=== PATIENT | female | born 1955 | race Caucasian/White ===

== ENCOUNTER 2018-06-02 12:01 | Emergency (ER) | payer BC, SELFPAY ==
[2018-06-02 12:04] VITALS: BP 156/70; PULSE 64; RESP 12; TEMP 36.6; O2SAT 99
--- NOTE | 2018-06-02 12:12 | W.ED.GENAD ---
Discharge Plan Disposition Patient Disposition: HOME Condition: Stable Discharge Details Chief Complaint: Urinary Clinical Impression: Urinary tract infection Primary Care Provider: Andre Braun ED Provider: Naresh Suarez Home Meds and New Rx's Prescriptions: New cephalexin 500 mg tablet 500 mg PO BID 7 Days Qty: 14 RF: 0 Continued aspirin [Aspir-81] 81 MG tablet,delayed release (DR/EC) 81 mg PO DAILY Qty: 30 RF: 0 blood pressure test kit-medium 1 EACH kit 1 ea Miscellaneous BID Qty: 1 RF: 0 diltiazem HCl 30 mg tablet 30 mg PO BID Qty: 180 RF: 3 Discharge Instructions Instructions: Urinary Tract Infection in Women (ED) Additional Instructions: Take medication as prescribed and until fully complete. If not improving over the next 48 hours please feel free to return to the emergency department for be reassessed. If not improving by the end of the antibiotics, with no emergent changes please, follow-up with your primary care provider for reassessment. Referrals: Andre Braun [Primary Care Provider] - (As needed for reassessment) Discharge Data Discharge Date/Time-TO BE ENTERED AT DEPARTURE: 06/02/18 13:26 Medical Decision Making Patient presenting to the emergency department chief complaint of bladder pressure and malaise. Patient states that this started around 7 hours prior to arrival and is similar in presentation to her previous episodes of urinary tract infection. Patient denies any fever chills, nausea vomiting diarrhea, hematuria. Physical exam is benign no signs of pyelonephritis or systemic illness. Urinalysis was performed and shows findings consistent with urinary tract infection. Patient was placed up on Keflex pending urine culture results. Patient states that she has been on Keflex the past and no cross reaction with her penicillin allergy. Patient encouraged to return for any new or worsening symptoms otherwise follow-up with her primary care provider as needed for reassessment. HPI General Mode of arrival: ambulatory. Date/Time Provider Initiated Documentation: 06/02/18 12:10. Limitations to Documentation: no limitations. Information obtained by: RN notes reviewed and old records reviewed. History of Present Illness 62 year old F presents to the emergency department with the chief complaint of UTI, described as mild and similar to prior episodes, Quality is described as other (pressure), and is localized to the pelvis (bladder). Patient started experiencing this hour(s) (7) and it has been constant. No relieving factors improve symptom(s), No exacerbating factors reported . Patient notes no other symptoms.. Patient did receive the following treatments prior to arrival, none Related Data Home Medications Medication Instructions Recorded Confirmed aspirin [Aspir-81] 81 mg PO DAILY #30 tab-cap 02/15/15 06/02/18 blood pressure test kit-medium #1 kit 10/07/16 04/27/18 diltiazem 30 mg tablet 30 mg PO BID #180 tab-cap 05/09/18 06/02/18 cephalexin 500 mg PO BID 7 Days #14 tab 06/02/18 Previous Rx's Medication Instructions Recorded diltiazem 30 mg tablet 30 mg PO BID #180 tab-cap 05/09/18 cephalexin 500 mg PO BID 7 Days #14 tab 06/02/18 Allergies Allergy/AdvReac Type Severity Reaction Status Date / Time erythromycin base Allergy Mild Unverified 04/27/18 08:52 [Erythromycin Base] Penicillins Allergy Mild Unverified 04/27/18 08:52 sulfamethoxazole Allergy Itching Unverified 04/27/18 08:52 [From Bactrim] trimethoprim [From Bactrim] Allergy Itching Unverified 04/27/18 08:52 nitrofurantoin AdvReac Unknown UPSET Unverified 04/27/18 08:52 macrocrystalline STOMACH [From Macrodantin] flecainide AdvReac Wide Unverified 04/27/18 08:52 complex tachycardia General Stated Complaint: Urinary RICARDO: 4 Review of Systems Constitutional Denies body ache(s), Denies chills, Denies fever(s), Reports malaise and Denies weakness Cardiovascular Denies chest pain Respiratory Reports system reviewed and no additional complaints, except as docu Gastrointestinal Denies abdominal pain, Denies nausea and Denies vomiting Genitourinary Reports as per HPI, Denies hematuria, Reports dysuria, Denies urinary incontinence, Denies urinary hesitancy and Denies urinary urgency Neurologic Denies confusion and Denies weakness Psychiatric Denies confusion REPLACED BY [facility] Medical History Atrial fibrillation Atrial flutter Dyspareunia in female Frequent UTI Surgical History Recurrent major depression in partial remission Family History Mother Personal history of malignant neoplasm Father No problems noted. Sister Essential hypertension Hyperlipidemia Sister Essential hypertension Hyperlipidemia Sister Essential hypertension Hyperlipidemia Grandfather No problems noted. Grandmother No problems noted. Social History Smoking/Tobacco Use Status: Never Exam Const General: cooperative and no acute distress Orientation: alert, awake and oriented x3 Resp Effort & Inspection: normal respiratory effort and able to speak in complete sentences Auscultation: clear to auscultation bilaterally Cardio Rate: regular rate Rhythm: regular rhythm Heart Sounds: S1 normal and S2 normal Back/Spine/Pelvis Back: no CVA tenderness Neuro General: alert, awake and oriented x3 Extrem General: normal capillary refill Course Vital Signs Temperature 36.6 C 06/02/18 12:04 Pulse 64 06/02/18 12:04 Respiratory Rate 12 06/02/18 12:04 Blood Pressure 156/70 H 06/02/18 12:04 Pulse Oximetry 99 06/02/18 12:04 Temperature 36.6 C 06/02/18 12:04 Temperature Source Temporal Artery Scan 06/02/18 12:04 Pulse 64 06/02/18 12:04 Respiratory Rate 12 06/02/18 12:04 Respiratory Effort Non-Labored 06/02/18 12:10 Blood Pressure 156/70 H 06/02/18 12:04 Blood Pressure Position Sitting 06/02/18 12:04 Pulse Oximetry 99 06/02/18 12:04 Oxygen Delivery Method Room Air 06/02/18 12:04 Oxygen Flow Rate 0 06/02/18 12:04 Pain Level 5 06/02/18 12:11
[2018-06-02 12:16] LABS: Bilirubin Negative (Negative); Blood Moderate (Negative); Clarity Sl Cloudy; Glucose Negative (Negative); Ketones 15 mg/dL (Negative); Leukocyte Esterase Moderate (Negative); Nitrite Positive (Negative); Specific Gravity 1.025 (1.005-1.025); Urobilinogen 0.2 EU/dL (Up TO 0.2); pH 5.5 (5-8)
[2018-06-02 12:26] LABS: WBC 20-50 HPF (0-5)
[2018-06-02 12:27] LABS: Bacteria Moderate HPF (Negative); C & S Indicated? No/Sq. Contamination; Casts Negative LPF (Negative); Crystals Negative HPF (Negative); Epithelial Cells Many HPF (Negative); Mucus Trace (Negative); RBC 20-50 (0-2)
[2018-06-02] MEDS: Cephalexin 500 MG CAP PO (13:22)
== END 2018-06-02 13:26 | disposition home or self-care (01) ==
PROVIDERS: Emergency Provider Nurse Practitioner Family; PCP Family Medicine
DX: N39.0 Urinary tract infection, site not specified (principal); B97.89 Other viral agents as the cause of diseases classified elsewhere
CPT/HCPCS: 99283; 81003; 81015

== ENCOUNTER 2018-11-15 12:37 | Emergency (ER) | payer BC, SELFPAY ==
[2018-11-15] VITALS (13 sets, daily range): BP systolic 130–186; BP diastolic 65–85; PULSE 56–85; RESP 13–24; TEMP 36.4–36.6; O2SAT 97–99
--- NOTE | 2018-11-15 12:40 | W.ED.GENAD ---
Discharge Plan Disposition Patient Disposition: HOME Condition: Improving Discharge Details Chief Complaint: Headache Clinical Impression: Headache, BP (high blood pressure) Primary Care Provider: Andre Braun ED Provider: Lety Bird Home Meds and New Rx's Prescriptions: New metoprolol succinate 25 mg tablet extended release 24 hr 25 mg PO DAILY Qty: 14 RF: 0 metaxalone [Skelaxin] 800 mg tablet 800 mg PO TID PRN (Reason: muscle spasm) Qty: 7 RF: 0 Continued aspirin [Aspir-81] 81 MG tablet,delayed release (DR/EC) 81 mg PO DAILY Qty: 30 RF: 0 Discontinued diltiazem HCl 30 mg tablet 30 mg PO BID Qty: 180 RF: 3 No Action blood pressure test kit-medium 1 EACH kit 1 ea Miscellaneous BID Qty: 1 RF: 0 Discharge Instructions Instructions: Hypertension (ED), General Headache (ED) Additional Instructions: Encourage hydration. May use Tylenol and/or Ibuprofen as needed for headache. May use Skelaxin for muscle spasm, this may be source of headache as I am concerned for tension headache Do not drive while taking this medication. In regard to your medications, stop the Diltiazem. Begin Metoprolol as prescribed, take this daily, todays dose already given. Go slowly when getting up, particularly from a laying down position. Please monitor your blood pressure twice a day as discussed, write this down and bring results to your primary care appointment on Wednesday. If you develop fevers/chills, increased pain, weakness, vision changes, or other new/worsening symptoms please seek care urgently once again. Referrals: Andre Braun [Primary Care Provider] - Discharge Data Discharge Date/Time-TO BE ENTERED AT DEPARTURE: 11/15/18 16:28 Medical Decision Making Patient is a 63-year-old female presents today with chief complaint of headache. She reports that headache began approximate 1 week ago while watching TV. Patient is associating this with her diltiazem. She reports that when she began diltiazem a few years ago, she had to cut back from 3 times daily dosing to twice daily dosing as she was having similar headache. States that she was advised by her manager skilled to cut back to once daily dosing and yet despite this, over the past 4 days, her pain is persisted. Did not take her diltiazem today. Denies any palpitations. States she is typically asymptomatic with her atrial fibrillation. Patient has had an ablation historian really, states that this took her from atrial flutter to atrial fibrillation and that she has been in it since. States that the pain initially began in the right shoulder radiating up to the right side of the head and wrapping around. Now endorsing pain bilatearlly. Also notes neck stiffness. Reports that she treated neck pain topically which worked well for this discomfort but that she subsequently developed a headache with consistent symptoms since that time. She reports that she is tried multiple [id number] medications without any relief of her headache. Denies any fevers or chills. Has also had generalized weakness. Denies any visual changes. No focal areas of weakness. No sensory changes. Denies recent illness. On exam, patient appears nontoxic. Patient is in to be slightly hypertensive at 156/65. Patient did recently stop her diltiazem, did not take this today. Patient is noted to be in atrial fibrillation but rate seems well controlled. Neuro exam is intact. She is full range of motion with no meningeal signs of the neck. Given the length of symptoms that this is been unresponsive to medical management thus far, plan to obtain CT scan as well as laboratory evaluation. Discussed this plan with the patient is in agreement. Plan to hydrate she does appear slightly dry on exam and admits to less than typical fluid intake. Will give Toradol and Tylenol for pain. CT reviewed by radiologist and noted to be negative. Labs concerning for elevated BUN, patient is receiving hydration. Alk phos is slightly elevated. Discussed this elevation with the patient. She will f/u with PCP regarding this. HO persists despite toradol and tylenol. She continues to describe what sounds to be a tension HO, has had increased stress recently. Will give Valium and reassess. Consulted with Dr. Ahn. Discussed presenting symptoms. Advised stopping diltiazem. Advised beginning on Metoprolol 25 QD. Does not meet criteria for anticoagulation. Advised she check home BP. Patient Artur has a home blood pressure cuff and will check this twice daily. She has an appointment Wednesday morning with her primary care at which time she will discuss the blood pressure readings. I encouraged hydration. The valium was very beneficial for the headache, we will discharge her with Skelaxin, hoping for less SE for the patient. She has upcoming appointment. She was given strict return precautions. She will follow-up with cardiology as well, she will call them to schedule follow-up appointment. Prescription for metoprolol as advised by Dr. Hurley will be given. All of her questions and concerns were addressed and she is in agreement with this plan. HPI General Mode of arrival: ambulatory. Date/Time Provider Initiated Documentation: 11/15/18 12:37. Limitations to Documentation: no limitations. Information obtained by: patient and RN notes reviewed. History of Present Illness 63 year old F presents to the emergency department with the chief complaint of headache, described as moderate, with intensity rated at 6. Quality is described as aching (wrapping around head bilaterally), and is localized to the head. Patient denies radiation (radiates up from right side of neck). Patient started experiencing this week(s) (1) and it has been constant. No relieving factors improve symptom(s), No exacerbating factors reported . Patient notes headaches, nausea/vomiting (nausea yesterday, since resolved) and weakness (general); denies confusion, chest pain, cough, diaphoresis, fever/chills, loss of appetite, rash, seizure, shortness of breath and syncope. Patient did receive the following treatments prior to arrival, NSAID Related Data Home Medications Medication Instructions Recorded Confirmed aspirin [Aspir-81] 81 mg PO DAILY #30 tab-cap 02/15/15 11/15/18 blood pressure test kit-medium #1 kit 10/07/16 04/27/18 metaxalone [Skelaxin] 800 mg PO TID PRN #7 tab 11/15/18 metoprolol succinate 25 mg PO DAILY #14 tab 11/15/18 Previous Rx's Medication Instructions Recorded metaxalone [Skelaxin] 800 mg PO TID PRN #7 tab 11/15/18 metoprolol succinate 25 mg PO DAILY #14 tab 11/15/18 Allergies Allergy/AdvReac Type Severity Reaction Status Date / Time erythromycin base Allergy Mild Unverified 11/15/18 12:42 [Erythromycin Base] Penicillins Allergy Mild Unverified 11/15/18 12:42 sulfamethoxazole Allergy Itching Unverified 11/15/18 12:42 [From Bactrim] trimethoprim [From Bactrim] Allergy Itching Unverified 11/15/18 12:42 nitrofurantoin AdvReac Unknown UPSET Unverified 11/15/18 12:42 macrocrystalline STOMACH [From Macrodantin] flecainide AdvReac Wide Unverified 11/15/18 12:42 complex tachycardia General RICARDO: 4 Review of Systems Constitutional Reports as per HPI, Denies chills, Reports fatigue, Denies fever(s), Denies frequent falls, Reports headache(s), Denies snoring and Reports weakness (generalized) Eyes Reports as per HPI, Denies blurry vision, Denies change in vision and Reports photophobia ENT Denies vertigo, Reports headache(s) and Denies neck pain Cardiovascular Reports as per HPI, Denies chest pain, Denies lightheadedness, Denies radiating jaw, neck or arm pain, Denies dyspnea and Denies dyspnea on exertion Respiratory Reports as per HPI, Denies chest congestion, Denies cough, Denies dyspnea, Denies dyspnea on exertion, Denies snoring, Denies stridor and Denies wheezing Gastrointestinal Reports as per HPI, Denies abdominal pain, Denies change in bowel habits, Denies nausea and Denies vomiting Musculoskeletal Reports as per HPI, Denies back pain, Denies myalgias, Denies muscle cramps, Denies neck pain and Denies numbness Integumentary/Breasts Reports as per HPI and Denies rash Neurologic Reports as per HPI, Denies abnormal movements, Denies abnormal speech, Denies behavioral changes, Denies confusion, Denies vertigo, Denies frequent falls, Reports headache(s), Denies focal weakness, Denies numbness, Denies sensory deficit and Reports weakness (generalized) Psychiatric Denies behavioral changes and Denies confusion Endocrine Reports fatigue Allergic/Immunologic Denies wheezing [facility] Medical History Atrial fibrillation Atrial flutter Dyspareunia in female Frequent UTI Surgical History Recurrent major depression in partial remission Social History Smoking/Tobacco Use Status: Never Drug use: Never Do you feel safe at home: Yes Do you feel safe in your relationship?: Yes Exam Const General: cooperative, healthy appearing, uncomfortable, no acute distress, well developed and well groomed Nutritional Appearance: average body habitus and well nourished Orientation: alert, awake and oriented x3 [facility] Head: normal to inspection, no palpable skull fracture, normocephalic and atraumatic Ears: hearing grossly normal bilaterally, external ears normal and TM's normal bilaterally General nose exam: external nose normal Mouth: oral mucosae normal and moist mucous membranes Throat: posterior oropharynx normal Eyes General: appearance normal, both eyes and all related structures Alignment and Position: alignment normal Periorbital: periorbital findings normal Eyelids: eyelids normal Sclera: sclerae normal Cornea: corneas normal Pupils: PERRL EOM: EOM intact bilaterally Neck Neck: normal visual inspection, full ROM, no lymphadenopathy and no meningeal signs Resp Effort & Inspection: normal respiratory effort, able to speak in complete sentences and no respiratory distress Auscultation: clear to auscultation bilaterally, no rales, no rhonchi and no wheezes Cardio Rate: regular rate Rhythm: regular rhythm Heart Sounds: S1 normal and S2 normal GI Inspection: normal to inspection and non-distended Palpation: soft, no hepatosplenomegaly, not firm, no guarding, not rigid and nontender Percussion: normal to percussion Auscultation: normal bowel sounds Back/Spine/Pelvis Cervical Spine: normal cervical lordosis and cervical ROM normal Skin General skin exam: no rashes or lesions noted Neuro General: alert, awake and oriented x3 Cranial Nerves: CN's II-XI intact bilaterally Cognition: normal cognition Speech: speech normal Gait: normal gait Motor: muscle tone normal throughout, strength 5/5 throughout, no pronator drift, no movement abnormalities noted and no fasciculations Sensory Exam: no sensory deficits noted Coordination: [id number] test normal, [id number] test normal, Romberg test normal and rapid alternating movement UE normal Extrem General: normal to inspection, normal capillary refill, no pedal edema and no calf tenderness Psych Appearance: grossly normal and well kempt Mental Status: mental status grossly normal Speech and Movement: speech and movement normal
--- NOTE | 2018-11-15 12:50 | NUR.NOTE ---
practioner at bedside for eval pt resting in bed aa0x3 moves all extremities Nursing Note:
--- NOTE | 2018-11-15 12:56 | DI.CT_ITS ---
SYMPTOMS/DIAGNOSIS: HEADACHE CRANIAL CT: A noncontrast enhanced examination was performed. There is no evidence of an intra or extra-axial hemorrhage. The villalobos/white matter distinction is maintained. The ventricles are normal. There is no evidence of a skull fracture. Mild mucoperiosteal thickening is noted in both maxillary antra where there are small retention cysts. The ethmoid, frontal and sphenoid sinus is clear. There is no evidence of a mastoid effusion. SUMMARY: No acute intracranial abnormality is demonstrated.
--- NOTE | 2018-11-15 13:02 | ED.GENADUL_ITS ---
Discharge Plan Disposition Patient Disposition: HOME Condition: Improving Discharge Details Chief Complaint: Headache Clinical Impression: Headache, BP (high blood pressure) Primary Care Provider: Andre Braun ED Provider: Lety Bird Home Meds and New Rx's Prescriptions: New metoprolol succinate 25 mg tablet extended release 24 hr 25 mg PO DAILY Qty: 14 RF: 0 metaxalone [Skelaxin] 800 mg tablet 800 mg PO TID PRN (Reason: muscle spasm) Qty: 7 RF: 0 Continued aspirin [Aspir-81] 81 MG tablet,delayed release (DR/EC) 81 mg PO DAILY Qty: 30 RF: 0 Discontinued diltiazem HCl 30 mg tablet 30 mg PO BID Qty: 180 RF: 3 No Action blood pressure test kit-medium 1 EACH kit 1 ea Miscellaneous BID Qty: 1 RF: 0 Discharge Instructions Instructions: Hypertension (ED), General Headache (ED) Additional Instructions: Encourage hydration. May use Tylenol and/or Ibuprofen as needed for headache. May use Skelaxin for muscle spasm, this may be source of headache as I am concerned for tension headache Do not drive while taking this medication. In regard to your medications, stop the Diltiazem. Begin Metoprolol as prescribed, take this daily, todays dose already given. Go slowly when getting up, particularly from a laying down position. Please monitor your blood pressure twice a day as discussed, write this down and bring results to your primary care appointment on Wednesday. If you develop fevers/chills, increased pain, weakness, vision changes, or other new/worsening symptoms please seek care urgently once again. Referrals: Andre Braun [Primary Care Provider] - Discharge Data Discharge Date/Time-TO BE ENTERED AT DEPARTURE: 11/15/18 16:28 Medical Decision Making Patient is a 63-year-old female presents today with chief complaint of headache. She reports that headache began approximate 1 week ago while watching TV. Patient is associating this with her diltiazem. She reports that when she began diltiazem a few years ago, she had to cut back from 3 times daily dosing to twice daily dosing as she was having similar headache. States that she was advised by her senior environmental technician to cut back to once daily dosing and yet despite this, over the past 4 days, her pain is persisted. Did not take her diltiazem today. Denies any palpitations. States she is typically asymptomatic with her atrial fibrillation. Patient has had an ablation historian really, states that this took her from atrial flutter to atrial fibrillation and that she has been in it since. States that the pain initially began in the right shoulder radiating up to the right side of the head and wrapping around. Now endorsing pain bilatearlly. Also notes neck stiffness. Reports that she treated neck pain topically which worked well for this discomfort but that she subsequently developed a headache with consistent symptoms since that time. She reports that she is tried multiple hnna-gjy-mgtvukd medications without any relief of her headache. Denies any fevers or chills. Has also had generalized weakness. Denies any visual changes. No focal areas of weakness. No sensory changes. Denies recent illness. On exam, patient appears nontoxic. Patient is in to be slightly hypertensive at 156/65. Patient did recently stop her diltiazem, did not take this today. Patient is noted to be in atrial fibrillation but rate seems well controlled. Neuro exam is intact. She is full range of motion with no meningeal signs of the neck. Given the length of symptoms that this is been unresponsive to medical management thus far, plan to obtain CT scan as well as laboratory evaluation. Discussed this plan with the patient is in agreement. Plan to hydrate she does appear slightly dry on exam and admits to less than typical fluid intake. Will give Toradol and Tylenol for pain. CT reviewed by radiologist and noted to be negative. Labs concerning for elevated BUN, patient is receiving hydration. Alk phos is slightly elevated. Discussed this elevation with the patient. She will f/u with PCP regarding this. HO persists despite toradol and tylenol. She continues to describe what sounds to be a tension HO, has had increased stress recently. Will give Valium and reassess. Consulted with Dr. Ahn. Discussed presenting symptoms. Advised stopping diltiazem. Advised beginning on Metoprolol 25 QD. Does not meet criteria for anticoagulation. Advised she check home BP. Patient Artur has a home blood pressure cuff and will check this twice daily. She has an appointment Wednesday morning with her primary care at which time she will discuss the blood pressure readings. I encouraged hydration. The valium was very beneficial for the headache, we will discharge her with Skelaxin, hoping for less SE for the patient. She has upcoming appointment. She was given strict return precautions. She will follow-up with cardiology as well, she will call them to schedule follow-up appointment. Prescription for metoprolol as advised by Dr. Hurley will be given. All of her questions and concerns were addressed and she is in agreement with this plan. HPI General Mode of arrival: ambulatory . Date/Time Provider Initiated Documentation: 11/15/18 12:37 . Limitations to Documentation: no limitations . Information obtained by: patient and RN notes reviewed . History of Present Illness 63 year old F presents to the emergency department with the chief complaint of headache, described as moderate, with intensity rated at 6. Quality is described as aching (wrapping around head bilaterally), and is localized to the head. Patient denies radiation (radiates up from right side of neck). Patient started experiencing this week(s) (1) and it has been constant. No relieving factors improve symptom(s), No exacerbating factors reported . Patient notes headaches, nausea/vomiting (nausea yesterday, since resolved) and weakness (general); denies confusion, chest pain, cough, diaphoresis, fever/chills, loss of appetite, rash, seizure, shortness of breath and syncope. Patient did receive the following treatments prior to arrival, NSAID Related Data Home Medications Medication Instructions Recorded Confirmed aspirin [Aspir-81] 81 mg PO DAILY #30 tab-cap 02/15/15 11/15/18 blood pressure test kit-medium #1 kit 10/07/16 04/27/18 metaxalone [Skelaxin] 800 mg PO TID PRN #7 tab 11/15/18 metoprolol succinate 25 mg PO DAILY #14 tab 11/15/18 Previous Rx's Medication Instructions Recorded metaxalone [Skelaxin] 800 mg PO TID PRN #7 tab 11/15/18 metoprolol succinate 25 mg PO DAILY #14 tab 11/15/18 Allergies Allergy/AdvReac Type Severity Reaction Status Date / Time erythromycin base Allergy Mild Unverified 11/15/18 12:42 [Erythromycin Base] Penicillins Allergy Mild Unverified 11/15/18 12:42 sulfamethoxazole Allergy Itching Unverified 11/15/18 12:42 [From Bactrim] trimethoprim [From Bactrim] Allergy Itching Unverified 11/15/18 12:42 nitrofurantoin AdvReac Unknown UPSET Unverified 11/15/18 12:42 macrocrystalline STOMACH [From Macrodantin] flecainide AdvReac Wide Unverified 11/15/18 12:42 complex tachycardia General RICARDO: 4 Review of Systems Constitutional Reports as per HPI, Denies chills, Reports fatigue, Denies fever(s), Denies frequent falls, Reports headache(s), Denies snoring and Reports weakness (generalized) Eyes Reports as per HPI, Denies blurry vision, Denies change in vision and Reports photophobia ENT Denies vertigo, Reports headache(s) and Denies neck pain Cardiovascular Reports as per HPI, Denies chest pain, Denies lightheadedness, Denies radiating jaw, neck or arm pain, Denies dyspnea and Denies dyspnea on exertion Respiratory Reports as per HPI, Denies chest congestion, Denies cough, Denies dyspnea, Denies dyspnea on exertion, Denies snoring, Denies stridor and Denies wheezing Gastrointestinal Reports as per HPI, Denies abdominal pain, Denies change in bowel habits, Denies nausea and Denies vomiting Musculoskeletal Reports as per HPI, Denies back pain, Denies myalgias, Denies muscle cramps, Denies neck pain and Denies numbness Integumentary/Breasts Reports as per HPI and Denies rash Neurologic Reports as per HPI, Denies abnormal movements, Denies abnormal speech, Denies behavioral changes, Denies confusion, Denies vertigo, Denies frequent falls, Reports headache(s), Denies focal weakness, Denies numbness, Denies sensory deficit and Reports weakness (generalized) Psychiatric Denies behavioral changes and Denies confusion Endocrine Reports fatigue Allergic/Immunologic Denies wheezing [facility] Medical History Atrial fibrillation Atrial flutter Dyspareunia in female Frequent UTI Surgical History Recurrent major depression in partial remission Social History Smoking/Tobacco Use Status: Never Drug use: Never Do you feel safe at home: Yes Do you feel safe in your relationship?: Yes Exam Const General: cooperative, healthy appearing, uncomfortable, no acute distress, well developed and well groomed Nutritional Appearance: average body habitus and well nourished Orientation: alert, awake and oriented x3 [facility] Head: normal to inspection, no palpable skull fracture, normocephalic and atraumatic Ears: hearing grossly normal bilaterally, external ears normal and TM's normal bilaterally General nose exam: external nose normal Mouth: oral mucosae normal and moist mucous membranes Throat: posterior oropharynx normal Eyes General: appearance normal, both eyes and all related structures Alignment and Position: alignment normal Periorbital: periorbital findings normal Eyelids: eyelids normal Sclera: sclerae normal Cornea: corneas normal Pupils: PERRL EOM: EOM intact bilaterally Neck Neck: normal visual inspection, full ROM, no lymphadenopathy and no meningeal signs Resp Effort & Inspection: normal respiratory effort, able to speak in complete sentences and no respiratory distress Auscultation: clear to auscultation bilaterally, no rales, no rhonchi and no wheezes Cardio Rate: regular rate Rhythm: regular rhythm Heart Sounds: S1 normal and S2 normal GI Inspection: normal to inspection and non-distended Palpation: soft, no hepatosplenomegaly, not firm, no guarding, not rigid and nontender Percussion: normal to percussion Auscultation: normal bowel sounds Back/Spine/Pelvis Cervical Spine: normal cervical lordosis and cervical ROM normal Skin General skin exam: no rashes or lesions noted Neuro General: alert, awake and oriented x3 Cranial Nerves: CN's II-XI intact bilaterally Cognition: normal cognition Speech: speech normal Gait: normal gait Motor: muscle tone normal throughout, strength 5/5 throughout, no pronator drift, no movement abnormalities noted and no fasciculations Sensory Exam: no sensory deficits noted Coordination: glgaoh-nl-lrog test normal, dgcm-ei-yzss test normal, Romberg test normal and rapid alternating movement UE normal Extrem General: normal to inspection, normal capillary refill, no pedal edema and no calf tenderness Psych Appearance: grossly normal and well kempt Mental Status: mental status grossly normal Speech and Movement: speech and movement normal
[2018-11-15 13:24] LABS: Absolute Basophil Count 0.04 k/cumm (0.0-0.2); Absolute Eosinophil Count 0.11 k/cumm (0.0-0.7); Absolute Lymphocyte Count 1.37 k/cumm (1.2-3.4); Absolute Monocyte Count 0.64 k/cumm (0.11-0.7); Absolute Neutrophil Count 5.02 k/cumm (1.2-6.7); Basophils % 0.6; Eosinophils % 1.5; HCT 47.1 % (36.0-46.0); HGB 15.9 g/dL (12.0-15.5); Lymphocytes % 19.1; Mean Corp. HGB Concentration 33.8 g/dL (32.0-36.0); Mean Corpuscular Hemoglobin 29.8 pg (27.0-33.0); Mean Corpuscular Volume 88.4 fL (80-95); Mean Platelet Volume 10.5 fL (8.0-11.0); Monocytes % 8.9; Neutrophils % 69.9; Platelet Count 208 x1000/uL (130-400); RBC 5.33 m/cumm (4.00-5.20); RBC Distribution Width 13.4 % (11.7-14.6); White Blood Cell Count 7.18 k/cumm (4.4-10.8)
--- NOTE | 2018-11-15 13:26 | NUR.NOTE ---
pt resting in bed ivf infusing on school lunch monitor ekg obtained read by md Nursing Note:
[2018-11-15 13:44] LABS: ALT 27 U/L (12-78); AST 21 U/L (15-37); Albumin 4.2 g/dL (3.4-5.0); Alkaline Phosphatase 124 U/L (46-116); Anion Gap 9.8 mmol/L (3-11); BUN 23 mg/dL (7-18); Bilirubin, Total 0.3 mg/dL (0.2-1.0); CO2 28.2 mmol/L (21.0-32.0); Calcium 9.5 mg/dL (8.5-10.1); Chloride 101 mmol/L (98-107); Estimated GFR 55.82 (mL/min/1.73m2); Glucose 93 mg/dL (70-100); Magnesium 2.2 mg/dL (1.8-2.4); Potassium 3.9 mmol/L (3.5-5.1); Sodium 139 mmol/L (136-145); TSH (W/Ref FT4) 2.82 uIU/mL (0.358-3.74); Total Protein 7.9 g/dL (6.4-8.2)
[2018-11-15 13:46] LABS: Troponin I < 0.02 ng/mL (0.00-0.06)
[2018-11-15] MEDS: Ketorolac 15 MG/ML VIAL IVP (13:47)
[2018-11-15] MEDS: Normal Saline Flush 10 ML SYR IVP (13:48)
[2018-11-15] MEDS: Acetaminophen 325 MG TAB 650 MG PO (13:48)
[2018-11-15] MEDS: Normal Saline 1,000 ML 1000 ML IV (13:48)
--- NOTE | 2018-11-15 13:52 | NUR.NOTE ---
pt to ct Nursing Note:
[2018-11-15 14:03] LABS: ESR 5 MM/HR (0-30)
[2018-11-15] MEDS: diazePAM 5 MG TAB PO (14:46)
--- NOTE | 2018-11-15 14:46 | NUR.NOTE ---
pt medicated as per mdo for headpain tolorating po intakeNursing Note:
[2018-11-15] MEDS: Metoprolol 25 MG TAB PO (15:08)
--- NOTE | 2018-11-15 15:16 | NUR.NOTE ---
pt medicated as per mdo on cardiac monitorNursing Note:
--- NOTE | 2018-11-15 15:21 | NUR.NOTE ---
pt ambulatory to bathroom steady gait Nursing Note:
== END 2018-11-15 16:28 | disposition home or self-care (01) ==
PROVIDERS: Emergency Provider Physician Assistant; PCP Family Medicine
DX: R51 Headache (principal); I10 Essential (primary) hypertension; I48.91 Unspecified atrial fibrillation; I48.92 Unspecified atrial flutter
CPT/HCPCS: 80053; 85652; 96361; 96374; 99284; 70450; 83735; 84443; 84484; 85025; J1885; J3490

== ENCOUNTER 2019-02-14 11:59 | Outpatient (REF) | payer BC, SELFPAY ==
--- NOTE | 2019-02-14 10:30 | PAPFT_PTH ---
PATIENT: Ally Hayes LOC: [facility] U#:[id number] AGE/SX: 63/F ROOM: RE02/14/[address]: Tran Burkett : 1955 BED: DIS: 02/14/2019 SPEC #: [id number] RECD: 02/14/19 12:52 STATUS: OLGA LIDIA REQ #: [id number] REGINALD: 02/14/19 10:[address]: Tran Burkett DEPT: [facility] Cytology RECD BY: Shagufta Henry ENTERED: 02/14/19 12:52 SP TYPE: PAPFT OTHR DR: Andre Braun MD Tissues: 1 - CX/ENDOCX FOR PAP SMEARS Procedures: PAP THIN PREP/UVM Screening HPV DNA PROBE Comments: [id number]
== END 2019-02-14 12:19 ==
LOC: LBN 11:59
PROVIDERS: PCP Family Medicine; Visit Provider Obstetrics & Gynecology Gynecology
DX: Z12.4 Encounter for screening for malignant neoplasm of cervix (principal); Z11.51 Encounter for screening for human papillomavirus (HPV)
CPT/HCPCS: 88142; 87624

== ENCOUNTER 2019-03-14 01:40 | Outpatient (CLI) | payer BC, SELFPAY ==
--- NOTE | 2019-03-14 08:30 | DI.MAMMO_ITS ---
EXAM: MG MAMMO SCREENING CLINICAL HISTORY: screening. TECHNIQUE: Mammograms were interpreted according to the usual protocol including computer analysis w [employer] CAD system, tomosynthesis and C-view imaging. FINDINGS: The breast tissue is of moderate radiodensity. There is no evidence of a mass. There are no suspici ous calcifications and there has been no significant interval change when compared with prior images. IMPRESSION: No evidence of malignancy. Category 1. Yearly screening mammography is recommended. Breast density, c ategory B. BI-RADS Cat 1 - Negative. Breast Density - Category B - Scattered areas of fibroglandular density.
== END 2019-03-14 02:00 ==
PROVIDERS: PCP Family Medicine; Visit Provider Obstetrics & Gynecology Gynecology
DX: Z12.31 Encounter for screening mammogram for malignant neoplasm of breast (principal)
CPT/HCPCS: 77063; 77067

== ENCOUNTER 2019-04-13 22:56 | Emergency (ER) | payer BC, SELFPAY ==
[2019-04-13 22:59] VITALS: BP 184/97; PULSE 68; RESP 16; TEMP 36.2; O2SAT 98
--- NOTE | 2019-04-13 23:05 | ED.GENADUL_ITS ---
Discharge Plan Disposition Patient Disposition: HOME Condition: Good Discharge Details Chief Complaint: Urinary Clinical Impression: Acute UTI Primary Care Provider: Andre Braun ED Provider: Raudel Lugo Home Meds and New Rx's Prescriptions: New cephalexin [Keflex] 500 mg capsule 500 mg PO QID 10 Days Qty: 40 RF: 0 No Action lisinopril 5 mg tablet 2.5 mg PO DAILY Qty: 45 RF: 3 metoprolol succinate 25 mg tablet extended release 24 hr 25 mg PO DAILY Qty: 90 RF: 3 albuterol sulfate 90 mcg/actuation HFA aerosol inhaler 2 puff IH QID PRN (Reason: shortness of breath or wheezing) Qty: 18 RF: 0 aspirin [Aspir-81] 81 MG tablet,delayed release (DR/EC) 81 mg PO DAILY Qty: 30 RF: 0 (DME) blood pressure test kit-medium 1 EACH kit 1 ea Miscellaneous BID Qty: 1 RF: 0 prednisone 20 mg tablet See Rx Instructions PO DAILY Qty: 11 RF: 0 Discharge Instructions Instructions: Urinary Tract Infection in Women (ED) Additional Instructions: At this time you do have evidence of urinary tract infection. You may have mild resistance of the Keflex, however you have seemed to tolerate this well amongst her multiple allergies. Please take this as directed. You will be contacted if there is resistance noted to this. If you do not have any improvement of your symptoms please return immediately for reassessment. If you notice any worsening of your symptoms, or any new symptoms such as vomiting, diarrhea, fever, chills, shortness of breath, chest pain, numbness, weakness, or fainting , please return immediately to the emergency department for reevaluation. Please follow up with your primary care provider as soon as possible for reassessment and reevaluation. As always, it was a pleasure participating in your medical care today. Referrals: Andre Braun. [Primary Care Provider] - Medical Decision Making This is a 63-year-old female with a past medical history of A. fib who is only on aspirin, who presents today for evaluation of symptoms concerning for UTI. She states that over the last 12 hours she has had mild increased urinary frequency, burning, and irritation. She states that she has had urinary tract infections in the past and this feels identical. She denies any flank pain. She denies any fever or chills. No other complaints at this time. Of note the patient does have multiple allergies including penicillins, sulfa, nitrofurantoin, however she has tolerated Keflex in the past for UTI. She does show indeterminate resistance to cephalosporins in the past. We will get a urinalysis to evaluate for UTI. Will discuss potential treatment options including fluoroquinolones which I am slightly concerned about with her issues with flecainide in the past and her wide-complex tachycardias that have occurred from them. 12:27 PM Patient's urinalysis is returned and demonstrates notable urinary tract infection. However the patient remains hemodynamically stable with no clinical evidence of pyelonephritis or other significant abnormality. No abdominal tenderness suggestive of appendicitis. Signs and symptoms appear clinically consistent with urinary tract infection. I did discuss risks and benefits of fluoroquinolones versus trying Keflex again. At this time she would like to hold off on fluoroquinolones and utilize Keflex. We will give her first dose here, pill to go home with and a prescription. Labs will be followed up for her cultures. Discussed red flags which to return. I have extensively reviewed the treatment plan and discharge instructions with the patient. I have addressed all patient concerns at this time. The patient was made aware of what symptoms to monitor for that would warrant a return to the emergency department. Discussed the plan with the patient, they demonstrate verbal understanding and agreement with our assessment and plan at this time. HPI General Date/Time Provider Initiated Documentation: 04/13/19 22:56 . HPI Narrative: This is a 63-year-old female with a past medical history of A. fib who is only on aspirin, who presents today for evaluation of symptoms concerning for UTI. She states that over the last 12 hours she has had mild increased urinary frequency, burning, and irritation. She states that she has had urinary tract infections in the past and this feels identical. She denies any flank pain. She denies any fever or chills. No other complaints at this time. Of note the patient does have multiple allergies including penicillins, sulfa, nitrofurantoin, however she has tolerated Keflex in the past for UTI. She does show indeterminate resistance to cephalosporins in the past. Related Data Home Medications Medication Instructions Recorded Confirmed aspirin [Aspir-81] 81 mg PO DAILY #30 tab-cap 09/11/15 10/11/19 blood pressure test kit-medium #1 kit 10/07/16 03/17/19 lisinopril 5 mg tablet 2.5 mg PO DAILY #45 tab 12/28/18 03/17/19 metoprolol succinate 25 mg 25 mg PO DAILY #90 tab 12/28/18 03/17/19 tablet,extended release 24 hr albuterol sulfate 90 mcg/actuation 2 puff IH QID PRN #18 gm 03/17/19 03/17/19 aerosol inhaler prednisone 20 mg tablet See Rx Instructions PO DAILY #11 03/20/19 tab cephalexin [Keflex] 500 mg PO QID 10 Days #40 cap 04/14/19 Previous Rx's Medication Instructions Recorded lisinopril 5 mg tablet 2.5 mg PO DAILY #45 tab 12/28/18 metoprolol succinate 25 mg 25 mg PO DAILY #90 tab 12/28/18 tablet,extended release 24 hr albuterol sulfate 90 mcg/actuation 2 puff IH QID PRN #18 gm 03/17/19 aerosol inhaler prednisone 20 mg tablet See Rx Instructions PO DAILY #11 03/20/19 tab cephalexin [Keflex] 500 mg PO QID 10 Days #40 cap 04/14/19 Allergies Allergy/AdvReac Type Severity Reaction Status Date / Time erythromycin base Allergy Mild Unverified 04/13/19 23:02 [Erythromycin Base] Penicillins Allergy Mild Unverified 04/13/19 23:02 sulfamethoxazole Allergy Itching Unverified 04/13/19 23:02 [From Bactrim] trimethoprim [From Bactrim] Allergy Itching Unverified 04/13/19 23:02 nitrofurantoin AdvReac Unknown UPSET Unverified 04/13/19 23:02 macrocrystalline STOMACH [From Macrodantin] flecainide AdvReac Wide Unverified 04/13/19 23:02 complex tachycardia General Stated Complaint: Urinary RICARDO: 4 Review of Systems All systems reviewed & are unremarkable except as noted in HPI and below PFSH Social History Smoking/Tobacco Use Status: Never Drug use: Never Substance use type: does not use Do you feel safe at home: Yes Do you feel safe in your relationship?: Yes History History 0 Para Hx # Term Pregnancies Multiple births Hx # Pregnancies Ectopic pregnancies AB induced Hx Number of Living Children AB spontaneous Exam Narrative Exam Narrative: 1.Const: Well-nourished, Well-developed, appearing stated age 2.Eyes: PERRL, no conjunctival injection, and symmetrical lids. 3.ENT: Atraumatic external nose and ears. Moist MM. Neck: Symmetric, trachea midline, No thyromegaly. 4.CVS: +S1/S2, No murmurs or gallops. Peripheral pulses 2+ and equal in all extremities. Brisk capillary refill in all extremities. 5.RESP: Unlabored respiratory effort. Clear to auscultation bilaterally. No wheezes rales or rhonchi 6.GI: Soft, Nontender/Nondistended, No hepatosplenomegaly. No guarding or rebound.. No flank or CVA tenderness. 7.MSK: Normocephalic/Atraumatic, Extremities w/o deformity or ttp No cyanosis or clubbing, Normal movement of all extremities 8.Skin: Warm, Dry. No rashes or lesions. 9.Neuro: trustee of estate II-XII grossly intact. Sensation grossly intact, no focal neurologic deficits. 10.Psych: (AAO) x3. Appropriate mood and affect Course Vital Signs Vital signs: Vital Signs Temperature 36.2 C L 04/13/19 22:59 Pulse 68 04/13/19 22:59 Respiratory Rate 16 04/13/19 22:59 Blood Pressure 184/97 H 04/13/19 22:59 Pulse Oximetry 98 04/13/19 22:59 Temperature 36.2 C L 04/13/19 22:59 Temperature Source Skin 04/13/19 22:59 Pulse 68 04/13/19 22:59 Respiratory Rate 16 04/13/19 22:59 Blood Pressure 184/97 H 04/13/19 22:59 Blood Pressure Position Sitting 04/13/19 22:59 Pulse Oximetry 98 04/13/19 22:59 Oxygen Delivery Method Room Air 04/13/19 22:59 Oxygen Flow Rate 0 04/13/19 22:59 Pain Level 3 04/13/19 22:59
[2019-04-13 23:15] LABS: Bilirubin Negative (Negative); Blood Trace-intact (Negative); Clarity Sl Cloudy (Clear); Glucose Negative (Negative); Ketones Negative (Negative); Leukocyte Esterase Small (Negative); Nitrite Negative (Negative); Urobilinogen 0.2 EU/dL (Up TO 0.2); pH 5.5 (5-8)
[2019-04-13 23:31] LABS: Epithelial Cells Many HPF (Negative); Other Cells Moderate Renal (Negative); RBC >50 (0-2); WBC >50 HPF (0-5)
[2019-04-13 23:32] LABS: Bacteria Many HPF (Negative); C & S Indicated? No/Sq. Contamination; Casts Negative LPF (Negative); Crystals Negative HPF (Negative); Mucus Negative (Negative)
[2019-04-14] MEDS: Cephalexin 500 MG CAP PO (00:01)
== END 2019-04-14 00:10 | disposition home or self-care (01) ==
PROVIDERS: Emergency Provider Student in an Organized Health Care Education/Training Program; PCP Family Medicine
DX: N39.0 Urinary tract infection, site not specified (principal); I48.91 Unspecified atrial fibrillation; Z79.82 Long term (current) use of aspirin
CPT/HCPCS: 99283; 81003; 81015

== ENCOUNTER 2019-06-25 16:34 | Observation (INO) | payer BC, SELFPAY ==
[2019-06-25] VITALS (12 sets, daily range): BP systolic 154–178; BP diastolic 72–97; PULSE 50–72; RESP 16–20; TEMP 36.1–36.9; O2SAT 96–100
[2019-06-25] MEDS: Normal Saline Flush 10 ML SYR IVP (17:00)
--- NOTE | 2019-06-25 17:17 | ED.GENADUL_ITS ---
Discharge Plan Disposition Patient Disposition: [facility] INPATIENT Condition: Serious Discharge Details Chief Complaint: Headache Clinical Impression: Hypertension, Headache Primary Care Provider: Andre Braun ED Provider: Nilay Pierre Home Meds and New Rx's Prescriptions: No Action metoprolol succinate 25 mg tablet extended release 24 hr 25 mg PO DAILY Qty: 90 RF: 3 aspirin [Aspir-81] 81 MG tablet,delayed release (DR/EC) 81 mg PO DAILY Qty: 30 RF: 0 (DME) blood pressure test kit-medium 1 EACH kit 1 ea Miscellaneous BID Qty: 1 RF: 0 losartan 50 mg tablet 50 mg PO DAILY Qty: 30 RF: 5 metaxalone [Skelaxin] 800 mg tablet 800 mg PO TID PRN (Reason: muscle spasm) Qty: 14 RF: 0 Medical Decision Making 17:25 --63-year-old female with history of labile hypertension, atrial fibrillation, on low-dose extended release metoprolol, low-dose aspirin, recently switched from lisinopril to losartan for cough about 1 week ago, here with persistently elevated blood pressure over the past 1 week with systolic ranging from 160-170 and complaint of mild to moderate headache. Patient is hypertensive here today with blood pressure of 171/97. She is in atrial fibrillation but rate controlled. No meningeal signs on exam. Patient is neurologically intact. No papilledema. Plan to treat elevated blood pressure with short acting metoprolol 25 mg p.o. I have advised her to take her nighttime dose of extended release metoprolol 25 mg. Consider mass or less likely subarachnoid hemorrhage given presentation. Plan to obtain CT of the head. --CT of the head was interpreted by radiology: No acute intracranial findings. Physiologic calcification in the basal ganglia. No edema or hemorrhage. Small benign-appearing maxillary sinus polyps or retention cyst, minor mucosal thickening probably similar to prior. Labs reviewed and nondiagnostic. Patient reassessed and continues to have mild to moderate headache. Her blood pressure remains elevated 170/102 despite metoprolol. I discussed limitations of CT imaging and recommended proceeding to lumbar puncture. Discussed procedure with the patient and she provided informed refusal noting she would prefer to treat blood pressure and will consider lumbar puncture at a later date if symptoms persisted. I explained that delay in diagnosis could result in lifestyle modifying or life-threatening disease and patient verbalized understanding and still declined. Plan to give norvasc and reassess. -- Toradol 30mg IV given for HO. --Patient reassessed and blood pressure remains elevated. I called and spoke with Dr. Quach who feels admission for BP control is indicated. Bridging orders placed to the floor on telemetry as requested. HPI General Mode of arrival: ambulatory . Date/Time Provider Initiated Documentation: 06/25/19 16:40 . Limitations to Documentation: no limitations . Information obtained by: patient . HPI Narrative: 63-year-old female with history labile hypertension, atrial fibrillation, headache in the past, presents today with chief complaint of headache. Patient notes for the past 1 week she has had headache that is waxed and waned. Headache has migrated in terms of location currently top of her head and frontal. Headache is mild to moderate. Headache is not the worst headache of her life infection had a much worse headache about 6 months ago with an episode of hypertension. She has had associated nausea this morning and mild dizziness. No focal weakness or numbness. No visual changes currently but does note that she is had some difficulty focusing with the past couple days at times. No associated neck stiffness or fever. Patient notes that she was switched from lisinopril to losartan about 1 week ago for chronic cough and that is when the headache started she attributes her headache to elevated blood pressure.. Related Data Home Medications Medication Instructions Recorded Confirmed aspirin [Aspir-81] 81 mg PO DAILY #30 tab-cap 02/15/15 06/25/19 blood pressure test kit-medium #1 kit 10/07/16 06/14/19 metoprolol succinate 25 mg 25 mg PO DAILY #90 tab 12/28/18 06/25/19 tablet,extended release 24 hr losartan 50 mg tablet 50 mg PO DAILY #30 tab 06/19/19 06/25/19 metaxalone 800 mg tablet 800 mg PO TID PRN #14 tab 06/21/19 06/25/19 Previous Rx's Medication Instructions Recorded metoprolol succinate 25 mg 25 mg PO DAILY #90 tab 12/28/18 tablet,extended release 24 hr losartan 50 mg tablet 50 mg PO DAILY #30 tab 06/19/19 metaxalone 800 mg tablet 800 mg PO TID PRN #14 tab 06/21/19 Allergies Allergy/AdvReac Type Severity Reaction Status Date / Time erythromycin base Allergy Mild Verified 06/25/19 16:42 [Erythromycin Base] Penicillins Allergy Mild Verified 06/25/19 16:42 sulfamethoxazole Allergy Itching Verified 06/25/19 16:42 [From Bactrim] trimethoprim [From Bactrim] Allergy Itching Verified 06/25/19 16:42 lisinopril AdvReac Severe Other (See Unverified 06/25/19 17:39 Comment) losartan AdvReac Intermediate Headache Unverified 06/25/19 17:39 nitrofurantoin AdvReac Unknown UPSET Verified 06/25/19 16:42 macrocrystalline STOMACH [From Macrodantin] flecainide AdvReac Wide Verified 06/25/19 16:42 complex tachycardia General Stated Complaint: Headache RICARDO: 3 Review of Systems All systems reviewed & are unremarkable except as noted in HPI and below Constitutional Constitutional: Reports fatigue, Denies fever(s) and Reports headache(s) ENT Ears, Nose, Mouth, and Throat: Reports headache(s) Cardiovascular Cardiovascular: Denies chest pain Neurologic Neurologic: Reports headache(s) Endocrine Endocrine: Reports fatigue PFSH Medical History Atrial fibrillation rate controlled with meds. Atrial flutter s/p ablation 2006. Dyspareunia in female since menopause. Frequent UTI since menopause. Surgical History Recurrent major depression in partial remission Atrial flutter. 2006. resolved but AFib persisted. Family History Mother Personal history of malignant neoplasm Salivary gland Father No problems noted. Sister Essential hypertension Hyperlipidemia Sister Essential hypertension Hyperlipidemia Sister Essential hypertension Hyperlipidemia Grandfather No problems noted. Grandmother No problems noted. Social History Smoking/Tobacco Use Status: Never Alcohol Intake: never Drug use: Never Substance use type: does not use Do you feel safe at home: Yes Do you feel safe in your relationship?: Yes History History 0 Para Hx # Term Pregnancies Multiple births Hx # Pregnancies Ectopic pregnancies AB induced Hx Number of Living Children AB spontaneous Exam Const General: cooperative and no acute distress HENMT Head: normocephalic and atraumatic Mouth: moist mucous membranes Eyes Conjunctivae: normal conjunctivae EOM: EOM intact bilaterally Direct ophthalmoscopy: no papilledema Neck Neck: full ROM, no meningeal signs, trachea midline and supple Resp Auscultation: clear to auscultation bilaterally, no rales, no rhonchi and no wheezes Cardio Jugular venous pressure: no JVD Rate: regular rate and not tachycardic Rhythm: abnormal rhythm GI Palpation: soft, not firm, no guarding, no masses, not rigid and nontender Skin General skin exam: no rashes or lesions noted Neuro General: alert, awake, oriented x3 and tone normal Cranial Nerves: CN's II-XI intact bilaterally Cognition: normal cognition Speech: speech normal Motor: muscle tone normal throughout and strength 5/5 throughout Sensory Exam: no sensory deficits noted Extrem General: no edema Psych Appearance: grossly normal Mental Status: mental status grossly normal Speech and Movement: speech and movement normal Course Vital Signs Vital signs: Vital Signs Temperature 36.4 C L 06/25/19 16:37 Pulse 71 06/25/19 16:37 Respiratory Rate 20 06/25/19 16:37 Blood Pressure 171/97 H 06/25/19 16:37 Pulse Oximetry 99 06/25/19 16:37 Temperature 36.4 C L 06/25/19 16:37 Temperature Source Skin 06/25/19 16:37 Pulse 71 06/25/19 16:37 Respiratory Rate 20 06/25/19 16:37 Blood Pressure 171/97 H 06/25/19 16:37 Blood Pressure Position Sitting 06/25/19 16:37 Pulse Oximetry 99 06/25/19 16:37 Oxygen Delivery Method Room Air 06/25/19 16:37 Oxygen Flow Rate 0 06/25/19 16:37 Pain Level 5 06/25/19 16:37
[2019-06-25] MEDS: Metoprolol 25 MG TAB PO (17:48)
[2019-06-25 18:03] LABS: Abs Immature Grans 0.01 k/cumm (0.0-0.09); Absolute Basophil Count 0.04 k/cumm (0.0-0.2); Absolute Eosinophil Count 0.23 k/cumm (0.0-0.7); Absolute Lymphocyte Count 1.47 k/cumm (1.2-3.4); Absolute Monocyte Count 0.74 k/cumm (0.11-0.7); Absolute Neutrophil Count 3.89 k/cumm (1.2-6.7); Basophils % 0.6; Eosinophils % 3.6; HCT 47.6 % (36.0-46.0); HGB 15.8 g/dL (12.0-15.5); Immature Grans % 0.2 %; Mean Corp. HGB Concentration 33.2 g/dL (32.0-36.0); Mean Corpuscular Hemoglobin 29.4 pg (27.0-33.0); Mean Corpuscular Volume 88.5 fL (80-95); Mean Platelet Volume 10.3 fL (8.0-11.0); Monocytes % 11.6; Platelet Count 205 x1000/uL (130-400); RBC 5.38 m/cumm (4.00-5.20); RBC Distribution Width 13.2 % (11.7-14.6); White Blood Cell Count 6.38 k/cumm (4.4-10.8)
[2019-06-25 18:16] LABS: ALT 24 U/L (14-59); AST 22 U/L (15-37); Alkaline Phosphatase 124 U/L (46-116); Anion Gap 8.6 mmol/L (3-11); BUN 19 mg/dL (7-18); Bilirubin, Total 0.3 mg/dL (0.2-1.0); CO2 29.4 mmol/L (21.0-32.0); CREATININE 0.72 mg/dL (0.55-1.02); Chloride 104 mmol/L (98-107); Glucose 92 mg/dL (74-106); Potassium 3.9 mmol/L (3.5-5.1); Sodium 142 mmol/L (136-145); Total Protein 7.4 g/dL (6.4-8.2)
[2019-06-25 18:18] LABS: Troponin I < 0.05 ng/Ml (<0.06)
--- NOTE | 2019-06-25 18:32 | DI.CT_ITS ---
EXAM: CT HEAD WO CLINICAL HISTORY: headache TECHNIQUE: COMPARISON: CT HEAD WO from 11/15/2018 FINDINGS: Noncontrast cranial CT was performed. There is mild mucoperiosteal thickening of maxillary antra nasir aterally consistent with mild chronic sinus disease and there are probable small polyps or retention cysts bilaterally. Otherwise paranasal sinuses and mastoid air cells appear clear. Orbital and temp oral bone structures appear intact. No evidence of acute intracranial hemorrhage, mass effect, or mi dline shift. Ventricular system is normal in appearance. IMPRESSION: No evidence of acute intracranial process.
--- NOTE | 2019-06-25 18:39 | DI.VRAD_ITS ---
PROCEDURE INFORMATION: Exam: CT Head Without Contrast Exam date and time: 06/25/2019 18:29 Age: 63 years old Clinical indication: Pain; Headache not specified; Patient HX: Headache/dizzy TECHNIQUE: Imaging protocol: Computed tomography of the head without contrast. Radiation optimization: All CT scans at this facility use at least one of these dose optimization techniques: automated exposure control; mA and/or kV adjustment per patient size (includes targeted exams where dose is matched to clinical indication); or iterative reconstruction. COMPARISON: CT HEAD WO 11/15/2018 13:56 FINDINGS: Brain: Physiologic calcification in the basal ganglia. No significant white matter disease for the patient's age. No edema or hemorrhage. Ventricles: No ventriculomegaly. Bones/joints: No acute fracture. Sinuses: Small benign-appearing maxillary sinus polyps or retention cysts, minor mucosal thickening probably similar to prior. Mastoid air cells: No mastoid effusion. Soft tissues: No suspicious lesions. IMPRESSION: No acute intracranial findings. Dictated and Authenticated by: Natalie Baeza MD. Ordering:LUIS Pemberton MD
[2019-06-25] MEDS: Acetaminophen 325 MG TAB 650 MG PO (18:54)
[2019-06-25] MEDS: amLODIPine 5 MG TAB PO (19:44)
[2019-06-25] MEDS: Ketorolac 30 MG/ML VIAL (20:44)
--- NOTE | 2019-06-25 21:51 | W.PM.HP.N ---
Date of service: 06/25/19 Time of Service: 21:52 Assessment and Plan Assessment and plan (1) Hypertension: Status: Chronic Assessment and plan: Poorly controlled essential hypertension. We will continue current dose of Toprol-XL as this is controlling her atrial fibrillation rate. We will continue with the Norvasc that was started in emergency department. I explained the patient that the losartan did not cause her elevated blood pressures this past week. If the amlodipine alone is not controlling her blood pressure then consider resumption of the losartan and increased dose of 100 mg daily. Other considerations could be given toward switching her Toprol-XL to carvedilol which would control both her atrial fibrillation rate and do a better job of controlling her blood pressure. Qualifiers: Hypertension type: essential hypertension Qualified Code(s): I10 - Essential (primary) hypertension (2) Headache: Status: Acute Assessment and plan: Patient states her headache was greatly improved with the Toradol. I have written for as needed Toradol, also try her on an oral dose of Valium. During her previous ER admission 6 months ago she was given Valium which gave her great relief. I think her headache is more of a muscle contraction type headache. We will try combination of tramadol and Toradol and a muscle relaxant. (3) A-fib: Status: Acute History of Present Illness History of Present Illness Chief Complaint: headache, elevated blood pressures Narrative: 63-year-old female with a past medical history of essential hypertension usually well controlled, atrial fibrillation also usually well controlled with low-dose Toprol-XL but not anticoagulated. She recently saw her PCP Dr. Andre Braun who switched her from lisinopril to losartan due to an CLARIBEL inhibitor induced cough. Ever since the change in her blood pressure medications her blood pressures been running high for the last week with systolic blood pressures ranging from 160-170 mm and now she complains of a moderate headache. In the emergency department her blood pressure on arrival was elevated at 171/97 and transiently dipped down to 158/77 prior to receiving Norvasc 5 mg p.o. in the emergency department. Work-up by Dr. Nilay Pierre, emergency room attending, included routine labs including a CBC that was fairly unremarkable. CMP also unremarkable. And a CT of her head without contrast that showed no acute intracranial findings. She had physiologic calcifications in the basal ganglia. But no edema and no cerebral hemorrhage and no ventriculomegaly. She has some small benign-appearing maxillary sinus polyps or retention cysts. Treatment emergency department included treatment of her headache with Toradol and attempts to bring down her blood pressure by giving her Lopressor 25 mg orally and having her take her evening dose of Toprol-XL. She was also given Norvasc 5 mg orally and Tylenol 650 mg. Because of the persistent headaches and continued elevated blood pressure Dr. Pierre recommended overnight observation while we try to regulate her blood pressure and get control of her headaches. Although the CT scan of her head did not show any cerebral bleed he did recommend to the patient that she undergo an LP to be absolutely certain that there is no subarachnoid hemorrhage. Patient declined to have a lumbar puncture. Patient is refusing to take the losartan as she feels that the losartan caused her headaches. Review of Systems Constitutional Constitutional: Reports as per HPI Eyes Eyes: Reports system reviewed and no additional complaints, except as docu ENT Ears, Nose, Mouth, and Throat: Reports system reviewed and no additional complaints, except as docu Cardiovascular Cardiovascular: Reports system reviewed and no additional complaints, except as docu Respiratory Respiratory: Reports system reviewed and no additional complaints, except as docu Gastrointestinal Gastrointestinal: Reports as per HPI Genitourinary Genitourinary: Reports system reviewed and no additional complaints, except as docu Musculoskeletal Musculoskeletal: Reports stiffness (Bursitis left hip) Integumentary/Breasts Skin/Breast: Reports system reviewed and no additional complaints, except as docu Neurologic Neurologic: Reports system reviewed and no additional complaints, except as docu Psychiatric Psychiatric: Reports system reviewed and no additional complaints, except as docu Endocrine Endocrine: Reports system reviewed and no additional complaints, except as docu Hematologic/Lymphatic Hematologic/Lymphatic: Reports system reviewed and no additional complaints, except as docu Allergic/Immunologic Allergic/Immunologic: Reports system reviewed and no additional complaints, except as docu [facility] Medical History (Updated 06/25/19 @ 22:00 by Kemar Quach) Atrial fibrillation rate controlled with meds. Atrial flutter s/p ablation 2005. Dyspareunia in female since menopause. Frequent UTI since menopause. Hypertension (Chronic) Recurrent major depression in partial remission Atrial flutter. 2005. resolved but AFib persisted. Surgical History (Updated 06/25/19 @ 23:10 by Kemar Quach) H/O cardiac catheterization (Chronic) Status post ablation of atrial flutter Status post tonsillectomy (Acute) Family History (Updated 06/25/19 @ 23:11 by Kemar Quach) Mother Personal history of malignant neoplasm Salivary gland Father Dementia Heart disease Sister Essential hypertension Hyperlipidemia Sister Essential hypertension Hyperlipidemia Sister Essential hypertension Hyperlipidemia Social History (Updated 06/25/19 @ 23:12 by Kemar Quach) Smoking/Tobacco Use Status: Never Alcohol Intake: never Drug use: Never Substance use type: does not use Household members: spouse Do you feel safe at home: Yes Do you feel safe in your relationship?: Yes History History 0 Para Hx # Term Pregnancies Multiple births Hx # Pregnancies Ectopic pregnancies AB induced Hx Number of Living Children AB spontaneous Meds Home Medications and Allergies Home Medications Medication Instructions Recorded Confirmed Type aspirin [Aspir-81] 81 mg PO DAILY #30 tab-cap 02/15/15 06/25/19 History blood pressure test kit-medium #1 kit 10/07/16 06/14/19 History metoprolol succinate 25 mg 25 mg PO DAILY #90 tab 12/28/18 06/25/19 Rx tablet,extended release 24 hr losartan 50 mg tablet 50 mg PO DAILY #30 tab 06/19/19 06/25/19 Rx metaxalone 800 mg tablet 800 mg PO TID PRN #14 tab 06/21/19 06/25/19 Rx Allergies Allergy/AdvReac Type Severity Reaction Status Date / Time erythromycin base Allergy Mild Verified 06/25/19 16:42 [Erythromycin Base] Penicillins Allergy Mild Verified 06/25/19 16:42 sulfamethoxazole Allergy Itching Verified 06/25/19 16:42 [From Bactrim] trimethoprim [From Bactrim] Allergy Itching Verified 06/25/19 16:42 lisinopril AdvReac Severe Other (See Unverified 06/25/19 17:39 Comment) losartan AdvReac Intermediate Headache Unverified 06/25/19 17:39 nitrofurantoin AdvReac Unknown UPSET Verified 06/25/19 16:42 macrocrystalline STOMACH [From Macrodantin] flecainide AdvReac Wide Verified 06/25/19 16:42 complex tachycardia Exam Narrative Exam Narrative: Middle-age female lying in bed in no acute distress. HEENT is unremarkable. There is no papilledema. Neck is supple nontender without JVD normal carotid pulses no bruits. Lungs are clear to auscultation. Heart is irregularly irregular at a controlled rate without murmur rub or gallop. Abdomen soft and nontender without bruits masses or organomegaly. Extremities without peripheral cyanosis or edema. Normal range of motion and strength. Neurologic exam is nonfocal. Genitalia rectal exam deferred. And not clinically indicated. Results Labs Result diagrams: 06/25/19 17:55 06/25/19 17:55 Labs: Laboratory Results - last 24 hr 06/25/19 06/25/19 06/25/19 17:55 17:55 17:55 WBC 6.38 RBC 5.38 H Hgb 15.8 H Hct 47.6 H MCV 88.5 MCH 29.4 MCHC 33.2 RDW 13.2 Plt Count 205 MPV 10.3 Immature Gran % 0.2 Neutrophils % 61.0 Lymphocytes % 23.0 Monocytes % 11.6 Eosinophils % 3.6 Basophils % 0.6 Absolute Neutrophils 3.89 Absolute Lymphocytes 1.47 Absolute Monocytes 0.74 H Absolute Eosinophils 0.23 Absolute Basophils 0.04 Sodium 142 Potassium 3.9 Chloride 104 Carbon Dioxide 29.4 Anion Gap 8.6 BUN 19 H Creatinine 0.72 Estimated GFR/1.73 m2 >= 60.00 Glucose 92 Calcium 9.0 Total Bilirubin 0.3 AST 22 ALT 24 Alkaline Phosphatase 124 H Troponin I < 0.05 Total Protein 7.4 Albumin 4.0 Last Vital Signs Temp 36.9 C 06/25/19 21:37 Pulse 72 06/25/19 21:37 Resp 18 06/25/19 21:37 BP 154/90 H 06/25/19 21:37 Pulse Ox 98 06/25/19 21:37
[2019-06-26] VITALS (7 sets, daily range): BP systolic 142–160; BP diastolic 65–90; PULSE 49–89; RESP 16–18; TEMP 36.1–36.8; O2SAT 98–100
[2019-06-26] MEDS: diazePAM 5 MG TAB PO (00:43)
[2019-06-26] MEDS: Ketorolac 30 MG/ML VIAL IVP (05:14)
--- NOTE | 2019-06-26 06:59 | NUR.NOTE ---
Patient got up at about 5:00am and went into the patient room in 215 stating he was her and she needs to check on at this time. She did this twice in about 15minutes and she had to redirected to her room her vitals were done after and assessments done and charted
[2019-06-26] MEDS: amLODIPine 5 MG TAB PO ×2 (08:38→19:25)
[2019-06-26] MEDS: Aspirin E.C. 81 MG TABEC PO (08:38)
--- NOTE | 2019-06-26 11:52 | PHARADMIT ---
Admission Pharmacy Clinical Review hypertension, headache Code Status Full Code Current Weight 82.6 kg Renally Cleared and Narrow Therapeutic Index Meds Crcl ~76.8 mL/min current meds okay QTc Value / Action Taken none BP Control, Fever BP 159/88 afebrile Electrolytes reviewed within normal limits DVT Prophylaxis none- per H+P recommended pt have LP to rule out subarachnoid hemorrhage Opiate Usage / Scheduled Bowel Regimen Ordered prn/prn Plt/SCr for Heparin / Enoxaparin plt 205 SCr 0.72 INR for Warfarin n/a H/H stable, WBC/Bands h/h 15.8/47.6 WBC 6.38 Antibiotic appropriateness none Cultures and Sensitivities none Surgical ABX d/c within 24 hr n/a DM control / Insulin Dosing BG 92 none Heart Failure (Check EF%) (CLARIBEL's, B-Block, Diuretics) amlodipine, metoprolol IV to PO Switch n/a Home Meds Reviewed yes Home Meds Not Ordered losartan, metaxolone Comments watch HR and BP- md mentioned it dipped overnight and may adjust metoprolol dosing possible discharge tomorrow with cardiac nurse specialist
--- NOTE | 2019-06-26 11:59 | W.NUTCONSULT ---
Date of service: 06/26/19 Time of Service: 11:59 Nutritional Consult ASSESSMENT: 63 year old female admitted with hypertension, headache. Following Heart Healthy Diet with adequate intake. BMI wnl for age. not considered at nutritional risk. MONITORING AND EVALUATION: weight, po intake, labs Time Spent in Nutritional Counseling and Treatment: 5 min spent face to face
--- NOTE | 2019-06-26 16:03 | W.PM.PROGNOT ---
Date of Service Date of service: 06/26/19 Time of Service: 16:03 Assessment and Plan Assessment and plan (1) Hypertension: Status: Chronic Assessment and plan: BP's improved, but still not ideally controlled. I am concerned with the heart rates reported last night. I have split up her long acting metoprolol into half doses of short acting metoprolol and would like to observe the patient on telemetry one more night. Will increase norvasc. Ultimately, I think that it will be hard to control the blood pressures unless the patient gets her sleep apnea addressed. Qualifiers: Hypertension type: essential hypertension Qualified Code(s): I10 - Essential (primary) hypertension (2) Headache: Status: Acute Assessment and plan: Improving. LIkely a combination of uncontrolled hypertension and untreated sleep apnea. Seems to be improving. Will intensify blood pressure control. (3) A-fib: Status: Acute Assessment and plan: paroxysmal. At this time, rates are on the lower side. Patient is not normally on anticoagulation - will not start. If bradycardic tonight, may benefit from short acting beta live in am only rather than a long acting one. (4) Obstructive sleep apnea: Status: Chronic Assessment and plan: Will need outpatient follow up. Will obtain overnight oxymetry tonight. (5) DVT prophylaxis: Status: Acute Assessment and plan: TEDs/SCDs (6) Discharge planning issues: Status: Acute Assessment and plan: Full code Expected to be discharged home tomorrow. Subjective Subjective Interval history since last seen: Ms Hayes states that she is still having a dull headache at the top of her head. Denies dizziness, visual changes, chest pain, shortness of breath, nausea. States she does snore and has been diagnosed with sleep apnea before. States that she tried using multiple varieties of masks with the machine, but could not tolerate it. Overnight, heart rates down to high 30's, mostly 40's on telemetry. States was told by nursing that she was snoring loudly last night. Exam Narrative Exam Narrative: General: very pleasant middle-aged female, laying comfortably in bed, A&Ox3 HEENT: EOMI, MMM Heart: RRR, no m/r/g Lungs: CTAB GI: abdomen is soft, nontender, nondistended Extremities: no e/c/c BLE's Objective Objective Clinical Data: Abnormal lab results 06/25/19 06/25/19 Range/Units 17:55 17:55 RBC 5.38 H (4.00-5.20) m/cumm Hgb 15.8 H (12.0-15.5) g/dL Hct 47.6 H (36.0-46.0) % Absolute Monocytes 0.74 H (0.11-0.7) k/cumm BUN 19 H (7-18) mg/dL Alkaline Phosphatase 124 H (46-116) U/L Vital Signs Temperature 36.6 C 06/26/19 11:10 Temperature Source Tympanic 06/26/19 11:10 Pulse 58 L 06/26/19 11:10 Pulse Rhythm Irregular 06/26/19 07:50 Respiratory Rate 16 06/26/19 11:10 Respiratory Effort Non-Labored 06/26/19 07:50 Respiratory Depth Normal 06/26/19 07:50 Respiratory Pattern Normal 06/26/19 07:50 Blood Pressure 160/75 H 06/26/19 11:10 Blood Pressure Position Sitting 06/25/19 16:37 Pulse Oximetry 99 06/26/19 11:10 Oxygen Delivery Method Room Air 06/26/19 11:10 Oxygen Flow Rate 0 06/26/19 11:10 Pain Level 2 06/26/19 11:10 Intake & Output 06/25/19 06/26/19 06/26/19 23:59 11:59 23:59 Intake Total 240 / 480 240 / 480 Balance 240 / 480 240 / 480 Weight 83.915 kg 82.6 kg Intake: Oral 240 / 480 240 / 480 Other: Urine Color Yellow Urine Appearance Clear Urine Odor None Comment pt denies any urinary symptoms Voiding Methods Toilet Laboratory Results WBC 6.38 k/cumm (4.4-10.8) 06/25/19 17:55 RBC 5.38 m/cumm (4.00-5.20) H 06/25/19 17:55 Hgb 15.8 g/dL (12.0-15.5) H 06/25/19 17:55 Hct 47.6 % (36.0-46.0) H 06/25/19 17:55 MCV 88.5 fL (80-95) 06/25/19 17:55 MCH 29.4 pg (27.0-33.0) 06/25/19 17:55 MCHC 33.2 g/dL (32.0-36.0) 06/25/19 17:55 RDW 13.2 % (11.7-14.6) 06/25/19 17:55 Plt Count 205 x1000/uL (130-400) 06/25/19 17:55 MPV 10.3 fL (8.0-11.0) 06/25/19 17:55 Immature Gran % 0.2 % 06/25/19 17:55 Neutrophils % 61.0 06/25/19 17:55 Lymphocytes % 23.0 06/25/19 17:55 Monocytes % 11.6 06/25/19 17:55 Eosinophils % 3.6 06/25/19 17:55 Basophils % 0.6 06/25/19 17:55 Absolute Neutrophils 3.89 k/cumm (1.2-6.7) 06/25/19 17:55 Absolute Lymphocytes 1.47 k/cumm (1.2-3.4) 06/25/19 17:55 Absolute Monocytes 0.74 k/cumm (0.11-0.7) H 06/25/19 17:55 Absolute Eosinophils 0.23 k/cumm (0.0-0.7) 06/25/19 17:55 Absolute Basophils 0.04 k/cumm (0.0-0.2) 06/25/19 17:55 Sodium 142 mmol/L (136-145) 06/25/19 17:55 Potassium 3.9 mmol/L (3.5-5.1) 06/25/19 17:55 Chloride 104 mmol/L (98-107) 06/25/19 17:55 Carbon Dioxide 29.4 mmol/L (21.0-32.0) 06/25/19 17:55 Anion Gap 8.6 mmol/L (3-11) 06/25/19 17:55 BUN 19 mg/dL (7-18) H 06/25/19 17:55 Creatinine 0.72 mg/dL (0.55-1.02) 06/25/19 17:55 Estimated GFR/1.73 m2 >= 60.00 (mL/min/1.73m2) 06/25/19 17:55 Glucose 92 mg/dL (74-106) 06/25/19 17:55 Calcium 9.0 mg/dL (8.5-10.1) 06/25/19 17:55 Total Bilirubin 0.3 mg/dL (0.2-1.0) 06/25/19 17:55 AST 22 U/L (15-37) 06/25/19 17:55 ALT 24 U/L (14-59) 06/25/19 17:55 Alkaline Phosphatase 124 U/L (46-116) H 06/25/19 17:55 Troponin I < 0.05 ng/Ml (<0.06) 06/25/19 17:55 Total Protein 7.4 g/dL (6.4-8.2) 06/25/19 17:55 Albumin 4.0 g/dL (3.4-5.0) 06/25/19 17:55
--- NOTE | 2019-06-26 16:27 | CHAPLAIN ---
Ally was resting in bed when I visited. She was pleasant and easily engaged in conversation. She expects her to be coming from their home in [place] to visit later today.
[2019-06-26] MEDS: Methocarbamol 750 MG TAB 1500 MG PO ×2 (17:07→19:28)
[2019-06-26 18:36] LABS: Troponin I < 0.05 ng/Ml (<0.06)
[2019-06-26] MEDS: Metoprolol 12.5 MG TAB PO (19:25)
[2019-06-26] MEDS: traMADol 50 MG TAB 100 MG PO (19:26)
[2019-06-26 22:20] LABS: Troponin I < 0.05 ng/Ml (<0.06)
[2019-06-27 04:31] VITALS: BP 133/66; PULSE 65; RESP 16; TEMP 36.3; O2SAT 100
[2019-06-27] MEDS: Methocarbamol 750 MG TAB 1500 MG PO (04:54)
[2019-06-27] MEDS: Ketorolac 30 MG/ML VIAL IVP (04:55)
[2019-06-27] MEDS: Normal Saline Flush 10 ML SYR IVP (04:58)
[2019-06-27 07:10] LABS: Anion Gap 9.6 mmol/L (3-11); BUN 18 mg/dL (7-18); CO2 26.4 mmol/L (21.0-32.0); CREATININE 0.65 mg/dL (0.55-1.02); Calcium 8.6 mg/dL (8.5-10.1); Chloride 105 mmol/L (98-107); Glucose 104 mg/dL (74-106); Potassium 4.2 mmol/L (3.5-5.1); Sodium 141 mmol/L (136-145)
[2019-06-27 07:19] LABS: Troponin I < 0.05 ng/Ml (<0.06)
[2019-06-27 07:25] VITALS: BP 161/78; PULSE 55; RESP 20; TEMP 36.4; O2SAT 99
--- NOTE | 2019-06-27 08:10 | PDOC.CMIN ---
- If Service Date Differs Date of service: 06/27/19 Time of Service: 08:10 Care Management Initial Assess REASON FOR HOSPITALIZATION:: Headache, HTN PAST MEDICAL HISTORY/PAST SURGICAL HISTORY:: Afib, dyspareuria, HTN, depression. Surgical hx: cardiac cath and s/p tonsilectomy PREVIOUS FUNCTIONAL STATUS/SOCIAL/FAMILY SUPPORTS:: Ally lives with her spouse in [place], [place] she is alert and engaged with CM during assessment. She states that she is independent with self care including transporation. 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 She and her spouse retired to the area from [place], they have no children. CURRENT FUNCTIONAL STATUS:: Ally is alert and engaged she ask appropiate questions related to her health care. She would like to establish care with new construction project assistant here at [facility] has requested a follow up appointment cardiology appointment. ADVANCE DIRECTIVES:: None on file offered forms and assistance with completion Has patient been provided with information about the portal?: Yes CODE STATUS:: Full Code INSURANCE COVERAGE / FINANCIAL ISSUES:: BCBS CURRENT HOME/COMMUNITY SERVICES/EQUIPMENT:: None PRIMARY CARE PHYSICIAN:: Dr. Braun POTENTIAL DISCHARGE NEEDS:: Follow up with primary care, and cardiology, and sleep study PATIENT/FAMILY EDUCATION NEEDS:: Discharge education, limitations and follow up plan of care including ask me three and self management ANTICIPATED BARRIERS TO DISCHARGE:: None TRANSPORTATION:: Via private car with spouse PLAN:: Ally will be discharged home today she will need to follow up with services as prescribed. No other needs at time of discharge. She understands the follow up plan of care.
[2019-06-27] MEDS: Aspirin E.C. 81 MG TABEC PO (08:47)
[2019-06-27] MEDS: amLODIPine 5 MG TAB PO (08:47)
--- NOTE | 2019-06-27 11:03 | DSE_ITS ---
Date of service: 06/27/19 Time of Service: 11:04 DS: Diagnosis Discharge Diagnosis (1) Hypertension: Status: Chronic (2) Headache: Status: Acute (3) A-fib: Status: Acute (4) Obstructive sleep apnea: Status: Chronic (5) DVT prophylaxis: Status: Acute (6) Discharge planning issues: Status: Acute Discharge Plan Disposition Patient Disposition: HOME Condition: Serious Discharge Details Chief Complaint: Headache Clinical Impression: Hypertension, Headache Reason For Visit: HYPERTENSION, HEADACHE Admit Date/Time: 06/25/19 21:05 Admit Provider: Kemar Quach Attending Provider: Kemar Quach Primary Care Provider: Andre Braun ED Provider: Nilay Pierre Hospital Course Hospital Course: This is a 63-year-old female with a past medical history of essential hypertension usually well controlled, atrial fibrillation also usually well controlled with low-dose Toprol-XL but not anticoagulated. She recently saw her PCP Dr. Andre Braun who switched her from lisinopril to losartan due to an CLARIBEL inhibitor induced cough. Ever since the change in her blood pressure medications her blood pressures been running high for the last week with systolic blood pressures ranging from 160-170 mm and now she complains of a moderate headache. In the emergency department her blood pressure on arrival was elevated at 171/97 and transiently dipped down to 158/77 prior to receiving Norvasc 5 mg p.o. in the emergency department. Work-up by Dr. Nilay Pierre, emergency room attending, included routine labs including a CBC that was fairly unremarkable. CMP also unremarkable. And a CT of her head without contrast that showed no acute intracranial findings. She had physiologic calcifications in the basal ganglia. But no edema and no cerebral hemorrhage and no ventriculomegaly. She has some small benign-appearing maxillary sinus polyps or retention cysts. Treatment emergency department included treatment of her headache with Toradol and attempts to bring down her blood pressure by giving her Lopressor 25 mg orally and having her take her evening dose of Toprol-XL. She was also given Norvasc 5 mg orally and Tylenol 650 mg. Because of the persistent headaches and continued elevated blood pressure Dr. Pierre recommended overnight observation while we try to regulate her blood pressure and get control of her headaches. Although the CT scan of her head did not show any cerebral bleed he did recommend to the patient that she undergo an LP to be absolutely certain that there is no subarachnoid hemorrhage. Patient declined to have a lumbar puncture. Patient is refusing to take the losartan as she feels that the losartan caused her headaches. while on med/surg she remained medically stable. Her headache did improve. she is eating and drinking well. She became bradycardic with lopressor so we will change dosing to tartrate in am only. it was thought her bradycardia overnight could also be attributed to her untreated sleep apnea. Her blood pressure is still elevated and she may need further adjustment of her amlodipine. she will be recommended to monitor her blood pressure and to bring log to her follow up appointments. she received an echocardiogram prior to discharge with results pending. she will be placed on a holter monitor at discharge. she will be referred to cardiology and pulmonary for outpatient follow up. Home Meds and New Rx's Prescriptions: New amlodipine 5 mg Tablet 5 mg PO BID Qty: 30 RF: 0 metoprolol tartrate 25 mg Tablet 12.5 mg PO DAILY Qty: 30 RF: 0 Continued aspirin [Aspir-81] 81 MG tablet,delayed release (DR/EC) 81 mg PO DAILY Qty: 30 RF: 0 metaxalone [Skelaxin] 800 mg tablet 800 mg PO TID PRN (Reason: muscle spasm) Qty: 14 RF: 0 Discontinued metoprolol succinate 25 mg tablet extended release 24 hr 25 mg PO DAILY Qty: 90 RF: 3 losartan 50 mg tablet 50 mg PO DAILY Qty: 30 RF: 5 No Action (DME) blood pressure test kit-medium 1 EACH kit 1 ea Miscellaneous BID Qty: 1 RF: 0 Discharge Instructions Instructions: Sleep Apnea (DC), Acute Headache (DC), Bradycardia (DC), Hypertension (DC) Additional Instructions: outpatient cardiology and pulmonary appointments. Stand Alone Forms: Nursing Discharge Form Referrals: CARDIOLOGY,[facility] [OTHER] - (They will call you to schedule an appointment.) Sunni Young MD [ NON-[facility] STAFF PHYSICIAN] - (Referral sent. ) Andre Braun [Primary Care Provider] - 07/04/19 9:00 am Activity:: Activity as Tolerated Equipment/Supplies:: No Equipment Needed Diet:: As Tolerated Discharge Orders Discharge Orders: Discharge Order (Routine); Ordered 06/27/19 Ordered By: Milly Emerson Discharge Data Discharge Date/Time-TO BE ENTERED AT DEPARTURE: 06/27/19 14:31 DS: Summary Status at Discharge Functional status at discharge: independent ambulation Overall status at discharge: patient is progressing back to baseline Mental Status: mental status grossly normal Speech and Movement: speech and movement normal Mood: congruent mood Affect: normal affect Exam Const General: cooperative, healthy appearing, comfortable, no acute distress and well developed Nutritional Appearance: average body habitus Orientation: alert and oriented x3 HENMT Head: normal to inspection, normocephalic and atraumatic Mouth: oral mucosae normal Resp Effort & Inspection: normal respiratory effort Auscultation: clear to auscultation bilaterally Cardio Rate: bradycardic Rhythm: abnormal rhythm irregularly irregular GI Inspection: normal to inspection Palpation: soft Auscultation: normal bowel sounds Skin General skin exam: no rashes or lesions noted Neuro General: alert, awake and oriented x3 Cognition: normal cognition Speech: speech normal Gait: normal gait Motor: muscle tone normal throughout Extrem General: normal to inspection, full ROM and no pedal edema Psych Appearance: grossly normal Mental Status: mental status grossly normal Speech and Movement: speech and movement normal Mood: congruent mood Affect: normal affect Attitude: cooperative Thought Process: normal Thought Content: normal Insight: insight good Judgment: judgment good DS: Data Vitals/I&O Vitals and I&O: Vital Signs Temperature 36.4 C L 06/27/19 07:25 Temperature Source Tympanic 06/27/19 07:25 Pulse 55 L 06/27/19 07:25 Pulse Rhythm Irregular 06/27/19 07:52 Respiratory Rate 20 06/27/19 07:25 Respiratory Effort Non-Labored 06/27/19 07:52 Respiratory Depth Normal 06/27/19 07:52 Respiratory Pattern Normal 06/27/19 07:52 Blood Pressure 161/78 H 06/27/19 07:25 Blood Pressure Position Sitting 06/25/19 16:37 Pulse Oximetry 99 06/27/19 07:25 Oxygen Delivery Method Room Air 06/27/19 07:25 Oxygen Flow Rate 0 06/27/19 07:25 Pain Level 3 06/27/19 07:25 Comment 06/27/19 07:25 Intake & Output 06/26/19 06/26/19 06/27/19 11:59 23:59 11:59 Intake Total 240 / 720 480 / 720 520 / 520 Balance 240 / 720 480 / 720 520 / 520 Weight 82.6 kg 81.4 kg Intake: Oral 240 / 720 480 / 720 520 / 520 Other: Urine Color Yellow Urine Appearance Clear Clear Urine Odor None Comment pt denies any urinary symptoms pt voiding indepenently in the bathroom Voiding Methods Toilet Toilet Data Completed and Pending Labs on day of discharge: Labs from last 24 hours 06/27/19 06/27/19 06/26/19 06:35 06:35 22:00 Sodium 141 Potassium 4.2 Chloride 105 Carbon Dioxide 26.4 Anion Gap 9.6 BUN 18 Creatinine 0.65 Estimated GFR/1.73 m2 >= 60.00 Glucose 104 Calcium 8.6 Magnesium 2.0 Troponin I < 0.05 < 0.05 06/26/19 18:13 Sodium Potassium Chloride Carbon Dioxide Anion Gap BUN Creatinine Estimated GFR/1.73 m2 Glucose Calcium Magnesium Troponin I < 0.05 PFSH Medical History (Updated 06/26/19 @ 16:06 by Peg Dove MD) Atrial fibrillation rate controlled with meds. Atrial flutter s/p ablation 2005. Dyspareunia in female since menopause. Frequent UTI since menopause. Hypertension (Chronic) Recurrent major depression in partial remission Atrial flutter. 2006. resolved but AFib persisted. Surgical History (Updated 06/25/19 @ 23:10 by Kemar Quach) H/O cardiac catheterization (Chronic) Status post ablation of atrial flutter Status post tonsillectomy (Acute) Family History (Updated 06/25/19 @ 23:11 by Kemar Quach) Mother Personal history of malignant neoplasm Salivary gland Father Dementia Heart disease Sister Essential hypertension Hyperlipidemia Sister Essential hypertension Hyperlipidemia Sister Essential hypertension Hyperlipidemia Social History (Updated 06/25/19 @ 23:12 by Kemar Quach) Smoking/Tobacco Use Status: Never Alcohol Intake: never Drug use: Never Substance use type: does not use Household members: spouse Do you feel safe at home: Yes Do you feel safe in your relationship?: Yes History History 0 Para Hx # Term Pregnancies Multiple births Hx # Pregnancies Ectopic pregnancies AB induced Hx Number of Living Children AB spontaneous
[2019-06-27 11:20] VITALS: BP 133/70; PULSE 54; RESP 18; TEMP 36.5; O2SAT 99
[2019-06-27 12:26] VITALS: PULSE 72
--- NOTE | 2019-06-27 12:30 | DI.US_ITS ---
APPROVED REPORT EXAM: Comprehensive 2D, Doppler, and color-flow Echocardiogram Patient Location: In-Patient Diving Instructor: Maddi Hernandez RDCS (AE) Rhythm: Atrial Flutter Indications: Vtach, uncontrolled hypertension Conclusion Left Ventricle : The left ventricle is top normal size. Left ventricular systolic function is normal . There is normal left ventricular wall thickness. There is normal LV segmental wall motion. The lef t ventricular diastolic function is normal. LVEF is estimated to be 50-55%. Right Ventricle : The right ventricular systolic function appears normal. Right ventricle is normal i n size. Atria : Left atrium is moderately dilated. Right atrium is mildly dilated. Aortic Valve : Aortic valve is trileaflet. Trace to mild aortic regurgitation. There is no aortic thomas vular stenosis. Mitral Valve : Mitral valve leaflets are mild to moderately thickened, but open well. Mild to moderat e mitral regurgitation. No evidence of mitral valve stenosis. Tricuspid Valve : The tricuspid valve leaflets are mildly thickened, but open well. Mild to moderate tricuspid regurgitation. Great Vessels : IVC is normal in size and collapses >50% with inspiration. Estimated RVSP is 22-25 m mHg. Compared to prior echocardiogram dated 03/22/2015, mitral valve regurgitation has slightly worsened. Wall motion Left Ventricle The left ventricle is top normal size. Left ventricular systolic function is normal. There is normal left ventricular wall thickness. There is normal LV segmental wall motion. The left ventricular diast olic function is normal. LVEF is estimated to be 50-55%. Right Ventricle Right ventricle is normal in size. The right ventricular systolic function appears normal. Atria Left atrium is moderately dilated. Right atrium is mildly dilated. Aortic Valve Aortic valve is trileaflet. There is no aortic valvular stenosis. Trace to mild aortic regurgitation. Mitral Valve Mitral valve leaflets are mild to moderately thickened, but open well. No evidence of mitral valve st enosis. Mild to moderate mitral regurgitation. Tricuspid Valve The tricuspid valve leaflets are mildly thickened, but open well. Mild to moderate tricuspid regurgit ation. Pulmonic Valve Trivial pulmonic regurgitation. Great Vessels The aortic root is normal in size. The ascending aorta is normal in size. IVC is normal in size and c ollapses >50% with inspiration. Estimated RVSP is 22-25 mmHg. Pericardium There is no pericardial effusion. 2D Dimensions IVSd 0.95 cm F: 0.6-1.0 LV EDV A2C 98.2 mL PWd 1.00 cm F: 0.6 - 1.0 LV EDV A4C 74.0 mL LVDd 5.30 cm F: 3.8 - 5.2 LA Volume Index Biplane 54.4 mL/m2 LVDs 3.95 cm F: 2.2 - 3.5 LA Area A4C 29.52 cm2 Aortic Root 2.85 cm F: 2.7 - 3.3 LA Area A2C 27.64 cm2 RA Area A4C 24.61 cm2 EF AP4 54.6 % LVOT 1.85 cm (M/F) 1.5-2.5 EF AP2 59.1 % Ascending Aorta 3.00 cm F: 2.3 - 3.1 EF BP 57.1 % LVEF (Teich) 50.0 % IVC 2.04 cm LVEF (Serrano's) 57.07 % F: 54 - 74 LV Volume 66.01 mL F: 46 - 106 LV Volume Index 33.17 mL/m2 F: 29 - 61 FS 25.60 % LV Diastology MV E' medial 0.108 (>0.07 m/s) PV S/D Ratio 1.19 LV E/e MED 11.10 (<14) TR Peak Velocity 2.39 m/s MV E' lateral 0.127 (>0.1 m/s) LV E/e LAT 9.50 (<14) Pulm Vein s 0.42 m/s Pulm Vein d 0.35 m/s LA vol/ BSA A2C s A-L 48.2 mL/m2 LA vol/ BSA A4C s A-L 58.1 mL/m2 Aortic Valve LVOT Area 2.82 cm2 AoV Area Vmax 1.73 cm2 LVOT Vmax 1.30 m/s AoV Area/ BSA (Vmax) 0.87 cm2/m2 LVOT Mean Carlos. 0.92 m/s BECCA Mean Carlos. Index 0.87 cm2/m2 LVOT Peak Gr. 6.7 mmHg LVOT Mean Gr. 3.8 mmHg LVOT VTI 0.280 m AoV Vmax 2.11 (0.5-1.3 m/s) AoV Mean Carlos. 1.49 m/s AoV Peak Grad 17.8 mmHg LVOT SV 79.15 mL AoV Mean Grad 9.7 (<5 mmHg) AoV VTI 0.475 (0.18-0.25 m) VTI Ratio 0.59 AoV Area VTI 1.67 (2.5-4.5 cm2) AoV Area/ BSA (VTI) 0.84 cm/m2 Mitral Valve MV E Max Carlos. 1.20 (0.4-1.3 m/s) MVA VTI 6.90 (4.0-6.0 cm2) PV Peak Velocity 1.09 (0.5-1.5 m/s) Vena Contracta 0.42 (0-0.3 cm) RVOT Peak Carlos. 0.76 m/s RVOT Peak Gr. 2.32 mmHg RVOT VTI 0.167 m RVOT Mean Gr. 1.45 mmHg Tricuspid Valve TR P. Gradient 22.8 mmHg TV Regurg Vmax 2.39 m/s RAP Estimate 3.00 mmHg RVSP 25.9 mmHg
== END 2019-06-27 14:31 | disposition home or self-care (01) ==
LOC: ER 21:30 → MS 21:47
PROVIDERS: Admitting Provider Internal Medicine; Emergency Provider Student in an Organized Health Care Education/Training Program; PCP Family Medicine; Visit Provider Internal Medicine
DX: I10 Essential (primary) hypertension (principal); R51 Headache; R00.1 Bradycardia, unspecified; G47.33 Obstructive sleep apnea (adult) (pediatric); I48.0 Paroxysmal atrial fibrillation; I08.1 Rheumatic disorders of both mitral and tricuspid valves
CPT/HCPCS: 36415; 80048; 80053; 99217; 99219; 99225; 70450; 83735; 84484; 85025; 93005; 93010; 93225; 93306; 94762; G0378; J1885; J3490

== ENCOUNTER 2019-06-30 16:55 | Outpatient (CLI) | payer BC, SELFPAY ==
--- NOTE | 2019-07-03 08:21 | W.HOLTRPT ---
Date of service: 07/03/19 Time of Service: 08:21 Holter Monitor Report Holter Monitor Note: This is a two day holter monitor ordered for the indication of AF ?The patient was in atrial fibrillation for the entirety of the recording. (max rate 199). There was evidence of atrial fibrillation with aberrancy. ?There were rare (1%) single ventricular ectopic beats. ?Episodes of recorded ventricular tachycardia were instead likely atrial fibrillation with aberrancy. ?There were no pauses greater than 3 seconds and no evidence of high degree heart block. ?Patient triggered events were associated with atrial fibrillation with RVR.
== END 2019-06-30 17:15 ==
PROVIDERS: PCP Family Medicine; Visit Provider Family Medicine
DX: I48.91 Unspecified atrial fibrillation (principal)

== ENCOUNTER 2019-06-30 20:52 | Emergency (ER) | payer BC, SELFPAY ==
[2019-06-30 20:56] VITALS: BP 160/101; PULSE 66; RESP 18; TEMP 36.4; O2SAT 99
--- NOTE | 2019-06-30 21:11 | ED.GENADUL_ITS ---
Discharge Plan Disposition Patient Disposition: HOME Condition: Stable Discharge Details Chief Complaint: GenMedical Clinical Impression: A-fib Primary Care Provider: Andre Braun ED Provider: Miguel A Castellanos Home Meds and New Rx's Prescriptions: New metoprolol succinate 25 mg tablet extended release 24 hr 25 mg PO DAILY Qty: 30 RF: 0 Continued aspirin [Aspir-81] 81 MG tablet,delayed release (DR/EC) 81 mg PO DAILY Qty: 30 RF: 0 (DME) blood pressure test kit-medium 1 EACH kit 1 ea Miscellaneous BID Qty: 1 RF: 0 metaxalone [Skelaxin] 800 mg tablet 800 mg PO TID PRN (Reason: muscle spasm) Qty: 14 RF: 0 amlodipine 5 mg Tablet 5 mg PO BID Qty: 30 RF: 0 Discontinued metoprolol tartrate 25 mg Tablet 12.5 mg PO DAILY Qty: 30 RF: 0 Discharge Instructions Instructions: Atrial Fibrillation (ED) Additional Instructions: You were not in ventricular tachycardia but rather findings due to your atrial fibrillation follow up with your primary care provider this week and discuss being on a blood thinner if you feel more ill, have worsening shortness of breath or chest pain/pressure return to the emergency department Medical Decision Making 63 yo female with hx of htn, afib not on anticoagulation comes in with intermittent lightheadedness and had an outpatient holter monitor which was sh owing intermittent runs of ventricular tachycardia. No chest pain, fevers or shortness of breath and currently just feels fatigued. Is hd stable in afib currently with rates in 60-70. Will obtain lab work and consult [place] [facility] [place] The holter monitor report in his chart appears to be afib with intermittent abberancy and not actual vtach but will discuss with cardiology Spoke with Dr. James at cardiology [place] [facility] [place] who agreed this is afib with aberrancy not vtach. He recommends changing to metoprolol CR 25mg once a day and should be on anticoagulation given [id number] of 2, pt would like to discuss with pcp before starting this. Will have her f/u with cardiology and pcp and return precautions given Differential Diagnosis Differential Diagnosis: afib, vtach, electrolyte abnormality Medical Records Medical records reviewed: Yes I reviewed the patient's medical records. ECG Data Attestation: I personally reviewed and interpreted this ECG (s) as follows: Prior ECG tracings: not available for review Interpretation: atrial fibrillation, rate of 65, qtc 414 HPI General Mode of arrival: ambulatory . Date/Time Provider Initiated Documentation: 06/30/19 20:53 . Limitations to Documentation: no limitations . Information obtained by: patient . History of Present Illness 63 year old F presents to the emergency department with the chief complaint of lighheaded, described as moderate, Patient started experiencing this day(s) (5) and it has been intermittent. No relieving factors improve symptom(s), No exacerbating factors reported . Patient notes no other symptoms.. Related Data Home Medications Medication Instructions Recorded Confirmed aspirin [Aspir-81] 81 mg PO DAILY #30 tab-cap 02/15/15 06/30/19 blood pressure test kit-medium #1 kit 10/07/16 06/30/19 metaxalone 800 mg tablet 800 mg PO TID PRN #14 tab 06/21/19 06/30/19 amlodipine 5 mg PO BID #30 tab 06/27/19 06/30/19 metoprolol succinate 25 mg PO DAILY #30 tab 06/30/19 Previous Rx's Medication Instructions Recorded metaxalone 800 mg tablet 800 mg PO TID PRN #14 tab 06/21/19 amlodipine 5 mg PO BID #30 tab 06/27/19 metoprolol succinate 25 mg PO DAILY #30 tab 06/30/19 Allergies Allergy/AdvReac Type Severity Reaction Status Date / Time erythromycin base Allergy Mild Verified 06/30/19 21:10 [Erythromycin Base] Penicillins Allergy Mild Verified 06/30/19 21:10 sulfamethoxazole Allergy Itching Verified 06/30/19 21:10 [From Bactrim] trimethoprim [From Bactrim] Allergy Itching Verified 06/30/19 21:10 lisinopril AdvReac Severe Other (See Unverified 06/30/19 21:10 Comment) losartan AdvReac Intermediate Headache Unverified 06/30/19 21:10 nitrofurantoin AdvReac Unknown UPSET Verified 06/30/19 21:10 macrocrystalline STOMACH [From Macrodantin] flecainide AdvReac Wide Verified 06/30/19 21:10 complex tachycardia General Stated Complaint: GenMedical RICARDO: 3 Review of Systems All systems reviewed & are unremarkable except as noted in HPI and below Constitutional Constitutional: Denies chills, Denies fever(s) and Denies weakness Cardiovascular Cardiovascular: Denies chest pain and Denies dyspnea Respiratory Respiratory: Denies dyspnea Gastrointestinal Gastrointestinal: Denies abdominal pain, Denies nausea and Denies vomiting Genitourinary Genitourinary: Denies dysuria Musculoskeletal Musculoskeletal: Denies joint swelling Neurologic Neurologic: Denies weakness [facility] Medical History (Updated 06/30/19 @ 11:57 by Andre Braun) Atrial fibrillation rate controlled with meds. Atrial flutter s/p ablation 2006. Dyspareunia in female since menopause. Frequent UTI since menopause. Hypertension (Chronic) Recurrent major depression in partial remission Atrial flutter. 2006. resolved but AFib persisted. Surgical History (Updated 06/25/19 @ 23:10 by Kemar Quach) H/O cardiac catheterization (Chronic) Status post ablation of atrial flutter Status post tonsillectomy (Acute) Family History (Updated 06/25/19 @ 23:11 by Kemar Quach) Mother Personal history of malignant neoplasm Salivary gland Father Dementia Heart disease Sister Essential hypertension Hyperlipidemia Sister Essential hypertension Hyperlipidemia Sister Essential hypertension Hyperlipidemia Social History (Updated 06/25/19 @ 23:12 by Kemar Quach) Smoking/Tobacco Use Status: Never Alcohol Intake: never Drug use: Never Substance use type: does not use Household members: spouse Do you feel safe at home: Yes Do you feel safe in your relationship?: Yes History History 0 Para Hx # Term Pregnancies Multiple births Hx # Pregnancies Ectopic pregnancies AB induced Hx Number of Living Children AB spontaneous Exam Const General: no acute distress Orientation: alert HENMT Head: normal to inspection Ears: external ears normal General nose exam: external nose normal Mouth: moist mucous membranes Eyes General: appearance normal, both eyes and all related structures Neck Neck: normal visual inspection Resp Effort & Inspection: normal respiratory effort and able to speak in complete sentences Cardio Rate: regular rate Skin General skin exam: no rashes or lesions noted Neuro General: alert and oriented x3 Extrem General: normal to inspection Psych Mental Status: mental status grossly normal Course Vital Signs Vital signs: Vital Signs Temperature 36.4 C L 06/30/19 20:56 Pulse 66 06/30/19 20:56 Respiratory Rate 18 06/30/19 20:56 Blood Pressure 160/101 H 06/30/19 20:56 Pulse Oximetry 99 06/30/19 20:56 Temperature 36.4 C L 06/30/19 20:56 Temperature Source Skin 06/30/19 20:56 Pulse 66 06/30/19 20:56 Respiratory Rate 18 06/30/19 20:56 Respiratory Effort Non-Labored 06/30/19 21:08 Blood Pressure 160/101 H 06/30/19 20:56 Blood Pressure Position Supine 06/30/19 20:56 Pulse Oximetry 99 06/30/19 20:56 Oxygen Delivery Method Room Air 06/30/19 20:56 Oxygen Flow Rate 0 06/30/19 20:56
[2019-06-30 21:15] LABS: Abs Immature Grans 0.02 k/cumm (0.0-0.09); Absolute Basophil Count 0.03 k/cumm (0.0-0.2); Absolute Eosinophil Count 0.18 k/cumm (0.0-0.7); Absolute Lymphocyte Count 1.57 k/cumm (1.2-3.4); Absolute Neutrophil Count 5.97 k/cumm (1.2-6.7); Basophils % 0.4; Eosinophils % 2.1; HCT 47.6 % (36.0-46.0); HGB 15.6 g/dL (12.0-15.5); Immature Grans % 0.2 %; Lymphocytes % 18.3; Mean Corp. HGB Concentration 32.8 g/dL (32.0-36.0); Mean Corpuscular Hemoglobin 28.8 pg (27.0-33.0); Mean Platelet Volume 10.4 fL (8.0-11.0); Monocytes % 9.3; Neutrophils % 69.7; Platelet Count 206 x1000/uL (130-400); RBC 5.41 m/cumm (4.00-5.20); RBC Distribution Width 13.2 % (11.7-14.6); White Blood Cell Count 8.57 k/cumm (4.4-10.8)
[2019-06-30 21:31] LABS: ALT 27 U/L (14-59); AST 25 U/L (15-37); Albumin 4.1 g/dL (3.4-5.0); Alkaline Phosphatase 109 U/L (46-116); Anion Gap 10.3 mmol/L (3-11); BUN 30 mg/dL (7-18); Bilirubin, Total 0.4 mg/dL (0.2-1.0); CO2 27.7 mmol/L (21.0-32.0); CREATININE 0.84 mg/dL (0.55-1.02); Calcium 9.3 mg/dL (8.5-10.1); Chloride 103 mmol/L (98-107); Glucose 98 mg/dL (74-106); Sodium 141 mmol/L (136-145); Total Protein 7.6 g/dL (6.4-8.2); Troponin I < 0.05 ng/Ml (<0.06)
--- NOTE | 2019-06-30 21:31 | NUR.NOTE ---
Pt sent in by PCP for reported runs of VTach on holter monitor. DC home today after stay for HTN and HO. Afib on monitor, intermittent aflutter.
[2019-06-30 22:08] VITALS: BP 130/62; PULSE 67; RESP 16; O2SAT 97
--- NOTE | 2019-06-30 23:18 | NUR.NOTE ---
Remains pain free. IV removed. Discharge instructions reviewed with verbal understanding. aware to f/u with pcp and cardiology. Encouraged to return for new or worsening symptoms. Ambulated to exit with steady gait.
== END 2019-06-30 23:15 | disposition home or self-care (01) ==
PROVIDERS: Emergency Provider Emergency Medicine; PCP Family Medicine
DX: I48.91 Unspecified atrial fibrillation (principal); I10 Essential (primary) hypertension
CPT/HCPCS: 80053; 93005; 99284; 83735; 84484; 85025; 93010

== ENCOUNTER 2019-08-14 09:15 | Outpatient (CLI) | payer BC, SELFPAY ==
[2019-08-14 10:47] LABS: Anion Gap 8.9 mmol/L (3-11); BUN 18 mg/dL (7-18); CO2 30.1 mmol/L (21.0-32.0); CREATININE 0.68 mg/dL (0.55-1.02); Chloride 105 mmol/L (98-107); Glucose 91 mg/dL (74-106); Potassium 3.9 mmol/L (3.5-5.1); Sodium 144 mmol/L (136-145); TSH 2.55 uIU/mL (0.36-3.74)
== END 2019-08-14 09:35 ==
PROVIDERS: PCP Family Medicine; Visit Provider Internal Medicine Cardiovascular Disease
DX: I10 Essential (primary) hypertension (principal)
CPT/HCPCS: 36415; 80048; 84443

== ENCOUNTER 2019-09-21 08:34 | Outpatient (CLI) | payer BC, SELFPAY ==
[2019-09-22 14:42] LABS: COVID-19 RT-PCR Result Negative (Negative)
== END 2019-09-21 08:54 ==
PROVIDERS: PCP Family Medicine; Visit Provider Family Medicine
DX: R50.9 Fever, unspecified (principal)
CPT/HCPCS: U0003

== ENCOUNTER 2019-10-04 03:41 | Outpatient (CLI) | payer BC, SELFPAY ==
[2019-10-04 16:19] LABS: Mono Screening Negative (Negative)
[2019-10-04 16:52] LABS: Magnesium 2.1 mg/dL (1.8-2.4)
[2019-10-04 17:26] LABS: ESR 6 mm/hr (0-30)
[2019-10-13 00:11] LABS: 1,25-Dihydroxyvitamin D 48 pg/mL (18-78)
== END 2019-10-04 04:01 ==
PROVIDERS: PCP Family Medicine; Visit Provider Family Medicine
DX: R51 Headache (principal)
CPT/HCPCS: 36415; 85652; 82652; 83735; 86308

== ENCOUNTER 2019-10-06 09:56 | Outpatient (CLI) | payer BC, SELFPAY ==
[2019-10-07 14:03] LABS: COVID-19 RT-PCR UVMMC Result Negative (Negative)
== END 2019-10-06 10:16 ==
PROVIDERS: PCP Family Medicine; Visit Provider Family Medicine
DX: R53.83 Other fatigue (principal)
CPT/HCPCS: U0003

== ENCOUNTER 2019-10-23 10:55 | Inpatient (IN) | payer BC, MEDICARE, SELFPAY ==
[2019-10-23] VITALS (7 sets, daily range): BP systolic 105–152; BP diastolic 68–93; PULSE 89–103; RESP 16–20; TEMP 36.3–38.8; O2SAT 94–98
--- NOTE | 2019-10-23 11:00 | ED.GENADUL_ITS ---
Discharge Plan Discharge Details Chief Complaint: GenMedical Admit Date/Time: 10/23/19 19:53 Admit Provider: Froilan Swain Attending Provider: Froilan Swain Primary Care Provider: Andre Braun ED Provider: Sunitha Pierre Discharge Data Discharge Date/Time-TO BE ENTERED AT DEPARTURE: 10/23/19 21:15 Medical Decision Making Ally Hayes is a 4-year-old woman with a history of obstructive sleep apnea, hypertension, atrial fibrillation on rivaroxaban who presented to the em ergency department with approximately 2 months of new daily headaches unchanged since onset, 2 months of fatigue, also with 4 days of watery diarrhea without vomiting/abdominal pain/other GI symptoms. On exam patient is well and nontoxic-appearing. Grossly nonfocal neurologically. No meningismus. No abdominal tenderness. Concern for migraine versus neoplasm versus coronavirus versus metabolic/lyte derangement versus other. Exam/history is not consistent with subarachnoid hemorrhage, meningitis. I discussed patient presentation results with Dr. Lee of neurology, who recommended MRI brain without contrast, will see patient as outpatient this week. MRI negative. Plan for occipital nerve block. Just prior to performing procedure, patient developed nausea, requested procedure be delayed. Plan for Zofran, IV fluids. Patient with nausea improved. Nerve block performed by me without complication. Within 10 minutes, patient reported headache decreased from 8 out of 10 to 5 out of 10. We will continue to monitor. Patient reporting headache not further improved, plan for Compazine. Patient stating that she feels well enough to go home and follow-up with Dr. Lee tomorrow as planned at 115. Vital signs taken at discharge reveal fever 102. Patient with episode of watery diarrhea. Patient continues to report headache 5/10 with no other pain or symptoms. Unlikely bacterial meningitis given time course, however cannot perform LP as patient on anticoagulation. Concern for coronavirus, viral meningitis, other non-[employer] source of fever. Plan for ceftriaxone, vancomycin, Tylenol, admission. Given low suspicion for bacterial meningitis and possible harm from high dose dex for other etiologies, holding dexamethasone at this time. Clinical impression: Headache, fever Disposition: [facility] inpatient Medical Records Medical records reviewed: Yes I reviewed the patient's medical records. Imaging Data Radiologic Study: Attestation: I personally reviewed and interpreted this imaging study as follows: Lab Data Lab results reviewed: Yes I reviewed the patient's lab results. Labs: Laboratory Tests Range/Units 10/23/19 10/23/19 10/23/19 11:40 11:40 11:40 WBC (4.4-10.8) k/cumm 10.03 RBC (4.00-5.20) m/cumm 5.44 H Hgb (12.0-15.5) g/dL 16.0 H Hct (36.0-46.0) % 47.9 H MCV (80-95) fL 88.1 MCH (27.0-33.0) pg 29.4 MCHC (32.0-36.0) g/dL 33.4 RDW (11.7-14.6) % 13.5 Plt Count (130-400) x1000/uL 172 MPV (8.0-11.0) fL 10.4 Immature Gran % % 0.2 Neutrophils % 81.5 Lymphocytes % 5.9 Monocytes % 10.2 Eosinophils % 1.9 Basophils % 0.3 Absolute Neutrophils (1.2-6.7) k/cumm 8.18 H Absolute Lymphocytes (1.2-3.4) k/cumm 0.59 L Absolute Monocytes (0.11-0.7) k/cumm 1.02 H Absolute Eosinophils (0.0-0.7) k/cumm 0.19 Absolute Basophils (0.0-0.2) k/cumm 0.03 Sodium (136-145) mmol/L 134 L Potassium (3.5-5.1) mmol/L 4.3 Chloride (98-107) mmol/L 97 L Carbon Dioxide (21.0-32.0) mmol/L 29.6 Anion Gap (3-11) mmol/L 7.4 BUN (7-18) mg/dL 15 Creatinine (0.55-1.02) mg/dL 0.92 Estimated GFR/1.73 m2 (mL/min/1.73m2) >= 60.00 Glucose (74-106) mg/dL 111 H Calcium (8.5-10.1) mg/dL 9.1 Magnesium (1.8-2.4) mg/dL 1.9 Total Bilirubin (0.2-1.0) mg/dL 0.5 AST (15-37) U/L 26 ALT (14-59) U/L 38 Alkaline Phosphatase (46-116) U/L 102 Troponin I (<0.06) ng/Ml < 0.05 Total Protein (6.4-8.2) g/dL 7.5 Albumin (3.4-5.0) g/dL 3.8 TSH (0.36-3.74) uIU/mL 1.06 ECG Data Attestation: I personally reviewed and interpreted this ECG (s) as follows: Interpretation: EKG shows A. fib at 90, normal axis, nonspecific ST changes present on prior 06/30/2019, no STEMI, nondiagnostic EKG HPI General Mode of arrival: ambulatory . Date/Time Provider Initiated Documentation: 10/23/19 11:00 . Limitations to Documentation: no limitations . Information obtained by: patient, RN notes reviewed and old records reviewed . HPI Narrative: Ally Hayes is a 64 y/o woman with history of hypertension, obstructive sleep apnea, atrial fibrillation on rivaroxaban presenting to emergency department with fatigue, headache, and diarrhea. 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 Patient reports that at work she developed a headache and felt very tired. Patient reports that she woke up the next day with the same headache, and headache and fatigue have essentially persisted every day since that time. Patient reports that she did have some headaches in June of this year, and was seen in the emergency department. Per record review and patient patient underwent CT head showing no acute abnormality. Patient was admitted at that time and discharged home without clear diagnosis. Patient reports that she does not recall having headaches during the month of July. Patient reports that prior to June, she has had almost no headaches in her life. Patient reports that her headaches have been mostly unchanged since august. She states that she has them every day, they are an aching pain, usually a 7 out of 10 or so. Patient reports that she has been trying different medications through her PCP with minimal success. Patient reports that she has been taking muscle relaxants, which seem to improve her headaches somewhat. Patient reports that she typically wakes up at 4 5 in the morning with a severe headache and takes muscle relaxants which allow her to go back to sleep. She reports that otherwise there is no time of day that her headaches seem worse. They seem somewhat worse lying down. Patient reports that in the last week or so pain has been more occipital, although was previously more in the frontal area. No change in severity or quality over time. Patient reports that fatigue is more sense of generalized weakness then excessive sleepiness. Patient reports normal appetite with normal p.o. intake. Reports his symptoms have limited her usual activities and that she has been walking less. She denies fevers, shortness of breath, vomiting, any other pain, numbness, focal weakness, rash. She reports in the last 4 days she has developed watery light brown diarrhea. No melena or blood in stool. She also reports mild cough over the past few weeks. Patient reports that she has been tested twice for coronavirus since onset of symptoms in mid August, both test negative. Related Data Home Medications Medication Instructions Recorded Confirmed blood pressure test kit-medium #1 kit 10/07/16 08/14/19 hydrochlorothiazide 12.5 mg tablet 12.5 mg PO DAILY #90 tab 07/27/19 10/23/19 rivaroxaban 20 mg tablet 20 mg PO DAILY #30 tab 09/19/19 10/23/19 magnesium oxide 500 mg capsule 500 mg PO DAILY 09/29/19 10/23/19 metaxalone 800 mg tablet 800 mg PO TID PRN #14 tab 10/06/19 10/23/19 propranolol 10 mg tablet 10 mg PO BID #60 tab 10/10/19 10/23/19 Previous Rx's Medication Instructions Recorded hydrochlorothiazide 12.5 mg tablet 12.5 mg PO DAILY #90 tab 07/27/19 rivaroxaban 20 mg tablet 20 mg PO DAILY #30 tab 09/19/19 metaxalone 800 mg tablet 800 mg PO TID PRN #14 tab 10/06/19 propranolol 10 mg tablet 10 mg PO BID #60 tab 10/10/19 Allergies Allergy/AdvReac Type Severity Reaction Status Date / Time erythromycin base Allergy Mild Verified 10/23/19 11:03 [Erythromycin Base] Penicillins Allergy Mild Verified 10/23/19 11:03 sulfamethoxazole Allergy Itching Verified 10/23/19 11:03 [From Bactrim] trimethoprim [From Bactrim] Allergy Itching Verified 10/23/19 11:03 lisinopril AdvReac Severe Other (See Unverified 10/23/19 11:03 Comment) metoprolol AdvReac Severe SEVERE H/A Verified 10/23/19 11:03 and DIZZY losartan AdvReac Intermediate Headache Unverified 10/23/19 11:03 nitrofurantoin AdvReac Unknown UPSET Verified 10/23/19 11:03 macrocrystalline STOMACH [From Macrodantin] flecainide AdvReac Wide Verified 10/23/19 11:03 complex tachycardia General RICARDO: 3 Review of Systems Narrative: Constitutional: denies fevers reports fatigue Eyes: denies eye pain, visual changes ENT: denies ear pain, dental pain, sore throat Cardiovascular: denies chest pain Respiratory: denies SOB, reports mild cough GI: denies abdominal pain, vomiting, reports diarrhea : denies flank pain MSK: denies back pain, neck pain, arthralgias, myalgias Skin: denies rash Neuro: denies numbness, focal weakness, reports headaches PFSH Medical History Atrial fibrillation rate controlled with meds. Atrial flutter s/p ablation 2006. Dyspareunia in female since menopause. Frequent UTI since menopause. Hypertension (Chronic) Recurrent major depression in partial remission Atrial flutter. 2006. resolved but AFib persisted. Surgical History H/O cardiac catheterization (Chronic) Status post ablation of atrial flutter Status post tonsillectomy (Acute) Family History Mother Personal history of malignant neoplasm Salivary gland Father Dementia Heart disease Sister Essential hypertension Hyperlipidemia Sister Essential hypertension Hyperlipidemia Sister Essential hypertension Hyperlipidemia Social History Smoking/Tobacco Use Status: Never Alcohol Intake: never Drug use: Never Substance use type: does not use Household members: spouse What type of physical activity do you participate in: none and independent ambulation Do you feel safe at home: Yes Do you feel safe in your relationship?: Yes History History 0 Para Hx # Term Pregnancies Multiple births Hx # Pregnancies Ectopic pregnancies AB induced Hx Number of Living Children AB spontaneous Exam Narrative Exam Narrative: Constitutional: well and [id number], pleasant, conversing normally HENT: head atraumatic/normocephalic/normal inspection, mucous membranes moist Eyes: conjunctiva normal, sclera normal, pupils 3mm b/l Neck: no stridor, normal ROM, trachea midline, no meningismus Resp: normal work of breathing, no respiratory distress Cardio: normal rate, normal rhythm GI: Abdomen soft, nondistended, nontender Skin: warm, dry, normal color, no rash Neuro: alert, not altered, grossly non-focal, normal tone Ext: no edema, moving all extremities equally Psych: normal mood, normal affect, normal behavior Procedures Nerve Block Nerve Block 1: Time out performed: Yes Local Anesthetic: Lidocaine 1% and Bupivicaine 0.25% Amount of anesthesia used (mL): 4 Side: left and right Nerve Blocks: occipital Procedure Successful: Yes (parital relief) Patient Tolerated Procedure: well and no complications Complications: none Additional Comments: 50:50 lidocaine 1% and bupivicaine 25%
--- NOTE | 2019-10-23 11:30 | DI.MRI_ITS ---
EXAM: MR BRAIN WO CLINICAL HISTORY: headache TECHNIQUE: Multiplanar multisequence MRI of the brain was performed. COMPARISON: CT CT HEAD WO from 06/25/2019 FINDINGS: VENTRICLES AND EXTRA AXIAL SPACES: Normal in size and morphology for the patient's age. MIDLINE SHIFT: None. CEREBRAL PARENCHYMA: No focus of restricted diffusion to suggest acute infarct. No space-occupying le mekhi identified. There are several areas of hyperintense signal on the T2 and FLAIR images in the whi te matter most consistent with small vessel ischemic disease. HEMORRHAGE: None. BRAINSTEM/CEREBELLUM: Normal. CALVARIUM: Normal. VISUALIZED PARANASAL SINUSES/MASTOIDS:There is moderate mucosal thickening in the maxillary sinuses b ilaterally. The remaining visualized paranasal sinuses are clear. No fluid levels are seen in the s inuses. [place]: Normal flow void. PITUITARY GLAND: Unremarkable. OTHER FINDINGS: None. IMPRESSION: 1. No acute intracranial process. 2. Chronic sinusitis. 3. Hyperintense signal in the white matter most consistent with small vessel ischemic disease. 4. The findings were discussed with the emergency department on the date of the examination. DATA REPOSITORY:
[2019-10-23 11:48] LABS: Abs Immature Grans 0.02 k/cumm (0.0-0.09); Absolute Basophil Count 0.03 k/cumm (0.0-0.2); Absolute Eosinophil Count 0.19 k/cumm (0.0-0.7); Absolute Lymphocyte Count 0.59 k/cumm (1.2-3.4); Absolute Monocyte Count 1.02 k/cumm (0.11-0.7); Absolute Neutrophil Count 8.18 k/cumm (1.2-6.7); Basophils % 0.3; Eosinophils % 1.9; HCT 47.9 % (36.0-46.0); Immature Grans % 0.2 %; Lymphocytes % 5.9; Mean Corp. HGB Concentration 33.4 g/dL (32.0-36.0); Mean Corpuscular Hemoglobin 29.4 pg (27.0-33.0); Mean Corpuscular Volume 88.1 fL (80-95); Mean Platelet Volume 10.4 fL (8.0-11.0); Monocytes % 10.2; Neutrophils % 81.5; Platelet Count 172 x1000/uL (130-400); RBC 5.44 m/cumm (4.00-5.20); RBC Distribution Width 13.5 % (11.7-14.6); White Blood Cell Count 10.03 k/cumm (4.4-10.8)
[2019-10-23 12:09] LABS: ALT 38 U/L (14-59); AST 26 U/L (15-37); Albumin 3.8 g/dL (3.4-5.0); Alkaline Phosphatase 102 U/L (46-116); Anion Gap 7.4 mmol/L (3-11); BUN 15 mg/dL (7-18); Bilirubin, Total 0.5 mg/dL (0.2-1.0); CO2 29.6 mmol/L (21.0-32.0); CREATININE 0.92 mg/dL (0.55-1.02); Calcium 9.1 mg/dL (8.5-10.1); Chloride 97 mmol/L (98-107); Glucose 111 mg/dL (74-106); Magnesium 1.9 mg/dL (1.8-2.4); Potassium 4.3 mmol/L (3.5-5.1); Sodium 134 mmol/L (136-145); TSH (W/Ref FT4) 1.06 uIU/mL (0.36-3.74); Total Protein 7.5 g/dL (6.4-8.2)
[2019-10-23 13:36] LABS: Troponin I < 0.05 ng/Ml (<0.06)
[2019-10-23] MEDS: Bupivacaine 0.5% Pres-Free 30 ML VIAL (14:44)
[2019-10-23] MEDS: Ondansetron 4 MG/2 ML VIAL IVP (15:09)
[2019-10-23] MEDS: Normal Saline 1,000 ML 1000 ML IV ×2 (15:23→17:56)
[2019-10-23] MEDS: diphenhydrAMINE 50 MG/ML VIAL 25 MG IVP (15:27)
[2019-10-23] MEDS: Prochlorperazine 10 MG/2 ML VIAL IVP (17:55)
[2019-10-23] MEDS: VANCOMYCIN 1,500 MG in Normal Saline 250 ML 166.6666 MG IVPB (19:28)
[2019-10-23] MEDS: Normal Saline Flush 10 ML SYR IVP ×2 (19:29→21:53)
--- NOTE | 2019-10-23 19:39 | W.PM.HP.N ---
Date of service: 10/23/19 Time of Service: 19:39 Assessment and Plan Assessment and plan (1) Headache: Status: Acute Assessment and plan: Headache. Would describe as chronic daily tension-type. Possible stress is playing some role. Would consider prophylaxis with low dose TCA. Does not appear to be migraine or med overuse or cluster. Doubt TA but will add on sed rate for completeness. Since she is due to see Neuro in AM will hold on instituting any new regimen. It seems clear that the fever is an entirely separate and acute issue, this is not at all the picture of meningitis, aseptic or otherwise, and I do not see need for LP -- which would in any case be relatively contraindicated at present due to NOAC. I am not sure that empiric antibiotics are necessary either. I think the fever is likely related to acute diarrheal illness, In this regard this is most likely viral, but will send stool studies given high fever. Note no recent antibiotics. History of Present Illness History of Present Illness Chief Complaint: HO Narrative: 64 female reports 2 months of unrelenting though fairly mild HO -- bitemporal or diffuse, w/o aura, N/V or photo-phonophobia. Has had limited help with muscle relaxants, none with APAP -- which she only tried in past few days or so. MRI negative, due to see Neuro in AM. Came in due to continued HO. Note that HAs began with very stressful day at work, and she has been told not to return to work until HO free. Works at [employer], and endorses some concern for COVID exposure In ER then reported onbe0-two days watery diarrhea, associated with crampy lower abd pain just prior to stools, and had fever to 38.8 here. No travel, gets filtered water from [facility], and no similar illness at home. Review of Systems All systems reviewed & are unremarkable except as noted in HPI and below PFSH Medical History Atrial fibrillation rate controlled with meds. Atrial flutter s/p ablation 2005. Dyspareunia in female since menopause. Frequent UTI since menopause. Hypertension (Chronic) Recurrent major depression in partial remission Atrial flutter. 2005. resolved but AFib persisted. Surgical History H/O cardiac catheterization (Chronic) Status post ablation of atrial flutter Status post tonsillectomy (Acute) Family History Mother Personal history of malignant neoplasm Salivary gland Father Dementia Heart disease Sister Essential hypertension Hyperlipidemia Sister Essential hypertension Hyperlipidemia Sister Essential hypertension Hyperlipidemia Social History Smoking/Tobacco Use Status: Never Alcohol Intake: never Drug use: Never Substance use type: does not use Household members: spouse What type of physical activity do you participate in: none and independent ambulation Do you feel safe at home: Yes Do you feel safe in your relationship?: Yes History History 0 Para Hx # Term Pregnancies Multiple births Hx # Pregnancies Ectopic pregnancies AB induced Hx Number of Living Children AB spontaneous Meds Home Medications and Allergies Home Medications Medication Instructions Recorded Confirmed Type blood pressure test kit-medium #1 kit 10/07/16 08/14/19 History hydrochlorothiazide 12.5 mg tablet 12.5 mg PO DAILY #90 tab 07/27/19 10/23/19 Rx rivaroxaban 20 mg tablet 20 mg PO DAILY #30 tab 09/19/19 10/23/19 Rx magnesium oxide 500 mg capsule 500 mg PO DAILY 09/29/19 10/23/19 History metaxalone 800 mg tablet 800 mg PO TID PRN #14 tab 10/06/19 10/23/19 Rx propranolol 10 mg tablet 10 mg PO BID #60 tab 10/10/19 10/23/19 Rx Allergies Allergy/AdvReac Type Severity Reaction Status Date / Time erythromycin base Allergy Mild Verified 10/23/19 11:03 [Erythromycin Base] Penicillins Allergy Mild Verified 10/23/19 11:03 sulfamethoxazole Allergy Itching Verified 10/23/19 11:03 [From Bactrim] trimethoprim [From Bactrim] Allergy Itching Verified 10/23/19 11:03 lisinopril AdvReac Severe Other (See Unverified 10/23/19 11:03 Comment) metoprolol AdvReac Severe SEVERE H/A Verified 10/23/19 11:03 and DIZZY losartan AdvReac Intermediate Headache Unverified 10/23/19 11:03 nitrofurantoin AdvReac Unknown UPSET Verified 10/23/19 11:03 macrocrystalline STOMACH [From Macrodantin] flecainide AdvReac Wide Verified 10/23/19 11:03 complex tachycardia Exam Narrative Exam Narrative: 152/79, 97, 38.8, 16, 95% RA. HEENT atraumatic, no tmeporal artery tenderness; neck supple; lungs clear; heart RRR w/o MRG; abdomen soft and NT; extremities w/o edema; neuro Ox3, non0-focal Results Labs Result diagrams: 10/23/19 11:40 10/23/19 11:40 Labs: Laboratory Results - last 24 hr 10/23/19 10/23/19 10/23/19 11:40 11:40 11:40 WBC 10.03 RBC 5.44 H Hgb 16.0 H Hct 47.9 H MCV 88.1 MCH 29.4 MCHC 33.4 RDW 13.5 Plt Count 172 MPV 10.4 Immature Gran % 0.2 Neutrophils % 81.5 Lymphocytes % 5.9 Monocytes % 10.2 Eosinophils % 1.9 Basophils % 0.3 Absolute Neutrophils 8.18 H Absolute Lymphocytes 0.59 L Absolute Monocytes 1.02 H Absolute Eosinophils 0.19 Absolute Basophils 0.03 Sodium 134 L Potassium 4.3 Chloride 97 L Carbon Dioxide 29.6 Anion Gap 7.4 BUN 15 Creatinine 0.92 Estimated GFR/1.73 m2 >= 60.00 Glucose 111 H Calcium 9.1 Magnesium 1.9 Total Bilirubin 0.5 AST 26 ALT 38 Alkaline Phosphatase 102 Troponin I < 0.05 Total Protein 7.5 Albumin 3.8 TSH 1.06 Last Vital Signs Temp 38.8 C H 10/23/19 19:02 Pulse 97 H 10/23/19 19:02 Resp 16 10/23/19 19:02 BP 152/79 H 10/23/19 19:02 Pulse Ox 95 10/23/19 19:02 COVID-19 Screening In the past 14 days, have you traveled outside of [place] or [place]?: NO Had IN PERSON contact w/suspected or confirmed C-19 person: No
[2019-10-23] MEDS: Dexamethasone 10 MG/ML VIAL IVP (19:41)
[2019-10-23] MEDS: Acetaminophen 500 MG TAB 1000 MG PO (19:41)
[2019-10-23 21:49] LABS: ESR 5 mm/hr (0-30)
[2019-10-23] MEDS: Normal Saline 1,000 ML 125 ML IV (21:53)
--- NOTE | 2019-10-23 23:07 | NUR.NOTE ---
Nursing Note: Patient was given brief education about the medication Propanolol that is ordered for her by hospitalist. Upon recognizing said medication, patient stated her GP has ordered said med to her before but stated it did not work for her and that she had side effects taking it. Documented not given at [facility]
[2019-10-24] VITALS: BP 110/68; PULSE 72; RESP 16; TEMP 36.8; O2SAT 95
[2019-10-24] MEDS: Normal Saline 1,000 ML 125 ML IV (05:07)
[2019-10-24 07:03] VITALS: BP 130/75; PULSE 57; RESP 16; TEMP 35.3; O2SAT 93
--- NOTE | 2019-10-24 08:57 | W.PM.PROGNOT ---
Date of Service Date of service: 10/24/19 Time of Service: 08:57 Assessment and Plan Assessment and plan (1) Headache: Status: Acute (2) Hypertension: Status: Chronic Qualifiers: Hypertension type: essential hypertension Qualified Code(s): I10 - Essential (primary) hypertension (3) A-fib: Status: Acute (4) Diarrhea: Status: Acute (5) Fever: Status: Acute (6) DVT prophylaxis: Status: Acute (7) Discharge planning issues: Status: Acute Objective Objective Clinical Data: Abnormal lab results 10/23/19 10/23/19 Range/Units 11:40 11:40 RBC 5.44 H (4.00-5.20) m/cumm Hgb 16.0 H (12.0-15.5) g/dL Hct 47.9 H (36.0-46.0) % Absolute Neutrophils 8.18 H (1.2-6.7) k/cumm Absolute Lymphocytes 0.59 L (1.2-3.4) k/cumm Absolute Monocytes 1.02 H (0.11-0.7) k/cumm Sodium 134 L (136-145) mmol/L Chloride 97 L (98-107) mmol/L Glucose 111 H (74-106) mg/dL Vital Signs Temperature 35.3 C L 10/24/19 07:03 Temperature Source Tympanic 10/24/19 07:03 Pulse 57 L 10/24/19 07:03 Pulse Rhythm Irregular 10/24/19 07:20 Pulse Strength Normal 10/23/19 19:02 Respiratory Rate 16 10/24/19 07:03 Respiratory Effort Non-Labored 10/24/19 07:20 Respiratory Depth Normal 10/24/19 07:20 Respiratory Pattern Normal 10/24/19 07:20 Blood Pressure 130/75 10/24/19 07:03 Blood Pressure Mean 103 10/23/19 19:02 Blood Pressure Position Supine 10/23/19 19:02 Pulse Oximetry 93 L 10/24/19 07:03 Oxygen Delivery Method Room Air 10/24/19 07:03 Oxygen Flow Rate 0 10/24/19 07:03 Pain Level 2 10/24/19 07:03 Comment 10/24/19 07:03 Intake & Output 10/23/19 10/23/19 10/24/19 11:59 23:59 11:59 Intake Total 1250 / 1250 1144.167 / 1144.167 Output Total 1100 / 1100 Balance 1250 / 1250 44.167 / 44.167 Weight 81.647 kg 81.647 kg Intake: IV 1250 / 1250 904.167 / 904.167 Oral 240 / 240 Output: Urine 1100 / 1100 Other: Urine Color Yellow Urine Appearance Clear Urine Odor Normal Stool Size Moderate Stool Characteristics Formed Liquid Brown Voiding Methods Toilet Laboratory Results WBC 10.03 k/cumm (4.4-10.8) 10/23/19 11:40 RBC 5.44 m/cumm (4.00-5.20) H 10/23/19 11:40 Hgb 16.0 g/dL (12.0-15.5) H 10/23/19 11:40 Hct 47.9 % (36.0-46.0) H 10/23/19 11:40 MCV 88.1 fL (80-95) 10/23/19 11:40 MCH 29.4 pg (27.0-33.0) 10/23/19 11:40 MCHC 33.4 g/dL (32.0-36.0) 10/23/19 11:40 RDW 13.5 % (11.7-14.6) 10/23/19 11:40 Plt Count 172 x1000/uL (130-400) 10/23/19 11:40 MPV 10.4 fL (8.0-11.0) 10/23/19 11:40 Immature Gran % 0.2 % 10/23/19 11:40 Neutrophils % 81.5 10/23/19 11:40 Lymphocytes % 5.9 10/23/19 11:40 Monocytes % 10.2 10/23/19 11:40 Eosinophils % 1.9 10/23/19 11:40 Basophils % 0.3 10/23/19 11:40 Absolute Neutrophils 8.18 k/cumm (1.2-6.7) H 10/23/19 11:40 Absolute Lymphocytes 0.59 k/cumm (1.2-3.4) L 10/23/19 11:40 Absolute Monocytes 1.02 k/cumm (0.11-0.7) H 10/23/19 11:40 Absolute Eosinophils 0.19 k/cumm (0.0-0.7) 10/23/19 11:40 Absolute Basophils 0.03 k/cumm (0.0-0.2) 10/23/19 11:40 ESR 5 mm/hr (0-30) 10/23/19 20:52 Sodium 134 mmol/L (136-145) L 10/23/19 11:40 Potassium 4.3 mmol/L (3.5-5.1) 10/23/19 11:40 Chloride 97 mmol/L (98-107) L 10/23/19 11:40 Carbon Dioxide 29.6 mmol/L (21.0-32.0) 10/23/19 11:40 Anion Gap 7.4 mmol/L (3-11) 10/23/19 11:40 BUN 15 mg/dL (7-18) 10/23/19 11:40 Creatinine 0.92 mg/dL (0.55-1.02) 10/23/19 11:40 Estimated GFR/1.73 m2 >= 60.00 (mL/min/1.73m2) 10/23/19 11:40 Glucose 111 mg/dL (74-106) H 10/23/19 11:40 Calcium 9.1 mg/dL (8.5-10.1) 10/23/19 11:40 Magnesium 1.9 mg/dL (1.8-2.4) 10/23/19 11:40 Total Bilirubin 0.5 mg/dL (0.2-1.0) 10/23/19 11:40 AST 26 U/L (15-37) 10/23/19 11:40 ALT 38 U/L (14-59) 10/23/19 11:40 Alkaline Phosphatase 102 U/L (46-116) 10/23/19 11:40 Troponin I < 0.05 ng/Ml (<0.06) 10/23/19 11:40 Total Protein 7.5 g/dL (6.4-8.2) 10/23/19 11:40 Albumin 3.8 g/dL (3.4-5.0) 10/23/19 11:40 TSH 1.06 uIU/mL (0.36-3.74) 10/23/19 11:40
[2019-10-24] MEDS: Acetaminophen 500 MG TAB 1000 MG PO (09:26)
[2019-10-24] MEDS: MAGNESIUM SULFATE 1 GM/100 ML BAG IVPB (11:07)
[2019-10-24] MEDS: Prochlorperazine 10 MG TAB PO (11:07)
--- NOTE | 2019-10-24 11:24 | PDOC.CMIN ---
- If Service Date Differs Date of service: 10/24/19 Time of Service: 11:24 Care Management Initial Assess REASON FOR HOSPITALIZATION:: Headache, Diarrhea PAST MEDICAL HISTORY/PAST SURGICAL HISTORY:: Chronic headaches, Afib, dyspareuria, HTN, depression. Surgical hx: cardiac cath and s/p tonsilectomy PREVIOUS FUNCTIONAL STATUS/SOCIAL/FAMILY SUPPORTS:: Ally lives with her spouse in [place], [place] she is alert and engaged with CM during assessment. She states that she is independent with self care including transporation. 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 She and her spouse retired to the area from [place], they have no children. CURRENT FUNCTIONAL STATUS:: Ally is alert and engaged she states her headache is improved she is unsure which medication worked however she is feeling better. She states she has been under more stress which has only become worse since she has not been able to work. However she does report that her headache had started before she stopped working. ADVANCE DIRECTIVES:: None on file Has patient been provided with information about the portal?: Yes Did the patient sign up for the portal?: Yes (already enrolled) CODE STATUS:: Full Code INSURANCE COVERAGE / FINANCIAL ISSUES:: CURRENT HOME/COMMUNITY SERVICES/EQUIPMENT:: None PRIMARY CARE PHYSICIAN:: POTENTIAL DISCHARGE NEEDS:: Follow up with primary care as directed after discharge. PATIENT/FAMILY EDUCATION NEEDS:: Discharge education, limitations and follow up plan of care including ask me three and self management ANTICIPATED BARRIERS TO DISCHARGE:: No identified barriers TRANSPORTATION:: Via private car with spouse PLAN:: Ally will be discharged home today she will need to follow up with services as prescribed. No other needs at time of discharge. She understands the follow up plan of care. She describes a good relationship with her primary care provider and feels well supported.
[2019-10-24 12:00] VITALS: TEMP 35.3
--- NOTE | 2019-10-24 16:07 | NCONE_ITS ---
Date of service: 10/24/19 Time of Service: 16:07 History of Present Illness History of Present Illness Chief Complaint: headache Narrative: Handedness: right. HPI: Consults Requesting physician: Froilan Swain [facility] Medical History Atrial fibrillation rate controlled with meds. Atrial flutter s/p ablation 2006. Dyspareunia in female since menopause. Frequent UTI since menopause. Hypertension (Chronic) Recurrent major depression in partial remission Atrial flutter. 2005. resolved but AFib persisted. Surgical History H/O cardiac catheterization (Chronic) Status post ablation of atrial flutter Status post tonsillectomy (Acute) Family History Mother Personal history of malignant neoplasm Salivary gland Father Dementia Heart disease Sister Essential hypertension Hyperlipidemia Sister Essential hypertension Hyperlipidemia Sister Essential hypertension Hyperlipidemia Social History Smoking/Tobacco Use Status: Never Alcohol Intake: never Drug use: Never Substance use type: does not use Household members: spouse What type of physical activity do you participate in: none and independent ambulation Do you feel safe at home: Yes Do you feel safe in your relationship?: Yes History History 0 Para Hx # Term Pregnancies Multiple births Hx # Pregnancies Ectopic pregnancies AB induced Hx Number of Living Children AB spontaneous Visit Medication and Allergies Active Medications Generic Name Dose Route Start Last Admin Trade Name Freq PRN Reason Stop Dose Admin Acetaminophen 1,000 mg 10/23/19 19:58 10/24/19 09:26 Tylenol PO 1,000 mg Q6H PRN PRN Administration Dimethicone/Zinc Oxide 0 gm 10/23/19 19:53 Grant Protect Cream TP PRN PRN Diphenoxylate HCl/Atropine 2 tab 10/24/19 08:49 Lomotil PO Q4H PRN PRN Magnesium Sulfate/Dextrose 1 gm in 100 mls @ 300 mls/hr 10/24/19 10:00 10/24/19 11:07 IVPB 300 mls/hr Q8H JANET Administration IV Miscellaneous Supplies 1 each 10/23/19 11:30 IV DIRECTED JANET Metaxalone 800 mg 10/23/19 19:57 Skelaxin PO TID PRN PRN muscle spasm Ondansetron HCl 4 mg 10/23/19 19:53 Zofran Injection IVP Q4H PRN PRN Prochlorperazine Maleate 10 mg 10/24/19 10:00 10/24/19 11:07 Compazine PO 10 mg Q8H JANET Administration Rivaroxaban 20 mg 10/24/19 17:00 Xarelto PO DAILY@1700 JANET Sodium Chloride 0 ml 10/23/19 11:24 10/23/19 21:53 Saline Flush 10 Ml Syringe IVP 10 ml PRN PRN Administration Zolpidem Tartrate 5 mg 10/23/19 19:58 Ambien PO HS PRN MAY REPEAT X1 PRN Allergies erythromycin base [Erythromycin Base] Allergy (Mild, Verified 10/23/19 11:03) Penicillins Allergy (Mild, Verified 10/23/19 11:03) sulfamethoxazole [From Bactrim] Allergy (Verified 10/23/19 11:03) Itching trimethoprim [From Bactrim] Allergy (Verified 10/23/19 11:03) Itching lisinopril Adverse Reaction (Severe, Unverified 10/23/19 11:03) Other (See Comment) metoprolol Adverse Reaction (Severe, Verified 10/23/19 11:03) SEVERE H/A and DIZZY losartan Adverse Reaction (Intermediate, Unverified 10/23/19 11:03) Headache nitrofurantoin macrocrystalline [From Macrodantin] Adverse Reaction (Unknown, Verified 10/23/19 11:03) UPSET STOMACH flecainide Adverse Reaction (Verified 10/23/19 11:03) Wide complex tachycardia Results Last Vital Signs Temp 35.3 C L 10/24/19 12:00 Pulse 57 L 10/24/19 07:03 Resp 16 10/24/19 07:03 BP 130/75 10/24/19 07:03 Pulse Ox 93 L 10/24/19 07:03 Labs Result diagrams: 10/23/19 11:40 10/23/19 11:40 Labs: Laboratory Results - last 24 hr 10/23/19 20:52 ESR 5
[2019-10-24 16:15] VITALS: BP 143/81; PULSE 60; RESP 16; TEMP 35.6; O2SAT 97
--- NOTE | 2019-10-24 16:39 | W.PM.DS.N ---
Date of service: 10/24/19 Time of Service: 16:39 DS: Diagnosis Discharge Diagnosis (1) Headache: Status: Acute (2) Hypertension: Status: Chronic (3) A-fib: Status: Acute (4) Diarrhea: Status: Acute (5) Fever: Status: Acute Discharge Plan Disposition Patient Disposition: HOME Condition: Improving Discharge Details Chief Complaint: GenMedical Reason For Visit: HEADACHE,DIARRHEA Admit Date/Time: 10/23/19 19:53 Admit Provider: Froilan Swain Attending Provider: Froilan Swain Primary Care Provider: Andre Braun ED Provider: Sunitha Pierre [facility] Course Hospital Course: This is a 64 female who reports to the emergency department for c/o of 2 months of unrelenting though fairly mild HO -- bitemporal or diffuse, w/o aura, N/V or photo-phonophobia. Has had limited help with muscle relaxants, none with APAP -- which she only tried in past few days or so. MRI was negative, she is scheduled to see Neurology 10/23. Came in due to continued HO. Note that HAs began with very stressful day at work, and she has been told not to return to work until HO free. Works at [employer], and endorses some concern for COVID exposure. She has had 2 previous negative covid 19 tests, last one about 2 weeks ago. Her work up and exam was unremarkable. she did not undergo an LP as she is anticoagulated on xarelto for history of afib but had no meningeal signs. She had been prescribed propanolol but will not take it. She was given compazine, benadryl, IV fluids and dexamethasone with improvement in her symptoms to a 5/10. She was going to be discharged to home to follow up outpatient with neurology as scheduled but then reported two days watery diarrhea, associated with crampy lower abd pain just prior to stools, and had fever to 38.8 prior to discharge. No travel, gets filtered water from [facility], and no similar illness at home. At this point she was given ceftriaxone, vancomycin and tylenol and hospitalist services was contacted to admit her to med/surg. Covid testing pending. overnight she remained hemodynamically stable and fever free. her headache continued to improve to a 1-2/10. she had no new symptoms and was returning to her recent baseline. She denied abdominal pain and diet was advanced which she tolerated well. Case was discussed with Dr Barton who will see her outpatient and recommends continuing with prn compazine if needed. She is being discharged to home with no services. prescription for compazine was sent electronically. She will not take propanolol so it has been discontinued from her medication list at discharge. outpatient appointment will be arranged by neurology office and patient will be contacted. she is advised to return sooner for new or worsening symptoms. case discussed with DR Barton and DR Quach who are in agreement with discharge plan greater than 35 minutes spent on discharge. Home Meds and New Rx's Prescriptions: New prochlorperazine maleate [Compazine] 5 mg tablet 5 mg PO TID PRNQty: 20 RF: 0 Continued hydrochlorothiazide 12.5 mg tablet 12.5 mg PO DAILY Qty: 90 RF: 3 (DME) blood pressure test kit-medium 1 EACH kit 1 ea Miscellaneous BID Qty: 1 RF: 0 Xarelto 20 mg tablet 20 mg PO DAILY Qty: 30 RF: 11 magnesium oxide 500 mg capsule 500 mg PO DAILY RF: 0 metaxalone [Skelaxin] 800 mg tablet 800 mg PO TID PRN (Reason: muscle spasm) Qty: 14 RF: 0 Discontinued propranolol 10 mg tablet 10 mg PO BID Qty: 60 RF: 0 Discharge Instructions Instructions: Acute Headache (DC) Additional Instructions: take all medications as directed. drink at least 6-8 glasses of water daily to stay well hydrated. Referrals: Gardenia Lee MD [ [facility] STAFF PHYSICIAN] - (1-2 days) Activity:: Activity as Tolerated Equipment/Supplies:: No Equipment Needed Diet:: As Tolerated Discharge Orders Discharge Orders: Discharge Order (Routine); Ordered 10/24/19 Ordered By: Milly Emerson DS: Summary Status at Discharge Functional status at discharge: independent ambulation Overall status at discharge: patient is progressing back to baseline Mental Status: mental status grossly normal Speech and Movement: speech and movement normal Mood: congruent mood Affect: normal affect Exam Const General: cooperative, healthy appearing, comfortable, no acute distress and well developed Nutritional Appearance: average body habitus Orientation: alert, awake and oriented x3 HENMT Head: normal to inspection, normocephalic and atraumatic General nose exam: external nose normal Face and sinus: normal facial exam Mouth: oral mucosae normal Eyes General: appearance normal, both eyes and all related structures Alignment and Position: alignment normal and position normal Conjunctivae: conjunctivae normal Sclera: sclerae normal Cornea: corneas normal EOM: EOM intact bilaterally and No nystagmus Resp Effort & Inspection: normal respiratory effort Auscultation: clear to auscultation bilaterally Cardio Rate: regular rate Rhythm: regular rhythm GI Inspection: normal to inspection Palpation: soft and nontender Auscultation: normal bowel sounds Skin General skin exam: no rashes or lesions noted Neuro General: patient alert, patient awake, patient oriented x3, gait normal, tone normal, moves all extremities, no meningeal signs and no focal motor deficits Cranial Nerves: no nystagmus, facial strength normal, tongue midline and no nystagmus Cognition: normal cognition Gait: normal gait Motor: muscle tone normal throughout, strength 5/5 throughout and no movement abnormalities noted (able to perform finger to nose bilaterally) Extrem General: normal to inspection and full ROM Psych Appearance: grossly normal Mental Status: mental status grossly normal Speech and Movement: speech and movement normal Mood: congruent mood Affect: normal affect Attitude: cooperative Thought Process: normal Thought Content: normal Insight: insight good Judgment: judgment good DS: Data Vitals/I&O Vitals and I&O: Vital Signs Temperature 35.6 C L 10/24/19 16:15 Temperature Source Tympanic 10/24/19 16:15 Pulse 60 10/24/19 16:15 Pulse Rhythm Irregular 10/24/19 16:11 Pulse Strength Normal 10/23/19 19:02 Respiratory Rate 16 10/24/19 16:15 Respiratory Effort Non-Labored 10/24/19 16:11 Respiratory Depth Normal 10/24/19 16:11 Respiratory Pattern Normal 10/24/19 16:11 Blood Pressure 143/81 H 10/24/19 16:15 Blood Pressure Mean 103 10/23/19 19:02 Blood Pressure Position Supine 10/23/19 19:02 Pulse Oximetry 97 10/24/19 16:15 Oxygen Delivery Method Room Air 10/24/19 16:15 Oxygen Flow Rate 0 10/24/19 16:15 Pain Level 2 10/24/19 16:15 Comment 10/24/19 07:03 Intake & Output 10/23/19 10/24/19 10/24/19 23:59 11:59 23:59 Intake Total 1250 / 1250 1144.167 / 4144.167 3000 / 4144.167 Output Total 1600 / 1999 400 / 2000 Balance 1250 / 1250 -455.833 / 2144.167 2600 / 2144.167 Weight 81.647 kg Intake: IV 1250 / 1250 904.167 / 1882.115 9939 / 1904.167 Oral 240 / 2240 2000 / 2240 Output: Urine 1600 / 1999 400 / 2000 Other: Urine Color Yellow Yellow Urine Appearance Clear Clear Urine Odor None Normal Stool Size Moderate Small Stool Characteristics Formed Liquid Liquid Brown Brown Voiding Methods Toilet Toilet Data Completed and Pending Labs on day of discharge: Labs from last 24 hours 10/24/19 10/24/19 10/23/19 05:15 05:15 20:52 ESR 5 Stool Description Pending Stool Campylobacter PCR Pending Stool Salmonella PCR Pending Stool Shigella PCR Pending Stool Ova & Parasites Pending COVID-19 PCR Nasopharyn COVID-19 PCR Shiga Toxin (PCR) Pending Ref Test Perform Site 10/23/19 19:50 ESR Stool Description Stool Campylobacter PCR Stool Salmonella PCR Stool Shigella PCR Stool Ova & Parasites COVID-19 PCR Pending Nasopharyn COVID-19 PCR Pending Shiga Toxin (PCR) Ref Test Perform Site Pending [facility] Medical History Atrial fibrillation rate controlled with meds. Atrial flutter s/p ablation 2006. Dyspareunia in female since menopause. Frequent UTI since menopause. Hypertension (Chronic) Recurrent major depression in partial remission Atrial flutter. 2006. resolved but AFib persisted. Surgical History H/O cardiac catheterization (Chronic) Status post ablation of atrial flutter Status post tonsillectomy (Acute) Family History Mother Personal history of malignant neoplasm Salivary gland Father Dementia Heart disease Sister Essential hypertension Hyperlipidemia Sister Essential hypertension Hyperlipidemia Sister Essential hypertension Hyperlipidemia Social History Smoking/Tobacco Use Status: Never Alcohol Intake: never Drug use: Never Substance use type: does not use Household members: spouse What type of physical activity do you participate in: none and independent ambulation Do you feel safe at home: Yes Do you feel safe in your relationship?: Yes History History 0 Para Hx # Term Pregnancies Multiple births Hx # Pregnancies Ectopic pregnancies AB induced Hx Number of Living Children AB spontaneous
[2019-10-24] MEDS: Rivaroxaban 10 MG TABLET 20 MG PO (16:59)
[2019-10-24 23:01] LABS: COVID-19 RT-PCR UVMMC Result Negative (Negative)
[2019-10-25 11:25] LABS: Campylobacter PCR Negative (Negative); Salmonella PCR Positive (Negative); Shiga Toxin PCR Negative (Negative); Shigella/Enteroinvasive Ecoli Negative (Negative)
== END 2019-10-24 17:55 | disposition home or self-care (01) | DRG 103 ==
LOC: ER 11:04 → MS 20:39
PROVIDERS: Admitting Provider General Practice; Emergency Provider Student in an Organized Health Care Education/Training Program; PCP Family Medicine; Visit Provider Internal Medicine
DX: R51 Headache (principal); I10 Essential (primary) hypertension; I48.91 Unspecified atrial fibrillation; R19.7 Diarrhea, unspecified; R50.9 Fever, unspecified; Z79.01 Long term (current) use of anticoagulants; Z03.818 Encounter for observation for suspected exposure to other biological agents ruled out
CPT/HCPCS: 36415; 64405; 80053; 85652; 87505; 93005; 96361; 96365; 96366; 96368; 96375; 99222; 99239; 99285; U0003; 70551; 83630; 83735; 84443; 84484; 85025; 87177; 87324; 93010; 99217; 99218; G0378; J0696; J0780; J1100; J1200; J2405; J3475

== ENCOUNTER 2019-10-30 08:54 | Emergency (ER) | payer BC, MEDICARE, SELFPAY ==
[2019-10-30 09:01] VITALS: BP 149/60; PULSE 103; RESP 16; TEMP 36.6; O2SAT 98
[2019-10-30 09:10] VITALS: RESP 16
--- NOTE | 2019-10-30 09:10 | ED.GENADUL_ITS ---
Discharge Plan Disposition Patient Disposition: HOME Condition: Stable Discharge Details Chief Complaint: Vascular Clinical Impression: Leg pain, right, Effusion, right knee Primary Care Provider: Andre Braun ED Provider: Sunitha Pierre Home Meds and New Rx's Prescriptions: Continued hydrochlorothiazide 12.5 mg tablet 12.5 mg PO DAILY Qty: 90 RF: 3 (DME) blood pressure test kit-medium 1 EACH kit 1 ea Miscellaneous BID Qty: 1 RF: 0 Xarelto 20 mg tablet 20 mg PO DAILY Qty: 30 RF: 11 magnesium oxide 500 mg capsule 500 mg PO DAILY RF: 0 metaxalone [Skelaxin] 800 mg tablet 800 mg PO TID PRN (Reason: muscle spasm) Qty: 14 RF: 0 ciprofloxacin HCl 500 mg tablet 500 mg PO Q12H Qty: 14 RF: 0 prochlorperazine maleate [Compazine] 5 mg tablet 5 mg PO TID PRNQty: 20 RF: 0 Discharge Instructions Instructions: Swollen Knee Joint (ED), Leg Pain (ED) Additional Instructions: Please return immediately to the emergency department if you develop any new or worsening symptoms including but not limited to fever/redness of your knee/worsening pain/shortness of breath, if your condition does not improve as expected, or if you become otherwise concerned. It is extremely important that you call soon as possible to make an appointment to be seen in follow-up for this visit by your primary care doctor. Please call the number provided after 7:00 tomorrow morning to schedule your ultrasound to be performed tomorrow as we discussed. Referrals: Andre Braun [Primary Care Provider] - Discharge Data Discharge Date/Time-TO BE ENTERED AT DEPARTURE: 10/30/19 11:54 Medical Decision Making <Sunitha Pierre MD - Last Filed: 10/30/19 16:12> Ally Hayes is a 64 y/o woman with a history of hypertension, atrial fibrillation on Xarelto who presented to the emergency department with right knee and lower leg pain with walking that began yesterday in the setting of patient being less mobile than usual. On exam patient is well and nontoxic- appearing. Tachycardia resolved. Right lower extremity is neurovascularly intact and nontender to palpation except for anterior knee over proximal tibia, positive knee effusion with no warmth or erythema of the knee. Exam/history is not consistent with compartment syndrome, septic arthritis, myositis, cellulitis, sepsis, pulmonary embolism. Concern for hemarthrosis versus inflammatory arthritis versus DVT versus superficial thrombophlebitis versus other. Suspect mild tachycardia secondary to dehydration given ongoing watery diarrhea. Plan for screening labs, ultrasound, IV fluid hydration. Patient declines pain medication at this time. Patient ultrasound not available at this time given holiday. My [id number] bedside ultrasound shows compressible femoral and popliteal veins, not consistent with DVT. Labs reviewed, d-dimer negative when age-adjusted. Low suspicion for DVT at this time given Pocus, currently anticoagulated, d- dimer results, and presence of knee effusion indicating likely etiology of pain. I had a lengthy discussion with the patient regarding risks and benefits of diagnostic/therapeutic arthrocentesis. Patient refuses arthrocentesis at this time based on risk of infection. Plan for patient to return tomorrow for official ultrasound and recheck, Billy wrap, knee immobilizer. I had a lengthy discussion with Patient regarding return to emergency department precautions including but not limited to return for knee redness/rash, knee warmth, fever, worsening pain, home care, and importance of outpatient follow-up. Pt verbalizes understanding of the plan and is amenable. Patient discharged to home with clear plan for outpatient follow-up. All questions were answered. Ultrasound ordered by me. Disposition decision was made weighing the risks and benefits of hospitalization versus outpatient treatment, the risk for further decompensation, and the patient's wishes. Medical Records Medical records reviewed: Yes I reviewed the patient's medical records. Lab Data Lab results reviewed: Yes I reviewed the patient's lab results. Labs: Laboratory Tests Range/Units 10/30/19 10/30/19 10/30/19 09:40 09:40 09:40 WBC (4.4-10.8) k/cumm 9.81 RBC (4.00-5.20) m/cumm 5.23 H Hgb (12.0-15.5) g/dL 15.3 Hct (36.0-46.0) % 46.2 H MCV (80-95) fL 88.3 MCH (27.0-33.0) pg 29.3 MCHC (32.0-36.0) g/dL 33.1 RDW (11.7-14.6) % 13.1 Plt Count (130-400) x1000/uL 248 MPV (8.0-11.0) fL 9.9 Immature Gran % % 0.5 Neutrophils % 67.0 Lymphocytes % 13.0 Monocytes % 11.3 Eosinophils % 7.7 Basophils % 0.5 Absolute Neutrophils (1.2-6.7) k/cumm 6.56 Absolute Lymphocytes (1.2-3.4) k/cumm 1.28 Absolute Monocytes (0.11-0.7) k/cumm 1.11 H Absolute Eosinophils (0.0-0.7) k/cumm 0.76 H Absolute Basophils (0.0-0.2) k/cumm 0.05 PT (9.3-11.0) sec 11.3 H INR (0.9-1.1) 1.1 APTT (21.0-31.4) sec 27.5 D-Dimer (<500) ng/mlFEU 563 H Sodium (136-145) mmol/L 136 Potassium (3.5-5.1) mmol/L 4.0 Chloride (98-107) mmol/L 101 Carbon Dioxide (21.0-32.0) mmol/L 30.6 Anion Gap (3-11) mmol/L 4.4 BUN (7-18) mg/dL 13 Creatinine (0.55-1.02) mg/dL 0.94 Estimated GFR/1.73 m2 (mL/min/1.73m2) 59.76 Glucose (74-106) mg/dL 99 Calcium (8.5-10.1) mg/dL 9.0 Total Bilirubin (0.2-1.0) mg/dL 0.5 AST (15-37) U/L 46 H ALT (14-59) U/L 50 Alkaline Phosphatase (46-116) U/L 99 Total Protein (6.4-8.2) g/dL 7.5 Albumin (3.4-5.0) g/dL 3.6 <JERMAINE Woods - Last Filed: 10/30/19 12:29> My name was added to chart is error. HPI <Sunitha Pierre MD - Last Filed: 10/30/19 16:12> General Mode of arrival: ambulatory . Date/Time Provider Initiated Documentation: 10/30/19 09:04 . Limitations to Documentation: no limitations . Information obtained by: patient, RN notes reviewed and old records reviewed . HPI Narrative: Ally Hayes is a 4-year-old woman with a history of hypertension, atrial fibrillation on rivaroxaban presenting to the emergency department with leg pain and swelling. Patient was seen here 10/23/2023 chronic headache since August 2019 and also 4 days of diarrhea. She had negative MRI of the head at that time, developed a fever while in the emergency department, and was admitted to the hospital. Patient was discharged to home the next day, and was diagnosed with Salmonella 10/25/2019. She was started on Cipro that day which she has been taking as prescribed. Patient reports that she has been much less active than usual since that time due to continued diarrhea, which has improved but has not resolved. She reports that yesterday she noticed pain across the front of her right knee that was present only with walking. Patient reports that since then pain has worsened while walking, and she has had some pain in her calf as well. She feels that her right knee and lower leg are slightly swollen compared to the left. She also notes that her toes intermittently feel tingly since onset of pain. Patient reports that she is pain-free while at rest. She denies any other symptoms, including any other pain, fever, vomiting, shortness of breath, cough, focal weakness, other numbness, rash. Patient reports headache resolved during admission and has not returned. Patient reports that she has been taking her Xarelto as prescribed. She denies history of blood clot. Related Data Home Medications Medication Instructions Recorded Confirmed blood pressure test kit-medium #1 kit 10/07/16 08/14/19 hydrochlorothiazide 12.5 mg tablet 12.5 mg PO DAILY #90 tab 07/27/19 10/30/19 rivaroxaban 20 mg tablet 20 mg PO DAILY #30 tab 09/19/19 10/30/19 magnesium oxide 500 mg capsule 500 mg PO DAILY 09/29/19 10/30/19 metaxalone 800 mg tablet 800 mg PO TID PRN #14 tab 10/06/19 10/30/19 prochlorperazine maleate 5 mg PO TID PRN #20 tab 10/24/19 10/30/19 [Compazine] ciprofloxacin HCl 500 mg tablet 500 mg PO Q12H #14 tab 10/25/19 10/30/19 Previous Rx's Medication Instructions Recorded hydrochlorothiazide 12.5 mg tablet 12.5 mg PO DAILY #90 tab 07/27/19 rivaroxaban 20 mg tablet 20 mg PO DAILY #30 tab 09/19/19 metaxalone 800 mg tablet 800 mg PO TID PRN #14 tab 10/06/19 prochlorperazine maleate 5 mg PO TID PRN #20 tab 10/24/19 [Compazine] ciprofloxacin HCl 500 mg tablet 500 mg PO Q12H #14 tab 10/25/19 Allergies Allergy/AdvReac Type Severity Reaction Status Date / Time erythromycin base Allergy Mild Verified 10/30/19 09:08 [Erythromycin Base] Penicillins Allergy Mild Verified 10/30/19 09:08 sulfamethoxazole Allergy Itching Verified 10/30/19 09:08 [From Bactrim] trimethoprim [From Bactrim] Allergy Itching Verified 10/30/19 09:08 lisinopril AdvReac Severe Other (See Unverified 10/30/19 09:08 Comment) metoprolol AdvReac Severe SEVERE H/A Verified 10/30/19 09:08 and DIZZY losartan AdvReac Intermediate Headache Unverified 10/30/19 09:08 nitrofurantoin AdvReac Unknown UPSET Verified 10/30/19 09:08 macrocrystalline STOMACH [From Macrodantin] flecainide AdvReac Wide Verified 10/30/19 09:08 complex tachycardia General Stated Complaint: Vascular RICARDO: 3 Review of Systems <Sunitha Pierre MD - Last Filed: 10/30/19 16:12> Narrative: Constitutional: denies fevers Eyes: denies eye pain ENT: denies ear pain, dental pain, sore throat Cardiovascular: denies chest pain, reports right lower extremity edema Respiratory: denies SOB, cough GI: denies abdominal pain, vomiting, reports continued diarrhea now improved : denies flank pain MSK: denies back pain, neck pain, arthralgias, myalgias Skin: denies rash Neuro: denies headaches, weakness, reports numbness right toes PFSH <Sunitha Pierre MD - Last Filed: 10/30/19 16:12> Medical History Atrial fibrillation rate controlled with meds. Atrial flutter s/p ablation 2006. Dyspareunia in female since menopause. Frequent UTI since menopause. Hypertension (Chronic) Recurrent major depression in partial remission Atrial flutter. 2005. resolved but AFib persisted. Social History Smoking/Tobacco Use Status: Never Alcohol Intake: never Drug use: Never Substance use type: does not use Household members: spouse What type of physical activity do you participate in: none and independent ambulation Do you feel safe at home: Yes Do you feel safe in your relationship?: Yes History History 0 Para Hx # Term Pregnancies Multiple births Hx # Pregnancies Ectopic pregnancies AB induced Hx Number of Living Children AB spontaneous Exam <Sunitha Pierre MD - Last Filed: 10/30/19 16:12> Narrative Exam Narrative: Constitutional: well and [id number], pleasant, conversing normally HENT: head atraumatic/normocephalic/normal inspection, mucous membranes moist Eyes: conjunctiva normal, sclera normal, pupils 3mm b/l Neck: no stridor, normal ROM, trachea midline Chest: normal inspection Resp: normal work of breathing, LCTAB Cardio: normal rate, normal rhythm, no murmur appreciated Skin: warm, dry, normal color, no rash Neuro: alert, not altered, grossly non-focal, normal tone Ext: Prominence of veins right lower leg and right knee as compared to left noted (reports as chronic and unchanged for years) without other skin changes, no posterior calf tenderness bilaterally, no popliteal tenderness to palpation bilaterally, full range of motion right hip/right ankle, range of motion right knee limited secondary to pain, moderate effusion present right knee, right knee tender to palpation anteriorly over proximal tibia, no erythema, no warmth, PT pulses intact and symmetric, feet warm and well-perfused bilaterally, sensation right and left feet intact and symmetric, motor 5 out of 5 bilateral lower extremities, compartments soft, no edema of the right lower leg. Normal inspection of the left leg. Full range of motion left knee without pain. No left lower extremity edema. No left-sided knee effusion. Psych: normal mood, normal affect, normal behavior Course <Sunitha Pierre MD - Last Filed: 10/30/19 16:12> Vital Signs Vital signs: Vital Signs Temperature 36.6 C 10/30/19 09:01 Pulse 103 H 10/30/19 09:01 Respiratory Rate 16 10/30/19 09:01 Blood Pressure 149/60 H 10/30/19 09:01 Pulse Oximetry 98 10/30/19 09:01 Temperature 36.6 C 10/30/19 09:01 Temperature Source Skin 10/30/19 09:01 Pulse 103 H 10/30/19 09:01 Respiratory Rate 16 10/30/19 09:01 Respiratory Effort Non-Labored 10/30/19 09:01 Blood Pressure 149/60 H 10/30/19 09:01 Blood Pressure Position Supine 10/30/19 09:01 Pulse Oximetry 98 10/30/19 09:01 Oxygen Delivery Method Room Air 10/30/19 09:01 Oxygen Flow Rate 0 10/30/19 09:01 Pain Level 8 10/30/19 09:01
[2019-10-30 09:49] LABS: Abs Immature Grans 0.05 k/cumm (0.0-0.09); Absolute Basophil Count 0.05 k/cumm (0.0-0.2); Absolute Eosinophil Count 0.76 k/cumm (0.0-0.7); Absolute Lymphocyte Count 1.28 k/cumm (1.2-3.4); Absolute Monocyte Count 1.11 k/cumm (0.11-0.7); Absolute Neutrophil Count 6.56 k/cumm (1.2-6.7); Basophils % 0.5; Eosinophils % 7.7; HCT 46.2 % (36.0-46.0); HGB 15.3 g/dL (12.0-15.5); Immature Grans % 0.5 %; Mean Corp. HGB Concentration 33.1 g/dL (32.0-36.0); Mean Corpuscular Hemoglobin 29.3 pg (27.0-33.0); Mean Corpuscular Volume 88.3 fL (80-95); Mean Platelet Volume 9.9 fL (8.0-11.0); Monocytes % 11.3; Platelet Count 248 x1000/uL (130-400); RBC 5.23 m/cumm (4.00-5.20); RBC Distribution Width 13.1 % (11.7-14.6); White Blood Cell Count 9.81 k/cumm (4.4-10.8)
[2019-10-30 10:01] LABS: ALT 50 U/L (14-59); AST 46 U/L (15-37); Albumin 3.6 g/dL (3.4-5.0); Alkaline Phosphatase 99 U/L (46-116); Anion Gap 4.4 mmol/L (3-11); BUN 13 mg/dL (7-18); Bilirubin, Total 0.5 mg/dL (0.2-1.0); CO2 30.6 mmol/L (21.0-32.0); CREATININE 0.94 mg/dL (0.55-1.02); Chloride 101 mmol/L (98-107); Estimated GFR 59.76 (mL/min/1.73m2); Glucose 99 mg/dL (74-106); Sodium 136 mmol/L (136-145); Total Protein 7.5 g/dL (6.4-8.2)
[2019-10-30 10:02] LABS: INR 1.1 (0.9-1.1); PTT Activated 27.5 sec (21.0-31.4); Prothrombin Time 11.3 sec (9.3-11.0)
[2019-10-30] MEDS: Normal Saline 1,000 ML 1000 ML IV (10:20)
[2019-10-30 10:21] LABS: D-Dimer 563 ng/mlFEU (<500)
[2019-10-30 11:30] VITALS: BP 151/81; PULSE 86; RESP 16; TEMP 37.4; O2SAT 99
[2019-10-30 11:50] VITALS: BP 151/81; PULSE 86; RESP 16; TEMP 37.4; O2SAT 99
== END 2019-10-30 11:54 | disposition home or self-care (01) ==
PROVIDERS: Emergency Provider Student in an Organized Health Care Education/Training Program; PCP Family Medicine
DX: M79.604 Pain in right leg (principal); M25.461 Effusion, right knee; E86.0 Dehydration; I10 Essential (primary) hypertension; Z79.01 Long term (current) use of anticoagulants; I48.91 Unspecified atrial fibrillation
CPT/HCPCS: 29505; 36415; 80053; 96360; 99284; 85025; 85379; 85610; 85730; L1830

== ENCOUNTER 2019-10-30 19:19 | Emergency (ER) | payer BC, MEDICARE, SELFPAY ==
[2019-10-30 19:25] VITALS: BP 135/78; PULSE 91; RESP 14; TEMP 37.7; O2SAT 97
--- NOTE | 2019-10-30 20:15 | DI.RAD_ITS ---
EXAM: XR KNEE RT 3V AP,LAT,ADAMA CLINICAL HISTORY: pain, swelling. TECHNIQUE: 2D digital imaging was performed. COMPARISON: No exams were available for comparison FINDINGS: BONES: No acute fracture is present. No bony destructive lesion is seen. JOINTS: The knee is normally aligned. A moderate sized joint effusion is seen. SOFT TISSUE: Normal. IMPRESSION: Joint effusion. DATA REPOSITORY: RADIATION DOSE DELIVERED:
--- NOTE | 2019-10-30 20:15 | DI.RAD_ITS ---
EXAM: XR CHEST 2V PA LATERAL CLINICAL HISTORY: fever TECHNIQUE: 2D digital imaging was performed. COMPARISON: CR CHEST 2 VIEWS PA,LAT from 11/17/2016 FINDINGS: The heart size is within normal limits. Mild biapical scarring is seen. There is no evidence of inf iltrate, effusion or pulmonary edema. Mild degenerative changes are seen in the lower thoracic spine . No compression fractures or pneumothorax is seen. IMPRESSION: No acute abnormality.
--- NOTE | 2019-10-30 20:30 | ED.GENADUL_ITS ---
Discharge Plan Disposition Patient Disposition: HOME Condition: Stable Discharge Details Chief Complaint: Fever Clinical Impression: Effusion of knee Primary Care Provider: Andre Braun ED Provider: Ebony Ariza Home Meds and New Rx's Prescriptions: New cephalexin [Keflex] 500 mg capsule 500 mg PO QID Qty: 40 RF: 0 No Action hydrochlorothiazide 12.5 mg tablet 12.5 mg PO DAILY Qty: 90 RF: 3 (DME) blood pressure test kit-medium 1 EACH kit 1 ea Miscellaneous BID Qty: 1 RF: 0 Xarelto 20 mg tablet 20 mg PO DAILY Qty: 30 RF: 11 magnesium oxide 500 mg capsule 500 mg PO DAILY RF: 0 metaxalone [Skelaxin] 800 mg tablet 800 mg PO TID PRN (Reason: muscle spasm) Qty: 14 RF: 0 ciprofloxacin HCl 500 mg tablet 500 mg PO Q12H Qty: 14 RF: 0 Xarelto 20 mg tablet 20 mg PO DAILY RF: 0 prochlorperazine maleate [Compazine] 5 mg tablet 5 mg PO TID PRNQty: 20 RF: 0 Discharge Instructions Additional Instructions: Ice packs to knee. Billy wrap to knee. Elevate leg for swelling. Use antibiotic in addition to the Cipro previously prescribed. Please take acidophilus or probiotic in addition to your antibiotics. Follow-up promptly with your primary care doctor. Follow-up promptly with orthopedics. Fluid culture pending Return to the emergency room for any worsening, concerns or alarming symptoms sooner if needed Referrals: Nilton Holt MD [ [facility] STAFF PHYSICIAN] - Discharge Data Discharge Date/Time-TO BE ENTERED AT DEPARTURE: 10/31/19 00:50 Medical Decision Making <JERMAINE Hilario - Last Filed: 11/01/19 09:15> Is a 64-year-old patient whose had a constellation of symptoms which began since end of August. Patient reports new onset of headaches for which she has been seen and admitted to the hospital. Patient reports headache have improved in the last 2 days. Patient reports onset of diarrhea approximately 1 week ago she did test positive for Salmonella. Is currently undergoing treatment with Cipro on day 5 of treatment. Patient has been tolerating medication without difficulty. Patient reports onset of joint pain which began yesterday with notable effusion of the right knee joint. Patient has no obvious redness or warmth of the joint. Patient was seen earlier today for onset of joint pain and swelling. This is atraumatic joint swelling. Patient is on Xarelto. Suspected hemarthrosis as source, deferred aspiration of the joint due to blood thinner use. Patient was discharged home and subsequently developed a fever this evening of 101 at home for which she returned given precautions of her previous evaluation. Patient did take Tylenol prior to arrival and presents with a temperature of 37.7. Patient does report mild fatigue for the last month. Patient does admit to cough for the last 3 days. Patient does report she has had 3- Covid tests over the last several months. On exam patient does have a notable effusion of the right knee. Patient has no obvious erythema or warmth of the joint. Patient is able to passively range the knee with no significant pain. Patient appears nontoxic in general. Patient's breath sounds are clear. Patient has a benign abdominal exam. Although question of septic joint must remain in the differential patient's exam is more consistent with hemarthrosis. Must consider Cipro as a possibility for patient's new onset of joint pain. Will consider the possibility of tickborne illness given patient has had constellation of headache, fever now joint pain and mild fatigue. Patient did have labs tested earlier today will repeat CBC add CRP, sed rate, tickborne disease, lactate, blood cultures as well as procalcitonin. Patient did have a d-dimer drawn earlier today which after age adjustment was within normal range. Will check chest x-ray as well as x-ray of the right knee joint. Patient's x-ray of her right knee reveals moderate suprapatellar joint effusion without underlying fracture or dislocation. Patient's chest x-ray reveals no acute findings. Patient's labs revealed white blood cell count of 10.82. Patient's electrolytes within normal limit. Mild AST elevation of 46. Patient C-reactive protein is notably 6.47. Patient's sed rate is 14. Lyme testing pending. Spoke with Dr. Holt regarding aspiration. He does recommend aspiration of the joint for diagnostic purposes. Dr. Méndez aspirated joint. Straw-colored somewhat turbid fluid was noted. No blood noted on aspirate. Sent for cell counts and culture. Dr. Méndez reviewed cell counts. Fluid cultures pending. specifically recommend addition of Keflex to Cipro which was previously prescribed. Recommended addition of probiotics. We will plan to have close follow-up with very strict return precautions. Patient agrees with this plan of care. Recommends discharge home. Recommended rice, antibiotics discussed to the patient. Return precautions discussed. Prompt follow-up with PCP and orthopedics. Fluid culture pending. Lyme testing pending. Patient is scheduled for ultrasound of right leg by previous provider. The patient was stable and requested discharge. Prior to discharge, my usual and customary return precautions were reviewed with the patient - this included follow-up instructions and reasons to return to the Emergency Department if conditions worsens, does not improve as expected, or other new concerns arise. <Nilton Méndez MD - Last Filed: 10/31/19 01:08> Patient seen, examined, discussed with To. Agree with her assessment and plan. Labs reviewed. Please see her note regarding details of the patient's care. I personally consented the patient for prepatellar bursa aspiration. She was prepped and draped in standard sterile fashion, anesthetized with 1% lidocaine, the space was entered with an 18-gauge needle and 15 to 20 cc of yellow turbid fluid was aspirated. Area was dressed with a bandage and wrapped with Billy bandage. Lab Data Lab results reviewed: Yes I reviewed the patient's lab results. Labs: Laboratory Results - last 24 hr 10/30/19 10/30/19 10/30/19 20:30 20:30 20:30 WBC 10.82 H RBC 5.02 Hgb 14.7 Hct 44.1 MCV 87.8 MCH 29.3 MCHC 33.3 RDW 13.2 Plt Count 272 MPV 10.0 Immature Gran % 0.0 Neutrophils % 62.0 Lymphocytes % 20.0 Monocytes % 14.0 Eosinophils % 4.0 Basophils % 0.0 Absolute Neutrophils 6.71 H Absolute Lymphocytes 2.16 Absolute Monocytes 1.51 H Absolute Eosinophils 0.43 Absolute Basophils 0.00 Differential Comment Manual differential ESR 14 Lactate C-Reactive Protein 6.47 H Procalcitonin < 0.1 10/30/19 20:38 WBC RBC Hgb Hct MCV MCH MCHC RDW Plt Count MPV Immature Gran % Neutrophils % Lymphocytes % Monocytes % Eosinophils % Basophils % Absolute Neutrophils Absolute Lymphocytes Absolute Monocytes Absolute Eosinophils Absolute Basophils Differential Comment ESR Lactate 1.1 C-Reactive Protein Procalcitonin HPI <JERMAINE Hilario - Last Filed: 11/01/19 09:15> General Date/Time Provider Initiated Documentation: 10/30/19 19:44 . HPI Narrative: This is a pleasant 64-year-old patient presenting to the emergency room complaining of onset of fever which began this evening. Patient reports she was seen earlier today for a right knee effusion which developed spontaneously yesterday without specific injury or trauma to the knee. Advised to return for fever or redness of the joint. Patient is on Xarelto. Patient reports fever of 101 noted at home. Arrives to the ER after taking Tylenol with a temperature noted of 37.7. Patient denies any headache, dizziness, chest pain with difficulty breathing or shortness of breath. Does report a cough for the last 3 days without production. Patient denies abdominal pain, nausea, vomiting. Patient does report diarrhea which persists after a recent salmonella diagnosis 5 days ago. Patient was admitted to the hospital last week for complaints of headache, underwent a work-up ultimately developed diarrhea while in the ER and subsequently was positive for Salmonella for which she has been taking Cipro for the last 5 days. Patient does report improvement in her diarrhea yet loose stools persist. Patient denies any blood with bowel movements again denies abdominal pain associated. Patient does report since the end of August she has struggled with new onset of headaches. Patient denies headache history prior to August. Patient does also report vague fatigue for the last several months. Patient denies any other joint pain. Denies rash. Patient denies any other notable symptoms. Patient denies any obvious tick bites recently although prior to August she did spend time outdoors and [place]. Patient is able to eat and drink without difficulty. Patient denies any obvious weakness. Patient does report mild tingling in the right foot since onset of swelling yesterday. Denies any other paresthesia. Patient does report a mild limping gait. Related Data Home Medications Medication Instructions Recorded Confirmed blood pressure test kit-medium #1 kit 10/07/16 10/31/19 hydrochlorothiazide 12.5 mg tablet 12.5 mg PO DAILY #90 tab 07/27/19 10/31/19 rivaroxaban 20 mg tablet 20 mg PO DAILY #30 tab 09/19/19 10/31/19 magnesium oxide 500 mg capsule 500 mg PO DAILY 09/29/19 10/31/19 metaxalone 800 mg tablet 800 mg PO TID PRN #14 tab 10/06/19 10/31/19 prochlorperazine maleate 5 mg PO TID PRN #20 tab 10/24/19 10/31/19 [Compazine] ciprofloxacin HCl 500 mg tablet 500 mg PO Q12H #14 tab 10/25/19 10/31/19 Xarelto 20 mg PO DAILY 10/30/19 10/31/19 cephalexin [Keflex] 500 mg PO QID #40 cap 10/31/19 10/31/19 Previous Rx's Medication Instructions Recorded hydrochlorothiazide 12.5 mg tablet 12.5 mg PO DAILY #90 tab 07/27/19 rivaroxaban 20 mg tablet 20 mg PO DAILY #30 tab 09/19/19 metaxalone 800 mg tablet 800 mg PO TID PRN #14 tab 10/06/19 prochlorperazine maleate 5 mg PO TID PRN #20 tab 10/24/19 [Compazine] ciprofloxacin HCl 500 mg tablet 500 mg PO Q12H #14 tab 10/25/19 cephalexin [Keflex] 500 mg PO QID #40 cap 10/31/19 Allergies Allergy/AdvReac Type Severity Reaction Status Date / Time erythromycin base Allergy Mild Verified 10/31/19 10:56 [Erythromycin Base] Penicillins Allergy Mild Verified 10/31/19 10:56 sulfamethoxazole Allergy Itching Verified 10/31/19 10:56 [From Bactrim] trimethoprim [From Bactrim] Allergy Itching Verified 10/31/19 10:56 lisinopril AdvReac Severe Other (See Unverified 10/31/19 10:56 Comment) metoprolol AdvReac Severe SEVERE H/A Verified 10/31/19 10:56 and DIZZY losartan AdvReac Intermediate Headache Unverified 10/31/19 10:56 nitrofurantoin AdvReac Unknown UPSET Verified 10/31/19 10:56 macrocrystalline STOMACH [From Macrodantin] flecainide AdvReac Wide Verified 10/31/19 10:56 complex tachycardia General Stated Complaint: Fever RICARDO: 3 Review of Systems <JERMAINE Hilario - Last Filed: 11/01/19 09:15> All systems reviewed & are unremarkable except as noted in HPI and below PFSH <JERMAINE Hilario - Last Filed: 11/01/19 09:15> Medical History Atrial fibrillation rate controlled with meds. Atrial flutter s/p ablation 2006. Dyspareunia in female since menopause. Frequent UTI since menopause. Hypertension (Chronic) Recurrent major depression in partial remission Atrial flutter. 2005. resolved but AFib persisted. Social History Smoking/Tobacco Use Status: Never Alcohol Intake: current Alcohol Intake frequency: holidays/special occasions only Alcohol type: wine Drug use: Never Substance use type: does not use Household members: spouse What type of physical activity do you participate in: none and independent ambulation Do you feel safe at home: Yes Do you feel safe in your relationship?: Yes History History 0 Para Hx # Term Pregnancies Multiple births Hx # Pregnancies Ectopic pregnancies AB induced Hx Number of Living Children AB spontaneous Exam <JERMAINE Hilario - Last Filed: 11/01/19 09:15> Narrative Exam Narrative: CONST: Healthy appearing patient, in no acute distress. Well hydrated. Alert and oriented. HENMT: Head nomocephalic, normal to inspection. Atraumatic. Hearing grossly normal. Nose normal to inspection. No rhinnorhea. Normal facial exam. Oral mucosa normal. Tounge normal. Normal posterior oropharynx. Uvula midline. EYES: General normal appearance. Alignment normal. Eyelids normal. Conjunctiva normal. Sclera normal. PERRL. NECK: Normal visual inspection. FROM. No cervical lymphadenopathy. Trachea midline. No Midline tenderness. CHEST: Normal insepection of the chest. RESP: Normal respiratory effort. Speaking full sentences. No cough. No wheezing. No retractions. Clear to auscaltation. Breath sound equal and present bilaterally. CARDIO: No JVD. Normal PMI. Regular Rate. Regular Rhythm. Normal peripheral pulses. GI: Normal inspection of abdomen. No distension. Soft. Nontender. Bowel sounds present in all 4 quadrants. No rebound. No gaurding. MUSCULOSKELETAL: Normal Gait. Right leg: Right knee effusion. No significant pain with passive range of motion. No obvious erythema or warmth. Mild calf pain noted posteriorly. Distal neurovascularly intact. Sensation intact distally. SKIN: Normal. Dry. No rashes. NEURO: Alert and awake. Speech clear. PSYCH: Normal affect. Cooperative. Course <JERMAINE Hilario - Last Filed: 11/01/19 09:15> Vital Signs Vital signs: Vital Signs Temperature 37.7 C H 10/30/19 19:25 Pulse 91 H 10/30/19 19:25 Respiratory Rate 14 10/30/19 19:25 Blood Pressure 135/78 10/30/19 19:25 Pulse Oximetry 97 10/30/19 19:25 Temperature 37.7 C H 10/30/19 19:25 Temperature Source Oral 10/30/19 19:25 Pulse 91 H 10/30/19 19:25 Respiratory Rate 14 10/30/19 19:25 Respiratory Effort 10/30/19 19:32 Blood Pressure 135/78 10/30/19 19:25 Blood Pressure Position Sitting 10/30/19 19:25 Pulse Oximetry 97 10/30/19 19:25 Oxygen Delivery Method Room Air 10/30/19 19:25 Oxygen Flow Rate 0 10/30/19 19:25 Pain Level 0 10/30/19 19:25 Comment 10/30/19 19:25 Lab/Test Results Lab/Test Results: 10/30/19 20:26 Blood Blood Culture - Pending 10/30/19 20:26 Blood Blood Culture - Pending <Nilton Méndez MD - Last Filed: 10/31/19 01:08> Joint Aspiration/Injection Joint Asp./Inject. 1: Side of body: right Joint Aspirated: knee Ultrasound Guidance: Yes Skin Prep: Chlorhexidene Local Anesthetic: Lidocaine 1% Amount of anesthesia used (mL): 2 Needle Size Used: 18G Fluid Obtained: turbid Total fluid obtained (mL): 15 Patient Tolerated Procedure: well
[2019-10-30 20:49] LABS: Lactate 1.1 mmol/L (0.6-1.4)
[2019-10-30 20:52] LABS: Abs Immature Grans 0.02 k/cumm (0.0-0.09); HCT 44.1 % (36.0-46.0); HGB 14.7 g/dL (12.0-15.5); Mean Corp. HGB Concentration 33.3 g/dL (32.0-36.0); Mean Corpuscular Hemoglobin 29.3 pg (27.0-33.0); Mean Corpuscular Volume 87.8 fL (80-95); Platelet Count 272 x1000/uL (130-400); RBC 5.02 m/cumm (4.00-5.20); RBC Distribution Width 13.2 % (11.7-14.6); White Blood Cell Count 10.82 k/cumm (4.4-10.8)
[2019-10-30 21:01] LABS: C-Reactive Protein 6.47 mg/dL (0.0-0.3)
[2019-10-30 21:06] LABS: Absolute Eosinophil Count 0.43 k/cumm (0.0-0.7); Absolute Lymphocyte Count 2.16 k/cumm (1.2-3.4); Absolute Monocyte Count 1.51 k/cumm (0.11-0.7); Absolute Neutrophil Count 6.71 k/cumm (1.2-6.7); Diff Comment Manual Differential
--- NOTE | 2019-10-30 21:17 | DI.VRAD_ITS ---
PROCEDURE INFORMATION: Exam: XR Chest, 2 Views Exam date and time: 10/30/2019 9:02 PM Age: 64 years old Clinical indication: Fever TECHNIQUE: Imaging protocol: XR of the chest Views: 2 views. COMPARISON: No relevant prior studies available. FINDINGS: Lungs: Unremarkable. No consolidation. Pleural space: Unremarkable. No pleural effusion. No pneumothorax. Heart/Mediastinum: Unremarkable. No cardiomegaly. Bones/joints: Unremarkable. IMPRESSION: No acute findings. Dictated and Authenticated by: Jacky Hernandez MD. Ordering:MELVIN Beck MD
--- NOTE | 2019-10-30 21:18 | DI.VRAD_ITS ---
PROCEDURE INFORMATION: Exam: XR Right Knee Exam date and time: 10/30/2019 9:07 PM Age: 64 years old Clinical indication: Swelling or effusion of joint; Knee; Right; Patient HX: Pain, swelling TECHNIQUE: Imaging protocol: XR Right knee. Views: 3 views. COMPARISON: No relevant prior studies available. FINDINGS: Bones/joints: Moderate suprapatellar joint effusion. No acute fracture. Joint spaces are maintained. Minimal degenerative osteophytosis. Soft tissues: Normal. IMPRESSION: Moderate suprapatellar joint effusion without underlying fracture or dislocation. Dictated and Authenticated by: Jacky Hernandez MD. Ordering:MELVIN Beck MD
[2019-10-30 21:23] LABS: Procalcitonin < 0.1 ng/mL
[2019-10-30 21:36] LABS: ESR 14 mm/hr (0-30)
[2019-10-31 02:38] VITALS: BP 135/78; PULSE 91; RESP 14; TEMP 37.7; O2SAT 97
[2019-11-01 11:27] LABS: Lyme Ab w Rflx to Lyme Confirm Negative (Negative)
[2019-11-03 16:53] LABS: Anaplasma phagocytophilum Negative (Negative); B. miyamotoi PCR Negative (Negative); Babesia divergens/MO-1 Negative (Negative); Babesia duncani Negative (Negative); Babesia microti Negative (Negative); Ehrlichia chaffeensis Negative (Negative); Ehrlichia ewingii/canis Negative (Negative); Ehrlichia muris eauclairensis Negative (Negative)
== END 2019-10-31 00:50 | disposition home or self-care (01) ==
PROVIDERS: Emergency Medicine; Emergency Provider Physician Assistant; PCP Family Medicine
DX: M25.461 Effusion, right knee (principal); R20.2 Paresthesia of skin; A02.0 Salmonella enteritis; Z79.01 Long term (current) use of anticoagulants; I48.91 Unspecified atrial fibrillation; I10 Essential (primary) hypertension
CPT/HCPCS: 20610; 36415; 73562; 84145; 85652; 87040; 87798; 99284; 71046; 83605; 85025; 86140; 86618; 87070; 87205; 99285

== ENCOUNTER 2019-10-31 08:12 | Outpatient (CLI) | payer BC, SELFPAY ==
--- NOTE | 2019-10-31 | DI.US_ITS ---
EXAM: US LOWER EXTREMITY VENOUS RT CLINICAL HISTORY: RLE PAIN, SWELLING. TECHNIQUE: Right lower extremity venous ultrasound performed using grayscale, color-flow, and spectr al Doppler analysis. COMPARISON: No exams were available for comparison FINDINGS: The right common femoral, femoral and popliteal veins demonstrate normal compressibility, augmentatio n, and color Doppler. The posterior tibial veins are patent. No saphenous vein thrombosis or other s uperficial venous thrombosis is seen. No hematoma seen. There is a Reeves's cyst measuring 2.8 x 1.0 x 2.5 cm. A small joint effusion is also seen. IMPRESSION: Reeves's cyst and joint effusion.. No evidence of DVT. DATA REPOSITORY:
== END 2019-10-31 08:32 ==
PROVIDERS: PCP Family Medicine; Visit Provider Student in an Organized Health Care Education/Training Program
DX: M79.661 Pain in right lower leg (principal); R22.41 Localized swelling, mass and lump, right lower limb; M25.461 Effusion, right knee; M71.21 Synovial cyst of popliteal space [Baker], right knee
CPT/HCPCS: 93971

== ENCOUNTER 2019-10-31 10:52 | Emergency (ER) | payer BC, SELFPAY ==
[2019-10-31 10:55] VITALS: BP 122/66; PULSE 87; RESP 16; TEMP 36.3; O2SAT 100
--- NOTE | 2019-10-31 11:23 | ED.GENADUL_ITS ---
Discharge Plan Disposition Patient Disposition: HOME Condition: Stable Discharge Details Chief Complaint: Recheck Clinical Impression: Effusion of knee Primary Care Provider: Andre Braun ED Provider: Essie Varma Home Meds and New Rx's Prescriptions: Continued hydrochlorothiazide 12.5 mg tablet 12.5 mg PO DAILY Qty: 90 RF: 3 (DME) blood pressure test kit-medium 1 EACH kit 1 ea Miscellaneous BID Qty: 1 RF: 0 Xarelto 20 mg tablet 20 mg PO DAILY Qty: 30 RF: 11 magnesium oxide 500 mg capsule 500 mg PO DAILY RF: 0 metaxalone [Skelaxin] 800 mg tablet 800 mg PO TID PRN (Reason: muscle spasm) Qty: 14 RF: 0 ciprofloxacin HCl 500 mg tablet 500 mg PO Q12H Qty: 14 RF: 0 Xarelto 20 mg tablet 20 mg PO DAILY RF: 0 cephalexin [Keflex] 500 mg capsule 500 mg PO QID Qty: 40 RF: 0 prochlorperazine maleate [Compazine] 5 mg tablet 5 mg PO TID PRNQty: 20 RF: 0 Discharge Instructions Instructions: Swollen Knee Joint (ED) Additional Instructions: Continue to rest, ice and elevate your right knee as much as possible. Take your Cipro and Keflex until finished. Follow-up with your primary care doctor this week for reevaluation. Follow-up with orthopedics as directed. Return to the emergency department if you develop any worsening or concerning symptoms such as persistent fevers, worsening knee pain with development of redness, or any other concerns. Discharge Data Discharge Date/Time-TO BE ENTERED AT DEPARTURE: 10/31/19 11:31 Discharge Physician: Essie Varma Medical Decision Making 64-year-old female presents for results of right leg ultrasound to rule out DVT after seen here yesterday for right knee effusion and arthrocentesis. Ultrasound notes a 2 cm Reeves's cyst but negative for DVT. She states that she feels her knee pain and swelling is slightly better. Fluid culture results note white blood cells but no bacteria yet seen, final results pending. She has not yet started her Keflex but plans to pick this up today. Vitals within normal limits. Right knee appears moderately edematous compared to left knee but no signs of cellulitis or septic joint. Patient also reported a fever of 101 yesterday. She is currently being treated for Salmonella with Cipro. She appears nontoxic and in no acute distress. She states her diarrhea is improving and overall she feels better. She was given orthopedic follow-up yesterday. She is advised to start her Keflex and finish her Cipro. She is advised to follow-up with her primary care doctor this week for reevaluation and for final results of her arthrocentesis cultures and lyme panel. Usual and customary return precautions given prior to discharge. Medical Records Medical records reviewed: Yes I reviewed the patient's medical records. Imaging Data Radiologic Study: Radiologist's impression: US LOWER EXTREMITY VENOUS RT CLINICAL HISTORY: RLE PAIN, SWELLING. TECHNIQUE: Right lower extremity venous ultrasound performed using grayscale, color-flow, and spectral Doppler analysis. COMPARISON: No exams were available for comparison FINDINGS: The right common femoral, femoral and popliteal veins demonstrate normal compressibility, augmentation, and color Doppler. The posterior tibial veins are patent. No saphenous vein thrombosis or other superficial venous thrombosis is seen. No hematoma seen. There is a Reeves's cyst measuring 2.8 x 1.0 x 2.5 cm. A small joint effusion is also seen. IMPRESSION: Reeves's cyst and joint effusion.. No evidence of DVT. HPI General Date/Time Provider Initiated Documentation: 10/31/19 10:53 . HPI Narrative: Patient is a 64-year-old female with a h/o atrial fibrillation on Xarelto, recently diagnosed Salmonella on Cipro who was admitted here last week for headache with negative MRI and here yesterday for right knee pain diagnosed with possible hemarthrosis possibly due to xarelto then thought possible septic ar thritis due to fever and had arthrocentesis with cultures pending started on Keflex who presents for results of right leg ultrasound to rule out DVT. X-ray resulted and notes a Reeves's cyst but no evidence of DVT. Patient states she has been taking her Cipro but has not yet started her Keflex which she will start today. She states she had a fever of 101 yesterday but this resolved since then. She states she feels good today. She states she is still having intermittent diarrhea. Her plan is to follow-up with her PCP and orthopedics this week. She states her knee pain and swelling appears slightly improved since yesterday. Related Data Home Medications Medication Instructions Recorded Confirmed blood pressure test kit-medium #1 kit 05/03/17 05/26/20 hydrochlorothiazide 12.5 mg tablet 12.5 mg PO DAILY #90 tab 07/27/19 10/31/19 rivaroxaban 20 mg tablet 20 mg PO DAILY #30 tab 09/19/19 10/31/19 magnesium oxide 500 mg capsule 500 mg PO DAILY 09/29/19 10/31/19 metaxalone 800 mg tablet 800 mg PO TID PRN #14 tab 10/06/19 10/31/19 prochlorperazine maleate 5 mg PO TID PRN #20 tab 10/24/19 10/31/19 [Compazine] ciprofloxacin HCl 500 mg tablet 500 mg PO Q12H #14 tab 10/25/19 10/31/19 Xarelto 20 mg PO DAILY 10/30/19 10/31/19 cephalexin [Keflex] 500 mg PO QID #40 cap 10/31/19 10/31/19 Previous Rx's Medication Instructions Recorded hydrochlorothiazide 12.5 mg tablet 12.5 mg PO DAILY #90 tab 07/27/19 rivaroxaban 20 mg tablet 20 mg PO DAILY #30 tab 09/19/19 metaxalone 800 mg tablet 800 mg PO TID PRN #14 tab 10/06/19 prochlorperazine maleate 5 mg PO TID PRN #20 tab 10/24/19 [Compazine] ciprofloxacin HCl 500 mg tablet 500 mg PO Q12H #14 tab 10/25/19 cephalexin [Keflex] 500 mg PO QID #40 cap 10/31/19 Allergies Allergy/AdvReac Type Severity Reaction Status Date / Time erythromycin base Allergy Mild Verified 10/31/19 10:56 [Erythromycin Base] Penicillins Allergy Mild Verified 10/31/19 10:56 sulfamethoxazole Allergy Itching Verified 10/31/19 10:56 [From Bactrim] trimethoprim [From Bactrim] Allergy Itching Verified 10/31/19 10:56 lisinopril AdvReac Severe Other (See Unverified 10/31/19 10:56 Comment) metoprolol AdvReac Severe SEVERE H/A Verified 10/31/19 10:56 and DIZZY losartan AdvReac Intermediate Headache Unverified 10/31/19 10:56 nitrofurantoin AdvReac Unknown UPSET Verified 10/31/19 10:56 macrocrystalline STOMACH [From Macrodantin] flecainide AdvReac Wide Verified 10/31/19 10:56 complex tachycardia General Stated Complaint: Recheck RICARDO: 5 Review of Systems All systems reviewed & are unremarkable except as noted in HPI and below Constitutional Constitutional: Reports as per HPI, Denies chills and Reports fever(s) Eyes Eyes: Denies blurry vision ENT Ears, Nose, Mouth, and Throat: Denies dizziness, Denies sore throat and Denies throat swelling Cardiovascular Cardiovascular: Denies chest pain and Denies dyspnea Respiratory Respiratory: Denies cough and Denies dyspnea Gastrointestinal Gastrointestinal: Denies abdominal pain, Denies diarrhea and Denies vomiting Genitourinary Genitourinary: Denies hematuria and Denies dysuria Musculoskeletal Musculoskeletal: Denies back pain and Denies numbness Integumentary/Breasts Skin/Breast: Denies lesions and Denies rash Neurologic Neurologic: Denies dizziness, Denies localized weakness and Denies numbness Allergic/Immunologic Allergic/Immunologic: Denies throat swelling [facility] Social History Smoking/Tobacco Use Status: Never Alcohol Intake: current Alcohol Intake frequency: holidays/special occasions only Alcohol type: wine Drug use: Never Substance use type: does not use Household members: spouse What type of physical activity do you participate in: none and independent ambulation Do you feel safe at home: Yes Do you feel safe in your relationship?: Yes History History 0 Para Hx # Term Pregnancies Multiple births Hx # Pregnancies Ectopic pregnancies AB induced Hx Number of Living Children AB spontaneous Exam Const General: cooperative, healthy appearing and no acute distress HENMT Head: normal to inspection Mouth: oral mucosae normal Eyes General: appearance normal, both eyes and all related structures Neck Neck: normal visual inspection Resp Effort & Inspection: normal respiratory effort and able to speak in complete sentences Cardio Rate: regular rate Skin General skin exam: no rashes or lesions noted Neuro General: patient alert, patient awake and patient oriented x3 Motor: muscle tone normal throughout Extrem Knee images: 1. Pinpoint area of ecchymosis consistent with recent arthrocentesis. Surrounding area is mildly ecchymotic but without induration, fluctuance, erythema, crepitus. Other: Right anterior knee appears moderately edematous compared to left knee. Not hot to touch. There is pain with range of motion. There is no tenderness to right posterior knee. No right calf tenderness. Right DP/PT pulses intact. No lower leg swelling. Psych Appearance: grossly normal Affect: normal affect Course Vital Signs Vital signs: Vital Signs Temperature 97.3 F L 10/31/19 10:55 Pulse 87 10/31/19 10:55 Respiratory Rate 16 10/31/19 10:55 Blood Pressure 122/66 10/31/19 10:55 Pulse Oximetry 100 10/31/19 10:55 Temperature 97.3 F L 10/31/19 10:55 Temperature Source Tympanic 10/31/19 10:55 Pulse 87 10/31/19 10:55 Respiratory Rate 16 10/31/19 10:55 Respiratory Effort Non-Labored 10/31/19 10:56 Blood Pressure 122/66 10/31/19 10:55 Blood Pressure Position Sitting 10/31/19 10:55 Pulse Oximetry 100 10/31/19 10:55 Oxygen Delivery Method Room Air 10/31/19 10:55 Oxygen Flow Rate 0 10/31/19 10:55 Pain Level 5 10/31/19 11:15
== END 2019-10-31 11:31 | disposition home or self-care (01) ==
PROVIDERS: Emergency Provider Physician Assistant; PCP Family Medicine
DX: M25.461 Effusion, right knee (principal); M71.21 Synovial cyst of popliteal space [Baker], right knee

== ENCOUNTER 2019-11-07 20:48 | Emergency (ER) | payer BC, SELFPAY ==
[2019-11-07 20:51] VITALS: BP 175/119; PULSE 75; RESP 18; TEMP 36.2; O2SAT 98
--- NOTE | 2019-11-07 21:05 | ED.GENADUL_ITS ---
Discharge Plan Disposition Patient Disposition: HOME Condition: Good Discharge Details Chief Complaint: GenMedical Clinical Impression: Cough Primary Care Provider: Andre Braun ED Provider: Yannick Nathan Home Meds and New Rx's Prescriptions: Continued hydrochlorothiazide 12.5 mg tablet 12.5 mg PO DAILY Qty: 90 RF: 3 (DME) blood pressure test kit-medium 1 EACH kit 1 ea Miscellaneous BID Qty: 1 RF: 0 Xarelto 20 mg tablet 20 mg PO DAILY Qty: 30 RF: 11 magnesium oxide 500 mg capsule 500 mg PO DAILY RF: 0 metaxalone [Skelaxin] 800 mg tablet 800 mg PO TID PRN (Reason: muscle spasm) Qty: 14 RF: 0 promethazine-codeine 6.25-10 mg/5 mL syrup 5 ml PO Q6H MDD 20 ml PRN (Reason: cough) Qty: 100 RF: 0 prednisone 20 mg tablet 40 mg PO DAILY Qty: 10 RF: 0 Discharge Instructions Additional Instructions: Your oxygen level is normal here. The lungs are clear. You already have cough medication, steroids, inhalers. You have had previous COVID testing and chest x-ray. Do not feel repeat imaging or labs warranted. The feeling in your throat is likely from coughing so much. Doubt it is related to a foreign body. Would continue your medications and contact primary care in the morning if you feel you want referral to ENT. Return to ED for inability to swallow, mental status changes, increasing shortness of breath, chest pain. Referrals: Andre Braun. [Primary Care Provider] - Medical Decision Making Patient presenting to ED with cough which has worsened over days and is described as persistent and severe. Reports shortness of breath but appears to be in no distress and has normal room air pulse oximetry. Her lungs are clear to auscultation. She reports having Phenergan with codeine and prednisone. Given previous work-ups, antibiotics, COVID testing and imaging not sure if repeat imaging or labs are warranted. Her lungs are clear with normal respirations and saturations. Offered to try albuterol inhaler which she then informed me she has and is using without relief. Offered to try different cough medicine, Tessalon, which she also reports she has been using without relief. On further questioning to try to figure out why she came to the emergency department it would appear that she wants to be scoped to see if there is a nything down now that is making her cough. Informed her that that is not something we would do in the emergency department and at this point does not warrant an emergency consult or transfer. She should continue medications as previously prescribed and contact primary care in the morning if she wishes to pursue an ENT referral. Return to ED for inability to swallow, mental status changes, increasing difficulty breathing, chest pain. Of note the patient reports nonstop coughing she was in the department for approximately 1 hour and had no cough noted. Repeat blood pressure at discharge was much better. Medical Records Medical records reviewed: Yes I reviewed the patient's medical records. HPI General Mode of arrival: ambulatory . Date/Time Provider Initiated Documentation: 11/07/19 20:54 . Limitations to Documentation: no limitations . Information obtained by: patient, RN notes reviewed and old records reviewed . HPI Narrative: Patient presents to ED with complaint of cough. She has previous admission in mid October with headache, fever, diarrhea which ultimately was found to be Salm onella. Subsequently came back last week with knee effusion. At that time she was on antibiotic for Salmonella. Knee aspiration was done. She reports having a slight cough at that point. Diarrhea and knee effusion have resolved. Currently off antibiotics. Since that visit she has had worsening cough to the point where she almost dry heaves. Reports cough constantly especially after eating now. She feels a little short of breath but mostly when coughing. Hurts her throat to cough. She has not had fever with this. She has no chest pain. She has some nausea but no abdominal pain. She has mild intermittent headaches. She has been in touch with her primary care as well as the on-call physician. She has been placed on Phenergan with codeine. Tonight she started prednisone. She does not have a history of asthma or COPD. She is not a smoker. Related Data Home Medications Medication Instructions Recorded Confirmed blood pressure test kit-medium #1 kit 10/07/16 10/31/19 hydrochlorothiazide 12.5 mg tablet 12.5 mg PO DAILY #90 tab 07/27/19 11/07/19 rivaroxaban 20 mg tablet 20 mg PO DAILY #30 tab 09/19/19 11/07/19 magnesium oxide 500 mg capsule 500 mg PO DAILY 09/29/19 11/07/19 metaxalone 800 mg tablet 800 mg PO TID PRN #14 tab 10/06/19 11/07/19 promethazine 6.25 mg-codeine 10 5 ml PO Q6H PRN #100 ml MDD 20 ml 11/03/19 11/07/19 mg/5 mL syrup prednisone 20 mg tablet 40 mg PO DAILY #10 tab 11/07/19 11/07/19 Previous Rx's Medication Instructions Recorded hydrochlorothiazide 12.5 mg tablet 12.5 mg PO DAILY #90 tab 07/27/19 rivaroxaban 20 mg tablet 20 mg PO DAILY #30 tab 09/19/19 metaxalone 800 mg tablet 800 mg PO TID PRN #14 tab 10/06/19 promethazine 6.25 mg-codeine 10 5 ml PO Q6H PRN #100 ml MDD 20 ml 11/03/19 mg/5 mL syrup prednisone 20 mg tablet 40 mg PO DAILY #10 tab 11/07/19 Allergies Allergy/AdvReac Type Severity Reaction Status Date / Time erythromycin base Allergy Mild Verified 11/07/19 20:59 [Erythromycin Base] Penicillins Allergy Mild Verified 11/07/19 20:59 sulfamethoxazole Allergy Itching Verified 11/07/19 20:59 [From Bactrim] trimethoprim [From Bactrim] Allergy Itching Verified 11/07/19 20:59 lisinopril AdvReac Severe Other (See Unverified 11/07/19 20:59 Comment) metoprolol AdvReac Severe SEVERE H/A Verified 11/07/19 20:59 and DIZZY losartan AdvReac Intermediate Headache Unverified 11/07/19 20:59 nitrofurantoin AdvReac Unknown UPSET Verified 11/07/19 20:59 macrocrystalline STOMACH [From Macrodantin] flecainide AdvReac Wide Verified 11/07/19 20:59 complex tachycardia General Stated Complaint: GenMedical RICARDO: 4 Review of Systems Narrative: As documented in HPI otherwise negative as below. Const: no fever, chills, weakness Resp: cough; no SOB, pleuritic pain CV: no CP, diaphoresis, edema, syncope GI: nausea; no abdominal pain, vomiting, diarrhea Neuro: headache; no numbness, focal weakness, confusion PFSH Medical History Atrial fibrillation rate controlled with meds. Atrial flutter s/p ablation 2006. Dyspareunia in female since menopause. Frequent UTI since menopause. Hypertension (Chronic) Recurrent major depression in partial remission Atrial flutter. 2005. resolved but AFib persisted. Surgical History H/O cardiac catheterization (Chronic) Status post ablation of atrial flutter Status post tonsillectomy (Acute) Social History Smoking/Tobacco Use Status: Never Alcohol Intake: current Alcohol Intake frequency: holidays/special occasions only Alcohol type: wine Drug use: Never Substance use type: does not use Household members: spouse What type of physical activity do you participate in: none and independent ambulation Do you feel safe at home: Yes Do you feel safe in your relationship?: Yes History History 0 Para Hx # Term Pregnancies Multiple births Hx # Pregnancies Ectopic pregnancies AB induced Hx Number of Living Children AB spontaneous Exam Narrative Exam Narrative: Vitals: Afebrile. Hypertensive but otherwise normal vitals and normal room air pulse oximetry. Const: WDWN female in NAD. HEENT: NC/AT. Normal facial exam. OP clear/normal. Eyes: Normal conjunctiva and sclera. Neck: Supple. Trachea midline. No stridor. Lungs: Normal respiratory effort. Lungs are clear. Cor: Irr/Irr without murmur/gallop. Good radial pulses. GI: Soft. NT/ND. No guarding or rebound. Neuro: A+O x 3. Normal speech, mentation, gait. Cranial nerves II - XII grossly intact. No gross motor or sensory deficit. Ext: No C/C/E. No calf tenderness. Skin: Warm and dry without rash. Course Vital Signs Vital signs: Vital Signs Temperature 97.2 F L 11/07/19 20:51 Pulse 75 11/07/19 20:51 Respiratory Rate 18 11/07/19 20:51 Blood Pressure 175/119 H 11/07/19 20:51 Pulse Oximetry 98 11/07/19 20:51 Temperature 97.2 F L 11/07/19 20:51 Temperature Source Skin 11/07/19 20:51 Pulse 75 11/07/19 20:51 Respiratory Rate 18 11/07/19 20:51 Blood Pressure 175/119 H 11/07/19 20:51 Pulse Oximetry 98 11/07/19 20:51 Oxygen Delivery Method Room Air 11/07/19 20:51 Oxygen Flow Rate 0 11/07/19 20:51 Pain Level 0 11/07/19 20:51
[2019-11-07 21:09] VITALS: RESP 18
[2019-11-07 21:22] VITALS: BP 143/89; PULSE 84; TEMP 36.9; O2SAT 97
[2019-11-07 21:28] VITALS: BP 143/89; PULSE 84; TEMP 36.9; O2SAT 97
== END 2019-11-07 21:55 | disposition home or self-care (01) ==
LOC: ER 21:42
PROVIDERS: Emergency Provider Emergency Medicine; PCP Family Medicine
DX: R05 Cough (principal); R11.0 Nausea; I10 Essential (primary) hypertension
CPT/HCPCS: 99282

== ENCOUNTER 2019-11-17 20:55 | Outpatient (REF) | payer BC, SELFPAY | END 2019-11-17 21:15 | LOC: LBN 20:55 | PROVIDERS: PCP Family Medicine; Visit Provider Nurse Practitioner Family | DX: N39.0 Urinary tract infection, site not specified (principal) | CPT/HCPCS: 87077; 87086; 87186 ==

== ENCOUNTER 2019-11-20 01:17 | Outpatient (CLI) | payer BC, SELFPAY ==
--- NOTE | 2019-11-20 | DI.MRI_ITS ---
EXAM: MR LOWER JOINT RT WO CLINICAL HISTORY: RT KNEE PAIN. TECHNIQUE: Multiplanar multisequence MRI was performed. COMPARISON: CR,XR XR KNEE RT 3V AP,LAT,ADAMA from 10/30/2019 FINDINGS: There is a multi loculated cystic appearing lesion seen posterior to the femoral condyles, measurin g 2 x 2.5 x 3.8 cm. There is also some fluid seen extending between the proximal tibial fibular join t and hamstring tendon. There is some extension along the popliteus tendon and upper popliteus muscl e. There is no joint effusion. The cruciate and collateral ligaments and extensor mechanism appear intact. No meniscal tears are seen. There are mild degenerative signal changes in the posterior hor n of the medial meniscus. There is irregularity and some thinning of the cartilage overlying the pat ellar apex and lateral patellar facet which does not appear to extend down to bone. The marrow signal is normal. IMPRESSION: No evidence of ligament or meniscal tear. Synovial cyst or ganglion seen posterior to the femoral condyles as well as laterally near the popliteus tendon and proximal tibial fibular joint. Patellar chondromalacia. DATA REPOSITORY:
== END 2019-11-20 01:37 ==
PROVIDERS: PCP Family Medicine; Visit Provider Orthopaedic Surgery
DX: M25.561 Pain in right knee (principal); M22.41 Chondromalacia patellae, right knee
CPT/HCPCS: 73721

== ENCOUNTER → 2019-11-22 10:28 | Outpatient (BNVA) | payer BC, SELFPAY | PROVIDERS: PCP Family Medicine; Referring Provider Family Medicine; Visit Provider Orthopaedic Surgery | DX: M23.91 Unspecified internal derangement of right knee (principal) | CPT/HCPCS: 99213 ==

== ENCOUNTER → 2019-11-23 12:28 | Outpatient (BNVA) | payer BC, SELFPAY | PROVIDERS: PCP Family Medicine; Referring Provider Family Medicine; Visit Provider Nurse Practitioner Adult Health | DX: R51 Headache (principal); I10 Essential (primary) hypertension | CPT/HCPCS: 99204; 99215 ==

== ENCOUNTER 2019-12-07 17:58 | Emergency (ER) | payer BC, SELFPAY ==
[2019-12-07 18:04] VITALS: BP 139/93; PULSE 97; RESP 16; TEMP 36.4; O2SAT 97
[2019-12-07 18:18] LABS: Bilirubin Negative (Negative); Blood Negative (Negative); Clarity Clear (Clear); Glucose Negative (Negative); Ketones Negative (Negative); Leukocyte Esterase Negative (Negative); Nitrite Negative (Negative); Specific Gravity >= 1.030 (1.005-1.025); Urobilinogen 0.2 EU/dL (Up TO 0.2)
[2019-12-07] MEDS: Cephalexin 500 MG CAP PO (18:35)
--- NOTE | 2019-12-07 18:35 | ED.GENADUL_ITS ---
Discharge Plan Disposition Patient Disposition: HOME Condition: Stable Discharge Details Chief Complaint: Urinary Clinical Impression: Urinary tract infection Primary Care Provider: Andre Braun ED Provider: Nilay Pierre Home Meds and New Rx's Prescriptions: New cephalexin [Keflex] 500 mg capsule 500 mg PO BID Qty: 13 RF: 0 Continued hydrochlorothiazide 12.5 mg tablet 12.5 mg PO DAILY Qty: 90 RF: 3 prochlorperazine maleate 5 mg tablet 5 mg PO TID PRN (Reason: headache or nausea) Qty: 30 RF: 2 (DME) blood pressure test kit-medium 1 EACH kit 1 ea Miscellaneous BID Qty: 1 RF: 0 Xarelto 20 mg tablet 20 mg PO DAILY Qty: 30 RF: 11 magnesium oxide 500 mg capsule 500 mg PO DAILY RF: 0 metaxalone [Skelaxin] 800 mg tablet 800 mg PO TID PRN (Reason: muscle spasm) Qty: 14 RF: 0 omeprazole 40 mg Capsule,Delayed Release(Dr/Ec) 40 mg PO BID RF: 0 Discontinued ciprofloxacin HCl 250 mg tablet 250 mg PO BID PRN (Reason: uti) Qty: 10 RF: 0 Discharge Instructions Instructions: Urinary Tract Infection in Women (ED) Additional Instructions: Please take the full course of cephalexin as prescribed. Urine culture is pending at time of discharge. Please be sure to discuss results with your primary care physician. If symptoms persist or worsen, you will need additional diagnostic testing and treatment. Please contact your primary care physician to arrange follow-up. Return to the ER for any worsening or new concerning symptoms. Referrals: Andre Braun. [Primary Care Provider] - Medical Decision Making 54-year-old female here with persistent urinary symptoms despite recent treatment with ciprofloxacin. Of note patient was on oral steroids while receiving antibiotic which may have resulted in immunosuppression. Patient is afebrile and not septic appearing. She is hemodynamically stable. Urinalysis reviewed: Negative blood, negative nitrite, negative leukocyte esterase. I am concerned that urinalysis may be of limited utility given recent course of Cipro. I did review urine culture from 11/17/2019 that grew Klebsiella pneumonia >100,000 that was sensitive to both ciprofloxacin and cephalosporins. Plan will be to treat with Keflex and repeat urine culture today. If symptoms do not completely resolve on Keflex, I have advised that she will need additional diagnostic testing. I have encouraged the patient to follow-up with her primary care physician. I also recommended she return immediately to the ER should she have any worsening or new concerning symptoms. HPI General Mode of arrival: ambulatory . Date/Time Provider Initiated Documentation: 12/07/19 18:24 . Limitations to Documentation: no limitations . Information obtained by: patient . HPI Narrative: 64-year-old female with recent urinary tract infection, presents with chief complaint of persistent urinary symptoms. Patient notes that she was being treated for presumed urinary tract infection by her primary care physician with ciprofloxacin. She notes that she recently completed course of Cipro and continues to have symptoms. Patient states symptoms include lower abdominal pressure, increased urinary frequency, and burning while urinating. Of note, patient was diagnosed with a urinary tract infection last month and completed a additional course of ciprofloxacin. Symptoms improved and then returned. Related Data Home Medications Medication Instructions Recorded Confirmed blood pressure test kit-medium #1 kit 10/07/16 12/07/19 hydrochlorothiazide 12.5 mg tablet 12.5 mg PO DAILY #90 tab 07/27/19 12/07/19 rivaroxaban 20 mg tablet 20 mg PO DAILY #30 tab 09/19/19 12/07/19 magnesium oxide 500 mg capsule 500 mg PO DAILY 09/29/19 12/07/19 metaxalone 800 mg tablet 800 mg PO TID PRN #14 tab 10/06/19 12/07/19 prochlorperazine maleate 5 mg 5 mg PO TID PRN #30 tab 11/23/19 12/07/19 tablet cephalexin [Keflex] 500 mg PO BID #13 cap 12/07/19 omeprazole 40 mg PO BID 12/07/19 12/07/19 Previous Rx's Medication Instructions Recorded hydrochlorothiazide 12.5 mg tablet 12.5 mg PO DAILY #90 tab 07/27/19 rivaroxaban 20 mg tablet 20 mg PO DAILY #30 tab 09/19/19 metaxalone 800 mg tablet 800 mg PO TID PRN #14 tab 10/06/19 prochlorperazine maleate 5 mg 5 mg PO TID PRN #30 tab 11/23/19 tablet cephalexin [Keflex] 500 mg PO BID #13 cap 12/07/19 Allergies Allergy/AdvReac Type Severity Reaction Status Date / Time erythromycin base Allergy Mild Verified 12/07/19 18:32 [Erythromycin Base] Penicillins Allergy Mild Verified 12/07/19 18:32 sulfamethoxazole Allergy Itching Verified 12/07/19 18:32 [From Bactrim] trimethoprim [From Bactrim] Allergy Itching Verified 12/07/19 18:32 lisinopril AdvReac Severe severe dry Unverified 12/07/19 18:32 cough metoprolol AdvReac Severe SEVERE H/A Verified 12/07/19 18:32 and DIZZY losartan AdvReac Intermediate Headache Unverified 12/07/19 18:32 nitrofurantoin AdvReac Unknown UPSET Verified 12/07/19 18:32 macrocrystalline STOMACH [From Macrodantin] flecainide AdvReac Wide Verified 12/07/19 18:32 complex tachycardia General Stated Complaint: Urinary RICARDO: 3 Review of Systems All systems reviewed & are unremarkable except as noted in HPI and below Constitutional Constitutional: Denies fever(s) Gastrointestinal Gastrointestinal: Denies vomiting Genitourinary Genitourinary: Reports as per HPI PFSH Medical History Atrial fibrillation rate controlled with meds. Atrial flutter s/p ablation 2005. Dyspareunia in female since menopause. Frequent UTI since menopause. Hypertension (Chronic) Recurrent major depression in partial remission Atrial flutter. 2005. resolved but AFib persisted. Surgical History H/O cardiac catheterization (Chronic) Status post ablation of atrial flutter Status post tonsillectomy (Acute) Family History Mother Personal history of malignant neoplasm Salivary gland Father Dementia Heart disease Sister Essential hypertension Hyperlipidemia Sister Essential hypertension Hyperlipidemia Sister Essential hypertension Hyperlipidemia Social History Smoking/Tobacco Use Status: Never Alcohol Intake: current Alcohol Intake frequency: holidays/special occasions only Alcohol type: wine Drug use: Never Substance use type: does not use Household members: spouse Current gender identity: female What type of physical activity do you participate in: none and independent ambulation Do you feel safe at home: Yes Do you feel safe in your relationship?: Yes History History 0 Para Hx # Term Pregnancies Multiple births Hx # Pregnancies Ectopic pregnancies AB induced Hx Number of Living Children AB spontaneous Exam Const General: cooperative and no acute distress HENMT Mouth: moist mucous membranes Eyes Conjunctivae: normal conjunctivae Sclera: normal sclerae Resp Auscultation: clear to auscultation bilaterally, no rales, no rhonchi and no wheezes Cardio Rate: regular rate and not tachycardic Rhythm: regular rhythm GI Palpation: soft, not firm, no guarding, no masses, no pulsatile masses, not rigid and tender suprapubicly (Minimal with no rebound) Neuro General: patient alert, patient awake, patient oriented x3 and tone normal Extrem General: no edema Course Vital Signs Vital signs: Vital Signs Temperature 36.4 C L 12/07/19 18:04 Pulse 97 H 12/07/19 18:04 Respiratory Rate 16 12/07/19 18:04 Blood Pressure 139/93 H 12/07/19 18:04 Pulse Oximetry 97 12/07/19 18:04 Temperature 36.4 C L 12/07/19 18:04 Temperature Source Tympanic 12/07/19 18:04 Pulse 97 H 12/07/19 18:04 Respiratory Rate 16 12/07/19 18:04 Respiratory Effort Non-Labored 12/07/19 18:09 Blood Pressure 139/93 H 12/07/19 18:04 Blood Pressure Position Sitting 12/07/19 18:04 Pulse Oximetry 97 12/07/19 18:04 Oxygen Delivery Method Room Air 12/07/19 18:04 Oxygen Flow Rate 0 12/07/19 18:04 Pain Level 5 12/07/19 18:15 Lab/Test Results Lab/Test Results: 12/07/19 18:31 Urine - Clean Catch Urine Culture - Pending Laboratory Tests Range/Units 12/07/19 18:15 Urine Color (Yellow) Yellow Urine Clarity (Clear) Clear Urine pH (5-8) 5.0 Ur Specific Vinson (1.005-1.025) >= 1.030 H Urine Protein (Negative) mg/dL Negative Urine Ketones (Negative) mg/dL Negative Urine Blood (Negative) Negative Urine Nitrite (Negative) Negative Urine Bilirubin (Negative) Negative Urine Urobilinogen (Up TO 0.2) EU/dL 0.2 Ur Leukocyte Esterase (Negative) Negative Urine Glucose (Negative) mg/dL Negative
[2019-12-07 19:10] VITALS: BP 126/88; PULSE 74; RESP 18; TEMP 36.4; O2SAT 99
== END 2019-12-07 19:10 | disposition home or self-care (01) ==
PROVIDERS: Emergency Provider Student in an Organized Health Care Education/Training Program; PCP Family Medicine
DX: N39.0 Urinary tract infection, site not specified (principal); I10 Essential (primary) hypertension
CPT/HCPCS: 99283; 81003; 87086

== ENCOUNTER 2019-12-18 09:50 | Outpatient (CLI) | payer BC, SELFPAY ==
[2019-12-20 14:52] LABS: COVID-19 RT-PCR Result NEGATIVE (Negative)
== END 2019-12-18 10:10 ==
PROVIDERS: PCP Family Medicine; Visit Provider Surgery
DX: Z01.818 Encounter for other preprocedural examination (principal); Z11.59 Encounter for screening for other viral diseases
CPT/HCPCS: U0003

== ENCOUNTER 2019-12-20 08:10 | Day surgery (SDC) | payer BC, SELFPAY ==
--- NOTE | 2019-12-20 06:46 | ENDO_ITS ---
Date of service: 12/20/19 Time of Service: 09:47 Endoscopy Report DATE OF PROCEDURE: 12/20/19 PRE-OP DIAGNOSIS: Chronic Cough, Colon Cancer Screening POST-OP DIAGNOSIS: other (GAstritis, gastric polyps, normal colonoscopy) PROCEDURE: 1. EGD with biopsies 2. Colonoscopy SURGEON: Clara Lane ANESTHESIA: other (General/ ASA 3/ Froilan Trevizo, OPERATION RESEARCH ANALYST ) ESTIMATED BLOOD LOSS: 3 PATHOLOGY: other (Cardia/fundus polyp bx, antrum bx, GE junction bx) COMPLICATIONS: None DISPOSITION: same day INDICATIONS: Mrs. Hayes is a pleasant 64 year old female who is here today for a chronic cough and intermittent dysphagia. She tells me she has been dealing with a chronic cough for a while. The coughing is worse at night when she tries to lay down. She has a constant tickle in her throat. Sometimes the cough is so bad that she ends up throwing up. She was started on omeprazole 40 mg daily and recently that was increased to Bid. She has noted no improvement in symptoms. She has tried cough syrup with codeine which has not helped the cough and burned her throat when she took it. She has tried tessalon pearls without effect. It is bad enough that she isn't able to sleep. The cough is made worse when eating spicey foods or dairy. Once in a while she will choke on food. she doesn't feel like she has a stuffed up nose. No itchy eyes. The only thing that has helped her cough is prednisone. While she is here she also mentioned that she is due for a colonoscopy. Her last colonoscopy was about 10 years ago in [place]. She did not have any polyps. She denies any Changes in bowel habits, unintentional weight loss, melena, hematochezia or family history of colon cancer. PREP: Miralax/Dulcolax PROCEDURE START TIME: 09:47 PROCEDURE END TIME: 10:16 COLONOSCOPY RETRACTION TIME: 16 minutes FINDINGS: Upper endoscopy- mild inflammation of the stomach. Flat polyps noted in the body of the stomach. mild inflammation at the GE junction Colonoscopy- normal PROCEDURE DESCRIPTION: After informed consent was obtained the patient was take to the procedure room and placed in a supine position. Monitors were applied and a time out was done. The patients name, date of , procedure type, allergies to medications and metal in their body was reviewed. A bite block was placed and the patient was sedated. Once sedated and comfortable the gastroscope was advanced through the oropharynx which was grossly normal into the esophagus. The proximal and mid- esophagus were normal. In the distal esophagus there was mild inflammation noted. The scope was advanced into the stomach and through the pylorus into the 3rd portion of the duodenum. The duodenum was noted to be normal. The scope was retracted back into the stomach. There was mild inflammation of the stomach as well as some flat polyps in the Cardia/fundus. Biopsies were done of the flat polyps/lesions as well as the antrum. There was no hiatal hernia noted. The scope was retracted back into the esophagus. There was mild inflammation at the GE junction and biopsies were done of the GE junction to rule out Fernandes's. The Z line was regular. The GE junction was at 42 cm. While the patient was still sedated they were placed in a left decubitous position. A rectal exam was done. External exam was normal. Internal exam revealed a normal sphincter tone and no palpable masses. The scope was then introduced and retro-flexed. No internal hemorrhoids, masses or polyps were identified. The scope was then advanced to the cecum without difficulty. The ileocecal valve and appendiceal orifice were identified. The prep was good. The scope was then slowly retracted over 16 minutes back into the rectum. The scope was removed and the patient was woken up and taken back to Same day surgery in stable condition. The patient tolerated the procedure well and there were no immediate complications. Of note the patient did go into A-flutter during the procedure. Follow up: 10 years for her next colonoscopy unless she develops any new GI symptoms. I will increase her omeprazole to 40 BID for 2 weeks to see if this helps with her cough. There was not a lot of inflammation in the esophagus so I dont think that her cough is from reflux.
--- NOTE | 2019-12-20 06:48 | PDOC.DSDIS_ITS ---
Discharge Plan Disposition Patient Disposition: HOME Condition: Good Discharge Details Reason For Visit: DYSPHAGIA / SCREENING Attending Provider: Clara Lane Primary Care Provider: Andre Braun Home Meds and New Rx's Prescriptions: New omeprazole 40 mg capsule,delayed release(DR/EC) 40 mg PO BID Qty: 30 RF: 0 Continued hydrochlorothiazide 12.5 mg tablet 12.5 mg PO DAILY Qty: 90 RF: 3 prochlorperazine maleate 5 mg tablet 5 mg PO TID PRN (Reason: headache or nausea) Qty: 30 RF: 2 Xarelto 20 mg tablet 20 mg PO DAILY Qty: 30 RF: 11 magnesium oxide 500 mg capsule 500 mg PO DAILY RF: 0 metaxalone [Skelaxin] 800 mg tablet 800 mg PO TID PRN (Reason: muscle spasm) Qty: 14 RF: 0 Discontinued bisacodyl [Dulcolax (bisacodyl)] 5 mg tablet,delayed release (DR/EC) 5 mg PO ONCE Qty: 4 RF: 0 polyethylene glycol 3350 17 gram powder in packet 255 g PO DAILY Qty: 15 RF: 0 famotidine 20 mg Tablet 20 mg PO HS RF: 0 omeprazole 40 mg Capsule,Delayed Release(Dr/Ec) 40 mg PO BID RF: 0 No Action (DME) blood pressure test kit-medium 1 EACH kit 1 ea Miscellaneous BID Qty: 1 RF: 0 Discharge Instructions Additional Instructions: Findings: normal colonoscopy Upper endoscopy with mild inflammation and some flat polyps Follow up: 2 weeks Please call if you develop: fevers >101.5 Nausea or Vomiting Abdominal pain that is not transient DAY SURGERY UNIT POST ENDOSCOPY INSTRUCTIONS 1. Because there will be medication in your system for the next 24 hours, you may feel a little sleepy. Your coordination will be affected. Therefore: a. Do not drive or operate dangerous equipment for 24 hours. b. Do not drink alcohol beverages for 24 hours (not even beer). c. Plan to go home and rest for the day. 2. Generally there are no restrictions on your activity after a day or so has gone by, but you may feel a bit fatigued for a few days. 3 After you arrive home you may have a light meal and return to a normal diet as you can tolerate it without feeling sick to your stomach. 4. After surgery, you may feel pain or discomfort. This should be only transient, but if it persists please contact your doctor. 5. If there are any questions regarding the findings of your procedure, please feel free to contact your doctor. 6. If you are unable to contact your doctor with a problem, contact the hospital at [phone]. 7. Continue all your regular medications unless directed otherwise. I understand the above instructions and have no questions. Signature of Patient or Responsible Adult Escort Date/Time Name of Responsible Adult Escort Signature of Nurse Date/Time Referrals: Clara Lane MD [ [facility] STAFF PHYSICIAN] - 01/05/20 8:30 am Activity:: Activity as Tolerated Diet:: As Tolerated Discharge Orders Discharge Orders: Discharge Order (Routine); Ordered 12/20/19 Ordered By: Clara Lane
[2019-12-20 08:35] VITALS: BP 134/90; PULSE 66; RESP 17; TEMP 36; O2SAT 99
[2019-12-20] MEDS: Lactated Ringers 1,000 ML 80 ML IV (09:05)
--- NOTE | 2019-12-20 09:51 | STOM_PTH ---
PATIENT: Ally Hayes LOC: [facility] U#:[id number] AGE/SX: 64/F ROOM: RE12/20/[address]: Clara Lane MD : [id number] BED: DIS: 12/20/2019 SPEC #: [id number] RECD: 12/20/19 12:20 STATUS: OLGA LIDIA RE #: [id number] REGINALD: 12/20/19 09:[address]: Clara Lane DEPT: Surgical Specimen RECD BY: Shagufta Henry ENTERED: 12/20/19 12:21 SP TYPE: STOMACH OTHR DR: Andre Braun MD Tissues: 1 - STOMACH BIOPSY 2 - STOMACH BIOPSY 3 - ESOPHAGUS BIOPSY Procedures: GROSS AND MICRO LEVEL 4 Comments: [id number]
[2019-12-20 11:02] VITALS: BP 123/71; PULSE 63; RESP 16; TEMP 36.2; O2SAT 97
== END 2019-12-20 11:20 | disposition home or self-care (01) ==
LOC: SUR 08:11
PROVIDERS: PCP Family Medicine; Visit Provider Surgery
PROC: (CPT 43239; principal; 2019-12-20 09:30)
DX: Z12.11 Encounter for screening for malignant neoplasm of colon (principal); R05 Cough; R13.10 Dysphagia, unspecified; K31.7 Polyp of stomach and duodenum; K21.0 Gastro-esophageal reflux disease with esophagitis
CPT/HCPCS: 43239; 88305; J2001

== ENCOUNTER 2019-12-26 01:16 | Outpatient (CLI) | payer BC, SELFPAY ==
--- NOTE | 2019-12-26 07:00 | DI.RAD_ITS ---
EXAM: RF UPPER GI SERIES CLINICAL HISTORY: choking/coughing with food/liquid,r13.10,dysphagia, ? foreign body TECHNIQUE: 2D and realtime digital imaging was performed. CONTRAST MATERIAL: Oral barium contrast was administered. COMPARISON: No exams were available for comparison FINDINGS: Initial plain film of the abdomen reveals normal stool and air pattern. No abnormal calcifications ar e seen. Esophagus: The esophagus is patent with no evidence for erosions, fold thickening, strictures, or ma sses. With regards to the motility, there is a normal primary stripping wave. Tertiary contractions a re noted. There is a small hiatal hernia. Mild gastroesophageal reflex is noted during the examinat ion. Stomach: The stomach shows no gastric fold thickening, erosions, or masses. Duodenal Bulb: Shows no fold thickening, erosions, or masses. IMPRESSION: 1. Small hiatal hernia and mild gastroesophageal reflux. 2. Tertiary contractions are seen in the esophagus.
[2019-12-26] MEDS: Simethicone/Sod Bicarb/Cit Ac, 4 gram PACKET 1 PACKET PO (10:15)
== END 2019-12-26 01:36 ==
PROVIDERS: PCP Family Medicine; Visit Provider Family Medicine
DX: R13.10 Dysphagia, unspecified (principal); K44.9 Diaphragmatic hernia without obstruction or gangrene; K21.9 Gastro-esophageal reflux disease without esophagitis; K22.4 Dyskinesia of esophagus
CPT/HCPCS: 74246; J3490

== ENCOUNTER → 2020-07-11 13:56 | Outpatient (BNVA) | payer MEDICARE, SELFPAY | PROVIDERS: PCP Family Medicine; Referring Provider Family Medicine; Visit Provider Internal Medicine Cardiovascular Disease | DX: I48.21 Permanent atrial fibrillation (principal); I10 Essential (primary) hypertension; Z79.899 Other long term (current) drug therapy | CPT/HCPCS: 99214 ==

== ENCOUNTER 2020-08-06 21:26 | Outpatient (REF) | payer MEDICARE, SELFPAY | END 2020-08-06 21:27 | disposition home or self-care (01) | LOC: NCHCN 21:26 | PROVIDERS: PCP Family Medicine; Visit Provider Nurse Practitioner Family | DX: N39.0 Urinary tract infection, site not specified (principal) | CPT/HCPCS: 87086 ==

== ENCOUNTER 2020-08-15 20:56 | Outpatient (REF) | payer MEDICARE, SELFPAY ==
[2020-08-15 21:54] LABS: Iron 53 ug/dL (50-170); Total Iron Binding Capacity 337 ug/dL (250-450); Transferrin Sat 16 % (15-50)
[2020-08-15 22:06] LABS: ALT 24 U/L (14-59); AST 20 U/L (15-37); Albumin 3.6 g/dL (3.4-5.0); Alkaline Phosphatase 116 U/L (46-116); Anion Gap 4.3 mmol/L (3-11); BUN 19 mg/dL (7-18); Bilirubin, Total 0.3 mg/dL (0.2-1.0); CO2 32.7 mmol/L (21.0-32.0); CREATININE 0.7 mg/dL (0.55-1.02); Calcium 9.4 mg/dL (8.5-10.1); Chloride 102 mmol/L (98-107); Ferritin 260 ng/mL (8-252); Glucose 90 mg/dL (74-106); Sodium 139 mmol/L (136-145); TSH (W/Ref FT4) 2.21 uIU/mL (0.36-3.74); Total Protein 7.2 g/dL (6.4-8.2)
== END 2020-08-15 20:57 | disposition home or self-care (01) ==
LOC: LBN 20:56
PROVIDERS: PCP Family Medicine; Visit Provider Nurse Practitioner Family
DX: R53.83 Other fatigue (principal); I48.91 Unspecified atrial fibrillation
CPT/HCPCS: 80053; 82728; 83540; 83550; 84443

== ENCOUNTER 2020-10-23 09:38 | Outpatient (CLI) | payer MEDICARE, SELFPAY ==
[2020-10-23 12:54] LABS: Potassium 4.4 mmol/L (3.5-5.1)
== END 2020-10-23 09:39 | disposition home or self-care (01) ==
LOC: LOS 09:39
PROVIDERS: PCP Family Medicine; Referring Provider Family Medicine; Visit Provider Family Medicine
DX: I10 Essential (primary) hypertension (principal)
CPT/HCPCS: 36415; 84132

== ENCOUNTER 2020-10-29 02:27 | Outpatient (CLI) | payer MEDICARE, SELFPAY ==
--- NOTE | 2020-10-29 11:30 | DI.MAMMO_ITS ---
Exam(s) MAMMO SCREENING EXAM: MAMMO SCREENING CLINICAL HISTORY: screening TECHNIQUE: Mammograms were interpreted according to the usual protocol including computer analysis w [employer] CAD system, tomosynthesis and C-view imaging. COMPARISON: 2016 and 2018 FINDINGS: The breasts are composed of scattered fibroglandular densities, Breast Density category B. No suspicious masses or suspicious microcalcifications are seen. Vascular calcifications are noted. No skin thickening or abnormal axillary lymph nodes are seen. There has been no significant change from prior exams. IMPRESSION: BI-RADS Category 1, Negative mammogram Yearly screening mammography is recommended. Breast Density - Category B, scattered fibroglandular densities. A negative radiographic report should not delay biopsy if a dominant or clinically suspicious mass is present. Up to ten percent of cancers are not identified on mammography. A negative report may reinforce clinical impression. Adenosis and dense breasts may obscure an underlying neoplasm. False positive reports average 6 to 10%. Patient will receive a letter notifying them of these results.
== END 2020-10-29 02:47 ==
PROVIDERS: PCP Family Medicine; Visit Provider Obstetrics & Gynecology Gynecology
DX: Z12.31 Encounter for screening mammogram for malignant neoplasm of breast (principal)
CPT/HCPCS: 77063; 77067

== ENCOUNTER 2020-10-29 15:15 | Outpatient (REF) | payer MEDICARE, SELFPAY | END 2020-10-29 15:16 | disposition home or self-care (01) | LOC: LBN 15:15 | PROVIDERS: PCP Family Medicine; Visit Provider Nurse Practitioner Family | DX: N39.0 Urinary tract infection, site not specified (principal) | CPT/HCPCS: 87077; 87086; 87186 ==

== ENCOUNTER → 2021-01-07 09:41 | Outpatient (BNVA) | payer MEDICARE, SELFPAY | PROVIDERS: PCP Family Medicine; Referring Provider Family Medicine; Visit Provider Internal Medicine Cardiovascular Disease | DX: I48.21 Permanent atrial fibrillation (principal); I10 Essential (primary) hypertension; Z79.899 Other long term (current) drug therapy | CPT/HCPCS: 99214; 99213 ==

== ENCOUNTER 2021-03-15 15:36 | Outpatient (REF) | payer MEDICARE, SELFPAY ==
[2021-03-16 14:37] LABS: COVID-19 RT-PCR UVMMC Result Negative (Negative)
== END 2021-03-15 15:37 | disposition home or self-care (01) ==
LOC: LBN 15:36
PROVIDERS: PCP Family Medicine; Visit Provider Physician Assistant
DX: Z20.822 Contact with and (suspected) exposure to COVID-19 (principal); J32.9 Chronic sinusitis, unspecified
CPT/HCPCS: U0003; U0005

== ENCOUNTER → 2021-08-05 10:01 | Outpatient (BNVA) | payer MEDICARE, SELFPAY | PROVIDERS: PCP Family Medicine; Visit Provider Internal Medicine Cardiovascular Disease | DX: I48.92 Unspecified atrial flutter (principal); I48.91 Unspecified atrial fibrillation | CPT/HCPCS: 99214; 99213 ==

== ENCOUNTER 2021-08-21 03:52 | Outpatient (CLI) | payer MEDICARE, SELFPAY ==
[2021-08-21 08:49] LABS: HGB 16.1 g/dL (11.2-15.7); MCHC 32.2 % (32.0-36.0); MCV 89.9 fL (80-95); Platelet Count 190 10^3/uL (130-400); RBC 5.56 10^6/uL (3.93-5.22); RDW 12.7 % (11.7-14.6); RDW-SD 42.3 fL; WBC 6.83 10^3/uL (4.4-10.8)
[2021-08-21 09:46] LABS: Calculated LDL 111 mg/dL (<100); Cholesterol 182 mg/dL (<200); Ferritin 182 ng/mL (8-252); HDL Cholesterol 52 mg/dL (40-60); Triglyceride 99 mg/dL (<150)
== END 2021-08-21 03:53 | disposition home or self-care (01) ==
LOC: LBO 03:52
PROVIDERS: PCP Family Medicine; Visit Provider Family Medicine
DX: E78.5 Hyperlipidemia, unspecified (principal); R53.83 Other fatigue; D64.9 Anemia, unspecified
CPT/HCPCS: 36415; 80061; 85027; 82728

== ENCOUNTER 2021-10-09 03:58 | Outpatient (CLI) | payer MEDICARE, SELFPAY ==
[2021-10-09 13:43] LABS: Anion Gap 7.5 mmol/L (3-11); BUN 19 mg/dL (7-18); CO2 29.5 mmol/L (21.0-32.0); Calcium 9.4 mg/dL (8.5-10.1); Chloride 101 mmol/L (98-107); Glucose 126 mg/dL (74-106); Potassium 4.6 mmol/L (3.5-5.1); Sodium 138 mmol/L (136-145)
== END 2021-10-09 03:59 | disposition home or self-care (01) ==
LOC: LBO 03:58
PROVIDERS: PCP Family Medicine; Visit Provider Family Medicine
DX: E87.1 Hypo-osmolality and hyponatremia (principal)
CPT/HCPCS: 36415; 80048

== ENCOUNTER 2021-12-24 09:27 | Outpatient (CLI) | payer MEDICARE, SELFPAY ==
--- NOTE | 2021-12-24 08:15 | DI.RAD_ITS ---
Exam(s) XR LUMBAR SPINE COMPLETE EXAM: XR LUMBAR SPINE COMPLETE CLINICAL HISTORY: low back pain M54.9 DORSALGIA. TECHNIQUE: 2D digital imaging was performed. Five views. COMPARISON: No exams were available for comparison FINDINGS: BONES: No fracture or destructive lesion. Vertebral bodies show endplate osteophytes at L2-3 greater on the right side.. Facet hypertrophy identified, greatest at L5 4 5 and L5-S1. Degenerative change s of the SI joints, left greater than right. DISKS: Intervertebral disc spaces are maintained. ALIGNMENT: Mild dextroscoliosis centered at L2-3 SOFT TISSUE: Normal. IMPRESSION: Mild degenerative disc changes, greatest at L2-3. Degenerative facet changes and SI joint degenerati ve changes. DATA REPOSITORY: RADIATION DOSE DELIVERED:
== END 2021-12-24 09:47 ==
PROVIDERS: PCP Family Medicine; Visit Provider Family Medicine
DX: M47.816 Spondylosis without myelopathy or radiculopathy, lumbar region (principal); M47.818 Spondylosis without myelopathy or radiculopathy, sacral and sacrococcygeal region
CPT/HCPCS: 72110

== ENCOUNTER 2022-01-05 01:44 | Outpatient (CLI) | payer MEDICARE, SELFPAY ==
--- NOTE | 2022-01-05 08:00 | DI.MRI_ITS ---
Exam(s) MR LUMBAR SPINE WO EXAM: MR LUMBAR SPINE WO CLINICAL HISTORY: low back pain, not improving despite PT,m54.50. TECHNIQUE: Multiplanar multisequence MRI was performed. COMPARISON: No exams were available for comparison FINDINGS: MR examination lumbosacral spine was performed according to the usual protocol. No bony signal abnormality is seen. Conus medullaris appears intact. No disc herniation identified in the region surveyed. There is a mild disc bulge at L5-S1. Neural foramina are well maintained throughout. There are tnuk-wc-vqlusory changes of facet arthropa thy involving the L3-4, L4-5, and L5-S1 levels bilaterally. IMPRESSION: Bilateral facet arthropathy from L3-4 through L5-S1. Mild disc bulge at L5-S1 without focal disc her niation. DATA REPOSITORY:
== END 2022-01-05 02:04 ==
PROVIDERS: PCP Family Medicine; Visit Provider Family Medicine
DX: M47.816 Spondylosis without myelopathy or radiculopathy, lumbar region (principal); M51.27 Other intervertebral disc displacement, lumbosacral region; M47.817 Spondylosis without myelopathy or radiculopathy, lumbosacral region
CPT/HCPCS: 72148

== ENCOUNTER 2022-03-05 04:09 | Outpatient (CLI) | payer MEDICARE, SELFPAY ==
[2022-03-05 13:45] LABS: Hemoglobin A1C 5.9 % (<5.7)
== END 2022-03-05 04:10 | disposition home or self-care (01) ==
LOC: LOS 04:09
PROVIDERS: PCP Family Medicine; Visit Provider Family Medicine
DX: R73.9 Hyperglycemia, unspecified (principal)
CPT/HCPCS: 36415; 83036

== ENCOUNTER 2022-05-19 15:00 | Outpatient (CLI) | payer MEDICARE, SELFPAY ==
[2022-05-19 15:09] VITALS: BP 150/87; PULSE 61; RESP 20; TEMP 36.6; O2SAT 98
--- NOTE | 2022-05-19 15:55 | DI.RAD_ITS ---
Exam(s) XR PAIN CLINIC LUMBAR SP 2V EXAM: XR PAIN CLINIC LUMBAR SP 2V CLINICAL HISTORY: Dx: Lumbar Spondylosis TECHNIQUE: 2D and realtime digital imaging was performed. CONTRAST MATERIAL: Refer to procedure report. COMPARISON: No exams were available for comparison FINDINGS: Fluoroscopy was provided for Dr. Morfin during the performance of a radiofrequency ablation of the lumba r spine. Please refer to the procedure report for complete details. Ka,r=7.46 mGy IMPRESSION:
[2022-05-19] MEDS: Omnipaque 240 MG/ML 50 ML BTL IJ (16:02)
[2022-05-19] MEDS: Bupivacaine 0.5% Pres-Free 10 ML VIAL IJ (16:02)
[2022-05-19 16:03] VITALS: BP 144/88; PULSE 81; RESP 18; O2SAT 100
--- NOTE | 2022-05-19 16:10 | PDOC.PAIN_ITS ---
Date of service: 05/19/22 Time of Service: 16:10 Pain Clinic Procedure Note Procedure Note Procedure Note: Lumbar/Sacral Medial Branch Blocks Ally Hayes has been referred to the [facility] for lumbar/sacral medial branch blocks. Pre-procedure diagnosis: lumbar spondylosis Post-procedure diagnosis: same as above COMMENTS: patient has a listed adverse side effect to flecainide, she does not recall what type of reaction she had, it was prescribed years ago for rate control of her atrial fibrillation. Pharmacist alerted possible cross reaction with local anesthetic. Patient has tolerated marcaine and xylocaine with dental procedures without any adverse reaction. Patient was interviewed and the medical record reviewed. There were no medical, pharmacologic, radiographic or other structural contraindications to attempting fluoroscopically guided local anesthetic lumbar/sacral medial branch blocks. Risks and expected side effects as well as potential benefit of the procedure were reviewed and voiced concerns addressed. The printed consent form was signed and witnessed. Standard time-out procedure was performed. Patient was placed in the prone position on the fluoroscopy table and automated blood pressure cuff and pulse oximeter applied. The skin entry points for approaching the anatomic target points of the segmental medial branches of bilateral L3, L4, L5-DR were identified with anfluoroscopy and marked. Following thorough Chlorhexadine preparation of the skin and draping and 1% lidocaine infiltration of the skin entry points and subcutaneous tissues, a 22 gauge spinal needle was placed under fluoroscopic guidance down on to the target point for each respective segmental medial branch.Position was confirmed in A/P, oblique and lateral views with 0.25ml of omnipaque 240. Coult be this method .5ml 0.5% Bupivacaine was injected. Vital signs were stable throughout the procedure and were as recorded in the docflowsheet by the nursing staff. Follow up plans and appointments were discussed and was instructed to keep careful note of how the usual pain was modified by these injections. Specifically was asked to keep a pain diary for the next 24 hours using a numeri c pain scale of 0-10 and report these results at the follow-up visit. Post procedure instruction was given as documented in the nursing documentation and having met discharge criteria. Patient was discharged from the [facility]. Based on the medial branches blocked today, if the patient has adequate relief and we are able to proceed to radiofrequency ablation, the treatment should re sult in the denervation of the bilateral L4/5, L5/S1 facets. We would expect to denervate a total of 4 facets during the radiofrequency ablation. COMMENTS: pre-procedure VAS score 6/10, post-procedure VAS score 0/10. Chance Morfin MD Pain Management CC: Andre Braun MD
== END 2022-05-19 15:01 | disposition home or self-care (01) ==
LOC: PC 15:00
PROVIDERS: PCP Family Medicine; Visit Provider Internal Medicine
DX: M47.816 Spondylosis without myelopathy or radiculopathy, lumbar region (principal)
CPT/HCPCS: 64493; 64494; 72100; Q9967

== ENCOUNTER 2022-06-03 12:17 | Outpatient (CLI) | payer MEDICARE, SELFPAY ==
--- NOTE | 2022-06-03 06:00 | DI.RAD_ITS ---
Exam(s) XR PAIN CLINIC LUMBAR SP 2V EXAM: XR PAIN CLINIC LUMBAR SP 2V CLINICAL HISTORY: Dx: Lumbar Spondylosis TECHNIQUE: 2D and realtime digital imaging was performed. CONTRAST MATERIAL: Refer to procedure report. COMPARISON: No exams were available for comparison FINDINGS: Fluoroscopy was provided for Dr. Morfin during the performance of a lumbar medial branch block. Please refer to the procedure report for complete details. Ka,r=9.83 mGy IMPRESSION:
[2022-06-03 12:26] VITALS: BP 130/80; PULSE 66; RESP 20; TEMP 36.8; O2SAT 96
[2022-06-03] MEDS: Lidocaine 2% Pres-Free 5 ML VIAL IJ (13:04)
[2022-06-03] MEDS: Omnipaque 240 MG/ML 50 ML BTL IJ (13:06)
--- NOTE | 2022-06-03 13:06 | PDOC.PAIN ---
Date of service: 06/03/22 Time of Service: 13:07 Pain Clinic Procedure Note Procedure Note Procedure Note: Lumbar/Sacral Medial Branch Blocks Ally Hayes has been referred to the Pain Management Center for lumbar/sacral medial branch blocks. Pre-procedure diagnosis: lumbar spondylosis Post-procedure diagnosis: same as above COMMENTS: patient has a listed adverse side effect to flecainide, she does not recall what type of reaction she had, it was prescribed years ago for rate control of her atrial fibrillation. Pharmacist alerted possible cross reaction with local anesthetic. Patient has tolerated marcaine and xylocaine with dental procedures without any adverse reaction. She did well with first LMBB with 0.5% Bupivocaine. Patient was interviewed and the medical record reviewed. There were no medical, pharmacologic, radiographic or other structural contraindications to attempting fluoroscopically guided local anesthetic lumbar/sacral medial branch blocks. Risks and expected side effects as well as potential benefit of the procedure were reviewed and voiced concerns addressed. The printed consent form was signed and witnessed. Standard time-out procedure was performed. Patient was placed in the prone position on the fluoroscopy table and automated blood pressure cuff and pulse oximeter applied. The skin entry points for approaching the anatomic target points of the segmental medial branches of bilateral L3, L4, L5-DR were identified with anfluoroscopy and marked. Following thorough Chlorhexadine preparation of the skin and draping and 1% lidocaine infiltration of the skin entry points and subcutaneous tissues, a 22 gauge spinal needle was placed under fluoroscopic guidance down on to the target point for each respective segmental medial branch.Position was confirmed in A/P, oblique and lateral views with 0.25ml of omnipaque 240. Coult be this method .5ml 2% Lidocaine was injected. Vital signs were stable throughout the procedure and were as recorded in the docflowsheet by the nursing staff. Follow up plans and appointments were discussed and was instructed to keep careful note of how the usual pain was modified by these injections. Specifically was asked to keep a pain diary for the next 24 hours using a numeric pain scale of 0-10 and report these results at the follow-up visit. Post procedure instruction was given as documented in the nursing documentation and having met discharge criteria. Patient was discharged from the Pain Management Center. Based on the medial branches blocked today, if the patient has adequate relief and we are able to proceed to radiofrequency ablation, the treatment should result in the denervation of the bilateral L4/5, L5/S1 facets. We would expect to denervate a total of 4 facets during the radiofrequency ablation. COMMENTS: pre-procedure VAS score 5/10, post-procedure VAS score 0/10. Chance Morfin MD Pain Management CC: Andre Braun MD
[2022-06-03 13:18] VITALS: BP 153/93; PULSE 83; RESP 18; O2SAT 100
== END 2022-06-03 12:18 | disposition home or self-care (01) ==
LOC: PC 12:18
PROVIDERS: PCP Family Medicine; Visit Provider Internal Medicine
DX: M47.816 Spondylosis without myelopathy or radiculopathy, lumbar region (principal); M54.50 Low back pain, unspecified
CPT/HCPCS: 64493; 64494; 72100; Q9967

== ENCOUNTER 2022-07-02 08:53 | Outpatient (CLI) | payer MEDICARE, SELFPAY ==
--- NOTE | 2022-07-02 06:00 | DI.RAD_ITS ---
Exam(s) XR PAIN CLINIC LUMBAR SP 2V EXAM: XR PAIN CLINIC LUMBAR SP 2V CLINICAL HISTORY: Dx: Lumbar Spondylosis TECHNIQUE: 2D and realtime digital imaging was performed. Radiologist not present. CONTRAST MATERIAL: None. COMPARISON: No exams were available for comparison FINDINGS: Fluoroscopy was provided for pain management therapy. Please refer to procedure report or details. Radiation Exposure Index: Ka,r=27.63 mGy IMPRESSION: As above. RADIATION DOSE DELIVERED:
[2022-07-02 09:06] VITALS: BP 138/86; PULSE 68; RESP 20; TEMP 36.8; O2SAT 97
[2022-07-02] MEDS: fentaNYL 100 MCG/2 ML VIAL IVP ×2 (09:34→09:50)
[2022-07-02] MEDS: Midazolam 2 MG/2 ML VIAL IVP (09:34)
[2022-07-02 10:21] VITALS: BP 135/69; PULSE 60; RESP 18; O2SAT 97
--- NOTE | 2022-07-02 10:29 | PDOC.PAIN ---
Date of service: 07/02/22 Time of Service: 10:36 Pain Clinic Procedure Note Procedure Note Procedure Note: Bilateral Lumbar Radiofrequency with Avenos Machine PROCEDURE NOTE Date of Service: July 02, 2022 Patient: Ally Hayes Provider: Froilan Callahan DO, MPH Pre Operative Diagnosis: Lumbosacral Spondylosis without Myelopathy Post Operative Diagnosis: Same Pre procedure pain; VAS= 7/10 PROCEDURE: Radiofrequency Ablation of medial branches - Isirdo L3 L4 L5 and lateral branches of bilateral S1. Ally Hayes was brought into the fluoroscopy suite and positioned into the prone position on the fluoroscopy table and allowed to adjust to a position of comfort. A grounding pad was placed on the left thigh. The lumbar region was widely prepped with a chloraprep solution, allowed to air dry and draped in standard sterile surgical fashion. Local anesthesia was provided by 4 mL of 2% Lidocaine delivered with a 25g needle. A 17g 100 mm radiofrequency introducer needle was placed to the planned anatomic targets guided with intermittent fluoroscopy with a perpendicular approach to terminally place at the junction of the superior articular process and the transverse process of the bilateral L4 L5, the base of the sacral ala on the bilateral for the L5 medial branch nerve and the area between base of the sacral ala to the S1 foramen bilaterally. The stylets were removed and radiofrequency probes with a 4mm active tip were then inserted. Needle tip position of the probes was verified in the AP, oblique, and lateral views. At each site, the medial branch nerve was stimulated at 2 Hz to a maximum 1-2 volts determined to finalize safe needle and electrode placement. The patient was awake and responsive during this portion of the procedure. Each target was anesthetized with 1-2 mL of 2% Lidocaine for anesthesia for lesioning and then each target was lesioned at 80 degrees Celsius for 2 minutes and 30 seconds. Tissue impedences were noted to be between 250 and 500 Ohms. Electrodes and needles were then removed and bandages placed over the needle placement sites, the patient then returned to the supine position on a stretcher and transported to the recovery room without hemodynamic, neurologic, or allergic reactions. Fluoroscopic images were printed for hard copy recording and digitally archived. POST PROCEDURE EVALUATION: IMPRESSION: 1. Summary of procedure. Medication given is documented in the MAR. 2. The patient will be contacted in 1-3 weeks 3. Estimated Blood Loss: <5 mls 4. Fluoroscopy time: Documented in the EMR. Follow up plans and appointments were discussed with the Ally . Post procedure instruction was given as documented in nursing documentation and having met discharge criteria, Ally was discharged from the Pain Management Center. COMMENTS: No apparent complications. Post-procedure pain: VAS= 0/10. F/U with our office as needed. If she receives at least 6 months of relief from this procedure, it can be repeated. Froilan Callahan DO, MPH [facility] Management
[2022-07-02] MEDS: methylPREDNISolone ACETATE 40 MG/ML VIAL IJ (10:33)
[2022-07-02] MEDS: Lidocaine 2% Pres-Free 5 ML VIAL IJ (10:33)
[2022-07-02] MEDS: Bupivacaine 0.5% Pres-Free 10 ML VIAL IJ (10:34)
== END 2022-07-02 08:54 | disposition home or self-care (01) ==
LOC: PC 08:54
PROVIDERS: PCP Family Medicine; Visit Provider Preventive Medicine Occupational Medicine
DX: M47.817 Spondylosis without myelopathy or radiculopathy, lumbosacral region (principal); M54.50 Low back pain, unspecified
CPT/HCPCS: 64635; 64636; 72100; J1030; J2250; J3010

== ENCOUNTER 2022-08-20 08:18 | Outpatient (CLI) | payer MEDICARE, SELFPAY ==
--- NOTE | 2022-08-20 08:15 | RT.EKG_ITS ---
APPROVED REPORT Exam: Resting ECG Reason for Exam: afib Patient Location: O HR:79 bpm ECG Measurements Heart Rate 79 AXIS WA [id number] P [id number] QRSd 156 QRS -64 QT 425 T 87 QTc 488 Conclusion Atrial fibrillation...V-rate 60- 90, irreg A-activity Left bundle branch block...QRSd>120, broad/notched R
== END 2022-08-20 08:19 | disposition home or self-care (01) ==
LOC: DI.CARD 08:21
PROVIDERS: PCP Family Medicine; Visit Provider Internal Medicine Cardiovascular Disease
DX: I48.21 Permanent atrial fibrillation (principal); I44.7 Left bundle-branch block, unspecified
CPT/HCPCS: 93010

== ENCOUNTER → 2022-08-20 09:31 | Outpatient (BNVA) | payer MEDICARE, SELFPAY | PROVIDERS: PCP Family Medicine; Visit Provider Internal Medicine Cardiovascular Disease | DX: I48.21 Permanent atrial fibrillation (principal); I48.92 Unspecified atrial flutter; I10 Essential (primary) hypertension | CPT/HCPCS: 93005; 99214 ==

== ENCOUNTER 2022-10-01 12:37 | Outpatient (CLI) | payer MEDICARE, SELFPAY ==
--- NOTE | 2022-10-01 06:00 | DI.RAD_ITS ---
Exam(s) XR PAIN CLINIC SACRIOILIAC 2V EXAM: XR PAIN CLINIC SACRIOILIAC 2V CLINICAL HISTORY: DX: Sacroiliac Dysfunction TECHNIQUE: 2D and realtime digital imaging was performed. CONTRAST MATERIAL: Refer to procedure report. COMPARISON: No exams were available for comparison FINDINGS: Fluoroscopy was provided for Dr. Callahan during the performance of a left sacroiliac joint injection. Please refer to the procedure report for complete details. Ka,r=7.96 mGy IMPRESSION:
[2022-10-01 12:45] VITALS: BP 150/82; PULSE 91; RESP 20; TEMP 36.2; O2SAT 100
--- NOTE | 2022-10-01 13:16 | PDOC.PAIN_ITS ---
Date of service: 10/01/22 Time of Service: 13:23 Pain Managment Procedure Note Procedure Note Procedure Note: INTRA-ARTICULAR SI JOINT INJECTION Ally Hayes has been referred to the Pain Management Center for intra- articular SI joint injection. COMMENTS: She was previously evaluated in the office. Pre-procedure pain VAS was 6/10 Dx: Left sacroiliac joint dysfunction Patient was interviewed and the medical record reviewed. There were no medical, pharmacologic, radiographic or other structural contraindications to attempting fluoroscopically guided intra-articular SI joint injection. Risks and expected side effects as well as potential benefit of the procedure were reviewed and voiced concerns addressed. The printed consent form was signed and witnessed. Standard time-out procedure was performed. Patient was placed in the prone position on the fluoroscopy table and automated blood pressure cuff and pulse oximeter applied. The skin entry point for approaching the left SI joint was identified under the most advantageous fluoroscopic view and marked. Following thorough Chlorhexadine preparation of the skin and draping and 1% lidocaine infiltration of the skin entry point and subcutaneous tissues, a 22 gauge spinal needle was placed under fluoroscopic guidance into the left SI joint was identified under the most advantageous fluoroscopic view and marked. Intra-articular placement was confirmed by a clear arthrogram resulting from the injection of 0.25ml Omnipaque 240, 1ml 1% lidocaine, and 80mg Depomedrol were injected intra-articularily with an initial reproduction of a significant component of the usual pain. The needle was flushed with 1 cc of 1% Lidocaine and removed. Vital signs were stable throughout the procedure and were as recorded in the docflowsheet by the nursing staff. If given, dosages of intravenous drugs for anxiolysis and analgesia were documented in MAR. Follow up plans and appointments were discussed with the patient. Post procedure instruction was given as documented in nursing documentation and having met discharge criteria, and was discharged from the Pain Management Center. COMMENTS: Post-procedure pain VAS was 0/10. If this procedure give her at least 50% improvement in pain and/or function for at least 3 months, it can be repeated. Froilan Callahan DO, MPH [facility]-Pain Management [facility] for Pain Management CC: Andre Braun MD
[2022-10-01] MEDS: Omnipaque 240 MG/ML 50 ML BTL IJ (13:17)
[2022-10-01] MEDS: methylPREDNISolone ACETATE 80 MG/ML VIAL IJ (13:17)
[2022-10-01 13:19] VITALS: BP 118/75; PULSE 98; RESP 17; O2SAT 100
== END 2022-10-01 12:38 | disposition home or self-care (01) ==
LOC: PC 12:37
PROVIDERS: PCP Family Medicine; Visit Provider Preventive Medicine Occupational Medicine
DX: M53.3 Sacrococcygeal disorders, not elsewhere classified (principal); M54.50 Low back pain, unspecified
CPT/HCPCS: 27096; 72200; J1040; Q9967

== ENCOUNTER 2022-10-29 03:06 | Outpatient (CLI) | payer MEDICARE, SELFPAY ==
[2022-10-29 11:38] LABS: HCT 48.9 % (36.0-46.0); MCH 30.2 pg (27.0-33.0); MCHC 32.7 % (32.0-36.0); MCV 92 fL (80-95); Platelet Count 223 10^3/uL (130-400); RBC 5.29 10^6/uL (3.93-5.22); RDW 12.7 % (11.7-14.6); RDW-SD 43.5 fL; WBC 7.82 10^3/uL (4.4-10.8)
[2022-10-29 12:12] LABS: Anion Gap 6.3 mmol/L (3-11); BUN 19 mg/dL (7-18); CO2 30.7 mmol/L (21.0-32.0); CREATININE 0.8 mg/dL (0.55-1.02); Calcium 9.4 mg/dL (8.5-10.1); Chloride 103 mmol/L (98-107); Estimated GFR 80.21 (mL/min/1.73m2); Glucose 93 mg/dL (74-106); Sodium 140 mmol/L (136-145)
== END 2022-10-29 03:07 | disposition home or self-care (01) ==
PROVIDERS: PCP Family Medicine; Visit Provider Family Medicine
DX: E87.1 Hypo-osmolality and hyponatremia (principal); R53.83 Other fatigue
CPT/HCPCS: 36415; 80048; 85027

== ENCOUNTER 2023-01-20 07:42 | Outpatient (CLI) | payer MEDICARE, SELFPAY ==
--- NOTE | 2023-01-20 06:00 | DI.RAD_ITS ---
Exam(s) XR PAIN CLINIC SACRIOILIAC 2V EXAM: XR PAIN CLINIC SACRIOILIAC 2V CLINICAL HISTORY: Dx: Sacroiliac Joint Dysfunction. TECHNIQUE: Fluoroscopy was provided for the referring physician for guidance with performing pain cl inic injection procedure. COMPARISON: No exams were available for comparison FINDINGS: Please see procedure note for details. Fluoro time: 25.0 seconds RADIATION DOSE DELIVERED: Ka,r=7.35 mGy
[2023-01-20 08:13] VITALS: BP 131/83; PULSE 65; RESP 20; TEMP 36.6; O2SAT 99
[2023-01-20] MEDS: Omnipaque 240 MG/ML 50 ML BTL IJ (08:41)
[2023-01-20] MEDS: methylPREDNISolone ACETATE 80 MG/ML VIAL IJ (08:41)
[2023-01-20 08:59] VITALS: BP 146/82; PULSE 73; RESP 16; O2SAT 100
--- NOTE | 2023-01-20 10:26 | PDOC.PAIN_ITS ---
Date of service: 01/20/23 Time of Service: 09:00 Pain Managment Procedure Note Procedure Note Procedure Note: PROCEDURE NOTE LEFT INTRA-ARTICULAR SACROILIAC JOINT INJECTION Date of Service: January 20, 2023 Patient: Ally Hayes Provider: Froilan Callahan DO, MPH COMMENTS: I previously evaluated the patient in the office and their symptoms in relation to the sacroiliac joint pain have remained the same. She had this procedure completed in the Spring of this year and had >50% relief for >3 months. Pre-operative diagnosis: Sacroiliac joint dysfunction Post-operative diagnosis: Same Pre-procedure pain: VAS= 5/10 Ally Hayes has been referred to our [facility] for a Left intra-articular Sacroiliac joint injection. Ally was interviewed and the medical record reviewed. There were no medical, pharmacologic, radiographic or other structural contraindications to attempting a fluoroscopically-guided, contrast-enhanced, intra-articular Sacroiliac joint injection. The risks, benefits, and potential side effects of this procedure were reviewed with the patient. Questions and concerns were addressed. After it was clear that Ally was fully informed about the procedure, the printed consent form was signed by the patient and myself. Ally was placed in the prone position on the fluoroscopy table and an automated blood pressure cuff, 3 lead EKG, and pulse oximeter were applied. The skin entry point for approaching the left sacroiliac joint was identified under the most advantageous fluoroscopic view and marked. Following thorough Chlorhexadine preparation of the skin and draping with sterile surgical drapes, 2 mls of 1% lidocaine was infiltrated into the skin at the entry point and the surrounding subcutaneous tissues. Next, a 3.5 22G spinal needle was placed under fluoroscopic guidance into the Left sacroiliac joint. Intra-articular placement was confirmed by a clear arthrogram resulting from the injection of 0.25ml of Omnipaque-240. Next, 1 ml of Depo- Medrol 80 mg/ml was injected intra- articularly with an initial reproduction of a significant component of the usual pain. This was followed with 1 ml of 1% Lidocaine. The needle was then removed without difficulty. (49 ml of Omnipaque-240 was wasted). Ally's vital signs were stable throughout the procedure and were as recorded in nursing records. Follow up plans and appointments were discussed with Ally. Post procedure instructions were given as documented in nursing records. Having met discharge criteria, Ally was discharged from the [facility]. COMMENTS: Post-procedure pain: VAS= 0/10. If the patient receives at least 50% improvement in pain and/or function for at least 3 months, this procedure can be repeated if needed. I personally performed this entire procedure. FROILAN CALLAHAN DO, MPH ABPMR-subspecialty board certification in Pain Medicine [facility] [facility] Management
== END 2023-01-20 07:43 | disposition home or self-care (01) ==
LOC: PC 07:43
PROVIDERS: PCP Family Medicine; Visit Provider Preventive Medicine Occupational Medicine
DX: M54.50 Low back pain, unspecified (principal); M46.1 Sacroiliitis, not elsewhere classified
CPT/HCPCS: 27096; 72200; J1040; Q9967

== ENCOUNTER 2023-06-09 09:15 | Outpatient (CLI) | payer MEDICARE, SELFPAY ==
--- NOTE | 2023-06-09 06:00 | DI.RAD_ITS ---
Exam(s) XR PAIN CLINIC SACRIOILIAC 2V EXAM: XR PAIN CLINIC SACRIOILIAC 2V CLINICAL HISTORY: DX: Left Sacroiliac dysfunction. TECHNIQUE: Fluoroscopy was provided for the referring physician for guidance with performing pain cl inic injection procedure. COMPARISON: No exams were available for comparison FINDINGS: Please see procedure note for details. Fluoro time: 16.5 seconds RADIATION DOSE DELIVERED: Ka,r=3.8 mGy
[2023-06-09 09:23] VITALS: BP 131/70; PULSE 70; RESP 20; TEMP 36.7; O2SAT 98
--- NOTE | 2023-06-09 09:46 | PDOC.PAIN ---
Date of service: 06/09/23 Time of Service: 09:46 Pain Managment Procedure Note Procedure Note Procedure Note: PROCEDURE NOTE LEFT INTRA-ARTICULAR SACROILIAC JOINT INJECTION Date of Service: June 09, 2023 Patient: Ally Hayes Provider: Froilan Callahan DO, MPH COMMENTS: I previously evaluated the patient in the office and their symptoms in relation to the sacroiliac joint pain have remained the same. She last had this procedure on 01/20/23 and had >3 months of >50% pain improvement and was able to be far more physically active. She will stay on the Xarelto. Pre-operative diagnosis: Sacroiliac joint dysfunction Post-operative diagnosis: Same Pre-procedure pain: VAS= 7/10 Ally Hayes has been referred to our [facility] for a Left intra-articular Sacroiliac joint injection. Ally was interviewed and the medical record reviewed. There were no medical, pharmacologic, radiographic or other structural contraindications to attempting a fluoroscopically-guided, contrast-enhanced, intra-articular Sacroiliac joint injection. The risks, benefits, and potential side effects of this procedure were reviewed with the patient. Questions and concerns were addressed. After it was clear that Ally was fully informed about the procedure, the printed consent form was signed by the patient and myself. Ally was placed in the prone position on the fluoroscopy table and an automated blood pressure cuff, 3 lead EKG, and pulse oximeter were applied. The skin entry point for approaching the Left sacroiliac joint was identified under the most advantageous fluoroscopic view and marked. Following thorough Chlorhexadine preparation of the skin and draping with sterile surgical drapes, 2 mls of 1% lidocaine was infiltrated into the skin at the entry point and the surrounding subcutaneous tissues. Next, a 3.5 22G spinal needle was placed under fluoroscopic guidance into the Left sacroiliac joint. Intra-articular placement was confirmed by a clear arthrogram resulting from the injection of 0.25ml of Omnipaque-240. Next, 1 ml of Depo- Medrol 80 mg/ml was injected intra-articularly with an initial reproduction of a significant component of the usual pain. This was followed with 1 ml of 1% Lidocaine. The needle was then removed without difficulty. (49 ml of Omnipaque-240 was wasted). Ally's vital signs were stable throughout the procedure and were as recorded in nursing records. Follow up plans and appointments were discussed with Ally. Post procedure instructions were given as documented in nursing records. Having met discharge criteria, Ally was discharged from the [facility]. COMMENTS: Post-procedure pain: VAS= 0/10. If the patient receives at least 50% improvement in pain and/or function for at least 3 months, this procedure can be repeated if needed. I personally performed this entire procedure. FROILAN CALLAHAN DO, MPH ABPMR-subspecialty board certification in Pain Medicine [facility] for Pain Management
[2023-06-09 09:53] VITALS: BP 156/89; PULSE 86; RESP 20; O2SAT 99
[2023-06-09] MEDS: methylPREDNISolone ACETATE 80 MG/ML VIAL IJ (09:55)
[2023-06-09] MEDS: Omnipaque 240 MG/ML 50 ML BTL IJ (09:55)
== END 2023-06-09 09:16 | disposition home or self-care (01) ==
LOC: PC 09:15
PROVIDERS: PCP Family Medicine; Visit Provider Preventive Medicine Occupational Medicine
DX: M54.50 Low back pain, unspecified (principal); M46.1 Sacroiliitis, not elsewhere classified
CPT/HCPCS: 123; 27096; 72200; 00123; J1040; Q9967

== ENCOUNTER 2023-07-07 08:17 | Emergency (ER) | payer MEDICARE, SELFPAY ==
--- NOTE | 2023-07-07 08:15 | RT.EKG_ITS ---
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
[2023-07-07 08:21] VITALS: BP 139/62; PULSE 56; RESP 18; TEMP 36.6; O2SAT 98
--- NOTE | 2023-07-07 08:37 | W.ED.GENAD ---
HPI General Date/Time Provider Initiated Documentation: 07/07/23 08:21. HPI Narrative: this 67-year-old female presenting with report of nausea, vomiting, diarrhea last week, progressed for several days and is still having some epigastric discomfort when she tries to eat and experiencing anorexia. Denies any diarrhea or current nausea. Denies any chest pain, fever, shortness of breath. States she feels very tired. Has been taking her prescribed medications. Denies any pain with urination. Was evaluated yesterday at [facility] but presents here today as she feels she is dehydrated and needs fluid resuscitation. Related Data Home Medications Medication Instructions Recorded Confirmed magnesium oxide 500 mg capsule 500 mg PO DAILY 09/29/19 07/08/23 cholecalciferol (vitamin D3) 75 75 mcg PO DAILY 05/21/21 07/08/23 mcg (3,000 unit) tablet metaxalone 800 mg tablet 800 mg PO QHS PRN muscle spasm #30 09/17/22 07/08/23 tabs spironolactone 25 mg tablet 12.5 mg (1/2 x 25 mg) PO DAILY #45 12/30/22 07/08/23 tabs rivaroxaban 20 mg tablet (Xarelto) 20 mg PO DAILY #90 tabs 06/16/23 07/08/23 metronidazole 0.75 % topical cream 1 applic topical DAILY PRN rosacea 06/23/23 07/08/23 #45 grams potassium chloride 20 mEq 20 meq PO DAILY #7 tabs 07/07/23 07/08/23 tablet,extended release Previous Rx's Medication Instructions Recorded metaxalone 800 mg tablet 800 mg PO QHS PRN muscle spasm #30 09/17/22 tabs spironolactone 25 mg tablet 12.5 mg (1/2 x 25 mg) PO DAILY #45 12/30/22 tabs rivaroxaban 20 mg tablet (Xarelto) 20 mg PO DAILY #90 tabs 06/16/23 metronidazole 0.75 % topical cream 1 applic topical DAILY PRN rosacea 06/23/23 #45 grams potassium chloride 20 mEq 20 meq PO DAILY #7 tabs 07/07/23 tablet,extended release Allergies Allergy/AdvReac Type Severity Reaction Status Date / Time erythromycin base Allergy Mild Hives Verified 07/08/23 16:02 [Erythromycin Base] Penicillins Allergy Mild Hives Verified 07/08/23 16:02 sulfamethoxazole Allergy Itching, Verified 07/08/23 16:02 [From Bactrim] bothers stomach trimethoprim [From Bactrim] Allergy Itching, Verified 07/08/23 16:02 bothers stomach lisinopril AdvReac Severe severe dry Verified 07/08/23 16:02 cough, headache metoprolol AdvReac Severe SEVERE H/A Verified 07/08/23 16:02 and DIZZY losartan AdvReac Intermediate Headache Verified 07/08/23 16:02 nitrofurantoin AdvReac Unknown UPSET Verified 07/08/23 16:02 macrocrystalline STOMACH [From Macrodantin] flecainide AdvReac Wide Verified 07/08/23 16:02 complex tachycardia General Stated Complaint: Nausea/Vomit/Diar RICARDO: 3 Course Vital Signs Vital signs: Vital Signs Temperature 36.6 C 07/07/23 08:21 Pulse 56 L 07/07/23 08:21 Respiratory Rate 18 07/07/23 08:21 Blood Pressure 139/62 07/07/23 08:21 Pulse Oximetry 98 07/07/23 08:21 Temperature 36.6 C 07/07/23 08:21 Temperature Source Oral 07/07/23 08:21 Pulse 56 L 07/07/23 08:21 Respiratory Rate 18 07/07/23 08:21 Respiratory Effort Normal, Non-Labored 07/07/23 08:25 Blood Pressure 139/62 07/07/23 08:21 Blood Pressure Position Sitting 07/07/23 08:21 Pulse Oximetry 98 07/07/23 08:21 Oxygen Delivery Method Room Air 07/07/23 08:21 Oxygen Flow Rate 0 07/07/23 08:21 Medical Decision Making This 59-year-old female presenting with nausea vomiting and epigastric pain for the past 7 days No abdominal tenderness, afebrile and nontoxic in appearance, no active vomiting Hypokalemia 3.3, labs consistent with likely dehydration Patient feeling marked improvement after 1 L of NS and 16 ounces of apple juice, able to tolerate p.o., requesting discharge home Antiemetics applied for home Return precautions reviewed and patient expressed understanding Suspicion for cardiac etiology of patient's complaints, nontender abdominal exam, low suspicion for biliary pathology or pancreatitis, lipase negative, mild elevation in ALT, likely secondary to viral illness Return precautions reviewed and patient expressed understanding Recheck recommended in 24 to 48 hours Quality:SDOH Health Related Social Needs: No Data to Display PFSH All Active Problems (Updated 07/07/23 @ 10:12 by JERMAINE Lizarraga) Abdominal pain (Acute) Nausea and vomiting (Acute) Facial rash (Acute) Hammer toe of left foot (Acute) Atrial fibrillation, permanent (Acute) Sacroiliac joint dysfunction of left side (Acute) Lumbosacral spondylosis without myelopathy (Acute) Low back pain (Acute) Bug bite (Acute) Hypertension (Chronic) Hyperglycemia (Acute) Back pain, lumbosacral (Chronic) Hypertension (Chronic) 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 Rx for Estradiol 1 g vaginally GERD (gastroesophageal reflux disease) (Chronic) Trochanteric bursitis, left hip (Chronic) Obstructive sleep apnea (Chronic) Dysphagia (Chronic) Per pt. every once in a while I'll choke on things Medical History Neuroma Internal derangement of right knee Headache Headache better CT neg Recurrent major depression in partial remission Atrial flutter. 2006. resolved but AFib persisted. Pt. denies this dx Dyspareunia in female since menopause. Frequent UTI since menopause. Atrial flutter s/p ablation 2006. Surgical History Status post tonsillectomy H/O cardiac catheterization Status post ablation of atrial flutter Family History Mother Personal history of malignant neoplasm Salivary gland Father , 94 Dementia Heart disease COVID Sister Essential hypertension Hyperlipidemia Sister Essential hypertension Hyperlipidemia Sister Essential hypertension Hyperlipidemia Social History Smoking/Tobacco Use Status: Never Second Hand Exposure: Yes Smoking risk assessment performed?: Yes Alcohol Intake: current Alcohol Intake frequency: a few times a week Alcohol type: wine Drug use: Never Substance use type: does not use Household members: spouse Housing: house Communication Needs: None Do you need help understanding health information?: Never current occupation: retired Pets and animals: No Sexually active: Yes Do you think of yourself as: straight/heterosexual Current gender identity: female What is your relationship status?: How often do you talk on the phone with friends or family?: twice per week How often do you get together with friends or relatives?: once per week How often do you attend episcopal or jewish services?: decline to answer Do you belong to any clubs or organized social groups?: no Panel score (0-1 are the most socially isolated patients): 2 What type of physical activity do you participate in: walking Duration: 15-30 minutes/day Frequency: 1-2 times per week Sarahi/Jewish: No preference Special sarahi needs: No Seatbelt use: always Drive intox or ride w/intox pile driver operator barge mounted: No Do you feel safe at home: Yes Do you feel safe in your relationship?: Yes History History 0 Para Hx # Term Pregnancies Multiple births Hx # Pregnancies Ectopic pregnancies AB induced Hx Number of Living Children AB spontaneous Discharge Plan Disposition Patient Disposition: Home Discharge Details Clinical Impression: Nausea and vomiting, Abdominal pain Primary Care Provider: Andre Braun ED Provider: Shagufta Pruett Home Meds and New Rx's Prescriptions: New potassium chloride 20 mEq tablet extended release 20 meq PO DAILY Qty: 7 0RF Continued Xarelto 20 mg tablet 20 mg PO DAILY Qty: 90 3RF Rx Instructions: must administer with evening meal cholecalciferol (vitamin D3) 75 mcg (3,000 unit) tablet 75 mcg PO DAILY magnesium oxide 500 mg capsule 500 mg PO DAILY Patient Comments: Pt takes 1/2 tab bid.HE metaxalone 800 mg tablet 800 mg PO QHS PRN (Reason: muscle spasm) Qty: 30 1RF spironolactone 25 mg tablet 12.5 mg PO DAILY Qty: 45 3RF metronidazole 0.75 % cream 1 applic topical DAILY PRN (Reason: rosacea) Qty: 45 0RF Discharge Instructions Instructions: Acute Nausea and Vomiting (ED), Abdominal Pain (ED) Additional Instructions: saltine crackers, chicken noodle soup, apple juice/sauce bland diet as tolerated very small, frequent meals with simple carbohydrates (crackers, toast, rice) pepcid daily as needed for abdominal pain, you may have an element of gastritis from your illness your liver enzymes are mildly elevated, have rechecked by pcp potassium slightly low, take supplement when stomach feels improved apple juice: ocean spray return should you have new or worsening complaints take 40 meq of potassium for 3 days, stop spironolactone while taking potassium Referrals: Andre Braun MD [Primary Care Provider] - 2 days Discharge Data Discharge Date/Time-TO BE ENTERED AT DEPARTURE: 07/07/23 10:24
[2023-07-07 08:42] LABS: Abs Immature Grans 0.01 10^3/uL (0.0-0.06); Absolute Basophil Count 0.02 10^3/uL (0.0-0.2); Absolute Eosinophil Count 0.08 10^3/uL (0.0-0.7); Absolute Lymphocyte Count 1.25 10^3/uL (1.2-3.4); Absolute Monocyte Count 0.82 10^3/uL (0.1-0.8); Absolute Neutrophil Count 4.25 10^3/uL (1.2-6.7); Basophils % 0.3; Eosinophils % 1.2; HCT 50.2 % (36.0-46.0); HGB 16.5 g/dL (11.2-15.7); Immature Grans % 0.2; Lymphocytes % 19.4; MCH 28.9 pg (27.0-33.0); MCHC 32.9 % (32.0-36.0); MCV 88 fL (80-95); Monocytes % 12.8; Neutrophils % 66.1; Platelet Count 170 10^3/uL (130-400); RDW 12.7 % (11.7-14.6); RDW-SD 41.1 fL; WBC 6.43 10^3/uL (4.4-10.8)
[2023-07-07] MEDS: Famotidine 20 MG/2 ML VIAL IVP (08:46)
[2023-07-07] MEDS: Normal Saline 1,000 ML 1000 ML IV (08:49)
[2023-07-07 08:56] LABS: ALT 71 U/L (14-59); AST 56 U/L (15-37); Albumin 3.5 g/dL (3.4-5.0); Alkaline Phosphatase 95 U/L (46-116); Anion Gap 6.5 mmol/L (3-11); BUN 11 mg/dL (7-18); Bilirubin, Total 0.5 mg/dL (0.2-1.0); CO2 30.5 mmol/L (21.0-32.0); CREATININE 0.8 mg/dL (0.55-1.02); Calcium 8.6 mg/dL (8.5-10.1); Chloride 102 mmol/L (98-107); Estimated GFR 80.21 (mL/min/1.73m2); Glucose 105 mg/dL (74-106); Lipase 39 U/L (16-77); Magnesium 1.9 mg/dL (1.8-2.4); Potassium 3.3 mmol/L (3.5-5.1); Sodium 139 mmol/L (136-145); Total Protein 7.1 g/dL (6.4-8.2)
[2023-07-07 10:00] LABS: Bilirubin Negative (Negative); Blood Negative (Negative); Clarity Clear (Clear); Glucose Negative (Negative); Ketones Negative (Negative); Leukocyte Esterase Negative (Negative); Nitrite Negative (Negative); Urobilinogen 0.2 mg/dL (Up to 0.2); pH 5.5 (5-8)
[2023-07-07 10:23] VITALS: BP 139/62; PULSE 56; RESP 18; TEMP 36.6; O2SAT 98
== END 2023-07-07 10:24 | disposition home or self-care (01) ==
PROVIDERS: Emergency Provider Physician Assistant; PCP Family Medicine
DX: R11.2 Nausea with vomiting, unspecified (principal); R19.7 Diarrhea, unspecified; R10.13 Epigastric pain; I48.21 Permanent atrial fibrillation; I10 Essential (primary) hypertension; Z79.01 Long term (current) use of anticoagulants
CPT/HCPCS: 80053; 83690; 93005; 96361; 96374; 99284; 81003; 83735; 85025; 93010; 99283

== ENCOUNTER → 2023-07-26 14:04 | Outpatient (CLI) | payer MEDICARE, SELFPAY ==
--- NOTE | 2023-07-26 14:38 | DI.MAMMO_ITS ---
Exam(s) MAMMO SCREENING EXAM: MAMMO SCREENING CLINICAL HISTORY: screening,z12.39, family h/o breast ca TECHNIQUE: Bilateral full field digital CC and MLO mammographic images were obtained with 3D tomosyn thesis and utilizing computer aided detection (CAD). COMPARISON: Available for comparison. FINDINGS: Masses/Architectural Distortion: There is a 6 mm nodule in the upper right breast on the MLO view. I t is in the outer right breast on the craniocaudad view. It is shown interval increase in size lara red to the prior examination. There are no areas of architectural distortion. Microcalcifications: No suspicious pleomorphic-type are seen. Skin Thickening/Nipple Retraction: None. IMPRESSION: 1. Interval increase in size of a right breast nodule. 2. Spot compression views are requested. Ultrasound may be indicated at that time. BI-RADS Category 0 - Assessment Incomplete: Need additional imaging evaluation Breast Density - Category B - Scattered areas of fibroglandular density Breast density category C or D implies that the patient has dense breast tissue. Dense breast tissue is very common and is not abnormal but dense breast tissue can make it harder to find cancer on a ma mmogram. Also, dense breast tissue may increase their breast cancer risk. This information about the result of the mammogram report was provided to the patient to raise their awareness. Use this report when you speak with the patient about their risks for breast cancer, which includes their family hist ory. At that time, you may recommend for more screening tests (Ultrasound or MRI) as they might be us eful based on their risk. A negative radiographic report should not delay biopsy if a dominant or clinically suspicious mass is present. Up to ten percent of cancers are not identified on mammography. A negative report may reinforce clinical impression. Adenosis and dense breasts may obscure an underlying neoplasm. False positive reports average 6 to 10%. Patient will receive a letter notifying them of these results.
== END ==
PROVIDERS: PCP Family Medicine; Visit Provider Family Medicine
DX: Z12.31 Encounter for screening mammogram for malignant neoplasm of breast (principal)
CPT/HCPCS: 77063; 77067

== ENCOUNTER → 2023-07-29 00:02 | Outpatient (CLI) | payer MEDICARE, SELFPAY ==
--- NOTE | 2023-07-29 11:27 | DI.US_ITS ---
APPROVED REPORT EXAM: Comprehensive 2D, Doppler, and color-flow Echocardiogram Patient Location: [facility] Cook: Justyna Mcadams RDCS (AE) Indications: Atrial fibrillation, LBBB, HTN Other Information Study Quality: Adequate Conclusion Moderately dilated left ventricle. EF is 40% with global hypokinesis Left atrium is mildly to moderately dilated. Normal right ventricular size and function. Right atrium is normal in size Trileaflet aortic valve with mild regurgitation Normal mitral valve with moderate regurgitation RVSP is 28 mmHg Wall motion Left Ventricle Left ventricle is moderately dilated. Left ventricular systolic function is moderately decreased. The re is normal left ventricular wall thickness. There is global hypokinesis of the left ventricle. Ther e is no ventricular septal defect visualized. LVEF is 40%. Right Ventricle The right ventricle is normal size. The right ventricular systolic function is normal. Atria Left atrium is mild to moderately dilated. The right atrium size is normal. The interatrial septum is intact with no evidence for an atrial septal defect. Aortic Valve The aortic valve is normal in structure. Aortic valve is trileaflet. There is no aortic valvular sten osis. Mild aortic regurgitation. Mitral Valve The mitral valve is normal in structure. No evidence of mitral valve stenosis. Moderate mitral regurg itation. Tricuspid Valve The tricuspid valve is normal in structure. There is no tricuspid valve stenosis. Mild tricuspid regu rgitation. The RVSP is 28.6 mmHg. Pulmonic Valve The pulmonary valve is normal in structure. There is no pulmonic valvular stenosis. Mild pulmonic reg urgitation. Great Vessels The aortic root is normal in size. The ascending aorta is normal in size. Aortic arch is normal in ca liber. IVC is normal in size and collapses >50% with inspiration. Pericardium There is no pericardial effusion. 2D Dimensions IVSD d PLAX 0.82 cm F: 0.6-1.0 Ao Root d 3.02 cm F: 2.7 - 3.3 LVPW d PLAX 0.84 cm F: 0.6 - 1.0 Ao Asc Diam d 2.89 cm F: 2.3 - 3.1 LVID d PLAX 6.02 cm F: 3.8 - 5.2 LVDs 4.84 cm F: 2.2 - 3.5 LV EF Teichholz 39.4 % FS 19.49 % LV EDV (Teich) 181.2 mL LV ESV (Teich) 109.9 mL M-Mode TAPSE 2.17 cm (M/F) >1.7 Auto EF LV EDV A4C 140.5 mL LV EDV A2C 150.7 mL LV EDV BP 146.2 mL LV ESV A4C 81.5 mL LV ESV A2C 85.7 mL LV ESV BP 85.4 mL LVEF(%) A4C 42.0 % LVEF(%) A2C 43.2 % LVEF(%) BP 41.6 % LV SV A4C 59.0 ml LV SV A2C 65.0 ml LV SV BP 60.8 ml LV CO A4C 3.3 L/min LV CO A2C 3.8 L/min LV CO BP 3.6 L/min HR A4C 56.25 BPM HR A2C 58.92 BPM LV EDV Index (BP) LA Volume LA Length A4C 5.2 cm LA Length A2C 5.4 cm LA Area A4C s 20.97 cm2 LA Area A2C s 23.15 cm2 LA Vol A4C A-L 72.18 mL LA Vol A2C A-L 83.87 mL LA Vol Biplane A-L 79.7 mL LA Vol/BSA A4C A-L LA Vol/BSA A2C A-L LA Vol/BSA BP A-L 40.4 mL/m2 LA Vol A4C MOD 64.8 mL LA Vol A2C MOD 79.3 mL LA Vol BP MOD 73.2 mL RA Volume RA Area A4C 13.7 cm2 RA ESV A4C (A-L) 36.3mL RA Vol/BSA A4C A-L RA Length A4C 4.4 cm RA ESV A4C (MOD) 35.2mL LV Diastology MV E' medial 0.077 (>0.07 m/s) MV E Vmax 0.93 (0.4-1.3 m/s) MV E' lateral 0.123 (>0.1 m/s) Aortic Valve AoV Vmax 1.91 m/s LVOT Vmax 1.30 m/s AoV Peak Grad 14.5 mmHg LVOT Peak Grad 6.8 mmHg AoV Area (Vmax) 1.81 cm2 LVOT VTI 0.257 m AoV VTI 0.383 m LVOT Mean Grad 4.1 mmHg AoV Mean Carlos. 1.26 m/s LVOT SV 67.87 mL AoV Mean Grad 7.4 mmHg LVOT Diam s 1.80 cm AoV Area (VTI) 1.77 cm2 Velocity Ratio 0.68 Mitral Valve MV Area PHT 4.00 cm2 Pulmonary Valve PV Vmax 0.86 (0.5-1.5 m/s) RVOT Vmax 0.60 m/s PV Peak Grad 3.0 mmHg RVOT Peak Gr. 1.5 mmHg PV Mean Carlos 0.60 m/s RVOT VTI 0.110 m PV Mean Grad 1.6 mmHg RVOT Mean Gr. 0.8 mmHg Tricuspid Valve RA Pressure 3.00 mmHg TR Vmax 2.53 m/s TV S' 0.11 m/s TR Peak Grad 25.6 mmHg RVSP (TR) 28.6 mmHg
== END ==
PROVIDERS: PCP Family Medicine; Visit Provider Internal Medicine Cardiovascular Disease
DX: I10 Essential (primary) hypertension (principal); I48.21 Permanent atrial fibrillation
CPT/HCPCS: 93306

== ENCOUNTER → 2023-07-29 00:54 | Outpatient (CLI) | payer MEDICARE, SELFPAY ==
--- NOTE | 2023-07-29 | DI.US_ITS ---
Exam(s) MG MAMMO SCREEN CALL BACK UNI US BREAST RT LIMITED EXAM: MG MAMMO SCREEN CALL BACK UNI and U/S breast RT limited CLINICAL HISTORY: F/U MAMMO, INCREASE IN RT BREAST NODULE, R92.8. TECHNIQUE: Craniocaudal and mediolateral oblique Full Field Digital Mammography views of the right b reast with Computer Aided Diagnosis followed by Tomosynthesis and right breast ultrasound. COMPARISON: Comparison is made with prior examinations. FINDINGS: Mammography/Tomosynthesis: Masses/Architectural Distortion: There is again seen a well-circumscribed nodule in the upper outer q uadrant of the right breast on the additional views. No areas of architectural distortion are presen t. Microcalcifictions: No suspicious pleomorphic-type are seen. Skin Thickening/Nipple Retraction: None. Limited right breast US: Echotexture: Normal appearance of the glandular tissue. Shadowing: No suspicious foci. Cyst: None. Solid lesions: There is a 0.5 x 0.6 x 0.4 cm lymph node the 9 o'clock position of the right breast 6 cm from the nipple. There is a lymph node seen in the 10 o'clock position of the right breast 10 cm from the nipple measuring 1.2 x 0.4 x 1.0 cm. Have a benign appearance sonographically. Ductal dilation: None. IMPRESSION: 1. No definite evidence of malignancy is noted. 2. A six-month follow-up right mammogram is requested for re-evaluation. 3. The findings were discussed with the patient on the date of the examination. BI-RADS Category 3 - 6 month - Probably Benign Finding: Recommend follow-up imaging in 6 months Breast Density - Category B - Scattered areas of fibroglandular density Breast density Category C or D implies that the patient has dense breast tissue. Dense breast tissue can make it harder to find cancer on a mammogram. Dense breast tissue is also associated with an incr eased risk of breast cancer. This information about the result of the mammogram report was provided to the patient to raise their awareness. Use this report when you speak with the patient about their risks for breast cancer, which includes their family history. At that time, you may recommend additional screening tests (Ultrasoun d or MRI) as these tests may add significant information. A negative radiographic report should not delay biopsy if a dominant or clinically suspicious mass is present. Up to ten percent of cancers are not identified on mammography. A negative report may reinforce clinical impression. Adenosis and dense breasts may obscure an underlying neoplasm. False positive reports average 6 to 10%. Patient will receive a letter notifying them of these results.
== END ==
PROVIDERS: PCP Family Medicine; Visit Provider Family Medicine
DX: R92.8 Other abnormal and inconclusive findings on diagnostic imaging of breast (principal); Z12.31 Encounter for screening mammogram for malignant neoplasm of breast
CPT/HCPCS: 76642; 77063; 77067

== ENCOUNTER → 2023-08-19 12:59 | Outpatient (BNVA) | payer MEDICARE, SELFPAY | PROVIDERS: PCP Family Medicine; Referring Provider Family Medicine; Visit Provider Internal Medicine Cardiovascular Disease | DX: I42.0 Dilated cardiomyopathy (principal); I48.21 Permanent atrial fibrillation; I48.92 Unspecified atrial flutter; I10 Essential (primary) hypertension | CPT/HCPCS: 99213 ==

== ENCOUNTER → 2023-08-24 03:46 | Outpatient (CLI) | payer MEDICARE, SELFPAY ==
--- NOTE | 2023-08-24 14:38 | DI.RAD_ITS ---
Exam(s) XR FOOT LT COMPLETE EXAM: XR FOOT LT COMPLETE CLINICAL HISTORY: Left foot toe pain M79.672 PAIN LEFT FOOT M79.675 PAIN LEFT TOE. TECHNIQUE: 2D digital imaging was performed. COMPARISON: No exams were available for comparison FINDINGS: 3 views There is no evidence of acute fracture or diastasis of the Lisfranc joint. Hallux valgus noted. Mil d degenerative changes in the great toe metatarsophalangeal joint noted. Other MTP joints and other articulations of the foot appear unremarkable. No pes planus. Moderate size inferior calcaneal spur noted. IMPRESSION: As above. DATA REPOSITORY: RADIATION DOSE DELIVERED:
== END ==
PROVIDERS: PCP Family Medicine; Visit Provider Podiatrist
DX: M79.672 Pain in left foot (principal); M79.675 Pain in left toe(s)
CPT/HCPCS: 73630

== ENCOUNTER 2023-09-03 01:14 | Outpatient (CLI) | payer MEDICARE, SELFPAY ==
[2023-09-03 13:09] LABS: Calculated LDL 105 mg/dL (<100); Cholesterol 185 mg/dL (<200); HDL Cholesterol 59 mg/dL (40-60); Triglyceride 107 mg/dL (<150)
[2023-09-03 13:20] LABS: Hemoglobin A1C 6.1 % (<5.7)
== END 2023-09-03 01:15 | disposition home or self-care (01) ==
LOC: LOS 01:15
PROVIDERS: PCP Family Medicine; Visit Provider Family Medicine
DX: E78.5 Hyperlipidemia, unspecified (principal); E11.51 Type 2 diabetes mellitus with diabetic peripheral angiopathy without gangrene
CPT/HCPCS: 36415; 80061; 83036

== ENCOUNTER → 2023-09-09 01:45 | Outpatient (CLI) | payer MEDICARE, SELFPAY ==
--- NOTE | 2023-09-09 07:45 | DI.NM_ITS ---
APPROVED REPORT Exam: Exercise Treadmill Patient Location: Out-Patient Room/Bed: Stress Nurse: Stephanie Blankenship RN Ordering Provider:DANNI ARANGO, Contact Number: BMI: 24.67 Baseline Rhythm: Atrial Fibrillation Indications: Cardiomyopathy, ?CAD Medical History Medical History: Cardiomyopathy, EF 40%, afib, HTN, GERD, SONNY Cardiac Medications: Vitamin D3, doxycycline magnesium oxide, metaxalone, rivaroxaban, sacubitril-thomas sartan, spironolactone, Allergies: Erythromycin, penicillins, sulfamethoxazole,, trimethroprim, lisinopril, metoprolol, losar zavala,nitrofurantoin, flecainide Cardiac Risk Factors: Family hx, HTN Previous Cardiac Procedures: None Pretest Chest Pain Characteristics: None Exercise History: Physically active Physical Disabilities: None Lung Sounds: Clear to auscultation Heart Sounds: Irregular Stress Test Details Test: Exercise stress testing was performed using a Timothy protocol. Nuclear Acquisition: Rest Tc-99m/Stress Tc-99m 1 day Rest Isotope: Tc-99m Sestamibi. Dose: 10.0 Date: 09/09/2023 Injection Time: 0915 Stress Isotope: Tc-99m Sestamibi. Dose: 30.0 Date: 09/09/2023 Injection Time: 1100 HR Resting HR Supine: 75 bpm Max Heart Rate (APMHR): 151.068220 bpm Resting HR Standin bpm Target HR (85% APMHR): 128.533874 bpm Max HR Achieved: 150 bpm % of APMHR: 99.34 Recovery HR: 60 bpm HR response to stress: Normal HR response to stress BP Resting BP Supine: 146/70 mmHg Resting BP Standin/80 mmHg Max BP: 178/82 mmHg Recovery BP: 150/76 mmHg BP response to stress: Normal blood pressure response to stress. ECG Resting ECG: Atrial Fibrillation Ectopy: Occasional PVC's Comment: Resting ST abnormalities Stress ECG: Atrial Fibrillation ST Change: Resting ST abnormalities Arrhythmia: Occasional PVC's Recovery ECG: Atrial Fibrillation Recovery ST Change: Resting ST abnormalities Recovery Arrhythmia: Occasional PVC's Clinical Reason for Termination: Target HR Achieved Stress Symptoms: Mild SOB Exercise duration: 02 min58 sec Highest Stage Reached: Stage 2: 2.5 mph at 12% grade. Exercise capacity: 4.64 METs Angina Score: None Rate Pressure Product: 51232 Stress ECG Conclusion 1. Resting EKG showed atrial fibrillation and a left bundle branch block 2. Patient exercised on the Timothy protocol , completed workload of 4.6 METS 3. Normal heart rate and blood pressure response to exercise. The patient achieved 99% of predcited heart rate for age 4. The electrocardiographic portion of the test was nondiagnostic due to LBBB 5. See MPI report Stress Test Summary STAGE Time (mins) Speed (mph) Grade (%) HR BP SpO2 SYMPTOMS METS Supine 75 146/70 Standing 74 152/80 1 3 1.7 10 132 160/80 4.5 2 6 2.5 12 130 7 1 min recovery 114 178/82 3 min recovery 82 178/78 6 min recovery 60 150/[address] abnormalities noted at baseline. OK to proceed with Timothy protocol per Dr. Arango. MPI Conclusion There is apical thinning. There is no significant ischemia or evidence of prior infarction EF is 45%. There is global hypokinesis Radiologist Interpretation Radiologist agrees with Table Tender Sludge's Interpretation. Radiologist Interpretation by: Deepti Rivera MD Interpretation Date/Time: 09/10/2023 08:23:13
== END ==
PROVIDERS: PCP Family Medicine; Visit Provider Internal Medicine Cardiovascular Disease
DX: I25.5 Ischemic cardiomyopathy (principal)
CPT/HCPCS: 78452; 93016; 93018; 93017

== ENCOUNTER → 2023-09-14 10:29 | Outpatient (BNVA) | payer MEDICARE, SELFPAY | PROVIDERS: PCP Family Medicine; Visit Provider Internal Medicine Cardiovascular Disease | DX: I42.9 Cardiomyopathy, unspecified (principal); I48.21 Permanent atrial fibrillation; I10 Essential (primary) hypertension | CPT/HCPCS: 99213 ==

== ENCOUNTER → 2023-10-06 13:47 | Outpatient (BNVA) | payer MEDICARE, SELFPAY | PROVIDERS: PCP Family Medicine; Referring Provider Family Medicine; Visit Provider Podiatrist | DX: M20.42 Other hammer toe(s) (acquired), left foot; S90.425A Blister (nonthermal), left lesser toe(s), initial encounter; X58.XXXA Exposure to other specified factors, initial encounter | CPT/HCPCS: 29540 ==

== ENCOUNTER → 2023-11-04 14:56 | Outpatient (BNVA) | payer MEDICARE, SELFPAY | PROVIDERS: PCP Family Medicine; Referring Provider Family Medicine; Visit Provider Podiatrist | DX: M20.42 Other hammer toe(s) (acquired), left foot (principal); M79.672 Pain in left foot; T14.8XXA Other injury of unspecified body region, initial encounter; G57.62 Lesion of plantar nerve, left lower limb; X58.XXXA Exposure to other specified factors, initial encounter | CPT/HCPCS: 99213 ==

== ENCOUNTER 2023-11-15 05:34 | Emergency (ER) | payer MEDICARE, SELFPAY ==
[2023-11-15] VITALS (40 sets, daily range): BP systolic 113–166; BP diastolic 40–101; PULSE 57–92; RESP 14–26; TEMP 36.6; O2SAT 93–99
--- NOTE | 2023-11-15 05:45 | DI.RAD_ITS ---
Exam(s) XR PORTABLE CHEST AP EXAM: XR PORTABLE CHEST AP CLINICAL HISTORY: cough, eval for pneumonia. TECHNIQUE: 2D digital imaging was performed. COMPARISON: No exams were available for comparison FINDINGS: Single AP portable view. Heart size is upper normal. The mediastinum is not widened. Lungs are clear. No infiltrates nor obvious pleural effusions. IMPRESSION: No acute pulmonary findings on this single AP portable view of the chest. DATA REPOSITORY: RADIATION DOSE DELIVERED:
--- NOTE | 2023-11-15 05:45 | RT.EKG_ITS ---
APPROVED REPORT Exam: Resting ECG Reason for Exam: chest pain Patient Location: E HR:73 bpm ECG Measurements Heart Rate 73 AXIS GA [id number] P [id number] QRSd 153 QRS -48 QT 423 T 112 QTc 467 Conclusion Atrial fibrillation...V-rate 57- 71, irreg A-activity Left bundle branch block...QRSd>120, broad/notched R ST elevation secondary to IVCD...Multiple VCG criteria Physician: no stemi, LBBB, negative for sgarbossa
--- NOTE | 2023-11-15 05:46 | W.ED.GENAD ---
Discharge Plan Discharge Details Chief Complaint: GenMedical Clinical Impression: Cough, Elevated troponin, Chest discomfort Primary Care Provider: Andre Braun ED Provider: Raudel Lugo Home Meds and New Rx's Prescriptions: No Action Xarelto 20 mg tablet 20 mg PO DAILY Qty: 90 3RF Rx Instructions: must administer with evening meal B-complex with vitamin C Tablet 1 tab PO DAILY sacubitril-valsartan 24-26 mg tablet 1 tab PO BID Qty: 60 3RF Entresto 24-26 mg tablet 1 tab PO BID benzonatate 100 mg capsule 100 mg PO TID PRN (Reason: cough) 7 Days Qty: 20 0RF albuterol sulfate 90 mcg/actuation HFA aerosol inhaler 2 puff inhalation Q6H PRN (Reason: shortness of breath or wheezing) Qty: 6.7 0RF (DME) Aerochamber MV Spacer See Rx Instructions .Route Qty: 1 0RF Rx Instructions: As directed cholecalciferol (vitamin D3) 75 mcg (3,000 unit) tablet 75 mcg PO DAILY magnesium oxide 500 mg capsule 500 mg PO DAILY Patient Comments: Pt takes 1/2 tab bid.HE metaxalone 800 mg tablet 800 mg PO QHS PRN (Reason: muscle spasm) Qty: 30 1RF spironolactone 25 mg tablet 12.5 mg PO DAILY Qty: 45 3RF metronidazole 0.75 % cream 1 applic topical DAILY PRN (Reason: rosacea) Qty: 45 0RF HPI General Date/Time Provider Initiated Documentation: 11/15/23 05:36. HPI Narrative: 68-year-old female with a past medical history of A-fib on Xarelto, hypertension, high cholesterol, GERD, presents today for evaluation of cough. Patient states that she has had a cough for the last 4 to 5 days, fever for the last 2 to 3 days. Cough is nonproductive aside for some mild clear sputum. She admits to mild tightness in the chest only with cough. She denies any significant shortness of breath. She did recently go to urgent care where she was prescribed albuterol and Tessalon Perles, unfortunately this has not improved her symptoms. No other sick contacts at home. She denies any current tobacco use. She denies any other complaints at this time. Tmax at home was around 100 per patient. Related Data Home Medications Medication Instructions Recorded Confirmed magnesium oxide 500 mg capsule 500 mg PO DAILY 09/29/19 11/15/23 cholecalciferol (vitamin D3) 75 75 mcg PO DAILY 05/21/21 11/15/23 mcg (3,000 unit) tablet metaxalone 800 mg tablet 800 mg PO QHS PRN muscle spasm #30 09/17/22 11/15/23 tabs spironolactone 25 mg tablet 12.5 mg (1/2 x 25 mg) PO DAILY #45 12/30/22 11/15/23 tabs rivaroxaban 20 mg tablet (Xarelto) 20 mg PO DAILY #90 tabs 06/16/23 11/15/23 metronidazole 0.75 % topical cream 1 applic topical DAILY PRN rosacea 06/23/23 11/15/23 #45 grams B-complex with vitamin C 1 tab PO DAILY 08/19/23 11/15/23 sacubitril 24 mg-valsartan 26 mg 1 tab PO BID #60 tabs 08/19/23 11/15/23 tablet sacubitril 24 mg-valsartan 26 mg 1 tab PO BID 09/07/23 11/15/23 tablet (Entresto) albuterol sulfate 90 mcg/actuation 2 puff inhalation Q6H PRN 11/12/23 11/15/23 aerosol inhaler shortness of breath or wheezing #6.7 grams benzonatate 100 mg capsule 100 mg PO TID PRN cough 7 days #20 11/12/23 11/15/23 caps inhalational spacing device #1 ea 11/12/23 11/15/23 (Aerochamber MV spacer) Previous Rx's Medication Instructions Recorded metaxalone 800 mg tablet 800 mg PO QHS PRN muscle spasm #30 09/17/22 tabs spironolactone 25 mg tablet 12.5 mg (1/2 x 25 mg) PO DAILY #45 12/30/22 tabs rivaroxaban 20 mg tablet (Xarelto) 20 mg PO DAILY #90 tabs 06/16/23 metronidazole 0.75 % topical cream 1 applic topical DAILY PRN rosacea 06/23/23 #45 grams sacubitril 24 mg-valsartan 26 mg 1 tab PO BID #60 tabs 08/19/23 tablet albuterol sulfate 90 mcg/actuation 2 puff inhalation Q6H PRN 11/12/23 aerosol inhaler shortness of breath or wheezing #6.7 grams benzonatate 100 mg capsule 100 mg PO TID PRN cough 7 days #20 11/12/23 caps inhalational spacing device #1 ea 11/12/23 (Aerochamber MV spacer) Allergies Allergy/AdvReac Type Severity Reaction Status Date / Time erythromycin base Allergy Mild Hives Verified 11/15/23 05:44 [Erythromycin Base] Penicillins Allergy Mild Hives Verified 11/15/23 05:44 sulfamethoxazole Allergy Itching, Verified 11/15/23 05:44 [From Bactrim] bothers stomach trimethoprim [From Bactrim] Allergy Itching, Verified 11/15/23 05:44 bothers stomach lisinopril AdvReac Severe severe dry Verified 11/15/23 05:44 cough, headache metoprolol AdvReac Severe SEVERE H/A Verified 11/15/23 05:44 and DIZZY losartan AdvReac Intermediate Headache Verified 11/15/23 05:44 nitrofurantoin AdvReac Unknown UPSET Verified 11/15/23 05:44 macrocrystalline STOMACH [From Macrodantin] flecainide AdvReac Wide Verified 11/15/23 05:44 complex tachycardia General Stated Complaint: GenMedical RICARDO: 3 Review of Systems All systems reviewed & are unremarkable except as noted in HPI and below Exam Narrative Exam Narrative: 1.Const: Well-nourished, Well-developed, appearing stated age 2.Eyes: PERRL, no conjunctival injection, and symmetrical lids. 3.ENT: Atraumatic external nose and ears. Moist MM. Neck: Symmetric, trachea midline, No thyromegaly. Mild erythema in the posterior pharynx. No otitis media 4.CVS: +S1/S2, No murmurs or gallops. Peripheral pulses 2+ and equal in all extremities. Brisk capillary refill in all extremities. 5.RESP: Unlabored respiratory effort. Clear to auscultation bilaterally. No wheezes rales or rhonchi 6.GI: Soft, Nontender/Nondistended, No hepatosplenomegaly. No guarding or rebound. 7.MSK: Normocephalic/Atraumatic, Extremities w/o deformity or ttp No cyanosis or clubbing, Normal movement of all extremities 8.Skin: Warm, Dry. No rashes or lesions. 9.Neuro: director of sales and marketing II-XII grossly intact. Sensation grossly intact, no focal neurologic deficits. 10.Psych: (AAO) x3. Appropriate mood and affect Course Vital Signs Vital signs: Vital Signs Temperature 36.6 C 11/15/23 05:37 Pulse 86 11/15/23 05:37 Respiratory Rate 16 11/15/23 05:37 Blood Pressure 128/48 L 11/15/23 05:37 Pulse Oximetry 98 11/15/23 05:37 Temperature 36.6 C 11/15/23 05:37 Temperature Source Oral 11/15/23 05:37 Pulse 86 11/15/23 05:37 Respiratory Rate 16 11/15/23 05:37 Respiratory Effort Normal, Non-Labored 11/15/23 05:42 Blood Pressure 128/48 L 11/15/23 05:37 Blood Pressure Position Sitting 11/15/23 05:37 Pulse Oximetry 98 11/15/23 05:37 Oxygen Delivery Method Room Air 11/15/23 05:37 Oxygen Flow Rate 0 11/15/23 05:37 Pain Level 0 11/15/23 05:37 Medical Decision Making 68-year-old female with a past medical history of A-fib on Xarelto, hypertension, high cholesterol, GERD, presents today for evaluation of cough. Patient states that she has had a cough for the last 4 to 5 days, fever for the last 2 to 3 days. Cough is nonproductive aside for some mild clear sputum. She admits to mild tightness in the chest only with cough. She denies any significant shortness of breath. She did recently go to urgent care where she was prescribed albuterol and Tessalon Perles, unfortunately this has not improved her symptoms. No other sick contacts at home. She denies any current tobacco use. She denies any other complaints at this time. Tmax at home was around 100 per patient. Exam demonstrates well-appearing female, vital signs stable, no tachycardia or fever to suggest sepsis. Lungs are clear. Minimal erythema in the posterior pharynx. Differential includes atypical pneumonia, cardiac etiology less likely. CHF unlikely given no pitting edema, no crackles or rales. Will get a chest x-ray, get an EKG and evaluate for cardiac component, get basic blood work secondary to her age and risk factors, monitor closely and reassess. 7:37 AM Laboratory workup has returned, no white count or bandemia or left shift. VBG normal. Electrolytes normal, urinalysis negative for infection. COVID flu and RSV are negative. Patient's troponin did return slightly elevated at 55. Additional history was reviewed, patient did have an echo in July of this past year, EF was around 40%. Cardiology did recommend starting Entresto, however the patient stopped this after short course as it did not make her feel well. She had a myocardial perfusion study performed prior to September as well, and this showed no evidence of ischemia at that time. She has been continued on Xarelto. Chest x-ray shows no evidence of pneumonia but does show an enlarged cardiac silhouette. The patient's EKG shows a left bundle branch block which is negative for Sgarbossa's criteria and. However it certainly does appear significantly more pronounced compared to prior EKG. With the slight change in her EKG and the bump in her troponin I do feel that a repeat troponin is indicated at this time. No clear evidence of pneumonia on x-ray. We will add a proBNP. With the patient's risk factors and symptomatology I do feel that observation may be indicated and potential repeat stress testing. Patient will be signed out to my colleague Dr. Hubert Cantrell for follow-up on repeat troponin. Quality:SDOH Health Related Social Needs: No Data to Display PFSH All Active Problems (Updated 11/15/23 @ 07:40 by Raudel Lugo DO) Chest discomfort (Acute) Elevated troponin (Acute) Cough (Acute) Neuroma of second interspace of left foot (Acute) Blood blister (Acute) Pain in left foot (Acute) Cardiomyopathy (Acute) EF 40% echo 07/29/23 Facial rash (Acute) Hammer toe of left foot (Acute) Atrial fibrillation, permanent (Acute) Sacroiliac joint dysfunction of left side (Acute) Lumbosacral spondylosis without myelopathy (Acute) Low back pain (Acute) Bug bite (Acute) Hypertension (Chronic Unknown) Hyperglycemia (Acute) Back pain, lumbosacral (Chronic) Hypertension (Chronic) 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 Rx for Estradiol 1 g vaginally GERD (gastroesophageal reflux disease) (Chronic) Trochanteric bursitis, left hip (Chronic) Obstructive sleep apnea (Chronic) Dysphagia (Chronic) Per pt. every once in a while I'll choke on things Medical History Neuroma Internal derangement of right knee Headache Headache better CT neg Recurrent major depression in partial remission Atrial flutter. 2006. resolved but AFib persisted. Pt. denies this dx Dyspareunia in female since menopause. Frequent UTI since menopause. Atrial flutter s/p ablation 2006. Surgical History S/P cholecystectomy 12/15/14 laproscopic Status post tonsillectomy H/O cardiac catheterization Status post ablation of atrial flutter Family History Mother Personal history of malignant neoplasm Salivary gland Father , 94 Dementia Heart disease COVID Sister Essential hypertension Hyperlipidemia Sister Essential hypertension Hyperlipidemia Sister Essential hypertension Hyperlipidemia Social History Smoking/Tobacco Use Status: Never Second Hand Exposure: Yes Smoking risk assessment performed?: Yes Alcohol Intake: current Alcohol Intake frequency: a few times a week Alcohol type: wine Drug use: Never Substance use type: does not use Household members: spouse Housing: house Communication Needs: None Do you need help understanding health information?: Never current occupation: retired Pets and animals: No Sexually active: Yes Do you think of yourself as: straight/heterosexual Current gender identity: female What is your relationship status?: How often do you talk on the phone with friends or family?: twice per week How often do you get together with friends or relatives?: once per week How often do you attend oriental orthodox or moravian services?: decline to answer Do you belong to any clubs or organized social groups?: no Panel score (0-1 are the most socially isolated patients): 2 What type of physical activity do you participate in: walking Duration: 15-30 minutes/day Frequency: 1-2 times per week Sarahi/Presybeterian: No preference Special sarahi needs: No Seatbelt use: always Drive intox or ride w/intox funeral car driver: No Do you feel safe at home: Yes Do you feel safe in your relationship?: Yes History History 0 Para Hx # Term Pregnancies Multiple births Hx # Pregnancies Ectopic pregnancies AB induced Hx Number of Living Children AB spontaneous
[2023-11-15 05:56] LABS: Bilirubin Negative (Negative); Blood Negative (Negative); Clarity Sl Cloudy (Clear); Glucose Negative (Negative); Ketones Negative (Negative); Leukocyte Esterase Small (Negative); Nitrite Negative (Negative); Urobilinogen 0.2 mg/dL (Up to 0.2); pH 5.5 (5-8)
[2023-11-15 06:06] LABS: Bacteria Rare HPF (Negative); C & S Indicated? No/Sq. Contamination; Casts Negative LPF (Negative); Crystals Negative HPF (Negative); Epithelial Cells Moderate HPF (Negative); Mucus Trace (Negative); Other Cells Few Transitional (Negative); RBC 0-2 HPF (0-2)
[2023-11-15 06:09] LABS: Abs Immature Grans 0.02 10^3/uL (0.0-0.06); Absolute Basophil Count 0.06 10^3/uL (0.0-0.2); Absolute Eosinophil Count 0.12 10^3/uL (0.0-0.7); Absolute Lymphocyte Count 1.28 10^3/uL (1.2-3.4); Absolute Monocyte Count 0.99 10^3/uL (0.1-0.8); Absolute Neutrophil Count 6.69 10^3/uL (1.2-6.7); BE (Venous) 5 mmol/L (-2-3); Basophils % 0.7 %; Eosinophils % 1.3 %; HCO3 (Venous) 30 mmol/L (23-28); HCT 47.2 % (36.0-46.0); HGB 15.3 g/dL (11.2-15.7); Immature Grans % 0.2 %; MCH 29.3 pg (27.0-33.0); MCHC 32.4 % (32.0-36.0); MCV 90 fL (80-95); MPV 9.9 fL (8.0-11.0); Monocytes % 10.8 %; O2 Sat (Venous) 54 %; Platelet Count 187 10^3/uL (130-400); RBC 5.22 10^6/uL (3.93-5.22); RDW 12.5 % (11.7-14.6); RDW-SD 41.6 fL; TCO2 (Venous) 27 mmol/L (24-29); WBC 9.16 10^3/uL (4.4-10.8); pCO2 (Venous) 50 mmHg (41-51); pH (Venous) 7.39 (7.31-7.41); pO2 (Venous) 28 mmHg
[2023-11-15 06:29] LABS: ALT 24 U/L (14-59); AST 19 U/L (15-37); Albumin 3.7 g/dL (3.4-5.0); Alkaline Phosphatase 94 U/L (46-116); Anion Gap 9.2 mmol/L (3-11); BUN 11 mg/dL (7-18); Bilirubin, Total 0.6 mg/dL (0.2-1.0); CO2 29.8 mmol/L (21.0-32.0); CREATININE 0.8 mg/dL (0.55-1.02); Calcium 9.1 mg/dL (8.5-10.1); Chloride 103 mmol/L (98-107); Estimated GFR 79.71 (mL/min/1.73m2); Glucose 107 mg/dL (74-106); Potassium 3.9 mmol/L (3.5-5.1); Sodium 142 mmol/L (136-145); Total Protein 7.4 g/dL (6.4-8.2)
[2023-11-15 06:32] LABS: COVID-19 PCR Negative (Negative); Influenza A PCR Negative (Negative); Influenza B PCR Negative (Negative); RSV PCR Negative (Negative)
[2023-11-15 06:34] LABS: Source Nasopharynx
[2023-11-15 06:35] LABS: Troponin I 65 ng/L (< or =60)
--- NOTE | 2023-11-15 07:19 | DI.VRAD_ITS ---
PROCEDURE INFORMATION: Exam: XR Chest Exam date and time: 11/15/2023 6:27 AM Age: 68 years old Clinical indication: Patient HX: Cough, eval for pneumonia TECHNIQUE: Imaging protocol: Radiologic exam of the chest. Views: 1 view. COMPARISON: CR XR CHEST 2V PA LATERAL 10/30/2019 9:02 PM FINDINGS: Lungs: No focal consolidation seen. Pleural spaces: No large pleural effusion seen. Heart/Mediastinum: Enlarged cardiac silhouette. Bones/joints: Grossly unremarkable. IMPRESSION: Enlarged cardiac silhouette. Dictated and Authenticated by: Zoya Gilman MD. Ordering:SHORTY Starks MD
[2023-11-15 07:57] LABS: NT-proBNP 1689 pg/mL (<300)
[2023-11-15 09:35] LABS: Troponin I 72 ng/L (< or =60)
[2023-11-15] MEDS: Dexamethasone 10 MG/ML VIAL PO (10:04)
--- NOTE | 2023-11-15 10:11 | W.EDPROG ---
Date of service: 11/15/23 Time of Service: 10:11 Medical Decision Making Patient resting actively no acute distress. No chest pain or shortness of breath. Mild dry cough. Mildly uptrending troponin with elevated BNP. Consider possibility of recent NSTEMI with component of CHF. Discussed results with patient. Encouraged admission for further cardiac evaluation and treatment. Patient does not wish to stay in the hospital. Again counseled patient and family when family arrived patient would like to go home. Discussed risks of leaving including disability and . Patient will sign AMA form. Patient encouraged to follow-up closely with primary care physician and tc operator. Patient endorses that with prior cough of this nature steroids helped her greatly, given dose of dexamethasone here in department. Home care instructions and strict return precautions given Quality:[facility] Health Related Social Needs: No Data to Display Sign Out Sign Out Data: Sign Out Comment: Cough for the last few days, chest x-ray negative. EKG shows a slightly worsening left bundle branch block. Troponin came back mildly elevated. Repeat troponin to evaluate for worsening, potential need for admission/repeat stress testing. Last updated by Raudel Lugo DO at 11/15/23 07:41 Discharge Plan Disposition Patient Disposition: Against Medical Advice Condition: Stable Discharge Details Chief Complaint: GenMedical Clinical Impression: Cough, Elevated troponin, Chest discomfort Primary Care Provider: Andre Braun ED Provider: Adalberto Bar Home Meds and New Rx's Prescriptions: No Action Xarelto 20 mg tablet 20 mg PO DAILY Qty: 90 3RF Rx Instructions: must administer with evening meal B-complex with vitamin C Tablet 1 tab PO DAILY sacubitril-valsartan 24-26 mg tablet 1 tab PO BID Qty: 60 3RF Entresto 24-26 mg tablet 1 tab PO BID benzonatate 100 mg capsule 100 mg PO TID PRN (Reason: cough) 7 Days Qty: 20 0RF albuterol sulfate 90 mcg/actuation HFA aerosol inhaler 2 puff inhalation Q6H PRN (Reason: shortness of breath or wheezing) Qty: 6.7 0RF (DME) Aerochamber MV Spacer See Rx Instructions .Route Qty: 1 0RF Rx Instructions: As directed cholecalciferol (vitamin D3) 75 mcg (3,000 unit) tablet 75 mcg PO DAILY magnesium oxide 500 mg capsule 500 mg PO DAILY Patient Comments: Pt takes 1/2 tab bid.HE metaxalone 800 mg tablet 800 mg PO QHS PRN (Reason: muscle spasm) Qty: 30 1RF spironolactone 25 mg tablet 12.5 mg PO DAILY Qty: 45 3RF metronidazole 0.75 % cream 1 applic topical DAILY PRN (Reason: rosacea) Qty: 45 0RF Discharge Instructions Instructions: Acute Cough (ED), High Troponin Levels (ED) Additional Instructions: Please follow-up with your primary care physician and tc operator. Please return to the emergency department for any worsening symptoms Stand Alone Forms: Work Release
== END 2023-11-15 10:19 | disposition left against medical advice (07) ==
PROVIDERS: Student in an Organized Health Care Education/Training Program; Emergency Provider Emergency Medicine; PCP Family Medicine
DX: R05.9 Cough, unspecified (principal); R79.89 Other specified abnormal findings of blood chemistry; R07.89 Other chest pain; I48.91 Unspecified atrial fibrillation; I10 Essential (primary) hypertension; E78.5 Hyperlipidemia, unspecified; K21.9 Gastro-esophageal reflux disease without esophagitis; Z79.01 Long term (current) use of anticoagulants; Z53.29 Procedure and treatment not carried out because of patient's decision for other reasons; I44.7 Left bundle-branch block, unspecified
CPT/HCPCS: 00123; 36415; 80053; 82805; 87637; 93005; 99285; 71045; 81003; 81015; 83880; 84484; 85025; 93010; 99284; J1100

== ENCOUNTER → 2023-11-16 08:53 | Outpatient (BNVA) | payer MEDICARE, SELFPAY | PROVIDERS: PCP Family Medicine; Referring Provider Family Medicine; Visit Provider Internal Medicine Cardiovascular Disease | DX: I42.9 Cardiomyopathy, unspecified (principal); I48.21 Permanent atrial fibrillation; R05.1 Acute cough; R79.89 Other specified abnormal findings of blood chemistry | CPT/HCPCS: 99214 ==

== ENCOUNTER 2024-01-27 02:57 | Outpatient (CLI) | payer MEDICARE, SELFPAY ==
--- NOTE | 2024-01-27 07:45 | DI.MAMMO_ITS ---
Exam(s) MG MAMMO DIAGNOSTIC UNI EXAM: MG MAMMO DIAGNOSTIC UNI CLINICAL HISTORY: 3-6 mo f/u,RT NODULE, LYMPH NODE TECHNIQUE: Right cc and MLO mammogram images were performed according to the usual protocol inclu ding computer analysis with CAD system, tomosynthesis and C-view imaging. COMPARISON: No exams were available for comparison FINDINGS: The right breast is composed of scattered fibroglandular densities, Breast Density category B. No suspicious masses or suspicious microcalcifications are seen. A benign-appearing nodules again noted in the upper outer quadrant of the right breast. It is somewhat less prominent when compared t o the previous exam. No skin thickening or abnormal axillary lymph nodes are seen. IMPRESSION: BI-RADS Category 2 - Benign Findings Yearly screening mammography is recommended, due in 6 months. Breast Density - Category B, scattered fibroglandular densities. A negative radiographic report should not delay biopsy if a dominant or clinically suspicious mass is present. Up to ten percent of cancers are not identified on mammography. A negative report may reinforce clinical impression. Adenosis and dense breasts may obscure an underlying neoplasm. False positive reports average 6 to 10%. Patient will receive a letter notifying them of these results.
== END 2024-01-27 03:17 ==
LOC: DI 02:57
PROVIDERS: PCP Family Medicine; Visit Provider Family Medicine
DX: Z09 Encounter for follow-up examination after completed treatment for conditions other than malignant neoplasm (principal)
CPT/HCPCS: 77061; 77065; G0279

== ENCOUNTER 2024-03-14 02:28 | Outpatient (CLI) | payer MEDICARE, SELFPAY ==
--- NOTE | 2024-03-14 07:30 | DI.US_ITS ---
APPROVED REPORT EXAM: Comprehensive 2D, Doppler, and color-flow Echocardiogram Patient Location: Out-Patient Signals Intelligence Analyst: Justyna Mcadams RDCS (AE) Indications: Recheck LV function, Cardiomyopathy Other Information Study Quality: Adequate Conclusion Left ventricle is dilated, EF is less than or equal to 25%. There is global hypokinesis Normal right ventricular size and function Both atria are severely enlarged Trileaflet aortic valve with trace regurgitation Mildly thickened mitral leaflets with moderate central regurgitation Estimated right ventricular systolic pressure is 42 mmHg Patient is in atrial fibrillation throughout the study with a controlled rate Wall motion Left Ventricle Left ventricle is moderately dilated. Left ventricular systolic function is decreased. There is niya l left ventricular wall thickness. There is global hypokinesis of the left ventricle. There is no nickie tricular septal defect visualized. LVEF is 28%. Right Ventricle Right ventricle is not well visualized. Right ventricular systolic function could not be assessed. Atria Left atrium is severely dilated. Right atrium is severely dilated. The interatrial septum is intact w ith no evidence for an atrial septal defect. Aortic Valve The aortic valve is normal in structure. Aortic valve is trileaflet. There is no aortic valvular sten osis. Trace aortic regurgitation. Mitral Valve Mildly thickened mitral leaflets No evidence of mitral valve stenosis. Moderate mitral regurgitation. Tricuspid Valve The tricuspid valve is normal in structure. There is no tricuspid valve stenosis. Mild tricuspid regu rgitation. The RVSP is 41.8 mmHg. Pulmonic Valve The pulmonary valve is normal in structure. There is no pulmonic valvular stenosis. Trace pulmonic re gurgitation. Great Vessels The aortic root is normal in size. The ascending aorta is normal The IVC collapses <50% with inspirat ion. Pericardium There is no pericardial effusion. 2D Dimensions IVSD d PLAX 1.00 cm F: 0.6-1.0 Ao Root d 3.00 cm F: 2.7 - 3.3 LVPW d PLAX 1.00 cm F: 0.6 - 1.0 Ao Asc Diam d 3.20 cm F: 2.3 - 3.1 LVID d PLAX 6.20 cm F: 3.8 - 5.2 LVDs 5.60 cm F: 2.2 - 3.5 LV EF Charla 20.4 % FS 9.46 % LV EDV (Teich) 190.8 mL LV ESV (Teich) 152.0 mL M-Mode TAPSE 2.38 cm (M/F) >1.7 Auto EF LV EDV A4C 133.4 mL LV EDV A2C 154.5 mL LV EDV BP 141.0 mL LV ESV A4C 100.1 mL LV ESV A2C 112.5 mL LV ESV BP 104.7 mL LVEF(%) A4C 25.0 % LVEF(%) A2C 27.2 % LVEF(%) BP 25.8 % LV SV A4C 33.3 ml LV SV A2C 42.0 ml LV SV BP 36.4 ml LV CO A4C 2.2 L/min LV CO A2C 3.3 L/min LV CO BP 2.7 L/min HR A4C 65.69 BPM HR A2C 78.44 BPM LV EDV Index (BP) LV Strain Long Pk Overal Avg (s) 7.59 LA Volume LA Length A4C 5.3 cm LA Length A2C 5.7 cm LA Area A4C s 23.58 cm2 LA Area A2C s 28.87 cm2 LA Vol A4C A-L 88.49 mL LA Vol A2C A-L 123.31 mL LA Vol Biplane A-L 108.3 mL LA Vol/BSA A4C A-L LA Vol/BSA A2C A-L LA Vol/BSA BP A-L 55.0 mL/m2 LA Vol A4C MOD 83.2 mL LA Vol A2C MOD 114.4 mL LA Vol BP MOD 101.0 mL RA Volume RA Area A4C 18.8 cm2 RA ESV A4C (A-L) 57.3mL RA Vol/BSA A4C A-L RA Length A4C 5.2 cm RA ESV A4C (MOD) 52.1mL LV Diastology MV E' medial 0.071 (>0.07 m/s) MV E' lateral 0.123 (>0.1 m/s) Aortic Valve AoV Vmax 1.72 m/s LVOT Vmax 1.05 m/s AoV Peak Grad 11.8 mmHg LVOT Peak Grad 4.5 mmHg AoV Area (Vmax) 1.66 cm2 LVOT VTI 0.180 m AoV VTI 0.315 m LVOT Mean Grad 2.6 mmHg AoV Mean Carlos. 1.09 m/s LVOT SV 48.46 mL AoV Mean Grad 5.6 mmHg LVOT Diam s 1.85 cm AoV Area (VTI) 1.54 cm2 AV Regurg Peak Gr. 11.79 mmHg Velocity Ratio 0.61 Mitral Valve MV Vmax TIPS 1.25 m/s MV Mean Grad 2.5 (<2mmHg) MV VTI 0.205 m Pulmonary Valve PV Vmax 0.94 (0.5-1.5 m/s) RVOT Vmax 0.81 m/s PV Peak Grad 3.5 mmHg RVOT Peak Gr. 2.6 mmHg PV Mean Carlos 0.77 m/s RVOT VTI 0.196 m PV Mean Grad 2.4 mmHg RVOT Mean Gr. 1.5 mmHg Tricuspid Valve RA Pressure 8.00 mmHg TR Vmax 2.91 m/s TV S' 0.12 m/s TR Peak Grad 33.8 mmHg RVSP (TR) 41.8 mmHg
== END 2024-03-14 02:48 ==
LOC: DI 02:28
PROVIDERS: PCP Family Medicine; Visit Provider Internal Medicine Cardiovascular Disease
DX: I42.9 Cardiomyopathy, unspecified (principal)
CPT/HCPCS: 93306

== ENCOUNTER 2024-03-21 08:22 | Outpatient (CLI) | payer MEDICARE, SELFPAY ==
--- NOTE | 2024-03-21 08:15 | RT.EKG_ITS ---
APPROVED REPORT Exam: Resting ECG Reason for Exam: afib Patient Location: O HR:93 bpm ECG Measurements Heart Rate 93 AXIS HI [id number] P [id number] QRSd 153 QRS -50 QT 385 T 98 QTc 479 Conclusion Atrial fibrillation...V-rate 70-120, irreg A-activity Left bundle branch block...QRSd>120, broad/notched R
== END 2024-03-21 08:23 | disposition home or self-care (01) ==
LOC: DI.CARD 08:22
PROVIDERS: PCP Family Medicine; Visit Provider Internal Medicine Cardiovascular Disease
DX: I48.21 Permanent atrial fibrillation (principal)
CPT/HCPCS: 93010

== ENCOUNTER → 2024-03-21 09:30 | Outpatient (BNVA) | payer MEDICARE, SELFPAY | PROVIDERS: PCP Family Medicine; Visit Provider Internal Medicine Cardiovascular Disease | DX: I48.21 Permanent atrial fibrillation (principal); I42.9 Cardiomyopathy, unspecified | CPT/HCPCS: 99214 ==

== ENCOUNTER 2024-03-21 13:11 | Emergency (ER) | payer MEDICARE, SELFPAY ==
[2024-03-21 13:14] VITALS: BP 147/94; PULSE 91; RESP 14; TEMP 35.9; O2SAT 98
--- NOTE | 2024-03-21 13:22 | W.ED.GENAD ---
Discharge Plan Disposition Patient Disposition: Home Discharge Details Clinical Impression: Right-sided epistaxis Primary Care Provider: Andre Braun ED Provider: Roberto Espinoza Home Meds and New Rx's Prescriptions: Continued Xarelto 20 mg tablet 20 mg PO DAILY Qty: 90 3RF Rx Instructions: must administer with evening meal B-complex with vitamin C Tablet 1 tab PO DAILY (DME) Aerochamber MV Spacer See Rx Instructions .Route Qty: 1 0RF Rx Instructions: As directed cholecalciferol (vitamin D3) 75 mcg (3,000 unit) tablet 75 mcg PO DAILY magnesium oxide 500 mg capsule 500 mg PO DAILY Patient Comments: Pt takes 1/2 tab bid.HE metaxalone 800 mg tablet 800 mg PO QHS PRN (Reason: muscle spasm) Qty: 30 1RF metronidazole 0.75 % cream 1 applic topical DAILY PRN (Reason: rosacea) Qty: 45 0RF spironolactone 25 mg tablet 12.5 mg PO DAILY Qty: 45 3RF Discharge Instructions Instructions: Humidifiers, Nosebleeds ED Additional Instructions: You were seen in the emergency department for your nosebleed. This resolved with pressure from a clamp. As we discussed, if you begin having another nosebleed please blow your nose that spray the spray you have received. If your nose continues bleeding please also use the clamp. If this does not improve your nosebleed please return to the emergency department. Otherwise please follow-up next week with your primary care provider. Please continue taking your blood thinner. HPI General Date/Time Provider Initiated Documentation: 03/21/24 13:22. HPI Narrative: MDM This is an overall very well-appearing afebrile and not tachycardic 68-year-old female with right-sided epistaxis resolved status post clip for which patient will be monitored in the ED. Patient was observed for approximately an hour and a half. The clamp was removed. She was observed for approximately 30 more minutes. She had no persistent bleeding. She had no trauma to the nose to suggest benefit from imaging. She was not hypotensive nor tachycardic nor pale appearing so my suspicion for acute blood loss anemia was low as I did not feel that she required assessment of her hemoglobin. She was discharged with oxymetazoline and her nasal clamp. She did not require tranexamic acid nor packing in the emergency department. I advised her to continue her rivaroxaban. I was not suspicious for any bleeding dyscrasia based on her lack of B symptoms so I did not feel that she required lab work. She was neurologically so I was not concerned for hyperviscosity syndrome. We discussed PCP follow-up and we discussed how to use her oxymetazoline with clamp and when to return to the emergency department. She understood her return indications and was discharged with empiric trial of expectant outpatient management. HPI This is a 68-year-old female on rivaroxaban arriving to the emergency department via private vehicle in the setting of right-sided epistaxis. Patient notes that approximate 11:30 AM she began bleeding out of her nose. She has a history of atrial fibrillation and is on rivaroxaban. She denies any trauma to her nose. No prior history of similar symptoms. 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 She did not syncopized. Exam General: Well-appearing in no acute distress speaking in complete sentences. Head: Normocephalic, atraumatic. Eye: Extraocular eye movements intact. No conjunctival injection. No scleral icterus. Ear, nose, mouth, throat: Clamp in place. No significant posterior oropharynx blood. No active epistaxis. Signs of recent epistaxis with blood dried to right naris. Neck: Trachea midline. Cardiovascular: Well-perfused distal extremities. Respiratory: Nonlabored respiration. Gastrointestinal: Nondistended abdomen. Musculoskeletal: No edema. Moving all 4 extremities spontaneously. Skin: Normal for age and race, grossly normal temperature and turgor. No acute rash. Neurologic: Alert and appropriate, no apparent acute deficits. GCS 15. Moving all 4 extremities spontaneously. Psychiatric: Mood and manner are appropriate. Grooming and personal hygiene are appropriate. Related Data Home Medications ?Medication ?Instructions ?Recorded ?Confirmed magnesium oxide 500 mg capsule 500 mg PO DAILY 09/29/19 03/21/24 cholecalciferol (vitamin D3) 75 75 mcg PO DAILY 05/21/21 03/21/24 mcg (3,000 unit) tablet metaxalone 800 mg tablet 800 mg PO QHS PRN muscle spasm #30 09/17/22 03/21/24 tabs rivaroxaban 20 mg tablet (Xarelto) 20 mg PO DAILY #90 tabs 06/16/23 03/21/24 metronidazole 0.75 % topical cream 1 applic topical DAILY PRN rosacea 06/23/23 03/21/24 #45 grams B-complex with vitamin C 1 tab PO DAILY 08/19/23 03/21/24 inhalational spacing device #1 ea 11/12/23 03/21/24 (Aerochamber MV spacer) spironolactone 25 mg tablet 12.5 mg (1/2 x 25 mg) PO DAILY #45 01/19/24 03/21/24 tabs Previous Rx's ?Medication ?Instructions ?Recorded metaxalone 800 mg tablet 800 mg PO QHS PRN muscle spasm #30 09/17/22 tabs rivaroxaban 20 mg tablet (Xarelto) 20 mg PO DAILY #90 tabs 06/16/23 metronidazole 0.75 % topical cream 1 applic topical DAILY PRN rosacea 06/23/23 #45 grams inhalational spacing device #1 ea 11/12/23 (Aerochamber MV spacer) spironolactone 25 mg tablet 12.5 mg (1/2 x 25 mg) PO DAILY #45 01/19/24 tabs Allergies Allergy/AdvReac Type Severity Reaction Status Date / Time erythromycin base Allergy Mild Hives Verified 03/21/24 13:20 (Erythromycin Base) Penicillins Allergy Mild Hives Verified 03/21/24 13:20 sulfamethoxazole (From Allergy Itching, Verified 03/21/24 13:20 Bactrim) bothers stomach trimethoprim (From Bactrim) Allergy Itching, Verified 03/21/24 13:20 bothers stomach lisinopril AdvReac Severe severe dry Verified 03/21/24 13:20 cough, headache metoprolol AdvReac Severe SEVERE H/A Verified 03/21/24 13:20 and DIZZY losartan AdvReac Intermediate Headache Verified 03/21/24 13:20 nitrofurantoin AdvReac Unknown UPSET Verified 03/21/24 13:20 macrocrystalline (From STOMACH Macrodantin) flecainide AdvReac Wide Verified 03/21/24 13:20 complex tachycardia General Stated Complaint: Epistaxis RICARDO: 4 Course Vital Signs Vital signs: Vital Signs Temperature 35.9 C L 03/21/24 13:14 Pulse 91 H 03/21/24 13:14 Respiratory Rate 14 03/21/24 13:14 Blood Pressure 147/94 H 03/21/24 13:14 Pulse Oximetry 98 03/21/24 13:14 Temperature 35.9 C L 03/21/24 13:14 Temperature Source Temporal Artery Scan 03/21/24 13:14 Pulse 91 H 03/21/24 13:14 Respiratory Rate 14 03/21/24 13:14 Blood Pressure 147/94 H 03/21/24 13:14 Blood Pressure Position Sitting 03/21/24 13:14 Pulse Oximetry 98 03/21/24 13:14 Oxygen Delivery Method Room Air 03/21/24 13:14 Oxygen Flow Rate 0 03/21/24 13:14 Pain Level 0 03/21/24 13:14 Medical Decision Making Quality:SDOH Health Related Social Needs: No Data to Display PFSH All Active Problems (Updated 03/21/24 @ 14:42 by Roberto Espinoza MD) Right-sided epistaxis (Acute) Viral URI with cough (Acute) Neuroma of second interspace of left foot (Acute) Blood blister (Acute) Pain in left foot (Acute) Cardiomyopathy (Acute) EF 40% echo 07/29/23 Facial rash (Acute) Hammer toe of left foot (Acute) Atrial fibrillation, permanent (Acute) Sacroiliac joint dysfunction of left side (Acute) Lumbosacral spondylosis without myelopathy (Acute) Low back pain (Acute) Bug bite (Acute) Hypertension (Chronic Unknown) Hyperglycemia (Acute) Back pain, lumbosacral (Chronic) Hypertension (Chronic) 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 Rx for Estradiol 1 g vaginally GERD (gastroesophageal reflux disease) (Chronic) Trochanteric bursitis, left hip (Chronic) Obstructive sleep apnea (Chronic) Dysphagia (Chronic) Per pt. every once in a while I'll choke on things Medical History Neuroma Internal derangement of right knee Headache Headache better CT neg Recurrent major depression in partial remission Atrial flutter. 2006. resolved but AFib persisted. Pt. denies this dx Dyspareunia in female since menopause. Frequent UTI since menopause. Atrial flutter s/p ablation 2006. Surgical History S/P cholecystectomy 12/15/14 laproscopic Status post tonsillectomy H/O cardiac catheterization Status post ablation of atrial flutter Family History Mother Personal history of malignant neoplasm Salivary gland Father , 94 Dementia Heart disease COVID Sister Essential hypertension Hyperlipidemia Sister Essential hypertension Hyperlipidemia Sister Essential hypertension Hyperlipidemia Social History Smoking/Tobacco Use Status: Never Second Hand Exposure: Yes Smoking risk assessment performed?: Yes Alcohol Intake: current Alcohol Intake frequency: a few times a week Alcohol type: wine Drug use: Never Substance use type: does not use Household members: spouse Housing: house Communication Needs: None Do you need help understanding health information?: Never current occupation: retired Pets and animals: No Sexually active: Yes Do you think of yourself as: straight/heterosexual Current gender identity: female What is your relationship status?: How often do you talk on the phone with friends or family?: twice per week How often do you get together with friends or relatives?: once per week How often do you attend sabianism or methodist services?: decline to answer Do you belong to any clubs or organized social groups?: no Panel score (0-1 are the most socially isolated patients): 2 What type of physical activity do you participate in: walking Duration: 15-30 minutes/day Frequency: 1-2 times per week Sarahi/Gnosticism: No preference Special sarahi needs: No Seatbelt use: always 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
[2024-03-21 14:24] VITALS: BP 153/84; PULSE 80; RESP 14; O2SAT 98
== END 2024-03-21 14:51 | disposition home or self-care (01) ==
PROVIDERS: Emergency Provider Emergency Medicine; PCP Family Medicine
DX: R04.0 Epistaxis (principal); I48.91 Unspecified atrial fibrillation; Z79.01 Long term (current) use of anticoagulants
CPT/HCPCS: 99283

== ENCOUNTER 2024-03-23 17:30 | Emergency (ER) | payer MEDICARE, SELFPAY ==
[2024-03-23 17:32] VITALS: BP 133/85; PULSE 81; RESP 20; TEMP 35; O2SAT 98
[2024-03-23 17:50] VITALS: BP 130/82; PULSE 80; RESP 18; O2SAT 97
--- NOTE | 2024-03-23 18:08 | W.ED.GENAD ---
Discharge Plan Disposition Patient Disposition: Home Condition: Stable Discharge Details Clinical Impression: Acute anterior epistaxis, Hypertension, Obstructive sleep apnea, GERD (gastroesophageal reflux disease), Atrial fibrillation, permanent, Cardiomyopathy, Anticoagulated Primary Care Provider: Andre Braun ED Provider: Gardenia Carey Home Meds and New Rx's Prescriptions: No Action Xarelto 20 mg tablet 20 mg PO DAILY Qty: 90 3RF Rx Instructions: must administer with evening meal B-complex with vitamin C Tablet 1 tab PO DAILY (DME) Aerochamber MV Spacer See Rx Instructions .Route Qty: 1 0RF Rx Instructions: As directed cholecalciferol (vitamin D3) 75 mcg (3,000 unit) tablet 75 mcg PO DAILY magnesium oxide 500 mg capsule 500 mg PO DAILY Patient Comments: Pt takes 1/2 tab bid.HE metaxalone 800 mg tablet 800 mg PO QHS PRN (Reason: muscle spasm) Qty: 30 1RF metronidazole 0.75 % cream 1 applic topical DAILY PRN (Reason: rosacea) Qty: 45 0RF spironolactone 25 mg tablet 12.5 mg PO DAILY Qty: 45 3RF Discharge Instructions Instructions: Nosebleeds ED Additional Instructions: You were seen in the emergency department today for evaluation of a nosebleed. In our department you had a full physical examination performed and had laboratory studies that were reassuring. Your nosebleed was able to be stopped with a combination of direct pressure, Afrin, nasal cautery, and a small application of Surgifoam. When you go home and is safe for you to resume all medications including your anticoagulants. If you do sustain additional episodes of bleeding, please apply direct pressure to the soft portion of your nose for at least 15 minutes. If bleeding persists, you can use Afrin in the affected nostril, please apply copiously and then clamp your nose for another 20 minutes. If this fails to stop the bleeding after 2 attempts you should return to the emergency department or your primary care providers for reevaluation. Thank you for allowing us to be part of your care. Stand Alone Forms: Work Release HPI General Mode of arrival: ambulatory. Date/Time Provider Initiated Documentation: 03/23/24 17:39. Limitations to Documentation: no limitations. Information obtained by: patient and old records reviewed. HPI Narrative: HPI: This is a 68-year-old female patient with a past medical history significant for atrial fibrillation on Xarelto, hypertension, GERD, SONYN, who has had numerous visits over the last few days for epistaxis, presenting for evaluation of same. She reports that she first had a nosebleed on Wednesday, and had another nosebleed again this morning for which she sought care at urgent care. She had direct pressure and Afrin placed to good effect, but around 4 PM had a recurrence of her right sided nosebleed. She states that she tried direct pressure and Afrin but feels that she did not do it correctly, and so presented to care. She reports that she has been feeling generally well, though she does feel slightly dehydrated. She has not had any dizziness or syncope, denies chest pain. She has been taking all of her medications as prescribed, and has not had any trauma to the nose. 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 She has not been able to use bacitracin in her nares as recommended by the primary care provider. Exam: Gen: Awake and alert, in no apparent distress HEENT: Non-icteric sclera. The patient has no significant bleeding in the posterior pharynx, does have slow oozing bleed from the right nare, with a prominent vessel appreciated on the inferior aspect of the right septum. Neck: Supple Lungs: No apparent respiratory distress, normal respiratory effort. CV: Appears well perfused, strong distal pulses Abdomen: Non-distended MSK: Moves 4 extremities without apparent limitation in ROM Skin: Visualized skin without rashes, cyanosis. Neuro: Normal Gait, no obvious focal deficits or facial asymmetry. Speaks in full, clear sentences. Psych: Appropriate for situation. MDM: This is a 68-year-old female patient presenting for evaluation of nosebleed. My differential includes but is not limited to coagulopathy, direct nasal trauma, anterior nosebleed, considered posterior nosebleed, considered anemia, metabolic derangement, kidney injury. Reassuringly, this is an isolated complaint, the patient is hemodynamically appropriate, maintaining her airway and well-appearing. I will obtain basic laboratory studies to include CBC, CMP, PT/INR ED Course: The patient blew out all of the clots in the right nare, and afterwards a large volume of Oxy metolazone was instilled in the right nare and direct pressure held for 20 minutes. On reassessment the patient has had cessation of her bleeding, and the culprit vessels in the area of the right sided Kesselbachs plexus were cauterized using silver nitrate. The patient did have scant ongoing bleeding after that event, for which she had repeat application of Afrin and direct pressure. Finally, I placed a small amount of Surgifoam in the anterior nare for any residual scant bleeding. She was observed in the emergency department for 20 minutes after and had no recurrence of bleeding. I independently interpreted the laboratory studies, which show no significant leukocytosis, anemia, or thrombocytopenia. The chemistry panel is without evidence of electrolyte abnormality, kidney dysfunction, or liver injury. She does have a BUN to creatinine ratio greater than 20-1, but was able to drink an appropriate amount of water and I have no concern that she will be able to maintain her hydration in the outpatient environment. At this time, the patient has had a full medical evaluation and is safe for discharge to home. They are hemodynamically stable, ambulatory, and tolerating PO. They are understanding of the follow-up plan and return precautions. They left our facility without incident. Gardenia Carey MD Related Data Home Medications ?Medication ?Instructions ?Recorded ?Confirmed magnesium oxide 500 mg capsule 500 mg PO DAILY 09/29/19 03/21/24 cholecalciferol (vitamin D3) 75 75 mcg PO DAILY 05/21/21 03/21/24 mcg (3,000 unit) tablet metaxalone 800 mg tablet 800 mg PO QHS PRN muscle spasm #30 09/17/22 03/21/24 tabs rivaroxaban 20 mg tablet (Xarelto) 20 mg PO DAILY #90 tabs 06/16/23 03/21/24 metronidazole 0.75 % topical cream 1 applic topical DAILY PRN rosacea 06/23/23 03/21/24 #45 grams B-complex with vitamin C 1 tab PO DAILY 08/19/23 03/21/24 inhalational spacing device #1 ea 11/12/23 03/21/24 (Aerochamber MV spacer) spironolactone 25 mg tablet 12.5 mg (1/2 x 25 mg) PO DAILY #45 01/19/24 03/21/24 tabs Previous Rx's ?Medication ?Instructions ?Recorded metaxalone 800 mg tablet 800 mg PO QHS PRN muscle spasm #30 09/17/22 tabs rivaroxaban 20 mg tablet (Xarelto) 20 mg PO DAILY #90 tabs 06/16/23 metronidazole 0.75 % topical cream 1 applic topical DAILY PRN rosacea 06/23/23 #45 grams inhalational spacing device #1 ea 11/12/23 (Aerochamber MV spacer) spironolactone 25 mg tablet 12.5 mg (1/2 x 25 mg) PO DAILY #45 01/19/24 tabs Allergies Allergy/AdvReac Type Severity Reaction Status Date / Time erythromycin base Allergy Mild Hives Verified 03/23/24 10:59 (Erythromycin Base) Penicillins Allergy Mild Hives Verified 03/23/24 10:59 sulfamethoxazole (From Allergy Itching, Verified 03/23/24 10:59 Bactrim) bothers stomach trimethoprim (From Bactrim) Allergy Itching, Verified 03/23/24 10:59 bothers stomach lisinopril AdvReac Severe severe dry Verified 03/23/24 10:59 cough, headache metoprolol AdvReac Severe SEVERE H/A Verified 03/23/24 10:59 and DIZZY losartan AdvReac Intermediate Headache Verified 03/23/24 10:59 nitrofurantoin AdvReac Unknown UPSET Verified 03/23/24 10:59 macrocrystalline (From STOMACH Macrodantin) flecainide AdvReac Wide Verified 03/23/24 10:59 complex tachycardia General Stated Complaint: GenMedical RICARDO: 3 Course Vital Signs Vital signs: Vital Signs Temperature 35.0 C L 03/23/24 17:32 Pulse 81 03/23/24 17:32 Respiratory Rate 20 03/23/24 17:32 Blood Pressure 133/85 03/23/24 17:32 Pulse Oximetry 98 03/23/24 17:32 Temperature 35.0 C L 03/23/24 17:32 Pulse 80 03/23/24 17:50 Respiratory Rate 18 03/23/24 17:50 Respiratory Effort Normal, Non-Labored 03/23/24 17:53 Respiratory Depth Normal 03/23/24 17:53 Respiratory Pattern Normal 03/23/24 17:53 Blood Pressure 130/82 03/23/24 17:50 Pulse Oximetry 97 03/23/24 17:50 Oxygen Delivery Method Room Air 03/23/24 17:50 Oxygen Flow Rate 0 03/23/24 17:50 Pain Level 0 03/23/24 17:32 Procedures Epistaxis Control Time Out Performed: No Nostril: right Nose Prepped With: oxymetazoline Direct Inspection: yes Clots Removed by: blowing nose Cautery Used: silver nitrate Device Inserted: hemostatic dressing Patient Tolerated Procedure: well Medical Decision Making Quality:SDOH Health Related Social Needs: No Data to Display PFSH All Active Problems (Updated 03/23/24 @ 19:24 by Gardenia Carey MD) Anticoagulated (Acute) Acute anterior epistaxis (Acute) Right-sided epistaxis (Acute) Viral URI with cough (Acute) Neuroma of second interspace of left foot (Acute) Blood blister (Acute) Pain in left foot (Acute) Cardiomyopathy (Acute) EF 40% echo 07/29/23 Facial rash (Acute) Hammer toe of left foot (Acute) Atrial fibrillation, permanent (Acute) Sacroiliac joint dysfunction of left side (Acute) Lumbosacral spondylosis without myelopathy (Acute) Low back pain (Acute) Bug bite (Acute) Hypertension (Chronic Unknown) Hyperglycemia (Acute) Back pain, lumbosacral (Chronic) Hypertension (Chronic) 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 Rx for Estradiol 1 g vaginally GERD (gastroesophageal reflux disease) (Chronic) Trochanteric bursitis, left hip (Chronic) Obstructive sleep apnea (Chronic) Dysphagia (Chronic) Per pt. every once in a while I'll choke on things Medical History Neuroma Internal derangement of right knee Headache Headache better CT neg Recurrent major depression in partial remission Atrial flutter. 2006. resolved but AFib persisted. Pt. denies this dx Dyspareunia in female since menopause. Frequent UTI since menopause. Atrial flutter s/p ablation 2006. Surgical History S/P cholecystectomy 12/15/14 laproscopic Status post tonsillectomy H/O cardiac catheterization Status post ablation of atrial flutter Family History Mother Personal history of malignant neoplasm Salivary gland Father , 94 Dementia Heart disease COVID Sister Essential hypertension Hyperlipidemia Sister Essential hypertension Hyperlipidemia Sister Essential hypertension Hyperlipidemia Social History Smoking/Tobacco Use Status: Never Second Hand Exposure: Yes Smoking risk assessment performed?: Yes Alcohol Intake: current Alcohol Intake frequency: a few times a week Alcohol type: wine Drug use: Never Substance use type: does not use Household members: spouse Housing: house Communication Needs: None Do you need help understanding health information?: Never current occupation: retired Pets and animals: No Sexually active: Yes Do you think of yourself as: straight/heterosexual Current gender identity: female What is your relationship status?: How often do you talk on the phone with friends or family?: twice per week How often do you get together with friends or relatives?: once per week How often do you attend jainism or temple services?: decline to answer Do you belong to any clubs or organized social groups?: no Panel score (0-1 are the most socially isolated patients): 2 What type of physical activity do you participate in: walking Duration: 15-30 minutes/day Frequency: 1-2 times per week Sarahi/Oriental Orthodox: No preference Special sarahi needs: No Seatbelt use: always Drive 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
[2024-03-23] MEDS: Oxymetazolone 0.05% SPRAY 15 ML BTL NS (18:09)
[2024-03-23 18:28] LABS: Abs Immature Grans 0.02 10^3/uL (0.0-0.06); Absolute Basophil Count 0.05 10^3/uL (0.0-0.2); Absolute Eosinophil Count 0.14 10^3/uL (0.0-0.7); Absolute Lymphocyte Count 1.46 10^3/uL (1.2-3.4); Absolute Monocyte Count 0.78 10^3/uL (0.1-0.8); Absolute Neutrophil Count 4.46 10^3/uL (1.2-6.7); Basophils % 0.7 %; HCT 46.6 % (36.0-46.0); HGB 15.2 g/dL (11.2-15.7); Immature Grans % 0.3 %; Lymphocytes % 21.1 %; MCH 29.3 pg (27.0-33.0); MCHC 32.6 % (32.0-36.0); MCV 90 fL (80-95); MPV 10.1 fL (8.0-11.0); Monocytes % 11.3 %; Neutrophils % 64.6 %; Platelet Count 205 10^3/uL (130-400); RBC 5.19 10^6/uL (3.93-5.22); RDW 12.7 % (11.7-14.6); RDW-SD 41.8 fL; WBC 6.91 10^3/uL (4.4-10.8)
[2024-03-23 18:38] LABS: INR 1.2 (0.9-1.1); Prothrombin Time 11.7 sec (9.1-11.1)
[2024-03-23] MEDS: Silver Nitrate Stick 1 EACH TP (18:38)
[2024-03-23 18:42] LABS: ALT 27 U/L (14-59); AST 22 U/L (15-37); Albumin 3.7 g/dL (3.4-5.0); Alkaline Phosphatase 107 U/L (46-116); Anion Gap 10.6 mmol/L (3-11); BUN 25 mg/dL (7-18); Bilirubin, Total 0.32 mg/dL (0.2-1.0); CO2 26.4 mmol/L (21.0-32.0); Calcium 9.5 mg/dL (8.5-10.1); Chloride 106 mmol/L (98-107); Estimated GFR 60.98 (mL/min/1.73m2); Glucose 112 mg/dL (74-106); Magnesium 2.1 mg/dL (1.8-2.4); Potassium 4.3 mmol/L (3.5-5.1); Sodium 143 mmol/L (136-145); Total Protein 7.1 g/dL (6.4-8.2)
[2024-03-23] MEDS: Gelatin SPONGE 12-7 MM PKT 1 EACH TP (19:15)
== END 2024-03-23 19:39 | disposition home or self-care (01) ==
PROVIDERS: Emergency Provider Emergency Medicine; PCP Family Medicine
DX: R04.0 Epistaxis (principal); I10 Essential (primary) hypertension; I42.9 Cardiomyopathy, unspecified; G47.33 Obstructive sleep apnea (adult) (pediatric); I48.21 Permanent atrial fibrillation; Z79.01 Long term (current) use of anticoagulants
CPT/HCPCS: 30901; 80053; 99283; 83735; 85025; 85610

== ENCOUNTER 2024-03-26 01:56 | Emergency (ER) | payer MEDICARE, SELFPAY ==
[2024-03-26 01:59] VITALS: BP 137/71; PULSE 70; RESP 16; TEMP 36.7; O2SAT 99
--- NOTE | 2024-03-26 02:09 | ED.GENADUL_ITS ---
Discharge Plan Disposition Patient Disposition: Home Condition: Good Discharge Details Clinical Impression: Anterior epistaxis Primary Care Provider: Andre Braun ED Provider: Jennifer Bolden Home Meds and New Rx's Prescriptions: Continued Xarelto 20 mg tablet 20 mg PO DAILY Qty: 90 3RF Rx Instructions: must administer with evening meal B-complex with vitamin C Tablet 1 tab PO DAILY (DME) Aerochamber MV Spacer See Rx Instructions .Route Qty: 1 0RF Rx Instructions: As directed cholecalciferol (vitamin D3) 75 mcg (3,000 unit) tablet 75 mcg PO DAILY magnesium oxide 500 mg capsule 500 mg PO DAILY Patient Comments: Pt takes 1/2 tab bid.HE metaxalone 800 mg tablet 800 mg PO QHS PRN (Reason: muscle spasm) Qty: 30 1RF metronidazole 0.75 % cream 1 applic topical DAILY PRN (Reason: rosacea) Qty: 45 0RF spironolactone 25 mg tablet 12.5 mg PO DAILY Qty: 45 3RF Discharge Instructions Instructions: Nosebleeds ED Additional Instructions: Leave the nasal packing in place for 2-3 days. An ENT referral has been placed; they should call you on Wednesday. If they are unable to see you on Wednesday or Wednesday, please see your primary care doctor or return to the emergency department by Wednesday evening to have the nasal packing removed. Return to the emergency department if your nose bleeds around the packing, you feel lightheaded, develop a fever or feel unwell, notice any thick or green discharge from your nose, or if you have any other concerns. Stand Alone Forms: Work Release Referrals: Andre Braun MD [Primary Care Provider] - [facility] General Mode of arrival: ambulatory . Date/Time Provider Initiated Documentation: 03/26/24 02:06 . Limitations to Documentation: no limitations . Information obtained by: patient and old records reviewed . HPI Narrative: 68yo F with hx afib on rivoroxaban presenting for recurrent epistaxis. Multiple ED visits this week for same, most recently 03/23/24 during which right kisselbach's plexus was cauterized. Tonight around 2330 again began bleeding from right nares which woke her from sleep. Used Afrin and soft clamp however bleedings persists and so she presented to the ED. No chest pain, shortness of breath, lightheadedness, or palpitations. Otherwise in her usual state of health. Related Data Home Medications ?Medication ?Instructions ?Recorded ?Confirmed magnesium oxide 500 mg capsule 500 mg PO DAILY 09/29/19 03/26/24 cholecalciferol (vitamin D3) 75 75 mcg PO DAILY 05/21/21 03/26/24 mcg (3,000 unit) tablet metaxalone 800 mg tablet 800 mg PO QHS PRN muscle spasm #30 09/17/22 03/26/24 tabs rivaroxaban 20 mg tablet (Xarelto) 20 mg PO DAILY #90 tabs 06/16/23 03/26/24 metronidazole 0.75 % topical cream 1 applic topical DAILY PRN rosacea 06/23/23 03/26/24 #45 grams B-complex with vitamin C 1 tab PO DAILY 08/19/23 03/26/24 inhalational spacing device #1 ea 11/12/23 03/26/24 (Aerochamber MV spacer) spironolactone 25 mg tablet 12.5 mg (1/2 x 25 mg) PO DAILY #45 01/19/24 03/26/24 tabs Previous Rx's ?Medication ?Instructions ?Recorded metaxalone 800 mg tablet 800 mg PO QHS PRN muscle spasm #30 09/17/22 tabs rivaroxaban 20 mg tablet (Xarelto) 20 mg PO DAILY #90 tabs 06/16/23 metronidazole 0.75 % topical cream 1 applic topical DAILY PRN rosacea 06/23/23 #45 grams inhalational spacing device #1 ea 11/12/23 (Aerochamber MV spacer) spironolactone 25 mg tablet 12.5 mg (1/2 x 25 mg) PO DAILY #45 01/19/24 tabs Allergies Allergy/AdvReac Type Severity Reaction Status Date / Time erythromycin base Allergy Mild Hives Verified 03/26/24 02:03 (Erythromycin Base) Penicillins Allergy Mild Hives Verified 03/26/24 02:03 sulfamethoxazole (From Allergy Itching, Verified 03/26/24 02:03 Bactrim) bothers stomach trimethoprim (From Bactrim) Allergy Itching, Verified 03/26/24 02:03 bothers stomach lisinopril AdvReac Severe severe dry Verified 03/26/24 02:03 cough, headache metoprolol AdvReac Severe SEVERE H/A Verified 03/26/24 02:03 and DIZZY losartan AdvReac Intermediate Headache Verified 03/26/24 02:03 nitrofurantoin AdvReac Unknown UPSET Verified 03/26/24 02:03 macrocrystalline (From STOMACH Macrodantin) flecainide AdvReac Wide Verified 03/26/24 02:03 complex tachycardia General Stated Complaint: Epistaxis RICARDO: 5 Review of Systems Narrative: see HPI Exam Narrative Exam Narrative: General: Alert, well appearing, well nourished, in no acute distress. Head: Normocephalic, atraumatic Neck: Trachea midline, ?Neck supple. ENT: ?MMM.? No oropharygeal lesions or exudate. Scant blood oozing from right nares. Cardiac: No cyanosis. Well perfused. Resp: No respiratory distress. Speaking in full sentences. Abd: ?Non-distended Extremities: ?No deformities.? No peripheral edema. Neurologic: GCS 15. ? Moves all extremities freely against gravity Course Vital Signs Vital signs: Vital Signs Temperature 36.7 C 03/26/24 01:59 Pulse 70 03/26/24 01:59 Respiratory Rate 16 03/26/24 01:59 Blood Pressure 137/71 03/26/24 01:59 Pulse Oximetry 99 03/26/24 01:59 Temperature 36.7 C 03/26/24 01:59 Pulse 70 03/26/24 01:59 Respiratory Rate 16 03/26/24 01:59 Respiratory Effort Normal 03/26/24 02:04 Blood Pressure 137/71 03/26/24 01:59 Pulse Oximetry 99 03/26/24 01:59 Oxygen Delivery Method Room Air 03/26/24 01:59 Oxygen Flow Rate 0 03/26/24 01:59 Pain Level 0 03/26/24 01:59 Procedures Epistaxis Control Time Out Performed: Yes Nostril: right Nose Prepped With: oxymetazoline Direct Inspection: unable to visualize Clots Removed by: blowing nose Cautery Used: none Device Inserted: hemostatic balloon (4.5) Patient Tolerated Procedure: well Complications: pain Medical Decision Making 68yo F with hx afib on rivoroxaban presenting for recurrent epistaxis, most recently seen here 03/23/24 during which right kisselbach's plexus was cauterized. Bleeding from right nares woke her from sleep at around 2330. Tried afrin and clamp at home, still bleeding. Vital signs reassuring on arrival. Well appearing on exam. Clots expressed from nose, subsequently slight oozing from right nares; patient reports this is much improved from when she decided to come in. No obvious cauterizable focus on exam. Afrin re-applied and soft clamp placed; will reassess in hour. If continued bleeding, given recurrent visits would consider placing TXA soaked anterior nasal packing. CBC reviewed as below, no anemia, thrombocytopenia, or significant Hg drop from prior. Coags normal. On reassessment no active bleeding; plan to observe for one hour with clamp off. About 30 minutes after clamp removed, again bleeding from right nares. Rapid- rhino 4.5cm (anterior) soaked in TXA and placed in right nares. Given 1g tylenol for discomfort. Observed for one hour; at about ~ 20 minutes some scant bloody leakage, small amount additional air placed in balloon with good effect. 40 minutes later no further bleeding. Discharged home to followup with ENT; discharge instructions and return precautions were reviewed with patient who verbalized understanding. All questions were answered and she is in full agreement with the plan. Medical Records Medical records reviewed: Yes I reviewed the patient's medical records. Medical records narrative: ED visit note 03/23/24 Lab Data Lab results reviewed: Yes I reviewed the patient's lab results. Labs: Laboratory Tests Range/Units 03/26/24 02:22 WBC (4.4-10.8) 10^3/uL 8.29 RBC (3.93-5.22) 10^6/uL 5.00 Hgb (11.2-15.7) g/dL 14.6 Hct (36.0-46.0) % 44.5 MCV (80-95) fL 89 MCH (27.0-33.0) pg 29.2 MCHC (32.0-36.0) % 32.8 RDW (11.7-14.6) % 12.5 Plt Count (130-400) 10^3/uL 195 MPV (8.0-11.0) fL 10.4 Immature Gran % % 0.2 Neutrophils % % 68.5 Lymphocytes % % 18.8 Monocytes % % 9.7 Eosinophils % % 2.3 Basophils % % 0.5 Nucleated RBC % (0.0-0.3) % 0.0 Absolute Neutrophils (1.2-6.7) 10^3/uL 5.68 Absolute Lymphocytes (1.2-3.4) 10^3/uL 1.56 Absolute Monocytes (0.1-0.8) 10^3/uL 0.80 Absolute Eosinophils (0.0-0.7) 10^3/uL 0.19 Absolute Basophils (0.0-0.2) 10^3/uL 0.04 PT (9.1-11.1) sec 10.7 INR (0.9-1.1) 1.1 APTT (23.6-32.8) sec 27.4 Quality:SDOH Health Related Social Needs: No Data to Display PFSH All Active Problems (Updated 03/26/24 @ 04:34 by Jennifer Bolden MD) Anterior epistaxis (Acute) Anticoagulated (Acute) Acute anterior epistaxis (Acute) Right-sided epistaxis (Acute) Viral URI with cough (Acute) Neuroma of second interspace of left foot (Acute) Blood blister (Acute) Pain in left foot (Acute) Cardiomyopathy (Acute) EF 40% echo 07/29/23 Facial rash (Acute) Hammer toe of left foot (Acute) Atrial fibrillation, permanent (Acute) Sacroiliac joint dysfunction of left side (Acute) Lumbosacral spondylosis without myelopathy (Acute) Low back pain (Acute) Bug bite (Acute) Hypertension (Chronic Unknown) Hyperglycemia (Acute) Back pain, lumbosacral (Chronic) Hypertension (Chronic) 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 Rx for Estradiol 1 g vaginally GERD (gastroesophageal reflux disease) (Chronic) Trochanteric bursitis, left hip (Chronic) Obstructive sleep apnea (Chronic) Dysphagia (Chronic) Per pt. every once in a while I'll choke on things Medical History Neuroma Internal derangement of right knee Headache Headache better CT neg Recurrent major depression in partial remission Atrial flutter. 2006. resolved but AFib persisted. Pt. denies this dx Dyspareunia in female since menopause. Frequent UTI since menopause. Atrial flutter s/p ablation 2006. Surgical History S/P cholecystectomy 12/15/14 laproscopic Status post tonsillectomy H/O cardiac catheterization Status post ablation of atrial flutter Family History Mother Personal history of malignant neoplasm Salivary gland Father , 94 Dementia Heart disease COVID Sister Essential hypertension Hyperlipidemia Sister Essential hypertension Hyperlipidemia Sister Essential hypertension Hyperlipidemia Social History Smoking/Tobacco Use Status: Never Second Hand Exposure: Yes Smoking risk assessment performed?: Yes Alcohol Intake: current Alcohol Intake frequency: a few times a week Alcohol type: wine Drug use: Never Substance use type: does not use Household members: spouse Housing: house Communication Needs: None Do you need help understanding health information?: Never current occupation: retired Pets and animals: No Sexually active: Yes Do you think of yourself as: straight/heterosexual Current gender identity: female What is your relationship status?: How often do you talk on the phone with friends or family?: twice per week How often do you get together with friends or relatives?: once per week How often do you attend latter-day or synagogue services?: decline to answer Do you belong to any clubs or organized social groups?: no Panel score (0-1 are the most socially isolated patients): 2 What type of physical activity do you participate in: walking Duration: 15-30 minutes/day Frequency: 1-2 times per week Sarahi/Bahai: No preference Special sarahi needs: No Seatbelt use: always Drive intox or ride w/intox caterpillar driver: No Do you feel safe at home: Yes Do you feel safe in your relationship?: Yes History History 0 Para Hx # Term Pregnancies Multiple births Hx # Pregnancies Ectopic pregnancies AB induced Hx Number of Living Children AB spontaneous
[2024-03-26] MEDS: Oxymetazolone 0.05% SPRAY 15 ML BTL (02:24)
[2024-03-26 02:37] LABS: Abs Immature Grans 0.02 10^3/uL (0.0-0.06); Absolute Basophil Count 0.04 10^3/uL (0.0-0.2); Absolute Eosinophil Count 0.19 10^3/uL (0.0-0.7); Absolute Lymphocyte Count 1.56 10^3/uL (1.2-3.4); Absolute Neutrophil Count 5.68 10^3/uL (1.2-6.7); Basophils % 0.5 %; Eosinophils % 2.3 %; HCT 44.5 % (36.0-46.0); HGB 14.6 g/dL (11.2-15.7); Immature Grans % 0.2 %; Lymphocytes % 18.8 %; MCH 29.2 pg (27.0-33.0); MCHC 32.8 % (32.0-36.0); MCV 89 fL (80-95); MPV 10.4 fL (8.0-11.0); Monocytes % 9.7 %; Neutrophils % 68.5 %; Platelet Count 195 10^3/uL (130-400); RDW 12.5 % (11.7-14.6); RDW-SD 40.9 fL; WBC 8.29 10^3/uL (4.4-10.8)
[2024-03-26 03:04] LABS: INR 1.1 (0.9-1.1); PTT Activated 27.4 sec (23.6-32.8); Prothrombin Time 10.7 sec (9.1-11.1)
[2024-03-26] MEDS: Tranexamic Acid 1,000 MG/10 ML VIAL 500 MG NS (04:25)
[2024-03-26] MEDS: Acetaminophen 500 MG TAB 1000 MG PO (05:58)
== END 2024-03-26 06:00 | disposition home or self-care (01) ==
PROVIDERS: Emergency Provider Student in an Organized Health Care Education/Training Program; PCP Family Medicine
DX: R04.0 Epistaxis (principal); I48.21 Permanent atrial fibrillation; I10 Essential (primary) hypertension; Z79.01 Long term (current) use of anticoagulants
CPT/HCPCS: 30903; 99283; 85025; 85610; 85730

== ENCOUNTER 2024-04-03 08:59 | Outpatient (CLI) | payer MEDICARE, SELFPAY | END 2024-04-03 09:00 | disposition home or self-care (01) | PROVIDERS: PCP Family Medicine; Visit Provider Internal Medicine Cardiovascular Disease | DX: I48.21 Permanent atrial fibrillation (principal) | CPT/HCPCS: 93270 ==

== ENCOUNTER 2024-05-09 07:06 | Outpatient (CLI) | payer MEDICARE, SELFPAY ==
--- NOTE | 2024-05-09 08:25 | W.CARDEVENT ---
Date of service: 05/09/24 Time of Service: 08:25 Cardiac Event Recorder Referring Provider:: Pankaj Indications:: Atrial fibrillation Cardiac Event Note: This is a cardiac event monitor. Patient was monitored for 25 days Atrial fibrillation was present throughout. Heart rate overall was 75. Maximum rate was 159. Minimum rate was 45 There were no pauses greater than 3 seconds Symptoms correlated with atrial fibrillation rate controlled
== END 2024-05-09 07:07 | disposition home or self-care (01) ==
LOC: CARDOPNVT 07:06
PROVIDERS: PCP Family Medicine; Visit Provider Internal Medicine Cardiovascular Disease
DX: I48.91 Unspecified atrial fibrillation (principal); I42.9 Cardiomyopathy, unspecified
CPT/HCPCS: 93272

== ENCOUNTER → 2024-06-21 09:37 | Outpatient (BNVA) | payer MEDICARE, SELFPAY | PROVIDERS: PCP Family Medicine; Referring Provider Family Medicine; Visit Provider Podiatrist | DX: M20.42 Other hammer toe(s) (acquired), left foot (principal); M79.672 Pain in left foot; G57.62 Lesion of plantar nerve, left lower limb; S90.425D Blister (nonthermal), left lesser toe(s), subsequent encounter; X58.XXXD Exposure to other specified factors, subsequent encounter | CPT/HCPCS: 99214 ==

== ENCOUNTER 2024-06-27 10:06 | Outpatient (CLI) | payer MEDICARE, SELFPAY ==
[2024-06-27 18:58] LABS: HBs Antibody, Quant <3.1 mIU/mL (See Note); Hep B Surface Ab Negative (See Note); Hepatitis B Core Antibody Negative (Negative); Hepatitis B Surface Antigen Negative (Negative)
[2024-06-27 19:01] LABS: HIV-1/2 Ag & Ab Screen Negative (Negative)
[2024-06-27 19:03] LABS: Hepatitis C Ab w Rflx HCV PCR Negative (Negative)
== END 2024-06-27 10:07 | disposition home or self-care (01) ==
LOC: LOS 10:06
PROVIDERS: PCP Family Medicine; Visit Provider Family Medicine
DX: Z11.59 Encounter for screening for other viral diseases (principal); Z00.00 Encounter for general adult medical examination without abnormal findings; Z78.0 Asymptomatic menopausal state; Z13.820 Encounter for screening for osteoporosis
CPT/HCPCS: 36415; 86704; 86706; 86803; 87340; 87389

== ENCOUNTER → 2024-07-26 14:05 | Outpatient (BNVA) | payer MEDICARE, SELFPAY | PROVIDERS: PCP Family Medicine; Referring Provider Family Medicine; Visit Provider Podiatrist | DX: M20.42 Other hammer toe(s) (acquired), left foot (principal); M79.672 Pain in left foot; G57.62 Lesion of plantar nerve, left lower limb; I73.9 Peripheral vascular disease, unspecified; S90.425D Blister (nonthermal), left lesser toe(s), subsequent encounter; X58.XXXD Exposure to other specified factors, subsequent encounter | CPT/HCPCS: 28010; 93922 ==

== ENCOUNTER 2024-08-03 02:08 | Outpatient (CLI) | payer MEDICARE, SELFPAY ==
--- NOTE | 2024-08-03 | DI.DEXA_ITS ---
Exam(s) XR DEXA BONE DENSITY W/WO LESLEY EXAM: XR DEXA BONE DENSITY W/WO LESLEY CLINICAL HISTORY: menopause present, screening for osteoporosis,z78.0 TECHNIQUE: [employer] C densitometer analysis of left hip, lumbar spine and left forearm. Lat eral survey image of the thoracic and lumbar spine. COMPARISON: MR MR LUMBAR SPINE WO from 01/05/2022 FINDINGS: Lateral view of the thoracic and lumbar spine shows no evidence of compression fractures. Bone mineral density measurements of the lumbar spine correspond to a total T-score of -0.2, in the normal range. Bone mineral density measurements of the left hip correspond to a total T-score of -1.1 . The femora l neck T-score is -1.5, in the osteopenic range. Theleft forearm bone mineral density measurements correspond to a T-score of the distal 3rd of -1.6, in the osteopenic range.. IMPRESSION: Normal bone mineral density of the lumbar spine. Osteopenia of the hip and forearm.
== END 2024-08-03 02:28 ==
LOC: DI 02:08
PROVIDERS: PCP Family Medicine; Visit Provider Family Medicine
DX: Z13.820 Encounter for screening for osteoporosis (principal); Z78.0 Asymptomatic menopausal state; M81.0 Age-related osteoporosis without current pathological fracture
CPT/HCPCS: 77080

== ENCOUNTER → 2024-08-07 10:53 | Outpatient (BNVA) | payer MEDICARE, SELFPAY | PROVIDERS: PCP Family Medicine; Referring Provider Family Medicine; Visit Provider Podiatrist | DX: M20.42 Other hammer toe(s) (acquired), left foot (principal); M79.672 Pain in left foot; G57.62 Lesion of plantar nerve, left lower limb; L60.0 Ingrowing nail; S90.425A Blister (nonthermal), left lesser toe(s), initial encounter; X58.XXXA Exposure to other specified factors, initial encounter | CPT/HCPCS: 29540; 99213 ==

== ENCOUNTER → 2024-09-07 11:18 | Outpatient (BNVA) | payer MEDICARE, SELFPAY | PROVIDERS: PCP Family Medicine; Referring Provider Family Medicine; Visit Provider Podiatrist | DX: G57.62 Lesion of plantar nerve, left lower limb (principal); M20.42 Other hammer toe(s) (acquired), left foot; L60.0 Ingrowing nail; M79.672 Pain in left foot | CPT/HCPCS: 64455; J0702; J1100 ==

== ENCOUNTER 2025-01-19 18:49 | Outpatient (CLI) | payer MEDICARE, SELFPAY ==
--- NOTE | 2025-01-19 18:45 | RT.EKG_ITS ---
APPROVED REPORT Exam: Resting ECG Reason for Exam: afib Patient Location: O HR:81 bpm ECG Measurements Heart Rate 81 AXIS PA [id number] P [id number] QRSd 178 QRS -72 QT 452 T 94 QTc 525 Conclusion Atrial fibrillation...? atrial activity Left bundle branch block...QRSd>120, broad/notched R
== END 2025-01-19 18:50 | disposition home or self-care (01) ==
LOC: DI.CM 18:50
PROVIDERS: PCP Family Medicine; Visit Provider Nurse Practitioner Family
DX: I48.91 Unspecified atrial fibrillation (principal); I44.7 Left bundle-branch block, unspecified
CPT/HCPCS: 93010

== ENCOUNTER 2025-03-09 11:13 | Outpatient (RCR) | payer MEDICARE, SELFPAY ==
--- NOTE | 2025-03-09 10:45 | RT.EKG_ITS ---
APPROVED REPORT Exam: Resting ECG Reason for Exam: CR Intake Appointment - Baseline EKG Patient Location: O HR:85 bpm ECG Measurements Heart Rate 85 AXIS FL [id number] P [id number] QRSd 168 QRS 253 QT 467 T 59 QTc 556 Conclusion Atrial fibrillation...V-rate 65-114, irreg A-activity Right axis LBBB
== END 2025-04-06 23:59 | disposition home or self-care (01) ==
LOC: CR 11:13
PROVIDERS: PCP Family Medicine; Visit Provider Internal Medicine Cardiovascular Disease
DX: I50.21 Acute systolic (congestive) heart failure (principal); Z51.89 Encounter for other specified aftercare
CPT/HCPCS: S9472

== ENCOUNTER 2025-04-04 10:00 | Outpatient (RCR) | payer MEDICARE, SELFPAY | END 2025-04-06 23:59 | disposition home or self-care (01) | LOC: CR 10:00 | PROVIDERS: PCP Family Medicine; Visit Provider Internal Medicine Cardiovascular Disease | DX: Z51.89 Encounter for other specified aftercare (principal); I50.21 Acute systolic (congestive) heart failure | CPT/HCPCS: S9472 ==

== ENCOUNTER 2025-04-27 10:00 | Outpatient (RCR) | payer MEDICARE, SELFPAY | END 2025-05-06 23:59 | disposition home or self-care (01) | LOC: CR 10:00 | PROVIDERS: PCP Family Medicine; Visit Provider Internal Medicine Cardiovascular Disease | DX: I50.23 Acute on chronic systolic (congestive) heart failure (principal); Z51.89 Encounter for other specified aftercare | CPT/HCPCS: S9472 ==

== ENCOUNTER → 2025-05-08 11:21 | Outpatient (BNVA) | payer MEDICARE, SELFPAY | PROVIDERS: PCP Family Medicine; Referring Provider Family Medicine; Visit Provider Podiatrist | DX: G57.62 Lesion of plantar nerve, left lower limb (principal); L85.8 Other specified epidermal thickening; M20.42 Other hammer toe(s) (acquired), left foot; M67.02 Short Achilles tendon (acquired), left ankle; L60.0 Ingrowing nail; M79.672 Pain in left foot | CPT/HCPCS: 17110; 64455; J0702; J1100 ==

== ENCOUNTER 2025-05-13 15:21 | Emergency (ER) | payer MEDICARE, SELFPAY ==
[2025-05-13 15:39] VITALS: BP 134/78; PULSE 91; RESP 18; TEMP 36.8; O2SAT 97
[2025-05-13 16:14] LABS: Glucose Negative (Negative)
[2025-05-13 16:55] LABS: C & S Indicated? No; RBC 0-2 HPF (0-2)
--- NOTE | 2025-05-13 17:11 | ED.GENADUL_ITS ---
Discharge Plan Disposition Patient Disposition: Home Discharge Details Clinical Impression: Diarrhea, Acute UTI Primary Care Provider: Andre Braun ED Provider: Reanna De Los Santos Home Meds and New Rx's Prescriptions: No Action B-complex with vitamin C Tablet 1 tab PO DAILY (DME) Aerochamber MV Spacer See Rx Instructions .Route Qty: 1 0RF Rx Instructions: As directed cholecalciferol (vitamin D3) 75 mcg (3,000 unit) tablet 75 mcg PO DAILY sertraline 25 mg tablet 25 mg PO DAILY Qty: 60 0RF magnesium oxide 500 mg capsule 500 mg PO DAILY Patient Comments: Pt takes 1/2 tab bid.HE metaxalone 800 mg tablet 800 mg PO QHS PRN (Reason: muscle spasm) Qty: 30 1RF metoprolol succinate 25 mg tablet extended release 24 hr 12.5 mg PO DAILY Patient Comments: per [facility] note Dr. Miranda heart failure team, 07/06/24/RH Xarelto 20 mg tablet 20 mg PO DAILY Qty: 90 3RF Rx Instructions: must administer with evening meal spironolactone 25 mg tablet 12.5 mg PO DAILY Qty: 45 3RF Discharge Instructions Additional Instructions: I encourage you to call your primary care provider's office first thing in the morning to schedule follow-up appointment the next day or two for reassessment. Your symptoms are most likely caused by UTI, though I stomach bug is also possible. You were treated with a one-time dose of fosfomycin to treat UTI. I recommend that you use electrolyte rich drinks such as Gatorlyte or Pedialyte to help replace fluids if you are having diarrhea. Return to emergency care if you develop new fever/chills associated with abdominal pain, uncontrollable vomiting, are unable to stay hydrated, feel you are unable to empty your bladder, have worsening abdominal pain or back pain, or if you are very worried and need to be rechecked again immediately Stand Alone Forms: Portal Information Referrals: Andre Braun MD [Primary Care Provider, Medicine] Discharge Data Discharge Date/Time-TO BE ENTERED AT DEPARTURE: 05/13/25 19:51 HPI General Date/Time Provider Initiated Documentation: 05/13/25 15:44 . HPI Narrative: Ally is a 69-year-old female presents to the emergency department today for evaluation of 3 days of fatigue, generalized abdominal discomfort, diarrhea, and frequency of urination. She reports that she had URI symptoms a week ago (congestion, cough), have been improving since. She does admit that she feels s ymptoms are related to anxiety about her upcoming pacemaker placement on Wednesday, but wanted to make sure she did not have a UTI. Denies fever/chills, nausea/vomiting, change in p.o. intake, blood in stool. PMH significant for HTN, cardiomyopathy with EF 20%, GERD, and paroxysmal A-fib. She is anticoagulated with Xarelto. Related Data Home Medications ?Medication ?Instructions ?Recorded ?Confirmed magnesium oxide 500 mg capsule 500 mg PO DAILY 0 05/13/25 cholecalciferol (vitamin D3) 75 75 mcg PO DAILY 05/13/25 mcg (3,000 unit) tablet metaxalone 800 mg tablet 800 mg PO QHS PRN muscle spa sm #30 09/17/22 05/13/25 tabs B-complex with vitamin C 1 tab PO DAILY 08/19/2312/29 inhalational spacing device #1 ea 11/12/23 05/13/25 (Aerochamber MV spacer) metoprolol succinate 25 mg 12.5 mg PO DAILY 07/12/2407/14/24 tablet,extended release 24 hr Held on 09/07/24. Instructions: per cardiology rivaroxaban 20 mg tablet (Xarelto) 20 mg PO DAILY #90 tabs 09/04/24 05/13/25 spironolactone 25 mg tablet 12.5 mg (1/2 x 25 mg) PO D AILY #45 01/16/25 05/13/25 tabs sertraline 25 mg tablet 25 mg PO DAILY #60 tabs 03/0705/13/25 Previous Rx's ?Medication ?Instructions ?Recorded metaxalone 800 mg tablet 800 mg PO QHS PRN muscle spa sm #30 09/17/22 tabs inhalational spacing device #1 ea 11/12/23 (Aerochamber MV spacer) rivaroxaban 20 mg tablet (Xarelto) 20 mg PO DAILY #90 tabs 09/04/24 spironolactone 25 mg tablet 12.5 mg (1/2 x 25 mg) PO D AILY #45 01/16/25 tabs sertraline 25 mg tablet 25 mg PO DAILY #60 tabs 03/07 Allergies Allergy/AdvReac Type Severity Reaction Status Date / Time Iodinated Contrast Media Allergy Severe difficulty Verified 05/13/25 15:44 breathing, and hives erythromycin base Allergy Mild Hives Verified 05/13/25 15:44 (Erythromycin Base) Penicillins Allergy Mild Hives Verified 05/13/25 15:44 sulfamethoxazole (From Allergy Itching, Verified 05/13/25 15:44 Bactrim) bothers stomach trimethoprim (From Bactrim) Allergy Itching, Verified 05/13/25 15:44 bothers stomach lisinopril AdvReac Severe severe dry Verified 05/13/25 15:44 cough, headache metoprolol AdvReac Severe SEVERE H/A Verified 05/13/25 15:44 and DIZZY losartan AdvReac Intermediate Headache Verified 05/13/25 15:44 nitrofurantoin AdvReac Unknown UPSET Verified 05/13/25 15:44 macrocrystalline (From STOMACH Macrodantin) flecainide AdvReac Wide Verified 05/13/25 15:44 complex tachycardia General Stated Complaint: Urinary RICARDO: 3 Exam Const General: cooperative, healthy appearing, comfortable, no acute distress and well developed Nutritional Appearance: average body habitus and well nourished Orientation: alert and oriented x3 Resp Effort & Inspection: normal respiratory effort and able to speak in complete sentences Auscultation: clear to auscultation bilaterally Cardio Rate: regular rate Rhythm: regular rhythm GI Inspection: normal to inspection and no obesity Palpation: soft, not firm, no guarding and nontender Auscultation: normal bowel sounds Back/Spine/Pelvis Back: no CVA tenderness Course Vital Signs Vital signs: Vital Signs Temperature 36.8 C 05/13/25 15:39 Pulse 91 H 05/13/25 15:39 Respiratory Rate 18 05/13/25 15:39 Blood Pressure 134/78 05/13/25 15:39 Pulse Oximetry 97 05/13/25 15:39 Temperature 36.8 C 05/13/25 15:39 Temperature Source Oral 05/13/25 15:39 Pulse 91 H 05/13/25 15:39 Respiratory Rate 18 05/13/25 15:39 Blood Pressure 134/78 05/13/25 15:39 Blood Pressure Position Sitting 05/13/25 15:39 Pulse Oximetry 97 05/13/25 15:39 Oxygen Delivery Method Room Air 05/13/25 15:39 Oxygen Flow Rate 0 05/13/25 15:39 Lab/Test Results Lab/Test Results: Laboratory Tests Range/Units 05/13/25 15:57 Urine Color (Yellow) Yellow Urine Clarity (Clear) Sl Cloudy Urine pH (5-8) 5.5 Ur Specific [place] (1.005-1.025) 1.010 Urine Protein (Neg-Trace) mg/dL Negative Urine Ketones (Negative) mg/dL Negative Urine Blood (Negative) Trace-lysed H Urine Nitrite (Negative) Negative Urine Bilirubin (Negative) Negative Urine Urobilinogen (Up to 0.2) mg/dL 0.2 Ur Leukocyte Esterase (Negative) Small H Urine RBC (0-2) HPF 0-2 Urine WBC (0-5) HPF 5-10 Ur Epithelial Cells (Negative) HPF Rare Urine Crystals (Negative) HPF Negative Urine Bacteria (Negative) HPF Many Urine Casts (Negative) LPF Negative Urine Mucus (Negative) Negative Ur Culture Indicated? No Urine Glucose (Negative) mg/dL Negative Medical Decision Making Ally is a 69-year-old female presents to the emergency department today for evaluation of 3 days of fatigue, generalized abdominal discomfort, diarrhea, and frequency of urination. She reports that she had URI symptoms a week ago (congestion, cough), have been improving since. She does admit that she feels symptoms are related to anxiety about her upcoming pacemaker placement on Wednesday, but wanted to make sure she did not have a UTI. Denies fever/chills, nausea/vomiting, change in p.o. intake, blood in stool. PMH significant for HTN, cardiomyopathy with EF 20%, GERD, and paroxysmal A-fib. She is anticoagulated with Xarelto. Physical exam reassuring. Patient alert and oriented, no acute distress. Moist mucous membranes. Easy work of breathing, lung sounds clear bilaterally. Regular regular rate and rhythm. Abdomen soft, nondistended, nontender to palpation with normoactive bowel sounds. DDx includes was not limited to: UTI, complications associated diarrhea such as dehydration or electrolyte imbalance, viral illness. No red flags concerning for acute surgical abdomen. I independently interpreted the following tests: CBC, BMP, COVID/flu/RSV negative. UA notable for trace leuk esterase, 5-10 white blood cells, and many bacteria. Concerning for UTI. Will treat with fosfomycin x 1. Symptoms most likely attributed to viral gastroenteritis with probable UTI. Reviewed discharge instruction with patient, including importance of follow-up with PCP, symptomatic management, red flags indicating need for return to [facility] care. Quality:SDOH Health Related Social Needs: Health related social needs material hardship lonely/i solated [facility] All Active Problems (Updated 05/13/25 @ 19:34 by Reanna Floyd) Acute UTI (Acute) Diarrhea (Acute) Contracture of left Achilles tendon (Acute) Metatarsalgia of left foot (Acute) Porokeratosis (Acute) Heart failure (Acute) Blood per rectum (Acute) Ingrown toenail (Acute) Viral URI with cough (Acute) Neuroma of second interspace of left foot (Acute) Blood blister (Acute) Pain in left foot (Acute) Cardiomyopathy (Acute) EF 40% echo 07/29/23 Facial rash (Acute) Hammer toe of left foot (Acute) Atrial fibrillation, permanent (Acute) Sacroiliac joint dysfunction of left side (Acute) Lumbosacral spondylosis without myelopathy (Acute) Low back pain (Acute) Bug bite (Acute) Hypertension (Chronic Unknown) Hyperglycemia (Acute) Back pain, lumbosacral (Chronic) Hypertension (Chronic) 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 Rx for Estradiol 1 g vaginally GERD (gastroesophageal reflux disease) (Chronic) Trochanteric bursitis, left hip (Chronic) Obstructive sleep apnea (Chronic) Dysphagia (Chronic) Per pt. every once in a while I'll choke on things Medical History Neuroma Internal derangement of right knee Headache Headache better CT neg Recurrent major depression in partial remission Atrial flutter. 2006. resolved but AFib persisted. Pt. denies this dx Dyspareunia in female since menopause. Frequent UTI since menopause. Atrial flutter s/p ablation 2006. Surgical History S/P cholecystectomy 7/11/15 laproscopic Status post tonsillectomy H/O cardiac catheterization Status post ablation of atrial flutter Family History Mother Personal history of malignant neoplasm Salivary gland Father , 94 Dementia Heart disease COVID Sister Essential hypertension Hyperlipidemia Sister Essential hypertension Hyperlipidemia Sister Essential hypertension Hyperlipidemia Social History Smoking/Tobacco Use Status: Never Second Hand Exposure: Yes Smoking risk assessment performed?: Yes Alcohol Intake: current Alcohol Intake frequency: a few times a week Alcohol type: wine Drug use: Never Substance use type: does not use Counseling given: No Household members: spouse Housing: house Communication Needs: None Do you need help understanding health information?: Never current occupation: retired Pets and animals: No Sexually active: Yes Do you think of yourself as: straight/heterosexual Current gender identity: female What is your relationship status?: How often do you talk on the phone with friends or family?: twice per week How often do you get together with friends or relatives?: once per week How often do you attend oriental orthodox or faith services?: decline to answer Do you belong to any clubs or organized social groups?: no Panel score (0-1 are the most socially isolated patients): 2 What type of physical activity do you participate in: walking Duration: 15-30 minutes/day Frequency: 1-2 times per week Sarahi/Yazidi: No preference Special sarahi needs: No Seatbelt use: always Drive intox or ride w/intox truck driver rubbish collector: No Do you feel safe at home: Yes Do you feel safe in your relationship?: Yes History History 0 Para Hx # Term Pregnancies Multiple births Hx # Pregnancies Ectopic pregnancies AB induced Hx Number of Living Children AB spontaneous
[2025-05-13 17:28] VITALS: BP 171/80; PULSE 67; O2SAT 98
[2025-05-13 18:26] LABS: Abs Immature Grans 0.02 10^3/uL (0.0-0.06); HCT 53.2 % (36.0-46.0); HGB 17.2 g/dL (11.2-15.7); Immature Grans % 0.2 %; MCH 29.0 pg (27.0-33.0); MCHC 32.3 % (32.0-36.0); MCV 90 fL (80-95); MPV 10.8 fL (8.0-11.0); Platelet Count 200 10^3/uL (130-400); RBC 5.94 10^6/uL (3.93-5.22); RDW 12.9 % (11.7-14.6); RDW-SD 42.5 fL; WBC 8.77 10^3/uL (4.4-10.8)
[2025-05-13 18:45] LABS: Anion Gap 8.6 mmol/L (3-11); BUN 17 mg/dL (9-23); CO2 30.4 mmol/L (20.0-31.0); Calcium 9.6 mg/dL (8.3-10.6); Chloride 102 mmol/L (98-107); Glucose 101 mg/dL (74-106); Potassium 4.6 mmol/L (3.5-5.1); Sodium 141 mmol/L (136-145)
[2025-05-13 19:00] LABS: COVID-19 PCR Negative (Negative); RSV PCR Negative (Negative)
[2025-05-13] MEDS: Fosfomycin Tromethamine 3 GM PACKET PO (19:49)
== END 2025-05-13 19:51 | disposition home or self-care (01) ==
PROVIDERS: Emergency Provider Nurse Practitioner Family; PCP Family Medicine
DX: R19.7 Diarrhea, unspecified (principal); N39.0 Urinary tract infection, site not specified; R35.0 Frequency of micturition; Z59.87 Material hardship due to limited financial resources, not elsewhere classified; Z60.8 Other problems related to social environment
CPT/HCPCS: 99283 ×2; 36415; 80048; 87637; 81003; 81015; 85025; J3490

== ENCOUNTER 2025-05-17 09:31 | Outpatient (CLI) | payer MEDICARE, SELFPAY | END 2025-05-17 09:32 | disposition home or self-care (01) | PROVIDERS: PCP Family Medicine; Visit Provider Family Medicine | DX: J06.9 Acute upper respiratory infection, unspecified (principal) | CPT/HCPCS: 36415; 83516 ==

== ENCOUNTER 2025-05-23 10:00 | Outpatient (RCR) | payer MEDICARE, SELFPAY | END 2025-06-06 23:59 | disposition home or self-care (01) | LOC: CR 10:00 | PROVIDERS: PCP Family Medicine; Visit Provider Internal Medicine Cardiovascular Disease | DX: I50.23 Acute on chronic systolic (congestive) heart failure (principal); Z51.89 Encounter for other specified aftercare | CPT/HCPCS: S9472 ==

== ENCOUNTER 2025-05-27 10:43 | Emergency (ER) | payer MEDICARE, SELFPAY ==
[2025-05-27 10:54] VITALS: BP 120/79; PULSE 70; RESP 16; TEMP 36.4; O2SAT 97
[2025-05-27 11:01] VITALS: BP 120/79; PULSE 70; RESP 16; TEMP 36.4; O2SAT 97
[2025-05-27 11:43] LABS: Glucose Negative (Negative)
[2025-05-27 11:50] LABS: C & S Indicated? No; RBC 0-2 HPF (0-2)
[2025-05-27 12:30] VITALS: BP 111/81; PULSE 89; O2SAT 99
--- NOTE | 2025-05-27 13:03 | DI.CT_ITS ---
Exam(s) CT ABDOMEN PELVIS WO EXAM: CT ABDOMEN PELVIS WO CLINICAL HISTORY: LLQ and LUQ pain. TECHNIQUE: Imaging Protocol: Axial computed tomography images with coronal and sagittal reformatted images were created and reviewed. COMPARISON: There are no priors for comparison. FINDINGS: ABDOMEN: Lung Bases: Cardiomegaly. There is a 4 mm nodule in the left lower lobe (series 7, image 6). Liver: Normal density. No measurable mass. Gallbladder and biliary tract: No radiodense calculus or biliary ductal dilation. Pancreas: Normal density, no abnormal calcifications or inflammatory process. Spleen: Normal. Kidneys: Normal size, contour and axis.No radiodense stones or obstructive uropathy. No masses seen. Adrenal glands: No mass is seen. Lymph nodes: Within normal limits. Abdominal Aorta: Abdominal portion non-dilated. Atherosclerotic calcification is present. PELVIS: Bladder:Symmetric distention, no gross wall thickening. Bowel: No obstruction or bowel wall thickening. Appendix is unremarkable. Peritoneal cavity: No ascites, collection or mesenteric inflammatory response. No free air. Reproductive organs: Unremarkable as visualized. Bones: Within normal limits. Soft Tissues: Within normal limits. IMPRESSION: 1. There is no acute abdominal or pelvic process. 2. 4 mm left lower lobe pulmonary nodule. Solid nodules smaller than 6 mm do not require routine follow-up in all patients with high clinical risk; however, some nodules smaller than 6 mm with suspicious morphology, upper lobe location, or both may warrant follow-up at 12 months (grade 2A; weak recommendation, high-quality evidence). (Scott et al., 2017) Single solid noncalcified nodules. ???Solid nodules smaller than 6 mm (those 5 mm or smaller) do not require routine follow-up in patients at low risk (grade 1C; strong recommendation, low- or [id number] evidence). (Brehoyanely et al., 2017) 3. There is no evidence of nephrolithiasis or hydronephrosis. 4. Cardiomegaly. 5. The preliminary [facility] report was reviewed. RADIATION DOSE DELIVERED: 642.36mGy.cm Total DLP DATA REPOSITORY: All CT scans at this facility are submitted to the National Radiology Data Registry (NRDR) Dose Index Registry (DIR) with the [employer] (ACR). RADIATION OPTIMIZATION: All CT scans at this facility use at least one of these dose optimization techniques: automated exposure control; mA and/or kV adjustment per patient size (includes targeted exams where dose is matched to clinical indication); or iterative reconstruction.
[2025-05-27 13:45] LABS: Abs Immature Grans 0.01 10^3/uL (0.0-0.06); HCT 49.8 % (36.0-46.0); HGB 16.1 g/dL (11.2-15.7); Immature Grans % 0.1 %; MCH 29.0 pg (27.0-33.0); MCHC 32.3 % (32.0-36.0); MCV 90 fL (80-95); MPV 10.2 fL (8.0-11.0); Platelet Count 226 10^3/uL (130-400); RBC 5.56 10^6/uL (3.93-5.22); RDW 12.6 % (11.7-14.6); RDW-SD 41.5 fL; WBC 7.48 10^3/uL (4.4-10.8)
[2025-05-27 14:00] LABS: Lipase 31 U/L (<53)
[2025-05-27 14:02] LABS: ALT 16 U/L (10-49); AST 26 U/L (<34); Albumin 5.0 g/dL (3.2-5.0); Alkaline Phosphatase 108 U/L (46-116); Anion Gap 8.5 mmol/L (3-11); BUN 15 mg/dL (9-23); Bilirubin, Total 0.7 mg/dL (0.2-1.2); CO2 30.5 mmol/L (20.0-31.0); Calcium 9.6 mg/dL (8.3-10.6); Chloride 102 mmol/L (98-107); Glucose 97 mg/dL (74-106); Potassium 4.8 mmol/L (3.5-5.1); Sodium 141 mmol/L (136-145); Total Protein 8.2 g/dL (5.7-8.2)
--- NOTE | 2025-05-27 15:09 | DI.[facility]_ITS ---
PROCEDURE INFORMATION: Exam: CT Abdomen And Pelvis Without Contrast Exam date and time: 05/27/2025 2:03 PM Age: 69 years old Clinical indication: Other: Llq and luq pain TECHNIQUE: Imaging protocol: Computed tomography of the abdomen and pelvis without contrast. COMPARISON: US RENAL PELVIC TRANSVAGINAL 09/18/2020 2:04 PM FINDINGS: Moderate to severe cardiomegaly Liver: Normal. No mass. Gallbladder and biliary ducts: Normal. No calcified stones. No ductal dilation. Pancreas: Normal. No ductal dilation. Spleen: Normal. No splenomegaly. Adrenal glands: Normal. No mass. Kidneys and ureters: Right renal scarring No hydronephrosis. Stomach and bowel: Unremarkable. No obstruction. No mucosal thickening. Appendix: No evidence of appendicitis. Intraperitoneal space: Unremarkable. No free air. No significant fluid collection. Vasculature: Unremarkable. No abdominal aortic aneurysm. Lymph nodes: Unremarkable. No enlarged lymph nodes. Urinary bladder: Unremarkable as visualized. Reproductive: Unremarkable as visualized. Bones/joints: Unremarkable. No acute fracture. Soft tissues: Tiny fat containing periumbilical hernia IMPRESSION: No acute findings. Moderate to severe cardiomegaly Dictated and Authenticated by: Andrew Lebron MD. Orderin Seble Eagle MD
--- NOTE | 2025-05-27 19:13 | ED.GENADUL_ITS ---
Discharge Plan Disposition Patient Disposition: Home Condition: Stable Discharge Details Clinical Impression: Dysuria, Increased stool volume Primary Care Provider: Andre Braun ED Provider: Shagufta Pruett Home Meds and New Rx's Prescriptions: Continued B-complex with vitamin C Tablet 1 tab PO DAILY (DME) Aerochamber MV Spacer See Rx Instructions .Route Qty: 1 0RF Rx Instructions: As directed doxepin [Silenor] 3 mg tablet 3 mg PO QHS PRN (Reason: sleep) Qty: 30 0RF cholecalciferol (vitamin D3) 75 mcg (3,000 unit) tablet 75 mcg PO DAILY magnesium oxide 500 mg capsule 500 mg PO DAILY Patient Comments: Pt takes 1/2 tab bid.HE metaxalone 800 mg tablet 800 mg PO QHS PRN (Reason: muscle spasm) Qty: 30 1RF metoprolol succinate 25 mg tablet extended release 24 hr 12.5 mg PO DAILY Patient Comments: per [facility] [place] [facility] [place]. Miranda heart failure team, 07/06/24/ Xarelto 20 mg tablet 20 mg PO DAILY Qty: 90 3RF Rx Instructions: must administer with evening meal spironolactone 25 mg tablet 12.5 mg PO DAILY Qty: 45 3RF Discharge Instructions Instructions: Dysuria (ED) Additional Instructions: Recommend starting MiraLAX and taking it regularly for the next several days until you have a decent bowel movement Start either taking acidophilus or probiotic pill at home You may also supplement yogurt 2 times daily with live active cultures Prunes, Metamucil We will notify you if your urine culture is positive, at this time your urinalysis is quite reassuring and I have low suspicion that this is a urinary tract infection Please follow-up with your PCP next week for recheck and return earlier should you have new or worsening complaints Stand Alone Forms: Portal Information Discharge Data Discharge Date/Time-TO BE ENTERED AT DEPARTURE: 05/27/25 15:47 HPI General Date/Time Provider Initiated Documentation: 05/27/25 11:23 . HPI Narrative: This 69-year-old female presents with abdominal cramping and some mild distention. She has had some urinary frequency as well. She has had some intermittent diarrhea. She states has also had some decreased bowel movements. She states her symptoms all started with diarrhea a few weeks ago and she was treated with antibiotics. Since that time she has not had formed or regular stool. She denies any chest pain or shortness of breath. She has any dizziness or weakness but denies any nausea or vomiting. Denies any flank pain. Denies any blood in stool Related Data Home Medications ?Medication ?Instructions ?Recorded ?Confirmed magnesium oxide 500 mg capsule 500 mg PO DAILY 0 05/17/25 cholecalciferol (vitamin D3) 75 75 mcg PO DAILY 05/17/25 mcg (3,000 unit) tablet metaxalone 800 mg tablet 800 mg PO QHS PRN muscle spa sm #30 09/17/22 05/17/25 tabs B-complex with vitamin C 1 tab PO DAILY 08/19/2305/07 inhalational spacing device #1 ea 11/12/23 05/17/25 (Aerochamber MV spacer) metoprolol succinate 25 mg 12.5 mg PO DAILY 07/12/24 1 07/18/24 tablet,extended release 24 hr rivaroxaban 20 mg tablet (Xarelto) 20 mg PO DAILY #90 tabs 09/04/24 05/17/25 spironolactone 25 mg tablet 12.5 mg (1/2 x 25 mg) PO D AILY #45 01/16/25 05/17/25 tabs doxepin 3 mg tablet (Silenor) 3 mg PO QHS PRN sleep #3 0 tabs 05/17/25 05/17/25 Previous Rx's ?Medication ?Instructions ?Recorded metaxalone 800 mg tablet 800 mg PO QHS PRN muscle spa sm #30 09/17/22 tabs inhalational spacing device #1 ea 11/12/23 (Aerochamber MV spacer) rivaroxaban 20 mg tablet (Xarelto) 20 mg PO DAILY #90 tabs 09/04/24 spironolactone 25 mg tablet 12.5 mg (1/2 x 25 mg) PO D AILY #45 01/16/25 tabs doxepin 3 mg tablet (Silenor) 3 mg PO QHS PRN sleep #3 0 tabs 05/17/25 Allergies Allergy/AdvReac Type Severity Reaction Status Date / Time Iodinated Contrast Media Allergy Severe difficulty Verified 05/27/25 11:00 breathing, and hives erythromycin base Allergy Mild Hives Verified 05/27/25 11:00 (Erythromycin Base) Penicillins Allergy Mild Hives Verified 05/27/25 11:00 sulfamethoxazole (From Allergy Itching, Verified 05/27/25 11:00 Bactrim) bothers stomach trimethoprim (From Bactrim) Allergy Itching, Verified 05/27/25 11:00 bothers stomach lisinopril AdvReac Severe severe dry Verified 05/27/25 11:00 cough, headache metoprolol AdvReac Severe SEVERE H/A Verified 05/27/25 11:00 and DIZZY losartan AdvReac Intermediate Headache Verified 05/27/25 11:00 nitrofurantoin AdvReac Unknown UPSET Verified 05/27/25 11:00 macrocrystalline (From STOMACH Macrodantin) flecainide AdvReac Wide Verified 05/27/25 11:00 complex tachycardia General Stated Complaint: Urinary RICARDO: 4 Exam Narrative Exam Narrative: Alert and oriented to 69-year-old female in no acute distress tenderness with palpation in the suprapubic region no CVA tenderness neurovascularly intact Course Vital Signs Vital signs: Vital Signs Temperature 36.4 C L 05/27/25 10:54 Pulse 70 05/27/25 10:54 Respiratory Rate 16 05/27/25 10:54 Blood Pressure 120/79 05/27/25 10:54 Pulse Oximetry 97 05/27/25 10:54 Temperature 36.4 C L 05/27/25 11:01 Temperature Source Oral 05/27/25 11:01 Pulse 89 05/27/25 12:30 Respiratory Rate 16 05/27/25 11:01 Blood Pressure 111/81 05/27/25 12:30 Blood Pressure Mean 91 05/27/25 12:30 Blood Pressure Position Sitting 05/27/25 11:01 Pulse Oximetry 99 05/27/25 12:30 Oxygen Delivery Method Room Air 05/27/25 12:30 Oxygen Flow Rate 0 05/27/25 12:30 Pain Level 5 05/27/25 11:01 Lab/Test Results Lab/Test Results: 05/27/25 11:36 Urine - Voided Urine Culture - Pending Laboratory Tests Range/Units 05/27/25 05/27/25 11:36 13:28 WBC (4.4-10.8) 10^3/uL 7.48 RBC (3.93-5.22) 10^6/uL 5.56 H Hgb (11.2-15.7) g/dL 16.1 H Hct (36.0-46.0) % 49.8 H MCV (80-95) fL 90 MCH (27.0-33.0) pg 29.0 MCHC (32.0-36.0) % 32.3 RDW (11.7-14.6) % 12.6 Plt Count (130-400) 10^3/uL 226 MPV (8.0-11.0) fL 10.2 Immature Gran % % 0.1 Neutrophils % % 73.8 Lymphocytes % % 16.0 Monocytes % % 8.4 Eosinophils % % 1.2 Basophils % % 0.5 Nucleated RBC % (0.0-0.3) % 0.0 Absolute Neutrophils (1.2-6.7) 10^3/uL 5.51 Absolute Lymphocytes (1.2-3.4) 10^3/uL 1.20 Absolute Monocytes (0.1-0.8) 10^3/uL 0.63 Absolute Eosinophils (0.0-0.7) 10^3/uL 0.09 Absolute Basophils (0.0-0.2) 10^3/uL 0.04 Sodium (136-145) mmol/L 141 Potassium (3.5-5.1) mmol/L 4.8 Chloride (98-107) mmol/L 102 Carbon Dioxide (20.0-31.0) mmol/L 30.5 Anion Gap (3-11) mmol/L 8.5 BUN (9-23) mg/dL 15 Creatinine (0.55-1.02) mg/dL 0.84 Est GFR (CKD-EPI 2020) (mL/min/1.73m2) 66.89 Glucose (74-106) mg/dL 97 Calcium (8.3-10.6) mg/dL 9.6 Total Bilirubin (0.2-1.2) mg/dL 0.7 AST (<34) U/L 26 ALT (10-49) U/L 16 Alkaline Phosphatase (46-116) U/L 108 Total Protein (5.7-8.2) g/dL 8.2 Albumin (3.2-5.0) g/dL 5.0 Lipase (<53) U/L 31 Urine Color (Yellow) Yellow Urine Clarity (Clear) Clear Urine pH (5-8) 5.5 Ur Specific Rush (1.005-1.025) 1.015 Urine Protein (Neg-Trace) mg/dL Negative Urine Ketones (Negative) mg/dL Negative Urine Blood (Negative) Trace-intact H Urine Nitrite (Negative) Negative Urine Bilirubin (Negative) Negative Urine Urobilinogen (Up to 0.2) mg/dL 0.2 Ur Leukocyte Esterase (Negative) Trace H Urine RBC (0-2) HPF 0-2 Urine WBC (0-5) HPF 5-10 Ur Epithelial Cells (Negative) HPF Few Urine Crystals (Negative) HPF Negative Urine Bacteria (Negative) HPF Few Urine Casts (Negative) LPF Negative Urine Mucus (Negative) Negative Ur Culture Indicated? No Urine Glucose (Negative) mg/dL Negative Medical Decision Making Results: CT abdomen and pelvis does not show acute abnormality CBC without significant acute abnormality mild elevation in hemoglobin and hematocrit although decreased from 2 weeks ago urinalysis shows trace leukocyte esterase with few bacteria and 5-10 white blood cells, I will send this for culture. There is moderate stool volume in the lower colon, per radiology interpretation my review Assessment and plan: Patient presenting with recurrent dysuria and abdominal distention with gassy sensation. Tests are reassuring. There is increased stool volume so we will encourage MiraLAX, prunes, Metamucil, and probiotic. Recheck with primary care physician this week. Return precautions reviewed. Pending urine culture will hold on any antibiotic administration at the. Nontoxic in appearance at time of discharge home. Of note patient does have cardiomegaly she has known cardiomyopathy and this is likely unchanged and she is asymptomatic with this finding on her CT scan. Quality:[facility] Health Related Social Needs: Health related social needs material hardship lonely/i solated [facility] All Active Problems (Updated 05/27/25 @ 15:39 by JERMAINE Lizarraga) Increased stool volume (Acute) Dysuria (Acute) Anxiety (Chronic) Diarrhea (Acute) Contracture of left Achilles tendon (Acute) Metatarsalgia of left foot (Acute) Porokeratosis (Acute) Heart failure (Acute) Blood per rectum (Acute) Ingrown toenail (Acute) Viral URI with cough (Acute) Neuroma of second interspace of left foot (Acute) Blood blister (Acute) Pain in left foot (Acute) Cardiomyopathy (Acute) EF 40% echo 07/29/23 Facial rash (Acute) Hammer toe of left foot (Acute) Atrial fibrillation, permanent (Acute) Sacroiliac joint dysfunction of left side (Acute) Lumbosacral spondylosis without myelopathy (Acute) Low back pain (Acute) Bug bite (Acute) Hypertension (Chronic Unknown) Hyperglycemia (Acute) Back pain, lumbosacral (Chronic) Hypertension (Chronic) 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 Rx for Estradiol 1 g vaginally GERD (gastroesophageal reflux disease) (Chronic) Trochanteric bursitis, left hip (Chronic) Obstructive sleep apnea (Chronic) Dysphagia (Chronic) Per pt. every once in a while I'll choke on things Medical History Neuroma Internal derangement of right knee Headache Headache better CT neg Recurrent major depression in partial remission Atrial flutter. 2006. resolved but AFib persisted. Pt. denies this dx Dyspareunia in female since menopause. Frequent UTI since menopause. Atrial flutter s/p ablation 2006. Surgical History S/P cholecystectomy 12/15/14 laproscopic Status post tonsillectomy H/O cardiac catheterization Status post ablation of atrial flutter Family History Mother Personal history of malignant neoplasm Salivary gland Father , 94 Dementia Heart disease COVID Sister Essential hypertension Hyperlipidemia Sister Essential hypertension Hyperlipidemia Sister Essential hypertension Hyperlipidemia Social History Smoking/Tobacco Use Status: Never Second Hand Exposure: Yes Smoking risk assessment performed?: Yes Alcohol Intake: current Alcohol Intake frequency: a few times a week Alcohol type: wine Drug use: Never Substance use type: does not use Counseling given: No Household members: spouse Housing: house Communication Needs: None Do you need help understanding health information?: Never current occupation: retired Pets and animals: No Sexually active: Yes Do you think of yourself as: straight/heterosexual Current gender identity: female What is your relationship status?: How often do you talk on the phone with friends or family?: twice per week How often do you get together with friends or relatives?: once per week How often do you attend jehovah's witness or jehovah's witness services?: decline to answer Do you belong to any clubs or organized social groups?: no Panel score (0-1 are the most socially isolated patients): 2 What type of physical activity do you participate in: walking Duration: 15-30 minutes/day Frequency: 1-2 times per week Sarahi/Gnosticist: No preference Special sarahi needs: No Seatbelt use: always Drive intox or ride w/intox shuttle bus driver: No Do you feel safe at home: Yes Do you feel safe in your relationship?: Yes History History 0 Para Hx # Term Pregnancies Multiple births Hx # Pregnancies Ectopic pregnancies AB induced Hx Number of Living Children AB spontaneous
--- NOTE | 2025-05-28 09:30 | ED.FU.B_ITS ---
Date of service: 05/28/25 Time of Service: 09:30 Follow Up Plan: Telephone call made to the patient, she reports that she is feeling fatigued. Discussed that her urine is growing E. coli. Discussed antibiotics. A prescription for fosfomycin was sent to the pharmacy on file. [facility] in [facility].
--- NOTE | 2025-05-28 10:58 | NUR.NOTE ---
Accessed chart to obtain primary care doctor for prior auth formNursing Note:
--- NOTE | 2025-05-29 09:20 | W.ED.FU ---
Date of service: 05/29/25 Time of Service: 09:20 Follow Up Plan: Patient was seen in the emergency department 2 days ago. She was diagnosed with dysuria. She received a callback yesterday in setting of an E. coli positive urine culture for which a prescription for fosfomycin was sent to her pharmacy. Her E. coli was sensitive to nitrofurantoin. Will continue to observe on oral antibiotics.
== END 2025-05-27 15:47 | disposition home or self-care (01) ==
PROVIDERS: Emergency Provider Physician Assistant; PCP Family Medicine
DX: R30.0 Dysuria (principal); R19.4 Change in bowel habit
CPT/HCPCS: 99283; 99284; 36415; 80053; 83690; 87077; 74176; 81003; 81015; 85025; 87086; 87186